=== PATIENT | male | born 1945 | race Caucasian/White ===

== ENCOUNTER 2017-02-20 11:03 | Inpatient (IN) | payer OTHER, BC ==
[2017-02-20 11:22] VITALS: BMI 19.8
[2017-02-20] MEDS ORDERED: DEXTROSE 5%-0.45% SALINE 1,000 ML IV SCH ×2 (11:30→18:29)
[2017-02-20] MEDS ORDERED: LORazepam 1 MG TABLET PO ONE (11:53)
[2017-02-20 11:54] LABS: BASOPHIL 0.5 % (0-2.0); EOSINOPHIL 0.9 % (0-4.5); MCH 28.6 pg (25.7-33.7); MCHC 33.3 g/dl (32.0-35.9); MEAN PLT VOLUME 7.2 fl (7.5-11.1); NEUTROPHILS 79.8 % (42.8-82.8); PLATELET COUNT 393 K/MM3 (134-434); RDW 14.5 % (11.9-15.9); WHITE BLOOD COUNT 8.9 K/mm3 (4.0-10.0)
[2017-02-20] MEDS ORDERED: LORazepam 0.5 MG TABLET ONE (11:57)
[2017-02-20] MEDS ORDERED: CARBIDOPA/LEVODOPA 25/100 TABLET (FP) ONE (11:58)
--- NOTE | 2017-02-20 11:58 | PDOC ---
History of Present Illness - General Chief Complaint: Injury Stated Complaint: FALL Time Seen by Provider: 02/20/17 11:18 History Source: Patient Exam Limitations: No Limitations - History of Present Illness Initial Comments: 02/20/17 11:46 71-year-old male with history of severe Parkinson's, CAD with cardiac stent presents status post mechanical fall. Patient states was walking the kitchen to get something to drink when he lost his balance causing him to fall backwards striking the cabinet and then the ground with his blood tox, back and head. Patient sustained a laceration and when EMS arrived they did do a BGM which was noted to be at 42 so had started D10 in transit. Patient has no complaints of chest pain, visual changes, headache palpitations, difficulty breathing, or nausea. Patient does state decreased appetite and laceration to his back of his head Occurred: reports: just prior to arrival Severity: reports: moderate Pain Location: reports: head Method of Injury: Yes: fall Modifying Factors: improves with: None Loss of Consciousness: no loss of consciousness Associated Symptoms (Fall): denies symptoms Past History - Travel Traveled outside of the country in the last 30 days: No Close contact w/someone who was outside of country & ill: No - Past Medical History Allergies/Adverse Reactions: Allergies Allergy/AdvReac Type Severity Reaction Status Date / Time No Known Allergies Allergy Verified 02/20/17 11:19 Home Medications: Ambulatory Orders Rasagiline Mesylate [Azilect] 1 mg PO DAILY 05/20/12 Amitriptyline HCl [Elavil -] 25 mg PO HS #0 tablet 05/26/12 Aspirin [ASA -] 325 mg PO DAILY #0 tablet 05/26/12 Atorvastatin Calcium [Lipitor] 10 mg PO DAILY #0 tablet 05/26/12 Carbidopa/Levodopa [Carbidopa-Levo 25-100 Tab] 2 each PO 5XD #0 tablet 05/26/12 Clonazepam 0.5 mg PO BID #0 tab.rapdis 05/26/12 Clopidogrel Bisulfate [Plavix -] 75 mg PO DAILY #0 tablet 05/26/12 Tamsulosin HCl 0.4 mg PO DAILY #0 cap.er.24h 05/26/12 Cardiac Disorders: Yes Other medical history: parkinson - Surgical History Abdominal Surgery: Yes (Inguinal hernia repair) Cardiac Surgery: Yes (bypass with 2 stents) - Immunization History Immunization Up to Date: Yes - Psycho/Social/Smoking Cessation Hx Suicidal Ideation: No Smoking Status: No Smoking History: Never smoked Have you smoked in the past 12 months: No Number of Cigarettes Smoked Daily: 0 Information on smoking cessation initiated: No Hx Alcohol Use: No Drug/Substance Use Hx: No Substance Use Type: Alcohol Hx Substance Use Treatment: No Patient Lives Alone: Yes Lives with/in: lives alone Review of Systems - Review of Systems Able to Perform ROS?: Yes Constitutional: No: Symptoms Reported HEENTM: No: Symptoms Reported Respiratory: No: Symptoms reported Cardiac (ROS): No: Symptoms Reported ABD/GI: No: Symptoms Reported : No: Symptoms Reported Musculoskeletal: No: Symptoms Reported Integumentary: No: Symptoms Reported Neurological: No: Numbness, Weakness, Dizziness Endocrine: No: Symptoms Reported Hematologic/Lymphatic: No: Symptoms Reported *Physical Exam - Vital Signs Last Vital Signs Temp Pulse Resp BP Pulse Ox 98.2 F 66 20 125/64 100 02/20/17 11:16 02/20/17 11:16 02/20/17 11:16 02/20/17 11:02/20/17 11:16 - Physical Exam General Appearance: Yes: Nourished, Appropriately Dressed. No: Apparent Distress HEENT: positive: EOMI, MITCHEL, TMs Normal, Pharynx Normal. negative: Pale Conjunctivae Neck: positive: Supple Respiratory/Chest: positive: Lungs Clear, Normal Breath Sounds. negative: Respiratory Distress, Accessory Muscle Use Cardiovascular: positive: Regular Rhythm, Regular Rate. negative: Murmur Gastrointestinal/Abdominal: positive: Soft. negative: Tenderness Musculoskeletal: negative: CVA Tenderness Extremity: positive: Normal Capillary Refill. negative: Pedal Edema Integumentary: positive: Normal Color, Dry, Warm, Other (2 cm vertical linear laceration to occipital region. Surrounding skin intact) Neurologic: positive: Normal Mood/Affect, Motor Strength 5/5 (ambulatory) Deep Tendon Reflexes: Knee (L): 2+, Knee (R): 2+ Procedures - Laceration/Wound Repair Head Wound Length: to 2.5 cm Wound's Depth, Shape: linear Irrigated w/ Saline: Yes Betadine Prep: Yes Wound Repaired With: Harrold (3) Heart Score/ECG Review - History History: Slightly suspicious - Electrocardiogram EKG: Normal - Age Age: >/= 65 - Risk Factors Based on the list above the patient has:: 1-2 risk factors - Troponin Troponin: </= normal limit - Score Heart Score - Total: 3 - ECG Intrepretation Rhythm: Regular Rhythm (normal sinus rhythm rate 70. No ST elevation, depression , or flipped T waves) - ECG Impressions Normal ECG: Yes ED Treatment Course - LABORATORY CBC & Chemistry Diagram: 02/20/17 11:30 02/20/17 11:30 - RADIOLOGY Radiology Studies Ordered: Category Date Time Status CERVICAL SPINE CT W/O CONTR [CT] Stat CT Scan 02/20/17 11:[address] WITHOUT CONTRAST [CT] Stat CT Scan 02/20/17 11:19 Ordered CHEST X-RAY PORTABLE* [RAD] Stat Radiology 02/20/17 11:19 Ordered Medical Decision Making - Medical Decision Making 02/20/17 12:33 Patient status post mechanical fall while in the kitchen , now with laceration to occipital region. Repeat bgm after 100cc of D10 was 76. Pt ordered for d5 1/ 2 ns at 100cc/ hr. Pt also ordered for head ct, cervical ct, Tdap, cardiac w/u and will discuss case with Dr. Boo, pt's PMD. Pt with severe parkinsons despite sinemet. Pt's gait, adls and speech are affected due to parkinsons. 02/20/17 14:06 CT shows no acute intracranial hemorrhage, edema, midline shift, mass effect or skull fracture. Cervical CT shows no gross fracture or subluxation. Chest x-ray negative for acute findings. 02/20/17 14:07 Laboratory Tests 02/20/17 02/20/17 02/20/17 11:30 11:30 11:45 WBC 8.9 Hgb 14.5 Hct 43.6 RDW 14.5 MPV 7.2 L Neutrophils % 79.8 VBG pH 7.40 POC VBG pCO2 54.9 H POC VBG pO2 20.8 L Mixed VBG HCO3 33.1 H Sodium 143 Potassium 4.5 Chloride 104 Carbon Dioxide 32 Anion Gap 7 L BUN 26 H Creatinine 1.2 Random Glucose 80 Calcium 8.8 Magnesium 2.2 Total Bilirubin 0.8 D AST 13 L D ALT 9 L D Alkaline Phosphatase 53 Creatine Kinase 48 Troponin I < 0.[address] Boo patient's PCP. 02/20/17 14:[address] Boo and states admit patient to the hospitalist service. Laceration repair will be done with alberto. 02/20/17 15:[address] Carrion and accepted to telemetry observation status 02/20/17 15:48 Laboratory Tests 02/20/17 02/20/17 02/20/17 11:30 11:30 11:45 WBC 8.9 Hgb 14.5 Hct 43.6 Plt Count 393 MPV 7.2 L Neutrophils % 79.8 Lymphocytes % 13.6 D Monocytes % 5.2 Eosinophils % 0.9 Basophils % 0.5 POC VBG pCO2 54.9 H POC VBG pO2 20.8 L Mixed VBG HCO3 33.1 H Sodium 143 Potassium 4.5 Chloride 104 Carbon Dioxide 32 Creatinine 1.2 Random Glucose 80 Calcium 8.8 Magnesium 2.2 Total Bilirubin 0.8 D AST 13 L D ALT 9 L D Troponin I < 0.02 Urine Ketones Urine Bilirubin Ur Leukocyte Esterase 02/20/17 14:33 WBC Hgb Hct Plt Count MPV Neutrophils % Lymphocytes % Monocytes % Eosinophils % Basophils % POC VBG pCO2 POC VBG pO2 Mixed VBG HCO3 Sodium Potassium Chloride Carbon Dioxide Creatinine Random Glucose Calcium Magnesium Total Bilirubin AST ALT Troponin I Urine Ketones Negative Urine Bilirubin Negative Ur Leukocyte Esterase Negative 02/20/17 16:[address] 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 Patient has been upgraded to inpatient telemetry *DC/Admit/Observation/Transfer Diagnosis at time of Disposition: Weakness, Poor appetite, Hypoglycemia Head injury Qualifiers: Qualified Code(s): S09.90XA - Unspecified injury of head, initial encounter - Discharge Dispostion Admit: Yes - Referrals
[2017-02-20 11:59] LABS: VENOUS BLOOD GAS HCO3 33.1 meq/L (19-25); VENOUS PH 7.4 (7.32-7.42)
[2017-02-20 12:19] LABS: ANION GAP 7 (8-16); BILIRUBIN,TOTAL 0.8 mg/dL (0.2-1.0); CALCIUM 8.8 mg/dL (8.5-10.1); CO2 32 mmol/L (21-32); CREATININE 1.2 mg/dL (0.7-1.3); GLUCOSE,RANDOM 80 mg/dL (74-106); MAGNESIUM 2.2 mg/dL (1.8-2.4); SGOT/AST 13 U/L (15-37); SGPT/ALT 9 U/L (12-78); TOT PROT 6.6 g/dl (6.4-8.2)
[2017-02-20 12:21] LABS: ALK PHOS 53 U/L (45-117); CPK 48 IU/L (39-308); TROPONIN I < 0.02 ng/ml (0.00-0.05)
[2017-02-20 15:07] LABS: PH,URINE 7.5 (5.0-8.0); URINE APPEARANCE CLEAR; URINE BILIRUBIN NEGATIVE (NEGATIVE); URINE BLOOD NEGATIVE (NEGATIVE); URINE COLOR LT. YELLOW; URINE GLUCOSE (UA) NEGATIVE (NEGATIVE); URINE KETONE NEGATIVE (NEGATIVE); URINE LEUK ESTERASE NEGATIVE (NEGATIVE); URINE NITRITE NEGATIVE (NEGATIVE); URINE PROTEIN NEGATIVE (NEGATIVE); URINE UROBILINOGEN 0.2 mg/dL (0.2-1.0)
--- NOTE | 2017-02-20 17:55 | HP ---
Admitting History and Physical - Primary Care Physician PCP: Ricki Medina - Admission Chief Complaint: hypoglycemia, s/p fall, progressive weakness History of Present Illness: HPI This 71 year old male with pmhx of severe Parkinson's, CAD with cardiac stent presented by EMS s/p post mechanical fall. The patient states he was walking to the kitchen to get a glass of water and he lost his balance falling to the floor. He did hit his head and his brother found him. EMS arrived BGM was 42 and he was given D 10. Upon evaluation in the ED the patient denies blurry vision, chest pain, head ache, sob or palpitations. On telemetry he had a burst of SVT to 120's, asymptomatic. Further more, pt is essential with 24 hour care, between 2 aids and his brother. He sometimes uses his cane and will eat or lie about eating. I discussed at length with patient regarding importance of communication and listening to which both brothers agreed, additionally, the pt will need a walker and not use a cane for additional stability. 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 Cardiovascular: Yes: CAD (stents), Hyperlipdemia - Past Surgical History Past Surgical History: Yes: Stent - Advance Directives Advance Directives: Yes: Health Care Proxy (brother- alexander) - Smoking History Smoking history: Never smoked Have you smoked in the past 12 months: No Aproximately how many cigarettes per day: 0 - Alcohol/Substance Use Hx Alcohol Use: No History of Substance Use: reports: None - Social History Usual Living Arrangement: Yes: With Parent, Other (with brother) ADL: Support Services History of Recent Travel: No Home Medications - Allergies Allergies/Adverse Reactions: Allergies Allergy/AdvReac Type Severity Reaction Status Date / Time No Known Allergies Allergy Verified 02/20/17 11:19 - Home Medications Home Medications: Ambulatory Orders Amitriptyline HCl [Elavil -] 25 mg PO HS #0 tablet 05/26/12 Atorvastatin Calcium [Lipitor] 10 mg PO DAILY #0 tablet 05/26/12 Carbidopa/Levodopa [Carbidopa-Levo 25-100 Tab] 2 each PO 5XD #0 tablet 05/26/12 Tamsulosin HCl 0.4 mg PO DAILY #0 cap.er.24h 05/26/12 Amitriptyline HCl [Elavil -] 25 mg PO HS #30 tablet 02/23/17 Aspirin [ASA -] 325 mg PO DAILY #30 tablet 02/23/17 Atorvastatin Ca [Lipitor] 10 mg PO HS #30 tablet 02/23/17 Carbidopa/Levodopa 25/100 [Sinemet 25/100 -] 2 each PO 5XD #300 tablet 02/23/17 Clonazepam 0.5 mg PO BID #60 tab MDD 2 02/23/17 Clopidogrel Bisulfate [Plavix -] 75 mg PO DAILY #30 tab 02/23/17 Rasagiline Mesylate [Azilect] 1 mg PO DAILY #30 tab 02/23/17 Tamsulosin HCl [Flomax -] 0.4 mg PO DAILY@0830 #30 tab 02/23/17 Review of Systems - Review of Systems Constitutional: reports: Weakness Eyes: reports: No Symptoms HENT: reports: No Symptoms Neck: reports: No Symptoms Cardiovascular: reports: No Symptoms Respiratory: reports: No Symptoms Gastrointestinal: reports: No Symptoms Genitourinary: reports: No Symptoms Musculoskeletal: reports: No Symptoms Integumentary: reports: No Symptoms Neurological: reports: Pre-Existing Deficit (parkinsons) Endocrine: reports: No Symptoms Hematology/Lymphatic: reports: No Symptoms Psychiatric: reports: No Symptoms Physical Examination Vital Signs: Vital Signs Temperature 98.2 F 02/20/17 16:09 Pulse Rate 89 02/20/17 16:09 Respiratory Rate 20 02/20/17 16:09 Blood Pressure 142/88 02/20/17 16:09 O2 Sat by Pulse Oximetry (%) 100 02/20/17 16:09 Constitutional: Yes: No Distress Eyes: Yes: Conjunctiva Clear HENT: Yes: Other (posterior head laceration) Neck: Yes: Supple Cardiovascular: Yes: Bradycardia, S1, S2 Respiratory: Yes: Regular, CTA Bilaterally Gastrointestinal: Yes: Normal Bowel Sounds, Soft Renal/: Yes: WNL Musculoskeletal: Yes: Muscle Weakness Edema: No Integumentary: Yes: Laceration Neurological: Yes: Alert, Oriented, Cran Nerves II-XII Intact, Pre-Existing Deficit, Unsteady Gait, Weakness Psychiatric: Yes: Alert, Oriented Imaging - Results Chest X-ray: Report Reviewed, Image Reviewed Cat Scan: Report Reviewed (CT HEAD- no bleeding, shift, hemorrhage CT cervical spine- no fracture, nerve impingment) Problem List - Problems (1) Head injury Code(s): S09.90XA - UNSPECIFIED INJURY OF HEAD, INITIAL ENCOUNTER Qualifiers: Encounter type: initial encounter Qualified Code(s): S09.90XA - Unspecified injury of head, initial encounter (2) Hypoglycemia Code(s): E16.2 - HYPOGLYCEMIA, UNSPECIFIED (3) Weakness Code(s): R53.1 - WEAKNESS (4) Parkinson disease Code(s): G20 - PARKINSON'S DISEASE (5) Paroxysmal SVT (supraventricular tachycardia) Code(s): I47.1 - SUPRAVENTRICULAR TACHYCARDIA Assessment/Plan Assessment: 71 year old male with severe parkinson's and HLD admitted s/p fall Plan: 1. s/p fall - Repeat head CT per AM eval, pt does not take plavix anymore - No signs of AMS nor confusion at this time 2. Burst of SVT - Telemetry monitoring - Assembling Machine Operator Dr. Mckeon to see - Hold ASA for now 3. Parkinson's, severe - Carbidopa/levodopa 2 tabs 5x/day - Elavil 25mg HS 4. Social - I discussed at length with patient regarding importance of communication and listening to which both brothers agreed, additionally, the pt will need a walker and not use a cane for additional stability. - PT eval - Dietary eval 5. Hypoglycemia - Monitor sugars BID AC - Complete 1L d5 1/2 NS tonight 6. BPH - Flomax daily 7. DVT ppx - Hold systemic AC for now - SCDs Visit type - Emergency Visit Emergency Visit: Yes ED Registration Date: 02/20/17 Care time: The patient presented to the Emergency Department on the above date and was hospitalized for further evaluation of their emergent condition. - New Patient This patient is new to me today: Yes Date on this admission: 02/26/17 - Critical Care Critical Care patient: No
--- NOTE | 2017-02-20 18:43 | CONS ---
DATE OF CONSULTATION: 02/20/2017 TIME OF CONSULTATION: 5:05 p.m. REQUESTING PHYSICIAN: Hospitalist . CARDIOLOGY CONSULTATION LOCATION: Emergency room. HISTORY OF PRESENT ILLNESS: The patient is a 71-year-old white gentleman with history of coronary artery disease, status post PCI/stenting, advanced parkinsonism. Patient was brought to the hospital because he lost his balance and fell, causing laceration of the scalp requiring ablerto. There is a question of abnormality on his electrocardiogram and may have had a short burst of arrhythmia, type uncertain. On questioning, he denies having chest pain or discomfort. There is no history of pain involving the jaw or back. There is no history of dyspnea either at rest or with exertion, no paroxysmal nocturnal dyspnea or orthopnea reported. Denies having hypertension, diabetes mellitus. History of hypercholesterolemia. Patient is also known to have BPH. PAST HISTORY: As mentioned in the history of present illness. SURGICAL HISTORY: Status post left herniorrhaphy. SOCIAL HISTORY: Single. Is invalid because of parkinsonism. No history of smoking reported. No history of excessive use of alcohol. FAMILY HISTORY: Father had heart disease and congestive heart failure. Mother is still alive at 104 and cognitive changes. Has a brother and a sister who apparently are health. ALLERGIES: None recorded. MEDICATION: According to his brother, he is on the following medications: 1. Carbidopa/levodopa 25/250 mg t.i.d. 2. Aspirin 81 mg p.o. daily. 3. Patient had been on Plavix and Lipitor, he discontinued against medical advice. REVIEW OF SYSTEMS: Constitutional: No history of having chills, fever, or night sweats reported. History of weight loss according to his brother, probably related. HEENT: No history of headaches, diplopia, blurred vision. History of hoarseness, apparently had surgical procedure for removal of tumor. No history of tinnitus, or deafness. Cardiovascular: See history of present illness. No history of recent chest pain or discomfort. Respiratory: No history of cough, expectoration or hemoptysis. No history of tuberculosis. Gastrointestinal: No history of nausea, vomiting, melena or hematemesis reported. No history of abdominal pain or discomfort. History of intermittent constipation. Central nervous system: See history of present illness. No history of seizures or syncope. Musculoskeletal: No history of any myalgias or arthralgias. Endocrine: No history of polyuria, polydipsia. No history of intolerance to cold or warm weather. Hematological: No history of bleeding, ecchymosis, or anemia. Genitourinary: History of BPH and symptoms of prostatism, significant nocturia. No history of hematuria. PHYSICAL EXAMINATION: General: A 71-year-old gentleman who has significant physical disability, there is no pallor, cyanosis, clubbing, or jaundice. Vital signs: Blood pressure February 20, 2017, 1609 hours, 142/88 mmHg. Pulse 89 beats per minute and regular. Respirations 20 per minute. Temperature 98.2 degrees Fahrenheit. Neck: Slightly restricted motion, no jugulovenous distention, hepatojugular reflex was negative, carotids were 1 to 2+, no bruits heard, and no thyromegaly was present. Heart: No heaves or thrills. S1 and S2 were normal. No murmur or gallops were heard. Lungs: Clear on auscultation. Abdomen: Soft, nontender. No hepatosplenomegaly or palpable masses were felt. No bruits were heard, and bowel sounds were present. Extremities: No calf tenderness or dependent edema. Pulses were equal, dorsalis pedis and posterior tibial pulses only. LABORATORY DATA: CBC: WBC count was 8900, hemoglobin was 14.5 g, hematocrit was 43.6%, platelet count was 393,000. Normal differential. Chemistry: sodium 143, potassium 4.5, chloride 104, CO2 of 32 mmol/L, BUN 26, creatinine 1.2 mg/dL. Glucose was 80 mg/dL. Magnesium was 2.2 mg/dL. Liver function tests were normal. Troponins were less than 0.02. X-ray chest, impression: No evidence of active pulmonary disease. ECG, poor quality due to tremors. Rhythm appears to be sinus, low voltage in limb leads, slow R wave progression V1 to V3, nonspecific ST changes. IMPRESSION: 1. History of fall causing scalp laceration. 2. Advanced parkinsonism. 3. Coronary artery disease, status post percutaneous coronary intervention/stenting, stable angina pectoris. 4. History of hypercholesterolemia. RECOMMENDATION: 1. Follow up ECG and enzymes. 2. Lipid profile and consider the institution of atorvastatin. 3. Increased ambulation. 4. Physical therapy. 5. Echocardiogram. Thank you for your referral. Yolanda [id number]
[2017-02-20] MEDS: AMITRIPTYLINE HCL 25 MG TABLET (FP) PO SCH (22:27)
[2017-02-20] MEDS: ATORVASTATIN CA 10 MG TABLET (FP) PO SCH (22:27)
[2017-02-20] MEDS: CARBIDOPA/LEVODOPA 25/100 TABLET (FP) PO SCH (22:27)
[2017-02-21] MEDS ORDERED: ACETAMINOPHEN 325 MG TABLET (FP) PO ONE (03:53)
[2017-02-21] MEDS: CARBIDOPA/LEVODOPA 25/100 TABLET (FP) PO SCH ×5 (05:55→21:05)
[2017-02-21 07:47] LABS: BASOPHIL 0.5 % (0-2.0); EOSINOPHIL 2.4 % (0-4.5); MCH 28.2 pg (25.7-33.7); MEAN CELL VOLUME 85.4 fl (80-96); MEAN PLT VOLUME 7.6 fl (7.5-11.1); NEUTROPHILS 72.9 % (42.8-82.8); PLATELET COUNT 385 K/MM3 (134-434); RDW 14.4 % (11.9-15.9); WHITE BLOOD COUNT 7.2 K/mm3 (4.0-10.0)
[2017-02-21 08:12] LABS: ALBUMIN 3.7 g/dl (3.4-5.0); ANION GAP 8 (8-16); CALCIUM 8.8 mg/dL (8.5-10.1); CO2 28 mmol/L (21-32); GLUCOSE,RANDOM 80 mg/dL (74-106); MAGNESIUM 2.3 mg/dL (1.8-2.4); PHOSPHOROUS 2.9 mg/dL (2.5-4.9); SGOT/AST 15 U/L (15-37); SGPT/ALT 8 U/L (12-78); TOT PROT 6.3 g/dl (6.4-8.2)
[2017-02-21 08:15] LABS: ALK PHOS 53 U/L (45-117); CPK 91 IU/L (39-308); TROPONIN I < 0.02 ng/ml (0.00-0.05)
[2017-02-21] MEDS: TAMSULOSIN HCL 0.4 MG CAP.ER.24H (FP) PO SCH (11:07)
--- NOTE | 2017-02-21 12:08 | EKG ---
Test Reason : Blood Pressure : / mmHG Vent. Rate : 059 BPM Atrial Rate : 059 BPM P-R Int : 184 ms QRS Dur : 096 ms QT Int : 408 ms P-R-T Axes : 044 051 070 degrees QTc Int : 403 ms SINUS BRADYCARDIA BASELINE ARTIFACTS. OTHERWISE NORMAL ECG WHEN COMPARED WITH ECG OF 20-FEB-2017 12:01, SLOW R WAVE PROGRESSION IN V1-V3 IS AGAIN NOTED Confirmed by SUNDEEP LOPEZ MD ([id number]) on 02/21/2017 12:08:45 PM Referred By: Ashish KUO Confirmed By:SUNDEEP LOPEZ MD
--- NOTE | 2017-02-21 13:29 | EKG ---
Test Reason : Blood Pressure : / mmHG Vent. Rate : 070 BPM Atrial Rate : 070 BPM P-R Int : 150 ms QRS Dur : 092 ms QT Int : 384 ms P-R-T Axes : 000 047 069 degrees QTc Int : 414 ms POOR DATA QUALITY, INTERPRETATION MAY BE ADVERSELY AFFECTED RHYTHM IS UNCERTAIN DUE TO BASELINE ARTIFACTS CANNOT RULE OUT ANTERIOR INFARCT (CITED ON OR BEFORE 20-FEB-2017) ABNORMAL ECG WHEN COMPARED WITH ECG OF 20-FEB-2017 11:22, PREVIOUS EKG MOST LIKELY HAS LEAD MISPLACEMENT. CONSIDER FOLLOW TRACING AND CLINICAL CORRELATION Confirmed by USNDEEP LOPEZ MD ([id number]) on 02/21/2017 1:29:13 PM Referred By: Confirmed By:SUNDEEP LOPEZ MD
--- NOTE | 2017-02-21 13:37 | EKG ---
Test Reason : Blood Pressure : / mmHG Vent. Rate : 060 BPM Atrial Rate : 060 BPM P-R Int : 136 ms QRS Dur : 082 ms QT Int : 392 ms P-R-T Axes : 000 035 188 degrees QTc Int : 392 ms .BASELINE ARTIFACTS NORMAL SINUS RHYTHM ANTEROSEPTAL INFARCT , AGE UNDETERMINED ABNORMAL ECG WHEN COMPARED WITH ECG OF 16-AUG-2015 08:35, T WAVE INVERSION NOW EVIDENT IN ANTEROLATERAL LEADS FOLLOW UP TRACING IS RECOMMENDED Confirmed by SUNDEEP LOPEZ MD ([id number]) on 02/21/2017 1:36:32 PM Referred By: Confirmed By:SUNDEEP LOPEZ MD
--- NOTE | 2017-02-21 16:21 | DS ---
Physical Exam: SUBJECTIVE: Patient seen and examined OBJECTIVE: Vital Signs Period Temp Pulse Resp BP Sys/Ordoñez Pulse Ox Last 24 Hr 97.2 F-98.6 F 49-82 16-20 129-147/63-89 99-100 PHYSICAL EXAM GENERAL: The patient is awake, alert, and fully oriented, in no acute distress. HEAD: Normal with no signs of trauma. EYES: PERRL, extraocular movements intact, sclera anicteric, conjunctiva clear. ENT: Ears normal, nares patent, oropharynx clear without exudates, moist mucous membranes. NECK: Trachea midline, full range of motion, supple. LUNGS: Breath sounds equal, clear to auscultation bilaterally, no wheezes, no crackles, no accessory muscle use. HEART: Regular rate and rhythm, S1, S2 without murmur, rub or gallop. ABDOMEN: Soft, nontender, nondistended, normoactive bowel sounds, no guarding, no rebound, no hepatosplenomegaly, no masses. EXTREMITIES: 2+ pulses, warm, well-perfused, no edema. NEUROLOGICAL: Cranial nerves II through XII grossly intact. Normal speech, gait not observed. PSYCH: Normal mood, normal affect. SKIN: Warm, dry, normal turgor, no rashes or lesions noted. LABS Laboratory Results - last 24 hr 02/20/17 02/20/17 02/21/17 20:02 22:35 06:00 WBC 7.2 RBC 5.27 Hgb 14.8 Hct 45.0 MCV 85.4 MCH 28.2 MCHC 33.0 RDW 14.4 Plt Count 385 MPV 7.6 Neutrophils % 72.9 Lymphocytes % 16.3 Monocytes % 7.9 Eosinophils % 2.4 D Basophils % 0.5 Sodium Potassium Chloride Carbon Dioxide Anion Gap BUN Creatinine Creat Clearance w eGFR POC Glucometer [id number] 92 Random Glucose Calcium Phosphorus Magnesium Total Bilirubin AST ALT Alkaline Phosphatase Creatine Kinase Troponin I Total Protein Albumin 02/21/17 06:00 WBC RBC Hgb Hct MCV MCH MCHC RDW Plt Count MPV Neutrophils % Lymphocytes % Monocytes % Eosinophils % Basophils % Sodium 142 Potassium 4.3 Chloride 106 Carbon Dioxide 28 Anion Gap 8 BUN 20 H D Creatinine 1.0 Creat Clearance w eGFR > 60 POC Glucometer Random Glucose 80 Calcium 8.8 Phosphorus 2.9 Magnesium 2.3 Total Bilirubin 1.0 D AST 15 ALT 8 L Alkaline Phosphatase 53 Creatine Kinase 91 Troponin I < 0.02 Total Protein 6.3 L Albumin 3.7 HOSPITAL COURSE: Date of Admission:02/20/17 Date of Discharge: 02/21/17 One month scripts for all home meds sent Discharge Summary Reason For Visit: INJURY OF HEAD Current Active Problems Head injury (Acute) Hypoglycemia (Acute) Parkinson disease (Acute) Paroxysmal SVT (supraventricular tachycardia) (Acute) Poor appetite (Acute) Weakness (Acute) Condition: Improved - Instructions Diet, Activity, Other Instructions: Please be sure to followup with your mine motor operator, Dr. Mckeon, within 1-2 weeks of your discharge for further cardiac evaluation. Return to the emergency department for any new or worsening symptoms. Referrals: Ricki Medina MD [Staff Physician] - Gus Mckeon MD [Staff Physician] - 1 Week Disposition: HOME - Home Medications Comprehensive Discharge Medication List: Ambulatory Orders Rasagiline Mesylate [Azilect] 1 mg PO DAILY 05/20/12 Amitriptyline HCl [Elavil -] 25 mg PO HS #0 tablet 05/26/12 Aspirin [ASA -] 325 mg PO DAILY #0 tablet 05/26/12 Atorvastatin Calcium [Lipitor] 10 mg PO DAILY #0 tablet 05/26/12 Carbidopa/Levodopa [Carbidopa-Levo 25-100 Tab] 2 each PO 5XD #0 tablet 05/26/12 Clonazepam 0.5 mg PO BID #0 tab.rapdis 05/26/12 Clopidogrel Bisulfate [Plavix -] 75 mg PO DAILY #0 tablet 05/26/12 Tamsulosin HCl 0.4 mg PO DAILY #0 cap.er.24h 05/26/12
--- NOTE | 2017-02-21 16:27 | PN ---
Progress Note (short form) - Note Progress Note: 71 year old male with h/o CAD,s/p PCI/stenting,hypercholesterolemia, parkisonism.Admitted with h/o a fall causing a scalp laceration and was stapled. No h/o chest pain or discomfort,no SOB,PND or orthopnea.Tolerating his medications. Active Medications Amitriptyline HCl (Elavil -) 25 mg PO HS [facility] Last Admin: 02/20/17 22:27 Dose: 25 mg Atorvastatin Calcium (Lipitor -) 10 mg PO HS [facility] Last Admin: 02/20/17 22:27 Dose: 10 mg Carbidopa/Levodopa (Sinemet 25/100 -) 2 each PO 5XD [facility] Last Admin: 02/21/17 13:58 Dose: 2 each Tamsulosin HCl (Flomax -) 0.4 mg PO DAILY@0830 [facility] Last Admin: 02/21/17 11:07 Dose: 0.4 mg 71 year old male in no distress except for generalised stiffness.No pallor, cyanosis,clubbing or jaundice. Vital Signs - 8 hr 02/21/17 08:05 Temperature 97.8 F Pulse Rate 56 L Respiratory 20 Rate Blood Pressure 131/64 O2 Sat by Pulse 100 Oximetry (%) NECK:Resticted motion,noJVD,carotids 2+, nobruits. HEART:PMI in the 5th ICS,no heaves or thrills.S1 and S2 are normal,no murmur or gallops heard. LUNGS:Clear on auscultation, EXTREMITIES:No calf tenderness,no dependent edema. CBC, BMP 02/21/17 06:00 02/21/17 06:00 A: 1.CAD,s/p PCI/stenting,stable angina pectoris. 2.parkinson's disease. 3.Hypercholesterolemia. 4.Recent fall witout loss of consciousness. 5.Scalp laceration Recommendations: 1.continue therapy. 2.PT. 3.Out patient office f/u.
[2017-02-21] MEDS: AMITRIPTYLINE HCL 25 MG TABLET (FP) PO SCH (21:05)
[2017-02-21] MEDS: ATORVASTATIN CA 10 MG TABLET (FP) PO SCH (21:05)
[2017-02-22 05:17] VITALS: TEMP 98.1
[2017-02-22] MEDS: CARBIDOPA/LEVODOPA 25/100 TABLET (FP) PO SCH ×2 (05:17→09:00)
[2017-02-22 08:12] VITALS: BP 116/69; PULSE 85
[2017-02-22] MEDS: TAMSULOSIN HCL 0.4 MG CAP.ER.24H (FP) PO SCH (08:58)
== END 2017-02-22 10:36 | disposition home or self-care (01) | DRG 914 ==
LOC: JER 11:03 → JERBED 15:47 → OBSVTOIN 16:40 → J4W 21:20
PROVIDERS: ADMIT Internal Medicine; ATTEND Nurse Practitioner Acute Care
PROC: 0HQ0XZZ Repair Scalp Skin, External Approach (ICD-10-PCS; principal; 2017-02-20)
DX: S09.8XXA Other specified injuries of head, initial encounter (principal); I47.1 Supraventricular tachycardia; Z68.1 Body mass index [BMI] 19.9 or less, adult; S01.01XA Laceration without foreign body of scalp, initial encounter; S01.119A Laceration without foreign body of unspecified eyelid and periocular area, initial encounter; I25.10 Atherosclerotic heart disease of native coronary artery without angina pectoris; G20 Parkinson's disease; E78.5 Hyperlipidemia, unspecified; R53.1 Weakness; N40.0 Benign prostatic hyperplasia without lower urinary tract symptoms; F50.89 Other specified eating disorder; E16.1 Other hypoglycemia; W18.09XA Striking against other object with subsequent fall, initial encounter; Y92.098 Other place in other non-institutional residence as the place of occurrence of the external cause; Z95.5 Presence of coronary angioplasty implant and graft
CPT/HCPCS: 36415; 70450-TC; 71010-TC; 72125-TC; 80053; 81003; 82803; 83735; 84100; 84484; 85025; 87086; 93005; 93010; 99283-25; G0378

== ENCOUNTER 2017-03-04 11:29 | Inpatient (IN) | payer OTHER, BC ==
[2017-03-04 11:59] VITALS: BMI 18.2
[2017-03-04 12:59] LABS: BASOPHIL 0.5 % (0-2.0); EOSINOPHIL 0.9 % (0-4.5); MCH 28.4 pg (25.7-33.7); MCHC 33.1 g/dl (32.0-35.9); MEAN CELL VOLUME 85.8 fl (80-96); MEAN PLT VOLUME 6.9 fl (7.5-11.1); NEUTROPHILS 77.7 % (42.8-82.8); PLATELET COUNT 461 K/MM3 (134-434); RDW 14.2 % (11.9-15.9); WHITE BLOOD COUNT 8.7 K/mm3 (4.0-10.0)
[2017-03-04 13:23] LABS: ALBUMIN 3.5 g/dl (3.4-5.0); ALK PHOS 72 U/L (45-117); ANION GAP 5 (8-16); BILIRUBIN,TOTAL 0.5 mg/dL (0.2-1.0); CALCIUM 8.9 mg/dL (8.5-10.1); CO2 31 mmol/L (21-32); CREATININE 1.1 mg/dL (0.7-1.3); GLUCOSE,RANDOM 89 mg/dL (74-106); SGOT/AST 14 U/L (15-37); SGPT/ALT 8 U/L (12-78); TOT PROT 6.5 g/dl (6.4-8.2)
[2017-03-04 13:25] LABS: CPK 60 IU/L (39-308); TROPONIN I < 0.02 ng/ml (0.00-0.05)
[2017-03-04 13:32] LABS: INR 1.11 (0.82-1.09); PROTHROMBIN TIME (PATIENT) 12.2 SEC (9.98-11.88)
[2017-03-04 13:35] LABS: ACTIVATED PTT 32.4 SECONDS (26.9-34.4)
--- NOTE | 2017-03-04 14:23 | PDOC ---
History of Present Illness <Aurora Lal - Last Filed: 03/04/17 14:36> - History of Present Illness Initial Comments: 03/04/17 14:15 "The patient is a 71 year old male, with a significant past medical history of Parkinson's disease, CAD w 2 stents (~11 yrs ago), who was BIBA to the emergency department complaining of chest tightness. Patients brother states that patient experienced chest tightness around 10:30 this morning. The patient is not currently experiencing any chest pain. Patients brother noted that patient has right lower extremity swelling. Patients brother states patient was in the ER 2 weeks ago for a fall and had to receive alberto in his head. He denies any recent fevers, chills, headache or dizziness. He denies any recent nausea, vomit, diarrhea or constipation. He denies any recent shortness of breath. He denies any recent dysuria, frequency, urgency or hematuria. Allergies: NKA Past surgical history: None reported. Primary Care Physician: Ricki Medina" <Donte Coon - Last Filed: 03/04/17 15:10> - General Chief Complaint: Chest Pain Stated Complaint: CHEST PAIN Time Seen by Provider: 03/04/17 12:00 Past History <Aurora Lal - Last Filed: 03/04/17 14:36> - Past Medical History Cardiac Disorders: Yes - Surgical History Abdominal Surgery: Yes (Inguinal hernia repair) Cardiac Surgery: Yes (bypass with 2 stents) - Immunization History Immunization Up to Date: Yes - Psycho/Social/Smoking Cessation Hx Anxiety: No Suicidal Ideation: No Smoking Status: No Smoking History: Never smoked Have you smoked in the past 12 months: No Number of Cigarettes Smoked Daily: 0 Information on smoking cessation initiated: No Hx Alcohol Use: No Drug/Substance Use Hx: No Substance Use Type: None Hx Substance Use Treatment: No <Donte Coon - Last Filed: 03/04/17 15:10> - Past Medical History Allergies/Adverse Reactions: Allergies Allergy/AdvReac Type Severity Reaction Status Date / Time No Known Allergies Allergy Verified 02/20/17 11:19 Home Medications: Ambulatory Orders Aspirin [ASA -] 325 mg PO DAILY #30 tablet 02/23/17 Atorvastatin Ca [Lipitor] 10 mg PO HS #30 tablet 02/23/17 Carbidopa/Levodopa 25/100 [Sinemet 25/100 -] 2 each PO 5XD #300 tablet 02/23/17 Clonazepam 0.5 mg PO BID #60 tab MDD 2 02/23/17 Clopidogrel Bisulfate [Plavix -] 75 mg PO DAILY #30 tab 02/23/17 Rasagiline Mesylate [Azilect] 1 mg PO DAILY #30 tab 02/23/17 Tamsulosin HCl [Flomax -] 0.4 mg PO DAILY@0830 #30 tab 02/23/17 Review of Systems - Review of Systems Comments:: 03/04/17 14:23 "GENERAL/CONSTITUTIONAL: No fever or chills. No weakness. HEAD, EYES, EARS, NOSE AND THROAT: No change in vision. No ear pain or discharge. No sore throat. CARDIOVASCULAR: +chest pain. No shortness of breath. RESPIRATORY: No cough, wheezing, or hemoptysis. GASTROINTESTINAL: No nausea, vomiting, diarrhea or constipation. GENITOURINARY: No dysuria, frequency, or change in urination MUSCULOSKELETAL: + right lower extremity edema. No joint or muscle swelling or pain. No neck or back pain. SKIN: No rash NEUROLOGIC: No headache, vertigo, loss of consciousness, or change in strength/ sensation. ENDOCRINE: No increased thirst. No abnormal weight change. HEMATOLOGIC/LYMPHATIC: No anemia, easy bleeding, or history of blood clots. ALLERGIC/IMMUNOLOGIC: No hives or skin allergy." <Donte Coon - Last Filed: 03/04/17 15:10> *Physical Exam - Vital Signs Last Vital Signs Temp Pulse Resp BP Pulse Ox 98.2 F 66 16 112/64 100 03/04/17 11:48 03/04/17 11:48 03/04/17 11:48 03/04/17 11:48 03/04/17 11:48 <Aurora Lal - Last Filed: 03/04/17 14:36> - Vital Signs Last Vital Signs Temp Pulse Resp BP Pulse Ox 98.2 F 66 16 112/64 100 03/04/17 11:48 03/04/17 11:48 03/04/17 11:48 03/04/17 11:48 03/04/17 11:48 - Physical Exam Comments: 03/04/17 14:24 "GENERAL: Awake, alert, and fully oriented, in no acute distress HEAD: No signs of trauma EYES: PERRLA, EOMI, sclera anicteric, conjunctiva clear ENT: Auricles normal inspection, hearing grossly normal, nares patent, oropharynx clear without exudates. Moist mucosa NECK: Normal ROM, supple, no lymphadenopathy, JVD, or masses LUNGS: Breath sounds equal, clear to auscultation bilaterally. No wheezes, and no crackles HEART: Regular rate and rhythm, normal S1 and S2, no murmurs, rubs or gallops ABDOMEN: Soft, nontender, normoactive bowel sounds. No guarding, no rebound. No masses EXTREMITIES: Normal range of motion, no edema. No clubbing or cyanosis. No cords, erythema, or tenderness NEUROLOGICAL: Cranial nerves II through XII grossly intact. Normal speech, normal gait SKIN: Warm, Dry, normal turgor, no rashes or lesions noted. " <ShaggyDonte - Last Filed: 03/04/17 15:10> Heart Score/ECG Review - ECG Impressions Comment:: 03/04/17 14:35 NORMAL SINUS RHYTHM NORMAL ECG WHEN COMPARED WITH ECG OF 21-FEB-2017 10:22, NO SIGNIFICANT CHANGE WAS FOUND <Aurora Lal - Last Filed: 03/04/17 14:36> - History History: Moderately suspicious - Electrocardiogram EKG: Normal - Age Age: >/= 65 - Risk Factors Risk Factors Heart Score: Yes Hx Hypercholesterolemia, Yes Hx Hypertension, Yes Positive family hx of cardiac disease Based on the list above the patient has:: >/=3 risk factors or Hx atherosclerotic disease - Troponin Troponin: </= normal limit - Score Heart Score - Total: 5 - ECG Impressions Comment:: 03/04/17 14:59 NSr, no ALINA/STDs, no TWIs, intervals wnl, axis wnl <Corry Coonan - Last Filed: 03/04/17 15:10> ED Treatment Course - LABORATORY CBC & Chemistry Diagram: 03/04/17 12:45 03/04/17 12:45 - ADDITIONAL ORDERS Additional order review: Laboratory Results 03/04/17 03/04/17 03/04/17 12:45 12:45 12:45 INR 1.11 PTT (Actin FS) 32.4 D-Dimer Sodium 140 Potassium 5.0 Chloride 104 Carbon Dioxide 31 Anion Gap 5 L BUN 24 H Creatinine 1.1 Creat Clearance w eGFR > 60 Random Glucose 89 Calcium 8.9 Total Bilirubin 0.5 D AST 14 L ALT 8 L Alkaline Phosphatase 72 D Creatine Kinase Troponin I B-Natriuretic Peptide Total Protein 6.5 Albumin 3.5 Blood Type A POSITIVE Antibody Screen Negative 03/04/17 03/04/17 12:45 12:45 INR PTT (Actin FS) D-Dimer 202 Sodium Potassium Chloride Carbon Dioxide Anion Gap BUN Creatinine Creat Clearance w eGFR Random Glucose Calcium Total Bilirubin AST ALT Alkaline Phosphatase Creatine Kinase 60 Troponin I < 0.02 B-Natriuretic Peptide 100.38 Total Protein Albumin Blood Type Antibody Screen 03/04/17 12:45 RBC 4.86 MCV 85.8 MCHC 33.1 RDW 14.2 MPV 6.9 L Neutrophils % 77.7 Lymphocytes % 12.8 D Monocytes % 8.1 Eosinophils % 0.9 Basophils % 0.5 - RADIOLOGY Radiograph Interpretation: 03/04/17 14:33 Chest X-Ray Impression: No acute pathology or significant change since 02/20/2017 Reported by Ashish Melgoza MD <Aurora Lal - Last Filed: 03/04/17 14:36> - LABORATORY CBC & Chemistry Diagram: 03/04/17 12:45 03/04/17 12:45 - ADDITIONAL ORDERS Additional order review: Laboratory Results 03/04/17 03/04/17 03/04/17 12:45 12:45 12:45 INR 1.11 PTT (Actin FS) 32.4 D-Dimer Sodium 140 Potassium 5.0 Chloride 104 Carbon Dioxide 31 Anion Gap 5 L BUN 24 H Creatinine 1.1 Creat Clearance w eGFR > 60 Random Glucose 89 Calcium 8.9 Total Bilirubin 0.5 D AST 14 L ALT 8 L Alkaline Phosphatase 72 D Creatine Kinase Troponin I B-Natriuretic Peptide Total Protein 6.5 Albumin 3.5 Blood Type A POSITIVE Antibody Screen Negative 03/04/17 03/04/17 12:45 12:45 INR PTT (Actin FS) D-Dimer 202 Sodium Potassium Chloride Carbon Dioxide Anion Gap BUN Creatinine Creat Clearance w eGFR Random Glucose Calcium Total Bilirubin AST ALT Alkaline Phosphatase Creatine Kinase 60 Troponin I < 0.02 B-Natriuretic Peptide 100.38 Total Protein Albumin Blood Type Antibody Screen 03/04/17 12:45 RBC 4.86 MCV 85.8 MCHC 33.1 RDW 14.2 MPV 6.9 L Neutrophils % 77.7 Lymphocytes % 12.8 D Monocytes % 8.1 Eosinophils % 0.9 Basophils % 0.5 - RADIOLOGY Radiology Studies Ordered: Category Date Time Status CHEST X-RAY PORTABLE* [RAD] Stat Radiology 03/04/17 12:39 Completed DUPLEX VASCUL US-2LEGS [US] Stat Ultrasound 03/04/17 13:46 Ordered <Donte Coon - Last Filed: 03/04/17 15:10> Medical Decision Making - Medical Decision Making 03/04/17 14:59 71 M with CAD/stents, parkinsons, presenting with transient midsternal chest pressure. Concerning for ACS given h/o stents. EKG nonischemic. Also consider PE given RLE swelling. - Labs, trop, ddimer - LE dopplers - Consider CTPE if indicated - Admit tele 03/04/17 15:09 Dimer negative, will defer CTPE for now. Trop negative. Admit to tele for ACS rule out. <Donte Coon - Last Filed: 03/04/17 15:10> *DC/Admit/Observation/Transfer - Attestations Scribe Attestion: 03/04/17 14:36 Documentation prepared by Aurora Lal, acting as medical office receptionist for Donte Coon MD. <Aurora Lal - Last Filed: 03/04/17 14:36> - Discharge Dispostion Admit: Yes - Attestations Physician Attestion: 03/04/17 15:10 I, Dr. Donte Coon MD, attest that this document has been prepared under my direction and personally reviewed by me in its entirety. I further attest, that it accurately reflects all work, treatment, procedures and medical decision -making performed by me. <Donte Coon - Last Filed: 03/04/17 15:10> Diagnosis at time of Disposition: Chest pain - Referrals Referrals: Ricki Medina MD [Primary Care Provider] -
--- NOTE | 2017-03-04 16:34 | CON.PULM ---
Consult Consult Specialty:: PULMONARY Referred by:: TIFFANIE Reason for Consultation:: SOB - History of Present Illness Chief Complaint: FALL WITH RIGHT KNEE PAIN/CHEST PAIN/SOB History of Present Illness: " The patient is a 71 year old male, with a significant past medical history of progressive Parkinson's disease, CAD w 2 stents (~11 yrs ago), who was BIBA to the emergency department complaining of chest tightness. Patients brother states that patient experienced chest tightness around 10:30 this morning. The patient is not currently experiencing any chest pain. Patients brother noted that patient has right lower extremity swelling and right knee trauma from a fall. Patients brother states patient was in the ER 2 weeks ago for a fall and had to receive alberto in his head. He denies any recent fevers, chills, headache or dizziness. He denies any recent nausea, vomit, diarrhea or constipation. He denies any recent shortness of breath. He denies any recent dysuria, frequency, urgency or hematuria. 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 No: Alzheimer's, CVA, Dementia, Migraine Cardio/Vascular: Yes: CAD (stents), Hyperlipdemia. No: AFIB Pulmonary: No: Cancer, COPD Gastrointestinal: No: Ascites Hepatobiliary: No: Cirrhosis Renal/: No: Renal Failure Heme/Onc: No: Anemia Infectious Disease: No: AIDS Psych: No: Addictions Musculoskeletal: No: Bursitis Rheumatology: No: Fibromyalgia ENT: No: Allergic Rhinitis Endocrine: No: Diabetes Mellitus - Past Surgical History Past Surgical History: Yes: Stent - Alcohol/Substance Use Hx Alcohol Use: No History of Substance Use: reports: None - Smoking History Smoking history: Never smoked Have you smoked in the past 12 months: No Aproximately how many cigarettes per day: 0 - Social History ADL: Support Services History of Recent Travel: No Home Medications - Allergies Allergies/Adverse Reactions: Allergies Allergy/AdvReac Type Severity Reaction Status Date / Time No Known Allergies Allergy Verified 02/20/17 11:19 - Home Medications Home Medications: Ambulatory Orders Aspirin [ASA -] 325 mg PO DAILY #30 tablet 02/23/17 Atorvastatin Ca [Lipitor] 10 mg PO HS #30 tablet 02/23/17 Carbidopa/Levodopa 25/100 [Sinemet 25/100 -] 2 each PO 5XD #300 tablet 02/23/17 Clonazepam 0.5 mg PO BID #60 tab MDD 2 02/23/17 Clopidogrel Bisulfate [Plavix -] 75 mg PO DAILY #30 tab 02/23/17 Rasagiline Mesylate [Azilect] 1 mg PO DAILY #30 tab 02/23/17 Tamsulosin HCl [Flomax -] 0.4 mg PO DAILY@0830 #30 tab 02/23/17 Family Disease History - Family Disease History Family History: Unremarkable Review of Systems - Review of Systems Constitutional: reports: Lethargy, Loss of Appetite, Weakness. denies: Diaphoresis, Fever Eyes: denies: Double Vision HENT: denies: Difficult Swallowing, Ear Discharge Neck: reports: Decreased ROM Cardiovascular: reports: Chest Pain Respiratory: denies: Cough, SOB, SOB on Exertion Gastrointestinal: denies: Abdominal Pain Genitourinary: denies: Burning Breasts: reports: No Symptoms Reported Musculoskeletal: reports: No Symptoms Physical Exam Vital Sings: Vital Signs Temperature 98.2 F 03/04/17 11:48 Pulse Rate 66 03/04/17 11:48 Respiratory Rate 16 03/04/17 11:48 Blood Pressure 112/64 03/04/17 11:48 O2 Sat by Pulse Oximetry (%) 100 03/04/17 11:48 Constitutional: Yes: Mild Distress, Thin Eyes: Yes: Conjunctiva Clear HENT: Yes: Normocephalic Neck: Yes: Trachea Midline Cardiovascular: Yes: Regular Rate and Rhythm Respiratory: Yes: CTA Bilaterally Gastrointestinal: Yes: Soft Extremities: Yes: Erythema, Other (edema right knee) Integumentary: Yes: WNL Neurological: Yes: Pre-Existing Deficit (progressive parkinsons disease) Psychiatric: Yes: Alert Labs: reviewed Imaging - Results Chest X-ray: Report Reviewed, Image Reviewed EKG: Report Reviewed, Image Reviewed Problem List - Problems (1) Chest pain Code(s): R07.9 - CHEST PAIN, UNSPECIFIED (2) Parkinson disease Code(s): G20 - PARKINSON'S DISEASE (3) Poor appetite Code(s): R63.0 - ANOREXIA (4) Weakness Code(s): R53.1 - WEAKNESS (5) Accidental fall Code(s): W19.XXXA - UNSPECIFIED FALL, INITIAL ENCOUNTER Assessment/Plan neuro eval/aspiration precautions ortho eval for possible right knee hemarthrosis/check xray serial ekg/cycle trops cardiac eval may need snf rehab upon discharge Dora HERNANDEZ MD
--- NOTE | 2017-03-04 16:42 | HP ---
Admitting History and Physical - Primary Care Physician PCP: Ricki Medina - Admission Chief Complaint: chest pain, lower leg tightness, fall History of Present Illness: This 71 year old male with pmhx of severe Parkinson's, CAD with cardiac stent presented with chest pain, lower extremity tightness and fall. Per patient brother pt had completed breakfast when he started yelling. When arrived to pt room he complained of chest pain and abdominal pain. Per patient he does not recall chest pain but lower extremity tightness and wanted to get out of bed. Chest pain is now resolved. Pt brother does endorse pt has good ambulating day and others when he is weak and falls even thought instructed to sit. He has R knee swelling. 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 Cardiovascular: Yes: CAD (stents), Hyperlipdemia Pulmonary: Yes: COPD Hepatobiliary: Yes: Cirrhosis Endocrine: No: Diabetes Mellitus - Past Surgical History Past Surgical History: Yes: Stent - Smoking History Smoking history: Never smoked Have you smoked in the past 12 months: No Aproximately how many cigarettes per day: 0 - Alcohol/Substance Use Hx Alcohol Use: No History of Substance Use: reports: None - Social History Usual Living Arrangement: Yes: With Parent (and brother) ADL: Support Services History of Recent Travel: No Home Medications - Allergies Allergies/Adverse Reactions: Allergies Allergy/AdvReac Type Severity Reaction Status Date / Time No Known Allergies Allergy Verified 02/20/17 11:19 - Home Medications Home Medications: Ambulatory Orders Aspirin [ASA -] 325 mg PO DAILY #30 tablet 02/23/17 Atorvastatin Ca [Lipitor] 10 mg PO HS #30 tablet 02/23/17 Carbidopa/Levodopa 25/100 [Sinemet 25/100 -] 2 each PO 5XD #300 tablet 02/23/17 Clonazepam 0.5 mg PO BID #60 tab MDD 2 02/23/17 Clopidogrel Bisulfate [Plavix -] 75 mg PO DAILY #30 tab 02/23/17 Rasagiline Mesylate [Azilect] 1 mg PO DAILY #30 tab 02/23/17 Tamsulosin HCl [Flomax -] 0.4 mg PO DAILY@0830 #30 tab 02/23/17 Review of Systems - Review of Systems Constitutional: reports: No Symptoms Eyes: reports: No Symptoms HENT: reports: No Symptoms Neck: reports: No Symptoms Cardiovascular: reports: Chest Pain Respiratory: reports: No Symptoms Gastrointestinal: reports: Abdominal Pain Genitourinary: reports: No Symptoms Musculoskeletal: reports: Muscle Weakness (le muscle tightness) Integumentary: reports: Other (posterior head wound - scabbed over) Neurological: reports: Pre-Existing Deficit (severe parkinsons) Endocrine: reports: No Symptoms Hematology/Lymphatic: reports: No Symptoms Psychiatric: reports: No Symptoms Physical Examination Vital Signs: Vital Signs Temperature 98.2 F 03/04/17 11:48 Pulse Rate 66 03/04/17 11:48 Respiratory Rate 16 03/04/17 11:48 Blood Pressure 112/64 03/04/17 11:48 O2 Sat by Pulse Oximetry (%) 100 03/04/17 11:48 Constitutional: Yes: Calm Eyes: Yes: WNL HENT: Yes: WNL Neck: Yes: Supple Cardiovascular: Yes: Regular Rate and Rhythm, S1, S2 Respiratory: Yes: Regular, CTA Bilaterally Gastrointestinal: Yes: Normal Bowel Sounds, Soft Renal/: Yes: WNL Musculoskeletal: Yes: Muscle Weakness Extremities: Yes: Other (R knee swelling) Edema: No Peripheral Pulses WNL: Yes Integumentary: Yes: Laceration (posterior skull tear scabbed) Wound/Incision: Yes: Open to air (posterior) Neurological: Yes: Alert, Oriented, Pre-Existing Deficit, Tremors, Unsteady Gait , Weakness Imaging - Results Chest X-ray: Report Reviewed (no acute pathology), Image Reviewed Ultrasound: Report Reviewed (no evidence of DVT) Assessment/Plan Assessment: 71 year old male with severe Parkinson's and HLD admitted with chest pain and lower leg tightness Plan: 1. 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 Parkinson's, severe - Increased falls - Carbidopa/levodopa 2 tabs 5x/day - Neuro consult 3. R knee swelling - R knee xray - Ortho consult 4. Social - PT would like short term rehab, will discuss with social work 5. BPH - Flomax daily 6. DVT ppx - Heparin BID Visit type - Emergency Visit Emergency Visit: Yes ED Registration Date: 03/05/17 Care time: The patient presented to the Emergency Department on the above date and was hospitalized for further evaluation of their emergent condition. - New Patient This patient is new to me today: No - Critical Care Critical Care patient: No
[2017-03-04] MEDS: CARBIDOPA/LEVODOPA 25/100 TABLET (FP) PO SCH ×3 (16:49→21:36)
--- NOTE | 2017-03-04 18:02 | CON.NEURO ---
Consult - History of Present Illness History of Present Illness: 71 year old male with pmhx of severe Parkinson's, CAD with cardiac stent presented with chest pain, lower extremity tightness and fall. When arrived to pt room he complained of chest pain and abdominal pain. Per patient he does not recall chest pain but lower extremity tightness and wanted to get out of bed. Chest pain is now resolved. lives with mother and grandmother; more immobile , ? over time frame, parkinsons tremor worse LE >UE; has seen Dr Vargas as well as another neuro in [facility] (> one yr --he is not sure); on sinemet 25/100(2) 5x/day --unclear when last adjusted. he admits more difficult to ambulate and speak bc of parkinsons. 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 Cardio/Vascular: Yes: CAD (stents), Hyperlipdemia Pulmonary: Yes: COPD Gastrointestinal: No: Ascites Hepatobiliary: Yes: Cirrhosis Renal/: No: Renal Failure Infectious Disease: No: AIDS Psych: No: Addictions Musculoskeletal: No: Bursitis Rheumatology: No: Fibromyalgia ENT: No: Allergic Rhinitis Endocrine: No: Diabetes Mellitus - Past Surgical History Past Surgical History: Yes: Stent - Alcohol/Substance Use Hx Alcohol Use: No History of Substance Use: reports: None - Smoking History Smoking history: Never smoked Have you smoked in the past 12 months: No Aproximately how many cigarettes per day: 0 - Social History ADL: Support Services History of Recent Travel: No Home Medications - Allergies Allergies/Adverse Reactions: Allergies Allergy/AdvReac Type Severity Reaction Status Date / Time No Known Allergies Allergy Verified 02/20/17 11:19 - Home Medications Home Medications: Ambulatory Orders Aspirin [ASA -] 325 mg PO DAILY #30 tablet 02/23/17 Atorvastatin Ca [Lipitor] 10 mg PO HS #30 tablet 02/23/17 Carbidopa/Levodopa 25/100 [Sinemet 25/100 -] 2 each PO 5XD #300 tablet 02/23/17 Clonazepam 0.5 mg PO BID #60 tab MDD 2 02/23/17 Clopidogrel Bisulfate [Plavix -] 75 mg PO DAILY #30 tab 02/23/17 Rasagiline Mesylate [Azilect] 1 mg PO DAILY #30 tab 02/23/17 Tamsulosin HCl [Flomax -] 0.4 mg PO DAILY@0830 #30 tab 02/23/17 Physical Exam-Neuro Vital Signs: Vital Signs Temperature 98.2 F 03/04/17 11:48 Pulse Rate 66 03/04/17 11:48 Respiratory Rate 16 03/04/17 11:48 Blood Pressure 112/64 03/04/17 11:48 O2 Sat by Pulse Oximetry (%) 100 03/04/17 11:48 Constitutional: Yes: Anxious, Mild Distress Neck: Yes: WNL Labs: INR, PTT INR 1.11 (0.82-1.09) 03/04/17 12:45 CBCD WBC 8.7 K/mm3 (4.0-10.0) 03/04/17 12:45 RBC 4.86 M/mm3 (4.00-5.60) 03/04/17 12:45 Hgb 13.8 GM/dL (11.7-16.9) 03/04/17 12:45 Hct 41.7 % (35.4-49) 03/04/17 12:45 MCV 85.8 fl (80-96) 03/04/17 12:45 MCHC 33.1 g/dl (32.0-35.9) 03/04/17 12:45 RDW 14.2 % (11.9-15.9) 03/04/17 12:45 Plt Count 461 K/MM3 (134-434) H 03/04/17 12:45 MPV 6.9 fl (7.5-11.1) L 03/04/17 12:45 CMP Sodium 140 mmol/L (136-145) 03/04/17 12:45 Potassium 5.0 mmol/L (3.5-5.1) 03/04/17 12:45 Chloride 104 mmol/L (98-107) 03/04/17 12:45 Carbon Dioxide 31 mmol/L (21-32) 03/04/17 12:45 Anion Gap 5 (8-16) L 03/04/17 12:45 BUN 24 mg/dL (7-18) H 03/04/17 12:45 Creatinine 1.1 mg/dL (0.7-1.3) 03/04/17 12:45 Creat Clearance w eGFR > 60 (>60) 03/04/17 12:45 Calcium 8.9 mg/dL (8.5-10.1) 03/04/17 12:45 Total Bilirubin 0.5 mg/dL (0.2-1.0) D 03/04/17 12:45 AST 14 U/L (15-37) L 03/04/17 12:45 ALT 8 U/L (12-78) L 03/04/17 12:45 Alkaline Phosphatase 72 U/L (45-117) D 03/04/17 12:45 Total Protein 6.5 g/dl (6.4-8.2) 03/04/17 12:45 Albumin 3.5 g/dl (3.4-5.0) 03/04/17 12:45 - Neuro Exam Level Of Consciousness: Yes: Alert (awake and alert, stuttering speech ( parkinson), hypomimic, tremor and cogwheeling, LE >>UE, with sig LE dyskinesia, inc tone in LE, slight dystonic posture RUE, reflexes symmetric , gait-unable to ambulate ) Problem List - Problems (1) Parkinson disease Code(s): G20 - PARKINSON'S DISEASE (2) Weakness Code(s): R53.1 - WEAKNESS (3) Accidental fall Code(s): W19.XXXA - UNSPECIFIED FALL, INITIAL ENCOUNTER (4) Gait abnormality Code(s): R26.9 - UNSPECIFIED ABNORMALITIES OF GAIT AND MOBILITY Assessment/Plan 71 year old male with pmhx of severe Parkinson's, CAD with cardiac stent presented with chest pain, lower extremity tightness and fall. progressive dsykinesias and lower body parkinsonism, likely combined sinemet senior care EPS use and primary parkinsonism. on sinemet 25/100(2) 5x/day--unclear when last adjusted. maintain SINEMET 25/100(2) QID add benztropine 1mg TID will consider add on dopaminergic ie requip briefly discussed possibility of DBS though not an acute intervention will likely need rehab placement given level of disability will discuss with primary neuro in AM thanks Dr Gomez
[2017-03-04] MEDS: ATORVASTATIN CA 10 MG TABLET (FP) PO SCH (21:36)
[2017-03-04] MEDS: HEPARIN NA (PORCINE) 5,000 UNITS/ML 1ML VIAL SQ SCH (21:36)
[2017-03-04] MEDS: BENZTROPINE MESYLATE 1 MG TABLET (FP) PO SCH (23:00)
[2017-03-05] MEDS: BENZTROPINE MESYLATE 1 MG TABLET (FP) PO SCH ×3 (06:29→21:47)
[2017-03-05] MEDS: CARBIDOPA/LEVODOPA 25/100 TABLET (FP) PO SCH ×5 (06:29→21:48)
[2017-03-05 07:39] LABS: BASOPHIL 0.5 % (0-2.0); EOSINOPHIL 1.3 % (0-4.5); MCH 28.3 pg (25.7-33.7); MCHC 33.4 g/dl (32.0-35.9); MEAN CELL VOLUME 84.9 fl (80-96); MEAN PLT VOLUME 7.2 fl (7.5-11.1); NEUTROPHILS 74.8 % (42.8-82.8); PLATELET COUNT 455 K/MM3 (134-434); RDW 14.5 % (11.9-15.9); WHITE BLOOD COUNT 8.4 K/mm3 (4.0-10.0)
[2017-03-05 07:58] LABS: ALBUMIN 3.5 g/dl (3.4-5.0); GLUCOSE,RANDOM 79 mg/dL (74-106); SGOT/AST 14 U/L (15-37); SGPT/ALT 8 U/L (12-78)
[2017-03-05 08:01] LABS: ALK PHOS 69 U/L (45-117); ANION GAP 5 (8-16); BILIRUBIN,TOTAL 0.9 mg/dL (0.2-1.0); CALCIUM 8.9 mg/dL (8.5-10.1); CO2 31 mmol/L (21-32); TOT PROT 6.1 g/dl (6.4-8.2)
[2017-03-05] MEDS: TAMSULOSIN HCL 0.4 MG CAP.ER.24H (FP) PO SCH (08:47)
--- NOTE | 2017-03-05 09:02 | CON.ORTH ---
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 Cardio/Vascular: Yes: CAD (stents), Hyperlipdemia Pulmonary: Yes: COPD Gastrointestinal: No: Ascites Hepatobiliary: Yes: Cirrhosis Renal/: No: Renal Failure Infectious Disease: No: AIDS Psych: No: Addictions Musculoskeletal: No: Bursitis Rheumatology: No: Fibromyalgia ENT: No: Allergic Rhinitis Endocrine: No: Diabetes Mellitus - Past Surgical History Past Surgical History: Yes: Stent - Alcohol/Substance Use Hx Alcohol Use: No History of Substance Use: reports: None - Smoking History Smoking history: Never smoked Have you smoked in the past 12 months: No Aproximately how many cigarettes per day: 0 - Social History ADL: Support Services History of Recent Travel: No Home Medications - Allergies Allergies/Adverse Reactions: Allergies Allergy/AdvReac Type Severity Reaction Status Date / Time No Known Allergies Allergy Verified 02/20/17 11:19 - Home Medications Home Medications: Ambulatory Orders Aspirin [ASA -] 325 mg PO DAILY #30 tablet 02/23/17 Atorvastatin Ca [Lipitor] 10 mg PO HS #30 tablet 02/23/17 Carbidopa/Levodopa 25/100 [Sinemet 25/100 -] 2 each PO 5XD #300 tablet 02/23/17 Clonazepam 0.5 mg PO BID #60 tab MDD 2 02/23/17 Clopidogrel Bisulfate [Plavix -] 75 mg PO DAILY #30 tab 02/23/17 Rasagiline Mesylate [Azilect] 1 mg PO DAILY #30 tab 02/23/17 Tamsulosin HCl [Flomax -] 0.4 mg PO DAILY@0830 #30 tab 02/23/17 Physical Exam for Ortho Vital Signs: Vital Signs Temperature 97 F L 03/05/17 06:00 Pulse Rate 77 03/05/17 06:00 Respiratory Rate 20 03/05/17 06:00 Blood Pressure 144/76 03/05/17 06:00 O2 Sat by Pulse Oximetry (%) 98 03/04/17 22:00 Labs: CBC, BMP 03/05/17 05:35 03/05/17 05:35 INR, PTT INR 1.11 (0.82-1.09) 03/04/17 12:45 - Lower Extremity Knee: Yes: Right, Ecchymosis, Hematoma, Swelling, Tenderness, Other (no effusion , + swelling over proximal lateral tibia, ROM 0-110, calf sof, nt, nvi) Imaging - Results X-ray: Report Reviewed, Image Reviewed Assessment/Plan 71 year old male with pmhx of severe Parkinson's, CAD with cardiac stent admitted with chest pain. Had a fall 2 weeks ago in which he injured his right knee. c/o pain however he notes that it has improved since the fall. He is able to ambulate with minimal pain as per patient. Pt also on Plavix. a/p- Right knee contusion PT eval wbat rom exercises will follow d/w Dr. Marte
[2017-03-05] MEDS: ASPIRIN 325 MG TABLET PO SCH (09:14)
[2017-03-05] MEDS: CLOPIDOGREL BISULFATE 75 MG TABLET (FP) PO SCH (09:15)
[2017-03-05] MEDS: HEPARIN NA (PORCINE) 5,000 UNITS/ML 1ML VIAL SQ SCH ×2 (09:15→21:47)
--- NOTE | 2017-03-05 12:16 | PN ---
Progress Note (short form) - Note Progress Note: Resting in NAD on RA. No acute events overnight. No SOB. Intake & Output 03/02/17 03/03/17 03/04/17 03/05/17 23:59 23:59 23:59 23:59 Weight 120 lb Last Vital Signs Temp Pulse Resp BP Pulse Ox 98 F 64 18 110/62 98 03/05/17 10:00 03/05/17 10:00 03/05/17 10:00 03/05/17 10:00 03/05/17 10:00 Active Medications Aspirin (Asa -) 325 mg PO DAILY [facility] Last Admin: 03/05/17 09:14 Dose: 325 mg Atorvastatin Calcium (Lipitor -) 10 mg PO HS [facility] Last Admin: 03/04/17 21:36 Dose: 10 mg Benztropine Mesylate (Cogentin -) 1 mg PO TID [facility] Last Admin: 03/05/17 06:29 Dose: 1 mg Carbidopa/Levodopa (Sinemet 25/100 -) 2 each PO 5XD [facility] Last Admin: 03/05/17 09:15 Dose: 2 each Clopidogrel Bisulfate (Plavix -) 75 mg PO DAILY [facility] Last Admin: 03/05/17 09:15 Dose: 75 mg Heparin Sodium (Porcine) (Heparin -) 5,000 unit SQ BID [facility] Last Admin: 03/05/17 09:15 Dose: 5,000 unit Tamsulosin HCl (Flomax -) 0.4 mg PO DAILY@0830 [facility] Last Admin: 03/05/17 08:47 Dose: 0.4 mg Constitutional: Yes: NAD Eyes: Yes: Conjunctiva Clear HENT: Yes: Normocephalic Neck: Yes: Trachea Midline Cardiovascular: Yes: Regular Rate and Rhythm Respiratory: Yes: Clear Gastrointestinal: Yes: Soft Extremities: Yes: Erythema, Other (edema right knee) Integumentary: Yes: WNL Neurological: Yes: Pre-Existing Deficit (progressive parkinsons disease) Psychiatric: Yes: Alert Labs: Laboratory Results - last 24 hr 03/04/17 03/04/17 03/04/17 12:45 12:45 12:45 WBC 8.7 RBC 4.86 Hgb 13.8 Hct 41.7 MCV 85.8 MCH 28.4 MCHC 33.1 RDW 14.2 Plt Count 461 H MPV 6.9 L Neutrophils % 77.7 Lymphocytes % 12.8 D Monocytes % 8.1 Eosinophils % 0.9 Basophils % 0.5 INR PTT (Actin FS) D-Dimer 202 Sodium Potassium Chloride Carbon Dioxide Anion Gap BUN Creatinine Creat Clearance w eGFR Random Glucose Calcium Magnesium Total Bilirubin AST ALT Alkaline Phosphatase Creatine Kinase 60 Troponin I < 0.02 B-Natriuretic Peptide 100.38 Total Protein Albumin Blood Type Antibody Screen 03/04/17 03/04/17 03/04/17 12:45 12:45 12:45 WBC RBC Hgb Hct MCV MCH MCHC RDW Plt Count MPV Neutrophils % Lymphocytes % Monocytes % Eosinophils % Basophils % INR 1.11 PTT (Actin FS) 32.4 D-Dimer Sodium 140 Potassium 5.0 Chloride 104 Carbon Dioxide 31 Anion Gap 5 L BUN 24 H Creatinine 1.1 Creat Clearance w eGFR > 60 Random Glucose 89 Calcium 8.9 Magnesium Total Bilirubin 0.5 D AST 14 L ALT 8 L Alkaline Phosphatase 72 D Creatine Kinase Troponin I B-Natriuretic Peptide Total Protein 6.5 Albumin 3.5 Blood Type A POSITIVE Antibody Screen Negative 03/05/17 03/05/17 05:35 05:35 WBC 8.4 RBC 4.90 Hgb 13.9 Hct 41.6 MCV 84.9 MCH 28.3 MCHC 33.4 RDW 14.5 Plt Count 455 H MPV 7.2 L Neutrophils % 74.8 Lymphocytes % 14.8 Monocytes % 8.6 Eosinophils % 1.3 Basophils % 0.5 INR PTT (Actin FS) D-Dimer Sodium 142 Potassium 4.3 Chloride 106 Carbon Dioxide 31 Anion Gap 5 L BUN 22 H Creatinine 1.0 Creat Clearance w eGFR > 60 Random Glucose 79 Calcium 8.9 Magnesium 2.0 Total Bilirubin 0.9 D AST 14 L ALT 8 L Alkaline Phosphatase 69 Creatine Kinase Troponin I B-Natriuretic Peptide Total Protein 6.1 L Albumin 3.5 Blood Type Antibody Screen Problem List - Problems (1) Chest pain Code(s): R07.9 - CHEST PAIN, UNSPECIFIED (2) Parkinson disease Code(s): G20 - PARKINSON'S DISEASE (3) Poor appetite Code(s): R63.0 - ANOREXIA (4) Weakness Code(s): R53.1 - WEAKNESS (5) Accidental fall Code(s): W19.XXXA - UNSPECIFIED FALL, INITIAL ENCOUNTER Assessment/Plan Aspiration precautions Ortho evaluation noted O2 only as needed Cardiac workup as ordered VTE prophylaxis Dr Mcpherson
--- NOTE | 2017-03-05 13:12 | EKG ---
Test Reason : Blood Pressure : / mmHG Vent. Rate : 068 BPM Atrial Rate : 068 BPM P-R Int : 170 ms QRS Dur : 096 ms QT Int : 390 ms P-R-T Axes : 070 047 066 degrees QTc Int : 414 ms NORMAL SINUS RHYTHM NORMAL ECG WHEN COMPARED WITH ECG OF 04-MAR-2017 11:37, NO SIGNIFICANT CHANGE WAS FOUND Confirmed by HAILEY WILD MD ([id number]) on 03/05/2017 1:12:17 PM Referred By: WHITNEY GENAO Confirmed By:HAILEY WILD MD
--- NOTE | 2017-03-05 13:19 | EKG ---
Test Reason : Blood Pressure : / mmHG Vent. Rate : 065 BPM Atrial Rate : 065 BPM P-R Int : 158 ms QRS Dur : 094 ms QT Int : 382 ms P-R-T Axes : 072 032 054 degrees QTc Int : 397 ms NORMAL SINUS RHYTHM NORMAL ECG WHEN COMPARED WITH ECG OF 21-FEB-2017 10:22, NO SIGNIFICANT CHANGE WAS FOUND Confirmed by HAILEY WILD MD ([id number]) on 03/05/2017 1:18:22 PM Referred By: Confirmed By:HAILEY WILD MD
--- NOTE | 2017-03-05 14:55 | PN ---
Progress Note (short form) - Note Progress Note: 71 year old male with pmhx of severe Parkinson's, CAD with cardiac stent presented with chest pain, lower extremity tightness and fall. When arrived to pt room he complained of chest pain and abdominal pain. Per patient he does not recall chest pain but lower extremity tightness and wanted to get out of bed. Chest pain is now resolved. lives with mother and grandmother; more immobile , ? over time frame, parkinsons tremor worse LE >UE; has seen Dr Vargas as well as another neuro in [facility] (> one yr --he is not sure); on sinemet 25/100(2) 5x/day --unclear when last adjusted. he admits more difficult to ambulate and speak bc of parkinsons. 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 Cardio/Vascular: Yes: CAD (stents), Hyperlipdemia Pulmonary: Yes: COPD Gastrointestinal: No: Ascites Hepatobiliary: Yes: Cirrhosis Renal/: No: Renal Failure Infectious Disease: No: AIDS Psych: No: Addictions Musculoskeletal: No: Bursitis Rheumatology: No: Fibromyalgia ENT: No: Allergic Rhinitis Endocrine: No: Diabetes Mellitus - Past Surgical History Past Surgical History: Yes: Stent - Alcohol/Substance Use Hx Alcohol Use: No History of Substance Use: reports: None - Smoking History Smoking history: Never smoked Have you smoked in the past 12 months: No Aproximately how many cigarettes per day: 0 - Social History ADL: Support Services History of Recent Travel: No Home Medications - Allergies Allergies/Adverse Reactions: Allergies Allergy/AdvReac Type Severity Reaction Status Date / Time No Known Allergies Allergy Verified 02/20/17 11:19 - Home Medications Home Medications: Ambulatory Orders Aspirin [ASA -] 325 mg PO DAILY #30 tablet 02/23/17 Atorvastatin Ca [Lipitor] 10 mg PO HS #30 tablet 02/23/17 Carbidopa/Levodopa 25/100 [Sinemet 25/100 -] 2 each PO 5XD #300 tablet 02/23/17 Clonazepam 0.5 mg PO BID #60 tab MDD 2 02/23/17 Clopidogrel Bisulfate [Plavix -] 75 mg PO DAILY #30 tab 02/23/17 Rasagiline Mesylate [Azilect] 1 mg PO DAILY #30 tab 02/23/17 Tamsulosin HCl [Flomax -] 0.4 mg PO DAILY@0830 #30 tab 02/23/17 Physical Exam-Neuro Vital Signs: Vital Signs Temperature 98.8 F 03/05/17 14:00 Pulse Rate 72 03/05/17 14:00 Respiratory Rate 20 03/05/17 14:00 Blood Pressure 133/66 03/05/17 14:00 O2 Sat by Pulse Oximetry (%) 98 03/05/17 10:00 Constitutional: Yes: Anxious, Mild Distress Neck: Yes: WNL Labs: CBCD WBC 8.4 K/mm3 (4.0-10.0) 03/05/17 05:35 RBC 4.90 M/mm3 (4.00-5.60) 03/05/17 05:35 Hgb 13.9 GM/dL (11.7-16.9) 03/05/17 05:35 Hct 41.6 % (35.4-49) 03/05/17 05:35 MCV 84.9 fl (80-96) 03/05/17 05:35 MCHC 33.4 g/dl (32.0-35.9) 03/05/17 05:35 RDW 14.5 % (11.9-15.9) 03/05/17 05:35 Plt Count 455 K/MM3 (134-434) H 03/05/17 05:35 MPV 7.2 fl (7.5-11.1) L 03/05/17 05:35 CMP Sodium 142 mmol/L (136-145) 03/05/17 05:35 Potassium 4.3 mmol/L (3.5-5.1) 03/05/17 05:35 Chloride 106 mmol/L (98-107) 03/05/17 05:35 Carbon Dioxide 31 mmol/L (21-32) 03/05/17 05:35 Anion Gap 5 (8-16) L 03/05/17 05:35 BUN 22 mg/dL (7-18) H 03/05/17 05:35 Creatinine 1.0 mg/dL (0.7-1.3) 03/05/17 05:35 Creat Clearance w eGFR > 60 (>60) 03/05/17 05:35 Random Glucose 79 mg/dL (74-106) 03/05/17 05:35 Calcium 8.9 mg/dL (8.5-10.1) 03/05/17 05:35 Total Bilirubin 0.9 mg/dL (0.2-1.0) D 03/05/17 05:35 AST 14 U/L (15-37) L 03/05/17 05:35 ALT 8 U/L (12-78) L 03/05/17 05:35 Alkaline Phosphatase 69 U/L (45-117) 03/05/17 05:35 Total Protein 6.1 g/dl (6.4-8.2) L 03/05/17 05:35 Albumin 3.5 g/dl (3.4-5.0) 03/05/17 05:35 CARDIAC ENZYMES Creatine Kinase 60 IU/L (39-308) 03/04/17 12:45 Troponin I < 0.02 ng/ml (0.00-0.05) 03/04/17 12:45 - Neuro Exam Level Of Consciousness: Yes: Alert (awake and alert, stuttering speech ( parkinson), hypomimic, severe cervical anteroflexion (dystonia) tremor and cogwheeling, LE >>UE, with sig LE dyskinesia, inc tone in LE, slight dystonic posture RUE, reflexes symmetric , gait-unable to ambulate ) Problem List - Problems (1) Parkinson disease Code(s): G20 - PARKINSON'S DISEASE (2) Weakness Code(s): R53.1 - WEAKNESS (3) Accidental fall Code(s): W19.XXXA - UNSPECIFIED FALL, INITIAL ENCOUNTER (4) Gait abnormality Code(s): R26.9 - UNSPECIFIED ABNORMALITIES OF GAIT AND MOBILITY Assessment/Plan 71 year old male with pmhx of severe Parkinson's, CAD with cardiac stent presented with chest pain, lower extremity tightness and fall. progressive dsykinesias and lower body parkinsonism, likely combined sinemet senior living EPS use and primary parkinsonism. on sinemet 25/100(2) 5x/day--unclear when last adjusted. maintain SINEMET 25/100(2) QID continue benztropine 1mg TID briefly discussed possibility of DBS though not an acute intervention will likely need rehab placement given level of disability-PT consulted today thanks Dr Gomez Problem List - Problems (1) Parkinson disease Code(s): G20 - PARKINSON'S DISEASE (2) Weakness Code(s): R53.1 - WEAKNESS (3) Accidental fall Code(s): W19.XXXA - UNSPECIFIED FALL, INITIAL ENCOUNTER (4) Gait abnormality Code(s): R26.9 - UNSPECIFIED ABNORMALITIES OF GAIT AND MOBILITY
--- NOTE | 2017-03-05 16:32 | PN ---
Physical Exam: SUBJECTIVE: Patient seen and examined. No acute distress, he wants to go to rehab. Ambulated with PT OBJECTIVE: Vital Signs Period Temp Pulse Resp BP Sys/Ordoñez Pulse Ox Last 24 Hr 97 F-98.8 F 64-81 16-20 110-144/58-78 98-98 PE Neuro: alert, awake, cn 2-12intact Pulm: CTAB CV: s1 s2 rrr no mrg Abd: s nt nd + bs ext: r knee swelling Laboratory Results - last 24 hr 03/05/17 03/05/17 05:35 05:35 WBC 8.4 RBC 4.90 Hgb 13.9 Hct 41.6 MCV 84.9 MCH 28.3 MCHC 33.4 RDW 14.5 Plt Count 455 H MPV 7.2 L Neutrophils % 74.8 Lymphocytes % 14.8 Monocytes % 8.6 Eosinophils % 1.3 Basophils % 0.5 Sodium 142 Potassium 4.3 Chloride 106 Carbon Dioxide 31 Anion Gap 5 L BUN 22 H Creatinine 1.0 Creat Clearance w eGFR > 60 Random Glucose 79 Calcium 8.9 Magnesium 2.0 Total Bilirubin 0.9 D AST 14 L ALT 8 L Alkaline Phosphatase 69 Total Protein 6.1 L Albumin 3.5 Active Medications Generic Name Dose Route Start Last Admin Trade Name Freq PRN Reason Stop Dose Admin Aspirin 325 mg 03/05/17 10:00 03/05/17 09:14 Asa - PO 325 mg DAILY [facility] Administration Atorvastatin Calcium 10 mg 03/04/17 22:00 03/04/17 21:36 Lipitor - PO 10 mg HS [facility] Administration Benztropine Mesylate 1 mg 03/04/17 22:30 03/05/17 13:04 Cogentin - PO 1 mg TID [facility] Administration Carbidopa/Levodopa 2 each 03/04/17 16:39 03/05/17 13:04 Sinemet 25/100 - PO 2 each 5XD [facility] Administration Clopidogrel Bisulfate 75 mg 03/05/17 10:00 03/05/17 09:15 Plavix - PO 75 mg DAILY [facility] Administration Heparin Sodium (Porcine) 5,000 unit 03/04/17 22:00 03/05/17 09:15 Heparin - SQ 5,000 unit BID [facility] Administration Tamsulosin HCl 0.4 mg 03/05/17 08:30 03/05/17 08:47 Flomax - PO 0.4 mg DAILY@0830 [facility] Administration Assessment: 71 year old male with severe parkinson's and HLD admitted with chest pain and lower leg tightness Plan: 1. Atypical chest pain - Resolved, less likely ACS 2. Parkinson's, severe - Increased falls, consider rehab - Carbidopa/levodopa 2 tabs 5x/day - Started benztropine 1mg TID - Consider requip per neuro 3. R knee swelling - Xray no joint effusion - WBAT per ortho, no acute intervention 4. Social - Eval for SNF 5. BPH - Flomax daily 6. DVT ppx - Heparin BID Visit type - Emergency Visit Emergency Visit: Yes ED Registration Date: 03/04/17 Care time: The patient presented to the Emergency Department on the above date and was hospitalized for further evaluation of their emergent condition. - New Patient This patient is new to me today: No - Critical Care Critical Care patient: No
[2017-03-05] MEDS: ATORVASTATIN CA 10 MG TABLET (FP) PO SCH (21:48)
[2017-03-06] MEDS: CARBIDOPA/LEVODOPA 25/100 TABLET (FP) PO SCH ×5 (05:55→22:59)
[2017-03-06] MEDS: BENZTROPINE MESYLATE 1 MG TABLET (FP) PO SCH ×3 (05:55→23:43)
--- NOTE | 2017-03-06 07:35 | CONS ---
DATE OF CONSULTATION: 03/05/2017 REQUESTING PHYSICIAN: Consultation requested by hospitalist medicine. CHIEF COMPLAINT: Chest pains. HISTORY OF PRESENT ILLNESS: This is a 71-year-old gentleman with longstanding history of coronary artery disease, status post PCI/stenting, Parkinsonism, who was brought to the emergency room by his brother because patient was complaining of chest discomfort. Since admission, he has had no further chest pain or discomfort. No history of dyspnea, PND, or orthopnea. No history of palpitations, lightheadedness, dizziness, or syncope reported. Patient was scheduled for dipyridamole Myoview stress test and refused the study. He has history of hypercholesterolemia, and there is no history of hypertension, diabetes mellitus. PAST HISTORY: As mentioned in the history of present illness. BPH. SURGICAL HISTORY: Status post left herniorrhaphy. SOCIAL HISTORY: Patient is single, is extremely restricted due to Parkinsonism. No history of smoking or alcohol use. FAMILY HISTORY: Father had coronary artery disease and congestive heart failure and in his 90s. Mother is still alive at 104 and has cognitive disorder. The brother and the sister are apparently healthy. ALLERGIES: None reported. CURRENT MEDICATIONS: 1. Atorvastatin 10 mg p.o. daily. 2. Aspirin 325 mg p.o. daily. 3. Plavix 75 mg p.o. daily. 4. Carbidopa/levodopa 25/100 mg 2 tablets p.o. 5 times a day. 5. Heparin 5000 subcutaneously b.i.d. 6. Cogentin 1 mg p.o. t.i.d. 7. Flomax 0.4 mg p.o. daily. REVIEW OF SYSTEMS: Constitutional: No history of chills, fever, or night sweats reported. Patient was unable to give a history whether he has had weight loss. HEENT: No history of headaches, diplopia, blurred vision reported. No history of epistaxis, hoarseness, or tinnitus reported. Cardiovascular system: See history of present illness. Respiratory system: See history of cough, expectoration, or hemoptysis. Gastrointestinal system: Denies nausea, vomiting, melena, or hematemesis. No history of abdominal pain or discomfort. Neurological system: See history of present illness. Endocrine: No history of polyuria or polydipsia. No history of intolerance to cold or warm weather. PHYSICAL EXAMINATION: General: This 71-year-old gentleman with coarse tremors involving the right lower extremity and right hand. No pallor, cyanosis, clubbing, or jaundice. Vital signs: Blood pressure 132/62 mmHg. Pulse 62 beats per minute and regular. Temperature 99 degrees Fahrenheit. Respirations 20 per minute. Neck: Supple, no jugular venous distention. Carotids were equal, and upstrokes were normal. No bruits were heard, and no thyromegaly was present. Heart: No heaves or thrills, S1 and S2 were normal. Grade 1/6 ejection systolic murmur was heard at the 2nd right intercostal space. No diastolic murmur or gallops were appreciated. Lungs: Clear on auscultation. Abdomen: Soft, nontender. No hepatosplenomegaly or palpable masses were felt. Bowel sounds were decreased. No bruits were heard. Extremities: No calf tenderness or dependent edema. Pulses were equal, dorsalis pedis and posterior tibial pulses were weak. LABORATORY DATA: March 05, 2017, CBC: WBC count 8400, platelet count 455,000, hemoglobin 13.9 g/dL. Sodium 142, potassium 4.3, chloride 106, CO2 at 31, BUN 22, creatinine 1.0. CK 60. Troponin less than 0.02. BNP 100.38. ECG dated March 04, 2017 was reported as normal sinus rhythm, normal ECG when compared to ECG of February 21, 2017 10:22, no significant changes were found. In vascular study of the bilateral lower extremities, no evidence of deep vein thrombosis in the right or left lower extremities. X-ray chest impression no acute pathology or significant changes since February 20, 2017. IMPRESSION: 1. Coronary artery disease, status post percutaneous coronary intervention/stenting, chest pain, syndrome, recurrence of angina pectoris needs exclusion. 2. Hypercholesterolemia. 3. Advanced Parkinsonism. RECOMMENDATIONS: 1. Consider adding low-dose beta-blockers or [id number]. 2. Dose of aspirin should be decreased to 81 mg p.o. daily. 3. Follow up ECG and enzymes. 4. If patient is agreeable, would suggest dipyridamole Myoview stress test. Thank you for your referral. Yours sincerely, Yolanda [id number]
--- NOTE | 2017-03-06 07:39 | CONS ---
DATE OF CONSULTATION: 03/05/2017 TiME OF CONSULTATION: 7:34 p.m. ADDENDUM IMPRESSION: 4. If patient is agreeable, consider dipyridamole Myoview stress test. 5. Kindly check lipid profile and patient should be on long-term lipids. 6. Check blood pressure supine and standing. PROGNOSIS: Guarded. Thank you for your referral. Yours sincerely, SUNDEEP LOPEZ M.D. [id number]
[2017-03-06 08:47] LABS: CPK 45 IU/L (39-308); TROPONIN I < 0.02 ng/ml (0.00-0.05)
[2017-03-06] MEDS: CLOPIDOGREL BISULFATE 75 MG TABLET (FP) PO SCH (09:12)
[2017-03-06] MEDS: ASPIRIN 325 MG TABLET PO SCH (09:12)
[2017-03-06] MEDS: HEPARIN NA (PORCINE) 5,000 UNITS/ML 1ML VIAL SQ SCH ×2 (09:12→23:00)
[2017-03-06] MEDS: TAMSULOSIN HCL 0.4 MG CAP.ER.24H (FP) PO SCH (09:12)
--- NOTE | 2017-03-06 09:18 | PN ---
Progress Note (short form) - Note Progress Note: Ortho Pt seen and examined- feeling much better decr swelling and ecchymosis, dec pain, incr rom nvi a/p Orthopedically stable PT may d/c from ortho pov d/w Dr. Marte
[2017-03-06] MEDS ORDERED: WATER IVPB ONE (10:00)
[2017-03-06] MEDS ORDERED: DEXTROSE 5% IVPB ONE (10:00)
[2017-03-06] MEDS ORDERED: DIPYRIDAMOLE STRESS TEST IVPB ONE (10:00)
--- NOTE | 2017-03-06 11:40 | PN ---
Progress Note (short form) - Note Progress Note: S: 71 year old male Active Medications Generic Name Dose Route Start Last Admin Trade Name Artisq PRN Reason Stop Dose Admin Aspirin 325 mg 03/05/17 10:00 03/06/17 09:12 Asa - PO 325 mg DAILY [facility] Administration Atorvastatin Calcium 10 mg 03/04/17 22:00 03/05/17 21:48 Lipitor - PO 10 mg HS [facility] Administration Benztropine Mesylate 1 mg 03/04/17 22:30 03/06/17 05:55 Cogentin - PO 1 mg TID [facility] Administration Carbidopa/Levodopa 2 each 03/04/17 16:39 03/06/17 09:14 Sinemet 25/100 - PO 2 each 5XD [facility] Administration Clopidogrel Bisulfate 75 mg 03/05/17 10:00 03/06/17 09:12 Plavix - PO 75 mg DAILY [facility] Administration Heparin Sodium (Porcine) 5,000 unit 03/04/17 22:00 03/06/17 09:12 Heparin - SQ 5,000 unit BID [facility] Administration Tamsulosin HCl 0.4 mg 03/05/17 08:30 03/06/17 09:12 Flomax - PO 0.4 mg DAILY@0830 [facility] Administration O: 71 year old male was in no acute distress, no pallor, cyanosis, clubbing, or jaundice.
--- NOTE | 2017-03-06 13:43 | PN ---
Progress Note (short form) - Note Progress Note: 71 year old male,known caseof CAD,s/p PCI,Parkinsonism was admitted with chest pain. No further chest pain or discomfort,no SOB,PND or orthpenia.Underwent a persantine stress test,results are pending. Active Medications Aspirin (Asa -) 325 mg PO DAILY [facility] Last Admin: 03/06/17 09:12 Dose: 325 mg Atorvastatin Calcium (Lipitor -) 10 mg PO HS [facility] Last Admin: 03/05/17 21:48 Dose: 10 mg Benztropine Mesylate (Cogentin -) 1 mg PO TID [facility] Last Admin: 03/06/17 12:59 Dose: 1 mg Carbidopa/Levodopa (Sinemet 25/100 -) 2 each PO 5XD [facility] Last Admin: 03/06/17 12:59 Dose: 2 each Clopidogrel Bisulfate (Plavix -) 75 mg PO DAILY [facility] Last Admin: 03/06/17 09:12 Dose: 75 mg Heparin Sodium (Porcine) (Heparin -) 5,000 unit SQ BID [facility] Last Admin: 03/06/17 09:12 Dose: 5,000 unit Tamsulosin HCl (Flomax -) 0.4 mg PO DAILY@0830 [facility] Last Admin: 03/06/17 09:12 Dose: 0.4 mg patient is in no distress, no pallor,cyanosin,clubbing or jaundice. Vital Signs - 8 hr 03/06/17 03/06/17 03/06/17 06:00 09:00 09:08 Temperature 98.5 F 98.2 F Pulse Rate 68 64 Respiratory 18 14 14 Rate Blood Pressure 155/69 140/56 O2 Sat by Pulse 96 Oximetry (%) NECK:Supple,no JVD,carotids are equal,no bruits HEART;PMI in the 5th ICS,no murmur or gallops heard. LUNGS:Clear. ABDOMEM:Soft,nontender,no organomegaly or palpable masses EXT:No calf tenderness or dependent edema. CBC, BMP 03/05/17 05:35 03/05/17 05:35 A: 1.CAD S/P PCI/Stenting,recurrence of Angina pectoris. 2.Parkinsonism. RECOMMENDATION: 1.Awaiting stress test results. 2.PT at a SNF. 3.Further suggestion as necessary.
--- NOTE | 2017-03-06 14:01 | PN ---
Physical Exam: SUBJECTIVE: Patient seen and examined. No acute issues at this time. He is antsy to leave, feeling lousy. OBJECTIVE: Vital Signs Period Temp Pulse Resp BP Sys/Ordoñez Pulse Ox Last 24 Hr 98.0 F-98.5 F 64-80 14-20 126-156/56-78 96-96 PE Neuro: alert, awake, cn 2-12intact Pulm: CTAB CV: s1 s2 rrr no mrg Abd: s nt nd + bs ext: r knee swelling- improved Laboratory Results - last 24 hr 03/06/17 06:00 Creatine Kinase 45 Troponin I < 0.02 Active Medications Generic Name Dose Route Start Last Admin Trade Name Freq PRN Reason Stop Dose Admin Aspirin 325 mg 03/05/17 10:00 03/06/17 09:12 Asa - PO 325 mg DAILY [facility] Administration Atorvastatin Calcium 10 mg 03/04/17 22:00 03/05/17 21:48 Lipitor - PO 10 mg HS [facility] Administration Benztropine Mesylate 1 mg 03/04/17 22:30 03/06/17 12:59 Cogentin - PO 1 mg TID [facility] Administration Carbidopa/Levodopa 2 each 03/04/17 16:39 03/06/17 12:59 Sinemet 25/100 - PO 2 each 5XD [facility] Administration Clopidogrel Bisulfate 75 mg 03/05/17 10:00 03/06/17 09:12 Plavix - PO 75 mg DAILY [facility] Administration Heparin Sodium (Porcine) 5,000 unit 03/04/17 22:00 03/06/17 09:12 Heparin - SQ 5,000 unit BID [facility] Administration Tamsulosin HCl 0.4 mg 03/05/17 08:30 03/06/17 09:12 Flomax - PO 0.4 mg DAILY@0830 [facility] Administration Assessment: 71 year old male with severe parkinson's and HLD admitted with chest pain and lower leg tightness Plan: 1. Atypical chest pain/CAD s/p stent ~ 10 years ago - Resolved, less likely ACS - Pending stress test results 2. Parkinson's, severe - Increased falls, for SNF - Carbidopa/levodopa 2 tabs 5x/day - Benztropine 1mg TID - Consider requip per neuro 3. R knee swelling - Xray no joint effusion - WBAT per ortho, no acute intervention 4. BPH - Flomax daily 5. DVT ppx - Heparin BID Dispo: - SNF on thursday Visit type - Emergency Visit Emergency Visit: Yes ED Registration Date: 03/05/17 Care time: The patient presented to the Emergency Department on the above date and was hospitalized for further evaluation of their emergent condition. - New Patient This patient is new to me today: No - Critical Care Critical Care patient: No
[2017-03-06] MEDS ORDERED: PT OWN MED DRAWER 7, Y5N ONE (22:51)
[2017-03-06] MEDS: ATORVASTATIN CA 10 MG TABLET (FP) PO SCH (23:00)
[2017-03-07] MEDS ORDERED: PT OWN MED DRAWER 7, Y5N ONE (06:11)
[2017-03-07] MEDS: CARBIDOPA/LEVODOPA 25/100 TABLET (FP) PO SCH ×5 (07:00→21:37)
--- NOTE | 2017-03-07 09:38 | PN ---
Physical Exam: SUBJECTIVE: Patient seen and examined. He tolerated his breakfast today, he is calmer per nursing aid. He is conversational with me, denies any active issues OBJECTIVE: Vital Signs Period Temp Pulse Resp BP Sys/Ordoñez Pulse Ox Last 24 Hr 97.9 F-98.9 F 76-112 16-20 130-158/53-94 100 PE Neuro: alert, awake, cn 2-12intact Pulm: CTAB CV: s1 s2 rrr no mrg Abd: s nt nd + bs Ext: r knee swelling- improving, yellow staining to RLE ?betadine Active Medications Generic Name Dose Route Start Last Admin Trade Name Freq PRN Reason Stop Dose Admin Aspirin 325 mg 03/05/17 10:00 03/06/17 09:12 Asa - PO 325 mg DAILY [facility] Administration Atorvastatin Calcium 10 mg 03/04/17 22:00 03/06/17 23:00 Lipitor - PO 10 mg HS [facility] Administration Benztropine Mesylate 1 mg 03/04/17 22:30 03/06/17 23:43 Cogentin - PO 1 mg TID [facility] Administration Carbidopa/Levodopa 2 each 03/04/17 16:39 03/07/17 07:00 Sinemet 25/100 - PO 2 each 5XD [facility] Administration Clopidogrel Bisulfate 75 mg 03/05/17 10:00 03/06/17 09:12 Plavix - PO 75 mg DAILY [facility] Administration Heparin Sodium (Porcine) 5,000 unit 03/04/17 22:00 03/06/17 23:00 Heparin - SQ 5,000 unit BID [facility] Administration Tamsulosin HCl 0.4 mg 03/05/17 08:30 03/06/17 09:12 Flomax - PO 0.4 mg DAILY@0830 [facility] Administration Assessment: 71 year old male with severe parkinson's and HLD admitted with chest pain and lower leg tightness Plan: 1. Atypical chest pain/CAD s/p stent ~ 10 years ago - Resolved, less likely ACS - Stress test shows no ischemic disease, no anterior wall ischemia, EF 69%, nml wall motion, inferior wall uninterpretable d/t artifact - Decrease ASA 81mg daily - Consider stopping Plavix 2. Parkinson's, severe - Increased falls, for SNF Thursday - Carbidopa/levodopa 2 tabs 5x/day - Benztropine 1mg TID - Consider requip per neuro 3. R knee swelling - Xray no joint effusion - WBAT per ortho, no acute intervention 4. BPH - Flomax daily 5. DVT ppx - Heparin BID Dispo: - SNF on thursday Visit type - Emergency Visit Emergency Visit: Yes ED Registration Date: 03/05/17 Care time: The patient presented to the Emergency Department on the above date and was hospitalized for further evaluation of their emergent condition. - New Patient This patient is new to me today: No - Critical Care Critical Care patient: No
[2017-03-07] MEDS: CLOPIDOGREL BISULFATE 75 MG TABLET (FP) PO SCH (09:41)
[2017-03-07] MEDS: ASPIRIN 325 MG TABLET PO SCH (09:41)
[2017-03-07] MEDS: TAMSULOSIN HCL 0.4 MG CAP.ER.24H (FP) PO SCH (09:41)
[2017-03-07] MEDS: HEPARIN NA (PORCINE) 5,000 UNITS/ML 1ML VIAL SQ SCH ×2 (09:41→21:38)
[2017-03-07] MEDS: BENZTROPINE MESYLATE 1 MG TABLET (FP) PO SCH ×3 (09:42→21:38)
--- NOTE | 2017-03-07 13:08 | PN ---
Progress Note (short form) - Note Progress Note: Resting in NAD on RA. No acute events overnight. No SOB. Intake & Output 03/04/17 03/05/17 03/06/17 03/07/17 23:59 23:59 23:59 23:59 Intake Total 500 970 Output Total 275 Balance 500 695 Weight 120 lb Last Vital Signs Temp Pulse Resp BP Pulse Ox 98 F 84 20 130/68 97 03/07/17 09:33 03/07/17 09:33 03/07/17 09:33 03/07/17 09:33 03/07/17 09:00 Active Medications Aspirin (Asa -) 81 mg PO DAILY [facility] Atorvastatin Calcium (Lipitor -) 10 mg PO HS [facility] Last Admin: 03/06/17 23:00 Dose: 10 mg Benztropine Mesylate (Cogentin -) 1 mg PO TID [facility] Last Admin: 03/07/17 09:42 Dose: 1 mg Carbidopa/Levodopa (Sinemet 25/100 -) 2 each PO 5XD [facility] Last Admin: 03/07/17 07:00 Dose: 2 each Clopidogrel Bisulfate (Plavix -) 75 mg PO DAILY [facility] Last Admin: 03/07/17 09:41 Dose: 75 mg Heparin Sodium (Porcine) (Heparin -) 5,000 unit SQ BID [facility] Last Admin: 03/07/17 09:41 Dose: 5,000 unit Tamsulosin HCl (Flomax -) 0.4 mg PO DAILY@0830 [facility] Last Admin: 03/07/17 09:41 Dose: 0.4 mg Constitutional: Yes: NAD Eyes: Yes: Conjunctiva Clear HENT: Yes: Normocephalic Neck: Yes: Trachea Midline Cardiovascular: Yes: Regular Rate and Rhythm Respiratory: Yes: Clear Gastrointestinal: Yes: Soft Extremities: Yes: Erythema, Other (edema right knee) Integumentary: Yes: WNL Neurological: Yes: Pre-Existing Deficit (progressive parkinsons disease) Psychiatric: Yes: Alert Labs: Problem List - Problems (1) Chest pain Code(s): R07.9 - CHEST PAIN, UNSPECIFIED (2) Parkinson disease Code(s): G20 - PARKINSON'S DISEASE (3) Poor appetite Code(s): R63.0 - ANOREXIA (4) Weakness Code(s): R53.1 - WEAKNESS (5) Accidental fall Code(s): W19.XXXA - UNSPECIFIED FALL, INITIAL ENCOUNTER Assessment/Plan Aspiration precautions O2 only as needed VTE prophylaxis D/C planning to SNF Dr Mcpherson
[2017-03-07] MEDS: ASPIRIN 81 MG CHEWABLE TABLETS PO SCH (15:18)
[2017-03-07] MEDS ORDERED: ACETAMINOPHEN 325 MG TABLET (FP) PO PRN (16:51)
[2017-03-07] MEDS: ATORVASTATIN CA 10 MG TABLET (FP) PO SCH (21:37)
[2017-03-08] MEDS: CARBIDOPA/LEVODOPA 25/100 TABLET (FP) PO SCH ×2 (05:35→10:00)
[2017-03-08] MEDS: BENZTROPINE MESYLATE 1 MG TABLET (FP) PO SCH (05:35)
[2017-03-08] MEDS: CLOPIDOGREL BISULFATE 75 MG TABLET (FP) PO SCH (09:57)
[2017-03-08] MEDS: TAMSULOSIN HCL 0.4 MG CAP.ER.24H (FP) PO SCH (09:57)
[2017-03-08] MEDS: HEPARIN NA (PORCINE) 5,000 UNITS/ML 1ML VIAL SQ SCH (09:57)
[2017-03-08] MEDS: ASPIRIN 81 MG CHEWABLE TABLETS PO SCH (09:57)
[2017-03-08] MEDS ORDERED: PT OWN MED DRAWER 7, Y5N ONE (09:59)
--- NOTE | 2017-03-08 11:18 | DS ---
Physical Exam: SUBJECTIVE: Patient seen and examined. He is ready to go to rehab. No acute issues . OBJECTIVE: Vital Signs Period Temp Pulse Resp BP Sys/Ordoñez Pulse Ox Last 24 Hr 97.9 F-98.9 F 66-91 20-20 119-148/42-69 96 PE Neuro: alert, awake, cn 2-12intact Pulm: CTAB CV: s1 s2 rrr no mrg Abd: s nt nd + bs Ext: r knee swelling- improving, yellow staining to RLE HOSPITAL COURSE: Date of Admission:03/05/17 Date of Discharge: 03/08/17 Minutes to complete discharge: 38 Discharge Summary Reason For Visit: CHEST PAIN Current Active Problems Chest pain (Acute) Gait abnormality (Acute) Head injury (Acute) Hypoglycemia (Acute) Parkinson disease (Acute) Paroxysmal SVT (supraventricular tachycardia) (Acute) Poor appetite (Acute) Weakness (Acute) Hospital Course: Initial Hospital Course: Briefly, this 71 year old male with pmhx of severe Parkinson's, CAD with cardiac stents x2 (~11 years ago) presented to the ED with chest pain, lower extremity tightness and s/p fall 2 weeks ago. Per patient brother pt had completed breakfast when he started yelling. When he arrived his brother complained of chest pain and abdominal pain. Per patient he does not recall chest pain but lower extremity tightness and wanted to get out of bed. Chest pain is now resolved. Pt brother does endorse pt has good ambulating day and others when he is weak and falls even thought instructed to sit. Subsequent Hospital Course/Progress Note/Discharge Summary by a/p: Assessment: 71 year old male with severe parkinson's and HLD admitted with chest pain and lower leg tightness Plan: 1. Atypical chest pain/CAD s/p x 2stent ~ 11 years ago - Resolved, less likely ACS - Stress test shows no ischemic disease, no anterior wall ischemia, EF 69%, nml wall motion, inferior wall uninterpretable d/t artifact - Decrease ASA 81mg daily - Stop Plavix, increased falls and remote stents 2. Parkinson's, severe - Carbidopa/levodopa 2 tabs 5x/day - Started Benztropine 1mg TID; continue - Resume home med Azilect 1mg daily- family supplied - Consider requip per neuro - Neuro outpt f/u 3. R knee swelling - Xray no joint effusion - WBAT per ortho, no acute intervention Dispo: - SNF for rehab with above meds - Plan as above Condition: Stable - Instructions Diet, Activity, Other Instructions: Please return to the ED for any new, persistent, or worsening symptoms. Follow up with your PCP after discharge from rehab Continue medication as list on discharge medication list Follow up with neurology when completed rehab Referrals: Ricki Medina MD [Primary Care Provider] - Gus Mckeon MD [Staff Physician] - Juice Gomez DO [Staff Physician] - Disposition: RESIDENTIAL FACILITY - Home Medications Comprehensive Discharge Medication List: Ambulatory Orders Atorvastatin Ca [Lipitor] 10 mg PO HS #30 tablet 02/23/17 Carbidopa/Levodopa 25/100 [Sinemet 25/100 -] 2 each PO 5XD #300 tablet 02/23/17 Tamsulosin HCl [Flomax -] 0.4 mg PO DAILY@0830 #30 tab 02/23/17 Aspirin [ASA -] 81 mg PO DAILY #30 tab.chew 03/08/17 Benztropine Mesylate [Cogentin -] 1 mg PO TID #90 tablet 03/08/17 This patient is new to me today: No Emergency Visit: Yes ED Registration Date: 03/05/17 Care time: The patient presented to the Emergency Department on the above date and was hospitalized for further evaluation of their emergent condition. Critical Care patient: No - Discharge Referral Referred to [facility] Med P.C.: No
[2017-03-08 11:31] VITALS: BP 111/60; PULSE 64; TEMP 98.6
--- NOTE | 2017-03-08 13:25 | PN ---
Progress Note (short form) - Note Progress Note: Resting in NAD on RA. No acute events overnight. No SOB. Intake & Output 03/05/17 03/06/17 03/07/17 03/08/17 23:59 23:59 23:59 23:59 Intake Total 500 970 400 100 Output Total 275 Balance 500 695 400 100 Last Vital Signs Temp Pulse Resp BP Pulse Ox 98.6 F 64 22 111/60 95 03/08/17 09:00 03/08/17 09:00 03/08/17 09:00 03/08/17 09:00 03/08/17 09:00 Active Medications Acetaminophen (Tylenol -) 650 mg PO Q4H PRN PRN Reason: FEVER OR PAIN Last Admin: 03/07/17 17:28 Dose: 650 mg Aspirin (Asa -) 81 mg PO DAILY [facility] Last Admin: 03/08/17 09:57 Dose: 81 mg Atorvastatin Calcium (Lipitor -) 10 mg PO HS [facility] Last Admin: 03/07/17 21:37 Dose: 10 mg Benztropine Mesylate (Cogentin -) 1 mg PO TID [facility] Last Admin: 03/08/17 05:35 Dose: 1 mg Carbidopa/Levodopa (Sinemet 25/100 -) 2 each PO 5XD [facility] Last Admin: 03/08/17 10:00 Dose: 2 each Heparin Sodium (Porcine) (Heparin -) 5,000 unit SQ BID [facility] Last Admin: 03/08/17 09:57 Dose: 5,000 unit Tamsulosin HCl (Flomax -) 0.4 mg PO DAILY@0830 [facility] Last Admin: 03/08/17 09:57 Dose: 0.4 mg Constitutional: Yes: NAD Eyes: Yes: Conjunctiva Clear HENT: Yes: Normocephalic Neck: Yes: Trachea Midline Cardiovascular: Yes: Regular Rate and Rhythm Respiratory: Yes: Clear Gastrointestinal: Yes: Soft Extremities: Yes: Erythema, Other (edema right knee) Integumentary: Yes: WNL Neurological: Yes: Pre-Existing Deficit (progressive parkinsons disease) Psychiatric: Yes: Alert Labs: Problem List - Problems (1) Chest pain Code(s): R07.9 - CHEST PAIN, UNSPECIFIED (2) Parkinson disease Code(s): G20 - PARKINSON'S DISEASE (3) Poor appetite Code(s): R63.0 - ANOREXIA (4) Weakness Code(s): R53.1 - WEAKNESS (5) Accidental fall Code(s): W19.XXXA - UNSPECIFIED FALL, INITIAL ENCOUNTER Assessment/Plan Aspiration precautions O2 only as needed VTE prophylaxis D/C planning to SNF Dr Mcpherson
== END 2017-03-08 14:20 | DRG 302 ==
LOC: JER 11:29 → JERBED 15:10 → J4W 19:00 → OBSVTOIN 03-05 18:51
PROVIDERS: ADMIT Internal Medicine; ATTEND Nurse Practitioner Acute Care
DX: I25.10 Atherosclerotic heart disease of native coronary artery without angina pectoris (principal); E43 Unspecified severe protein-calorie malnutrition; Z68.1 Body mass index [BMI] 19.9 or less, adult; G20 Parkinson's disease; E78.5 Hyperlipidemia, unspecified; R63.0 Anorexia; R07.89 Other chest pain; R53.1 Weakness; J44.9 Chronic obstructive pulmonary disease, unspecified; K74.69 Other cirrhosis of liver; M25.461 Effusion, right knee; N40.0 Benign prostatic hyperplasia without lower urinary tract symptoms; R26.9 Unspecified abnormalities of gait and mobility; S80.01XA Contusion of right knee, initial encounter; W18.39XA Other fall on same level, initial encounter; Y93.89 Activity, other specified; Y92.89 Other specified places as the place of occurrence of the external cause; Z86.73 Personal history of transient ischemic attack (TIA), and cerebral infarction without residual deficits; Z95.5 Presence of coronary angioplasty implant and graft; Z95.1 Presence of aortocoronary bypass graft
CPT/HCPCS: 36415; 71010-TC; 73560-TC-RT; 78452-TC; 80053; 83735; 83880; 84484; 85025; 85379; 85610; 85730; 86850; 86900; 86901; 93005; 93010; 93017; 93970-TC; 97116-GP; 97162-GP; 99283-25; A9502; C1887; G0378; J1644

== ENCOUNTER 2018-09-16 09:22 | Emergency (ER) | payer OTHER, BC ==
[2018-09-16 09:55] VITALS: BMI 21.2
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
[2018-09-16 12:02] VITALS: BP 142/65; PULSE 66; TEMP 97.8
--- NOTE | 2018-09-17 10:37 | EKG ---
Test Reason : Blood Pressure : / mmHG Vent. Rate : 062 BPM Atrial Rate : 062 BPM P-R Int : 000 ms QRS Dur : 084 ms QT Int : 406 ms P-R-T Axes : 000 025 038 degrees QTc Int : 412 ms POOR DATA QUALITY, INTERPRETATION MAY BE ADVERSELY AFFECTED JUNCTIONAL RHYTHM ABNORMAL ECG WHEN COMPARED WITH ECG OF 05-MAR-2017 09:07, JUNCTIONAL RHYTHM HAS REPLACED SINUS RHYTHM Confirmed by TOO ALGUNAS, RAMONA ([id number] on 09/17/2018 10:37:18 AM Referred By: Confirmed By:RAMONA GAGE MD
== END 2018-09-16 12:31 | disposition home or self-care (01) ==
LOC: JER 09:22
DX: M54.2 Cervicalgia (principal); W06.XXXA Fall from bed, initial encounter; Y93.89 Activity, other specified; Y92.013 Bedroom of single-family (private) house as the place of occurrence of the external cause; Y99.8 Other external cause status; Y04.0XXA Assault by unarmed brawl or fight, initial encounter; Y07.410 Brother, perpetrator of maltreatment and neglect; G20 Parkinson's disease; I10 Essential (primary) hypertension; I25.10 Atherosclerotic heart disease of native coronary artery without angina pectoris; Z95.1 Presence of aortocoronary bypass graft; Z95.5 Presence of coronary angioplasty implant and graft; E78.5 Hyperlipidemia, unspecified
CPT/HCPCS: 70450-TC; 72125-TC; 93005; 93010; 99282-25

== ENCOUNTER 2018-11-29 10:49 | Emergency (ER) | payer OTHER, BC ==
[2018-11-29 10:59] VITALS: TEMP 98; BMI 26.5
--- NOTE | 2018-11-29 12:53 | PDOC ---
History of Present Illness - General Chief Complaint: Injury Stated Complaint: SLIP AND FALL Time Seen by Provider: 11/29/18 11:48 History Source: Patient Exam Limitations: No Limitations Past History - Travel Traveled outside of the country in the last 30 days: No Close contact w/someone who was outside of country & ill: No - Past Medical History Allergies/Adverse Reactions: Allergies Allergy/AdvReac Type Severity Reaction Status Date / Time No Known Allergies Allergy Verified 11/29/18 10:59 Home Medications: Ambulatory Orders Atorvastatin Ca [Lipitor] 10 mg PO HS #30 tablet 02/23/17 Carbidopa/Levodopa 25/100 [Sinemet 25/100 -] 2 each PO 5XD #300 tablet 02/23/17 Tamsulosin HCl [Flomax -] 0.4 mg PO DAILY@0830 #30 tab 02/23/17 Aspirin [ASA -] 81 mg PO DAILY #30 tab.chew 03/08/17 Rasagiline Mesylate [Azilect -] 1 mg PO DAILY #30 tablet 03/08/17 Amantadine HCl [Gocovri] 68.5 mg PO HS 09/16/18 Cholecalciferol (Vitamin D3) [Vitamin D3] 1,000 unit PO DAILY 09/16/18 Pimavanserin Tartrate [Nuplazid] 34 mg PO DAILY 09/16/18 Cardiac Disorders: Yes COPD: No HTN: Yes Hypercholesterolemia: Yes - Surgical History Abdominal Surgery: Yes (Inguinal hernia repair) Cardiac Surgery: Yes (bypass with 2 stents) - Immunization History Immunization Up to Date: Yes - Suicide/Smoking/Psychosocial Hx Smoking Status: No Smoking History: Never smoked Have you smoked in the past 12 months: No Number of Cigarettes Smoked Daily: 0 Information on smoking cessation initiated: No Hx Alcohol Use: No Drug/Substance Use Hx: No Substance Use Type: None Hx Substance Use Treatment: No Trauma Specific PMHX - Complaint Specific PMHX Arthritis: No Back Injury: No Neck Injury: No Hx Sacro Iliac Joint Dysfunction: No Review of Systems - Review of Systems Able to Perform ROS?: Yes Is the patient limited Liberian proficient: No Constitutional: Yes: Weight Stable. No: Chills, Diaphoresis, Fever, Loss of Appetite, Malaise, Weakness HEENTM: Yes: See HPI (dyskinesia). No: Blurred Vision, Recent change in vision , Nose Congestion, Throat Pain, Throat Swelling, Difficulty Swallowing Respiratory: No: Cough, Orthopnea, Shortness of Breath Cardiac (ROS): No: Chest Pain, Edema, Irregular Heart Rate, Lightheadedness, Palpitations, Syncope, Chest Tightness ABD/GI: Yes: Constipated (chronic 2/2 medications). No: Diarrhea, Nausea, Poor Appetite, Poor Fluid Intake, Rectal Bleeding, Vomiting, Abdominal cramping : Yes: Frequency (2/2 BPH, chronic). No: Burning, Dysuria, Flank Pain, Hematuria, Pain, Urgency Musculoskeletal: No: Back Pain, Joint Pain, Muscle Pain, Muscle Weakness, Neck Pain Integumentary: No: Rash Neurological: Yes: See HPI, Pre-Existing Deficit, Tremors (resting ), Unsteady Gait (Parkinson's, shuffling gait, chronic). No: Headache, Numbness, Paresthesia, Weakness, Ataxia, Dizziness Psychiatric: No: Sleep Pattern Change, Change in Appetite Endocrine: No: Increased Urine, Change in Weight Hematologic/Lymphatic: No: Anemia, Blood Clots, Easy Bleeding, Easy Bruising All Other Systems: Reviewed and Negative *Physical Exam - Vital Signs Last Vital Signs Temp Pulse Resp BP Pulse Ox 98 F 81 17 127/54 L 97 11/29/18 10:56 11/29/18 10:56 11/29/18 10:56 11/29/18 10:56 11/29/18 10:56 - Physical Exam Comments: Vitals stable, pt afebrile. Pt in NAD, normal body habitus. Pt alert and oriented x3. event representative generally intact, muscular strength and sensation intact. No midline spinal tenderness, step-offs, or crepitus. Head normocephalic, atraumatic. Eyes PERRLA, EOMI. Oropharynx without erythema or exudates, no LAD b/l. No nasal congestion, hearing intact. Clear heart sounds, S1/S2, no JVD, b/l pedal edema, or heart murmur. Clear lung sounds, no respiratory distress, wheezes, crackles, or accessory muscle use. No abdominal or CVA tenderness to palpation, no rebound, no guarding. Abdomen soft, non-distended, and with normoactive bowel sounds. Skin without jaundice or rash. 11/29/18 13:40 Medical Decision Making - Medical Decision Making Pt was seen at bedside, also will be seen by attending Dr. Srivastava. Pt presenting after a fall, with laceration to his R hand. Pt states he has dyskinesia 2/2 to Parkinson's Ds, and has frequent falls when he "is not moving as quickly as he thinks he is". Pt fell while turning around in his bedroom, and hit his R hand and elbow on the safety bed rail. Pt had no LOC, no nausea/ vomiting, and remembers the incident. Story consistent with mechanical fall, pt denies any precipitating symptoms. Will eval for any acute intracranial/cervical fractures or bleeding, and eval for fracture of the hand, as laceration is at base of 5th digit (prone to non- union). Ordered work-up including non-contrast CT head and C-spine, and x-ray of R hand. Provided tetanus booster and 650 mg PO tylenol for pain. Will continue to reassess pt and monitor for symptomatic improvement. 11/29/18 13:[address] with no acute findings. 11/29/18 15:06 C-spine with no acute findings. R hand with no acute fracture. R 5th finger laceration closed using sterile technique with 9 sutures (see procedure note). Laceration instructions provided to pt and family. Pt can be discharged to home with follow-up. Pt advised to follow-up with PCP in 1-2 days and has been referred to Hand (Dr. Albright). Strict return precautions provided with pt understanding. 11/29/18 16:40 *DC/Admit/Observation/Transfer Diagnosis at time of Disposition: Parkinson disease Fall Qualifiers: Encounter type: initial encounter Qualified Code(s): W19.XXXA - Unspecified fall, initial encounter Laceration of right hand Qualifiers: Encounter type: initial encounter Foreign body presence: without foreign body Qualified Code(s): S61.411A - Laceration without foreign body of right hand, initial encounter - Discharge Dispostion Disposition: HOME Condition at time of disposition: Improved Decision to Admit order: No - Referrals Referrals: Ricki Medina MD [Primary Care Provider] - Colby Albright MD [Staff Physician] - - Patient Instructions Printed Discharge Instructions: DI for Laceration Repair -- Finger Additional Instructions: You were seen in the ER today after a fall. The results of your imaging today showed no fracture or bleeding. Please follow-up with your primary care doctor within 1-2 days to discuss your visit and make sure your symptoms have improved. I have also provided a referral to a hand specialist if any complications from the hand injury arise. Please return to the ER if you have any worsening pain, development of fevers or chills, loss of consciousness, inability to tolerate food or fluids, or any other concerns. Please return in 7 days for removal of your sutures. Please wait 24 hours before removal of the bandages. You can clean the site with warm water and soap. - Post Discharge Activity
[2018-11-29] MEDS ORDERED: ACETAMINOPHEN 325 MG TABLET (FP) PO ONE (13:30)
[2018-11-29] MEDS ORDERED: ACETAMINOPHEN 325 MG TABLET (FP) ONE (13:41)
[2018-11-29] MEDS ORDERED: DIPHTH,PERTUSS(ACELL),TET 0.5 ML DISP.SYRIN IM ONE ×2 (13:53→17:02)
--- NOTE | 2018-11-29 13:58 | PDOC ---
Documentation entered by Ger Shukla SCRIBE, acting as scribe for Marium Srivastava MD. Marium Srivastava MD: This documentation has been prepared by the Gayla benson Nirvannie, SCRIBE, under my direction and personally reviewed by me in its entirety. I confirm that the documentation accurately reflects all work, treatment, procedures, and medical decision making performed by me. Attending Attestation - Resident Resident Name: MarcellCitlaly - ED Attending Attestation I have performed the following: I have examined & evaluated the patient, The case was reviewed & discussed with the resident, I agree w/resident's findings & plan, Exceptions are as noted - HPI HPI: 11/29/18 14:30 The patient is a 73 year old male, with a significant past medical history of Parkinson's disease, HTN, CAD (s/p cardiac stenting x2 ~11 yrs ago), who presents to the emergency department s/p mechanical fall. As per patient, he suffers from dyskinesia causing him to fall. He notes that todays fall was similar to the past falls. Patient endorses a laceration to the right 5th digit at the base. He denies LOC. He denies any recent chest pain or shortness of breath. Allergies: NKDA Primary Care Physician: Dr. Medina - Physicial Exam PE: 11/29/18 13:33 GENERAL: Awake, alert, and fully oriented, in no acute distress HEAD: No signs of trauma EYES: PERRLA, EOMI, sclera anicteric, conjunctiva clear ENT: Auricles normal inspection, hearing grossly normal, nares patent, oropharynx clear without exudates. Moist mucosa NECK: Normal ROM, supple, no lymphadenopathy, JVD, or masses LUNGS: Breath sounds equal, clear to auscultation bilaterally. No wheezes, and no crackles HEART: Regular rate and rhythm, normal S1 and S2, no murmurs, rubs or gallops ABDOMEN: Soft, nontender, normoactive bowel sounds. No guarding, no rebound. No masses EXTREMITIES: Normal range of motion, no edema. No clubbing or cyanosis. No cords, erythema, or tenderness NEUROLOGICAL: Cranial nerves II through XII grossly intact. Quiet speech. Motor and sensation intact. +Cog-wheel rigidity SKIN: Warm, Dry, normal turgor. +Small abrasion to the R proximal forearm, just distal to the elbow joint. +Flap-shaped laceration to the R hand at the base of the 5th finger, into subcutaneous tissue. Tendon function intact. No active bleeding. - Medical Decision Making Pt is s/p fall, history of Parkinson's. Xeroform and gauze applied to R forearm abrasion. Will repair hand lac after obtaining XR.
[2018-11-29 17:36] VITALS: BP 139/73; PULSE 88
== END 2018-11-29 17:55 | disposition home or self-care (01) ==
LOC: JERFT 10:49 → JER 10:49
PROC: 3E0234Z Introduction of Serum, Toxoid and Vaccine into Muscle, Percutaneous Approach (ICD-10-PCS; principal; 2018-11-29)
PROC: 0HQFXZZ Repair Right Hand Skin, External Approach (ICD-10-PCS; 2018-11-29)
DX: S61.411A Laceration without foreign body of right hand, initial encounter (principal); W01.198A Fall on same level from slipping, tripping and stumbling with subsequent striking against other object, initial encounter; Y93.89 Activity, other specified; Y92.013 Bedroom of single-family (private) house as the place of occurrence of the external cause; Y99.8 Other external cause status; G24.9 Dystonia, unspecified; G20 Parkinson's disease; I25.10 Atherosclerotic heart disease of native coronary artery without angina pectoris; I10 Essential (primary) hypertension; Z95.1 Presence of aortocoronary bypass graft; Z95.5 Presence of coronary angioplasty implant and graft; E78.00 Pure hypercholesterolemia, unspecified
CPT/HCPCS: 12001-25; 70450-TC; 72125-TC; 73130-TC-RT-FY; 90471; 90715; 99281-25

== ENCOUNTER 2018-12-06 13:01 | Emergency (ER) | payer OTHER, BC | END 2018-12-06 14:25 | disposition home or self-care (01) | LOC: JERFT 13:01 ==

== ENCOUNTER 2018-12-08 09:27 | Inpatient (IN) | payer OTHER, BC | END 2018-12-15 11:34 | LOC: J5S 12-12 17:10 → JER 09:27 → JERBED 09:57 → J4S 17:45 ==

== ENCOUNTER 2018-12-19 09:39 | Emergency (ER) | payer OTHER, BC ==
--- NOTE | 2018-12-19 09:52 | PDOC ---
History of Present Illness - General Stated Complaint: FALL Time Seen by Provider: 12/19/18 09:51 History Source: Patient - History of Present Illness Initial Comments: 12/19/18 10:05 HPI obtained from patient, [facility] paperwork, and [facility] staff The patient is a 73 year old male with a PMH of Parkinson's Disease, BPH, COPD ( not on home O2) CAD (s/p stent x2) and HTN who was BIBA from [facility] following a fall. As per Caty (RN @ [facility]) patient's bed alarm went off this morning and patient was found kneeling by his bed. Initially patient stated he did not his head, but then later stated he did hit his head. H/o recent falls from bed. Patient @ baseline mental status. Has no active medical complaints. NKDA PMD: Dr. Elio Lundberg M.D. Caty (RN, [facility]): [phone] (ext [phone]) Past History - Past Medical History Allergies/Adverse Reactions: Allergies Allergy/AdvReac Type Severity Reaction Status Date / Time No Known Allergies Allergy Verified 12/08/18 10:55 Home Medications: Ambulatory Orders Atorvastatin Ca [Lipitor] 10 mg PO HS #30 tablet 02/23/17 Carbidopa/Levodopa 25/100 [Sinemet 25/100 -] 2 each PO 5XD #300 tablet 02/23/17 Tamsulosin HCl [Flomax -] 0.4 mg PO DAILY@0830 #30 tab 02/23/17 Aspirin [ASA -] 81 mg PO DAILY #30 tab.chew 03/08/17 Rasagiline Mesylate [Azilect -] 1 mg PO DAILY #30 tablet 03/08/17 Amantadine HCl [Gocovri] 68.5 mg PO HS 09/16/18 Cholecalciferol (Vitamin D3) [Vitamin D3] 1,000 unit PO DAILY 09/16/18 Pimavanserin Tartrate [Nuplazid] 34 mg PO DAILY 09/16/18 clonazePAM [Klonopin -] 0.5 mg PO HS PRN 12/08/18 Cardiac Disorders: Yes COPD: Yes HTN: Yes Hypercholesterolemia: Yes - Surgical History Abdominal Surgery: Yes (Inguinal hernia repair) Cardiac Surgery: Yes (bypass with 2 stents) - Immunization History Immunization Up to Date: Yes - Suicide/Smoking/Psychosocial Hx Smoking Status: No Smoking History: Never smoked Have you smoked in the past 12 months: No Number of Cigarettes Smoked Daily: 0 Hx Alcohol Use: No Drug/Substance Use Hx: No Substance Use Type: None Hx Substance Use Treatment: No Review of Systems - Review of Systems Constitutional: No: Chills, Fever HEENTM: No: Recent change in vision Respiratory: No: Cough, Shortness of Breath Cardiac (ROS): No: Chest Pain, Lightheadedness, Palpitations, Syncope ABD/GI: No: Constipated, Diarrhea, Nausea, Vomiting *Physical Exam - Physical Exam Comments: 12/19/18 10:13 Awake, moves all 4 extremities, B/L LE tremor (likely 2/2 to Parkison's Disease) CV: S1, S2, RRR Respiratory: CLTA B/L, no wheeze/crackle Abdomen: soft, non-tender, (+) bowel sounds HEENT: Neck supple, no mastoid ecchymosis, no periorbital ecchymosis MSK: pelvis stable, no C-spine, L/T/S midline spinal TTP, moves all 4 extremities Medical Decision Making - Medical Decision Making 12/19/18 10:15 73 year old male s/p fall. Initially hypoxic (SpO2 92%) at triage, repeat SpO2 99% on RA Trauma PE negative including no C-spine or L/T/S midline spinal TTP, no visible head trauma, no focal neurologic deficit on PE 12/19/18 11:[address]/C-spine negative Patient tolerating PO intake Will discharge to [facility] with return precautions. 12/19/18 12:17 Patient c/o constipation; nursing staff reports patient required minor disimpaction. Will give enema for symptomatic care. I discussed the physical exam findings, ancillary test results and final diagnoses with the patient. I answered all of the patient's questions. The patient was satisfied with the care received and felt comfortable with the discharge plan and treatment plan. The patient will return to the Emergency Department with any new, persistent or worsening symptoms. *DC/Admit/Observation/Transfer Diagnosis at time of Disposition: Fall - Discharge Dispostion Disposition: HOME Condition at time of disposition: Good Decision to Admit order: No - Referrals - Patient Instructions Printed Discharge Instructions: How to Prevent Falls Additional Instructions: Return to the Emergency Department for any new/worsening/concerning symptoms. - Post Discharge Activity
[2018-12-19 10:12] VITALS: BMI 17.7
--- NOTE | 2018-12-19 10:50 | PDOC ---
Attending Attestation - Resident Resident Name: Sultana Akers - ED Attending Attestation I have performed the following: I have examined & evaluated the patient, The case was reviewed & discussed with the resident, I agree w/resident's findings & plan, Exceptions are as noted - HPI HPI: 12/19/18 10:16 73yo male s/p fall this am. Pt with hx of parkinsons. Per the [facility] nurse, bed corley went off and when they went in the room the pt was kneeling on the floor next to the bed. Pt states he fell. States he falls often. Pt states he walked at [facility] after the fall. Unsure if he hit his head. Unsure if LOC. Denies cp/ sob. No cough. No f/c. No neck or back pain, no stepoffs or deformities. Pt moving all extremities. Pt with sensation intact, able to sit up. No external signs of trauma. No focal findings on exam. - Physicial Exam PE: 12/19/18 10:50 Gen: aaox2-person, place, nad heent: PERRl, EOMI, MMM neck: kyphotic, no midline ttp, no stepoffs or deformities heart: +s1s2 reg lungs: cta b/l, no chest wall ttp abd: soft, nt/nd +bs back: no midline ttp, no step offs ext: moving all extremities, 4/5 weakness in all extremities, sensation intact, stiff with movement neuro: no focal findings, hx of parkinsons, awake, alert to person and place - Medical Decision Making 12/19/18 10:15 a/p: 73yo male from [facility] with freq falls -bed alarm went off, nurse found him kneeling on the floor -unsure if he hit his head -denies neck or back pain -no paresthesias, no weakness -states he falls all the time -no external signs of trauma -no cp/sob -no anticoags, baby asa only -will send for head and c spine ct -pt ambulated per the [facility] nurse after the fall, pt with muscle strength intact UE and LE -if ct neg will be stable for dc back to [facility] 12/19/18 11:[address], c spine ct negative pt tolerated po will repeat vitals pt stable for dc to home 12/19/18 12:09 HR 87 Pulse ox 100%ra bp 157/78
[2018-12-19] MEDS ORDERED: MINERAL OIL ENEMA 133 ML ENEMA PR ONE (12:15)
[2018-12-19 14:36] VITALS: BP 145/90; PULSE 78; TEMP 98.2
== END 2018-12-19 16:30 ==
LOC: JER 09:39
DX: Z04.3 Encounter for examination and observation following other accident (principal); G20 Parkinson's disease; N40.0 Benign prostatic hyperplasia without lower urinary tract symptoms; J44.9 Chronic obstructive pulmonary disease, unspecified; I25.10 Atherosclerotic heart disease of native coronary artery without angina pectoris; Z95.5 Presence of coronary angioplasty implant and graft; I10 Essential (primary) hypertension; W18.39XA Other fall on same level, initial encounter; Y93.89 Activity, other specified; Y92.129 Unspecified place in nursing home as the place of occurrence of the external cause
CPT/HCPCS: 70450-TC; 72125-TC; 99282-25

== ENCOUNTER 2019-03-16 15:11 | Inpatient (IN) | payer OTHER, BC ==
[2019-03-16] MEDS ORDERED: SODIUM CHLORIDE 1,429 ML IV ONE (16:00)
[2019-03-16] MEDS ORDERED: ACETAMINOPHEN INJECTION 100 ML IVPB ONE (16:02)
[2019-03-16] MEDS ORDERED: ACETAMINOPHEN 1000 MG/100 ML VIAL (NON FORMULARY) IVPB ONE (16:23)
[2019-03-16 16:35] LABS: BASO % 0.4 % (0-2.0); EOS % 0.1 % (0-4.5); HEMATOCRIT 46.3 % (35.4-49); HEMOGLOBIN 15.1 GM/dL (11.7-16.9); LYMPH % 6.1 % (8-40); MCH 28.4 pg (25.7-33.7); MCHC 32.7 g/dl (32.0-35.9); MEAN CELL VOLUME 86.7 fl (80-96); MEAN PLT VOLUME 7.2 fl (7.5-11.1); MONO % 0.8 % (3.8-10.2); NEUT % 92.6 % (42.8-82.8); PLATELET COUNT 411 K/MM3 (134-434); RBC 5.34 M/mm3 (4.00-5.60); RDW 14.4 % (11.9-15.9); WHITE BLOOD COUNT 2.4 K/mm3 (4.0-10.0)
[2019-03-16 16:39] LABS: VENOUS PC02 44.8 mmHg (38-52); VENOUS PH 7.42 (7.31-7.41)
[2019-03-16 16:47] LABS: INR 1.28 (0.83-1.09); PROTHROMBIN TIME (PATIENT) 15.1 SEC (9.7-13.0)
[2019-03-16 16:50] LABS: ACTIVATED PTT 27.8 SECONDS (25.2-36.5)
[2019-03-16] MEDS ORDERED: CEFTRIAXONE 1,000 MG in DEXTROSE 5%-WATER - 50 ML IVPB ONE (16:52)
--- NOTE | 2019-03-16 17:04 | PDOC ---
History of Present Illness - General Chief Complaint: SIRS, Suspected/Possible Stated Complaint: FEVER Time Seen by Provider: 03/16/19 15:54 History Source: Care Provider Exam Limitations: Clinical Condition - History of Present Illness Initial Comments: 03/16/19 17:00 74 yo M PMH HTN, Parkinson's, presenting from home with AMS. All history per home nurse. States that the patient has been having hematuria for the past several weeks and ultimately so his freight checker Dr. Roth yesterday. At that time, a UC and UC were drawn, however, antibiotics were not started with the intent being to wait till the culture specified the organism. However, last night patient began to grow progressively altered, and this morning, was found to have a temperature of 102, prompting his ED visit. Patient unable to report a ROS. Patient tachycardic, with rectal temperature of 102.9F in the ED. Past History - Past Medical History Allergies/Adverse Reactions: Allergies Allergy/AdvReac Type Severity Reaction Status Date / Time No Known Allergies Allergy Verified 03/16/19 15:31 Home Medications: Ambulatory Orders Atorvastatin Ca [Lipitor] 10 mg PO HS #30 tablet 02/23/17 Carbidopa/Levodopa 25/100 [Sinemet 25/100 -] 2 each PO 5XD #300 tablet 02/23/17 Tamsulosin HCl [Flomax -] 0.4 mg PO DAILY@0830 #30 tab 02/23/17 Aspirin [ASA -] 81 mg PO DAILY #30 tab.chew 03/08/17 Rasagiline Mesylate [Azilect -] 1 mg PO DAILY #30 tablet 03/08/17 Amantadine HCl [Gocovri] 68.5 mg PO HS 09/16/18 Cholecalciferol (Vitamin D3) [Vitamin D3] 1,000 unit PO DAILY 09/16/18 Pimavanserin Tartrate [Nuplazid] 34 mg PO DAILY 09/16/18 Acetaminophen [Tylenol] 650 mg PO PRN 03/17/19 Memantine HCl [Namenda -] 5 mg PO BID 03/17/19 Cardiac Disorders: Yes COPD: Yes HTN: Yes Hypercholesterolemia: Yes - Surgical History Abdominal Surgery: Yes (Inguinal hernia repair) Cardiac Surgery: Yes (bypass with 2 stents) - Immunization History Immunization Up to Date: Yes - Psycho Social/Smoking Cessation Hx Smoking Status: No Smoking History: Never smoked Have you smoked in the past 12 months: No Number of Cigarettes Smoked Daily: 0 Hx Alcohol Use: No Drug/Substance Use Hx: No Substance Use Type: None Hx Substance Use Treatment: No Review of Systems - Review of Systems Able to Perform ROS?: No (patient with AMS) *Physical Exam - Vital Signs Last Vital Signs Temp Pulse Resp BP Pulse Ox 102.9 F H 122 H 20 104/71 96 03/16/19 15:31 03/16/19 15:45 03/16/19 15:45 03/16/19 15:45 03/16/19 15:45 - Physical Exam Comments: 03/16/19 17:06 Gen: patient appears altered, slumped over in bed HEENT: atraumatic, normocephalic Neck: supple, trachea midline CV: tachycardic, regular rhythm Pulm: CTA b/l, no wheezing Abd: soft, ttp to suprapubic region Neuro: AAOX0, moving all extremities spontaneously MSK: normal musculature, no apparent deformities Extr: no edema, 2+ pulses Skin: warm, dry ED Treatment Course - LABORATORY CBC & Chemistry Diagram: 03/19/19 05:40 03/19/19 05:40 - ADDITIONAL ORDERS Additional order review: Laboratory Results 03/16/19 03/16/19 16:10 16:10 PT with INR 15.10 H INR 1.28 H PTT (Actin FS) 27.8 VBG pH 7.42 H POC VBG pCO2 44.8 POC VBG pO2 No Result Required. VBG HCO3 28.3 VBG O2 Sat (Cristina) 45.1 L VBG Base Excess 3.7 H 03/16/19 16:10 RBC 5.34 MCV 86.7 MCHC 32.7 RDW 14.4 MPV 7.2 L Neutrophils % 92.6 H D Lymphocytes % 6.1 L D Monocytes % 0.8 L D Eosinophils % 0.1 D Basophils % 0.4 - RADIOLOGY Radiology Studies Ordered: Category Date Time Status CHEST X-RAY PORTABLE* [RAD] Stat Radiology 03/16/19 16:00 Ordered - Medications Given in the ED: ED Medications Discontinued Medications Generic Name Dose Route Start Last Admin Trade Name Freq PRN Reason Stop Dose Admin Acetaminophen 1,000 mg 03/16/19 16:23 03/16/19 16:29 Ofirmev Injection - IVPB 03/16/19 16:24 1,000 mg ONCE ONE Administration Medical Decision Making - Medical Decision Making 03/16/19 17:14 Significant concern for active sepsis, likely 2/2 to UTI. - 30 ml/kg NS - two peripheral 18s in place - mittens on for restraint to prevent pulling out of IVs - UA/UC - ceftriaxone 1000mg - CBC, CMP, coags, T+S - CXR port - EKG, trop - ctm 03/16/19 17:26 Sugar 62, pushing D50. 03/16/19 17:51 Lactate noted to be 4.8. Also significant elevation of Cr to 1.8, Na 147, WBC 2.7. 03/16/19 18:30 Considering blood in UA, want to rule out obstructive cause such as kidney stone. Spiral CT ordered. 03/16/19 19:35 Spoke with [facility] hospitalist, will admit to Dr. Fernandez on Med/Surg. 03/16/19 19:37 POC glucose 60, will give 2 amps of D50, check another POC glucose in 30 minutes. 03/16/19 21:21 Repeat lactate 5.4 from 4.8, will give another bolus of LR. Discharge - Discharge Information Problems reviewed: Yes Clinical Impression/Diagnosis: Sepsis Condition: Guarded - Admission Yes - Follow up/Referral - Patient Discharge Instructions - Post Discharge Activity
[2019-03-16 17:08] LABS: PLATELET ESTIMATE ADEQUATE
[2019-03-16 17:11] LABS: ALBUMIN 3.6 g/dl (3.4-5.0); BILIRUBIN,TOTAL 1.6 mg/dL (0.2-1); BLOOD UREA NITROGEN 35.6 mg/dL (7-18); CREATININE 1.8 mg/dL (0.55-1.3); POTASSIUM 4.1 mmol/L (3.5-5.1); TOT PROT 7.2 g/dl (6.4-8.2)
[2019-03-16] MEDS ORDERED: CEFTRIAXONE 1 GM/50 ML BAG ONE (17:11)
[2019-03-16] MEDS ORDERED: DEXTROSE 50%-WATER - 25 GM/50 ML VIAL IVPUSH ONE ×2 (17:25→19:37)
[2019-03-16] MEDS ORDERED: DEXTROSE 50%-WATER 25 GM/50 ML DISP.SYRIN ONE ×2 (17:37→19:37)
[2019-03-16 17:38] LABS: EPI CELLS 6.7 /HPF (0-5/HPF); HYALINE CASTS 6 /lpf (0-8); PH,URINE 6.5 (5.0-8.0); URINE APPEARANCE CLOUDY; URINE BACTERIA 562.6 /hpf (NEGATIVE); URINE BILIRUBIN NEGATIVE (NEGATIVE); URINE COLOR YELLOW; URINE GLUCOSE (UA) NEGATIVE (NEGATIVE); URINE KETONE NEGATIVE (NEGATIVE); URINE LEUK ESTERASE TRACE (NEGATIVE); URINE NITRITE NEGATIVE (NEGATIVE); URINE PROTEIN 1+ (NEGATIVE); URINE RBC 17 /hpf (0-4); URINE UROBILINOGEN 0.2 mg/dL (0.2-1.0); URINE WBC 7 /hpf (0-5)
--- NOTE | 2019-03-16 18:50 | PDOC ---
Attending Attestation - Resident Resident Name: Darlene Jackson - ED Attending Attestation I have performed the following: I have examined & evaluated the patient, The case was reviewed & discussed with the resident, I agree w/resident's findings & plan, Exceptions are as noted - HPI HPI: 03/16/19 18:46 74 yo M ho parkinsons, here with c/o hemturia for weeks, and now having fevers. pt has been followed by dr macias for hematuria. developed fever 102 today. no n/v no cough. no other complaints. is ambulatory at baseline with cane. no other complaints. pt is sleeping, history is provided by his aid at bedside. - Physicial Exam PE: 03/16/19 18:47 sleeping comfortablly. lungs clear bilat heart rrr no mrg abd soft nt nd ext wwp. no edema. no calf tenderness. - Medical Decision Making 03/16/19 18:47 74 yo male with h/o parkinsons here with fever and hematuria. praveen uti ct a/p r/o stone or obstructive uti. will treat with abx. paged dr amanda. will admit. Heart Score/ECG Review #1 ECG reviewed & interpreted by me at: 18:49 General ECG Interpretation: Sinus Rhythm, Normal Intervals, No acute ischemic changes Compared to previous ECG there are: Other (sinus tachycardia. no st elevation or depression. normal axis.)
[2019-03-16] MEDS ORDERED: DEXTROSE 5%-0.45% SALINE 1,000 ML IV SCH (19:45)
--- NOTE | 2019-03-16 20:53 | HP ---
Admitting History and Physical - Primary Care Physician PCP: Dr. Fernandez - Admission Chief Complaint: Fever, blood in urine History of Present Illness: 74 yo M PMH HTN, HLD, Parkinson's, CAD (s/p cardiac stenting x 2), COPD and frequent falls, arrived from home via 911 with AMS. History provided by home nurse at bedside. Patient noted with hematuria for the past several weeks, went to can vacuum tester Dr. Roth yesterday. At the office urine was collected, however no antibiotics were stated awaiting UCx. Last night patient became progressively altered, and this morning noted with temperature of 102 F. Unable to conduct ROS. Patient in ED noted tachycardia, with rectal temperature of 102.9F in the ED, rocephine x1 given, also hypoglycemia (FBS: 60) D50 given. 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, Parkinson's Cardiovascular: Yes: CAD (stents), HTN, Hyperlipdemia Pulmonary: Yes: COPD Hepatobiliary: Yes: Cirrhosis - Past Surgical History Past Surgical History: Yes: Hernia Repair (Inguinal hernia repair), Stent - Smoking History Smoking history: Never smoked Have you smoked in the past 12 months: No Aproximately how many cigarettes per day: 0 - Alcohol/Substance Use Hx Alcohol Use: No History of Substance Use: reports: None - Social History ADL: Support Services History of Recent Travel: No Home Medications - Allergies Allergies/Adverse Reactions: Allergies Allergy/AdvReac Type Severity Reaction Status Date / Time No Known Allergies Allergy Verified 03/16/19 15:31 - Home Medications Home Medications: Ambulatory Orders Atorvastatin Ca [Lipitor] 10 mg PO HS #30 tablet 02/23/17 Carbidopa/Levodopa 25/100 [Sinemet 25/100 -] 2 each PO 5XD #300 tablet 02/23/17 Tamsulosin HCl [Flomax -] 0.4 mg PO DAILY@0830 #30 tab 02/23/17 Aspirin [ASA -] 81 mg PO DAILY #30 tab.chew 03/08/17 Rasagiline Mesylate [Azilect -] 1 mg PO DAILY #30 tablet 03/08/17 Amantadine HCl [Gocovri] 68.5 mg PO HS 09/16/18 Cholecalciferol (Vitamin D3) [Vitamin D3] 1,000 unit PO DAILY 09/16/18 Pimavanserin Tartrate [Nuplazid] 34 mg PO DAILY 09/16/18 clonazePAM [Klonopin -] 0.5 mg PO HS PRN 12/08/18 Family Medical History Family History: Unable to Obtain Review of Systems Unable to obtain ROS, reason: AMS Physical Examination Vital Signs: Vital Signs Temperature 99.2 F 03/16/19 20:17 Pulse Rate 105 H 03/16/19 18:15 Respiratory Rate 24 H 03/16/19 18:15 Blood Pressure 108/57 L 03/16/19 18:15 O2 Sat by Pulse Oximetry (%) 97 03/16/19 19:39 Constitutional: Yes: Anxious, Mild Distress Eyes: Yes: Conjunctiva Clear, EOM Intact HENT: Yes: Atraumatic, Normocephalic Neck: Yes: Supple, Trachea Midline Cardiovascular: Yes: Regular Rate and Rhythm, Tachycardia Respiratory: Yes: Regular, CTA Bilaterally Gastrointestinal: Yes: Normal Bowel Sounds, Soft, Tenderness (supre-pubic tenderness) Renal/: Yes: Incontinence Extremities: Yes: WNL Edema: No Neurological: Yes: Other (AMS, AOx0) Labs: CBC, BMP 03/16/19 16:10 03/16/19 16:10 Imaging - Results Chest X-ray: Report Reviewed (no acute disease) Cat Scan: Report Reviewed (Pending offical report CT abd/pelvis) MRI: Report Reviewed EKG: Report Reviewed (Sinus tachy, no s/t changes, trops negative) Other: Report Reviewed (Wbc: 2.4, lactic acid: 4.8 bun/cr: 35.6, 1.8 UA: 3+ blood,+[address]) Problem List - Problems (1) Sepsis Code(s): A41.9 - SEPSIS, UNSPECIFIED ORGANISM (2) MAGY (acute kidney injury) Code(s): N17.9 - ACUTE KIDNEY FAILURE, UNSPECIFIED (3) HTN (hypertension) Code(s): I10 - ESSENTIAL (PRIMARY) HYPERTENSION (4) CAD (coronary artery disease) Code(s): I25.10 - ATHSCL HEART DISEASE OF [place] CORONARY ARTERY W/O ANG PCTRS (5) Hypoglycemia Code(s): E16.2 - HYPOGLYCEMIA, UNSPECIFIED (6) Parkinson disease Code(s): G20 - PARKINSON'S DISEASE (7) HLD (hyperlipidemia) Code(s): E78.5 - HYPERLIPIDEMIA, UNSPECIFIED Assessment/Plan 74 yo M PMH HTN, HLD, Parkinson's, CAD (s/p cardiac stenting x 2), COPD and frequent falls, arrived from home via 911 with AMS. Patient in ED noted tachycardia, with rectal temperature of 102.9F in the ED, rocephine x1 given for sepsis 2/2 UTI, also noted with hypoglycemia (FBS: 60) D50 given. #AMS #Sepsis 2/2 UTI # rule out renal obstruction # ? BPH - Lactate 4.8 WBC 2.7, repeat second lactic level --> 4.8, second bolus given in ED - blood +3 in urine ? obstruction - ceftriaxone 1000mg given x1 - will continue with Rocephin 1g daily - pending UCX and adjust based on sensitivity - follow up blood cx - follow up ID and urology - continue with tylenol - patient on Tamsulosin HCl 0.4 mg PO DAILY as home med #MAGY bun/cr: 35/1.8 elevation of Cr to 1.8 from baseline - pending official read CT abd/ pelvis - trend renal function #Hypoglycemia intially glucose level 62 --> pushing D50. rechecked POC glucose 60---> 2 amps of D50 - started on D5 1/2 NS, will adjust based on POC readings - monitor FSBS closely #HTN/HLD - Atorvastatin Ca 10 mg PO HS # Parkinson's disease - Sinemet 25/100 1 tab PO Q HS - Rasagiline Mesylate 1 mg PO DAILY - Amantadine HCl 68.5 mg PO HS - Pimavanserin Tartrate 34 mg PO DAILY - will hold clonazePAM 0.5 mg PO HS PRN due to AMS - monitor for safety/fall precaution Visit type - Emergency Visit Emergency Visit: Yes ED Registration Date: 03/16/19 Care time: The patient presented to the Emergency Department on the above date and was hospitalized for further evaluation of their emergent condition. - New Patient This patient is new to me today: Yes Date on this admission: 03/17/19 - Critical Care Critical Care patient: No
[2019-03-16] MEDS ORDERED: ACETAMINOPHEN 325 MG TABLET (FP) PO PRN (21:18)
[2019-03-16] MEDS ORDERED: LACTATED RINGERS SOLUTION 1,000 ML/1,000 ML INFUS.BAG IV STA (21:19)
[2019-03-16] MEDS: HEPARIN NA (PORCINE) 5,000 UNITS/ML 1ML VIAL SQ SCH (23:50)
[2019-03-17] MEDS: ATORVASTATIN CA 10 MG TABLET (FP) PO SCH ×2 (00:13→21:32)
[2019-03-17] MEDS ORDERED: DEXTROSE 5%-0.45% SALINE 1,000 ML IV SCH ×3 (04:33→12:00)
[2019-03-17] MEDS ORDERED: DEXTROSE 50%-WATER - 25 GM/50 ML VIAL ONE ×2 (06:09→21:55)
[2019-03-17] MEDS ORDERED: GlUCAGON HUMAN RECOMBINANT 1 MG/VIAL IVPUSH ONE (06:12)
[2019-03-17] MEDS ORDERED: HYDROCORTISONE SOD SUCCINATE 100 MG/2 ML VIAL IVPB ONE (06:19)
[2019-03-17] MEDS ORDERED: GlUCAGON HUMAN RECOMBINANT 1 MG/VIAL ONE (06:34)
[2019-03-17] MEDS ORDERED: HYDROCORTISONE SOD SUCCINATE 2 ML ONE ×2 (06:44→06:45)
[2019-03-17 06:57] LABS: HEMATOCRIT 33.8 % (35.4-49); MCH 28.2 pg (25.7-33.7); MCHC 32.7 g/dl (32.0-35.9); MEAN CELL VOLUME 86.2 fl (80-96); MEAN PLT VOLUME 7.4 fl (7.5-11.1); PLATELET COUNT 274 K/MM3 (134-434); RBC 3.92 M/mm3 (4.00-5.60); RDW 14.2 % (11.9-15.9); WHITE BLOOD COUNT 23.4 K/mm3 (4.0-10.0)
[2019-03-17 07:26] LABS: ALBUMIN 2.2 g/dl (3.4-5.0); BILIRUBIN,TOTAL 0.8 mg/dL (0.2-1); BLOOD UREA NITROGEN 31.1 mg/dL (7-18); CALCIUM 7.2 mg/dL (8.5-10.1); CREATININE 1.7 mg/dL (0.55-1.3); POTASSIUM 3.8 mmol/L (3.5-5.1); TOT PROT 4.5 g/dl (6.4-8.2)
[2019-03-17] MEDS ORDERED: DEXTROSE 50%-WATER 25 GM/50 ML DISP.SYRIN ONE ×5 (08:45→16:38)
[2019-03-17] MEDS: TAMSULOSIN HCL 0.4 MG CAP PO SCH (08:47)
[2019-03-17] MEDS ORDERED: CARBIDOPA/LEVODOPA 25/100 TABLET (FP) PO SCH (10:00)
[2019-03-17] MEDS ORDERED: CEFTRIAXONE 1 GM in DEXTROSE 5%-WATER - 50 ML IVPB SCH (10:00)
[2019-03-17] MEDS ORDERED: CEFTRIAXONE 1 GM/50 ML BAG ONE (10:13)
[2019-03-17] MEDS ORDERED: HEPARIN NA (PORCINE) 5,000 UNITS/ML 1ML VIAL ONE (10:14)
[2019-03-17] MEDS: HEPARIN NA (PORCINE) 5,000 UNITS/ML 1ML VIAL SQ SCH ×2 (10:43→21:32)
--- NOTE | 2019-03-17 10:59 | CONSULT ---
Consultation: REQUESTING PROVIDER: CONSULT REQUEST: We have been asked to medically evaluate this patient for ( sever sepsis ). HISTORY OF PRESENT ILLNESS: history is taking from medical record and health aid as pt is not able to provide history 74 yo M PMH HTN, HLD, Parkinson's, CAD (s/p cardiac stenting x 2), COPD and frequent falls, arrived from home via 911 with AMS. History provided by home nurse at bedside. Patient noted with hematuria for the past several weeks, went to urologist Dr. Roth yesterday. At the office urine was collected, however no antibiotics were stated awaiting UCx. Last night patient became progressively altered, and this morning noted with temperature of 102 F. Unable to conduct ROS. Patient in ED noted tachycardia, with rectal temperature of 102.9F in the ED, rocephine x1 given, also hypoglycemia (FBS: 60) D50 given. PMhx: HTN, HLD, Parkinson, multiple falls , CAD S.P stent x2 PSHx: cardiac stent , prostate surgery Allergies: NKDA Fhx: father with heart disease CHF Mother 106 years old with no medical issues , sister with parkinson Shx: denies smoking alcohol or drugs use REVIEW OF SYSTEMS: unable to obtain brother reports hematuria on and off for last 2 weeks , fever and lethargic PHYSICAL EXAMINATION Vital Signs - 24 hr 03/16/19 03/16/19 03/16/19 15:31 15:45 16:40 Temperature 102.9 F H Pulse Rate 124 H Pulse Rate [ 122 H 121 H Apical] Respiratory 20 20 24 H Rate Blood Pressure 114/90 Blood Pressure 104/71 125/63 [Left Arm] O2 Sat by Pulse 96 96 98 Oximetry (%) 03/16/19 03/16/19 03/16/19 17:15 17:30 17:45 Temperature 99.5 F Pulse Rate Pulse Rate [ 116 H 114 H 108 H Apical] Respiratory 26 H 28 H 24 H Rate Blood Pressure Blood Pressure 107/54 L 105/54 L 107/53 L [Left Arm] O2 Sat by Pulse 98 97 96 Oximetry (%) 03/16/19 03/16/19 03/16/19 18:00 18:15 18:45 Temperature Pulse Rate Pulse Rate [ 109 H 105 H 104 H Apical] Respiratory 22 H 24 H 22 H Rate Blood Pressure Blood Pressure 92/68 108/57 L 116/60 [Left Arm] O2 Sat by Pulse 97 96 97 Oximetry (%) 03/16/19 03/16/19 03/16/19 19:39 19:45 20:17 Temperature 99.2 F Pulse Rate Pulse Rate [ 98 H Apical] Respiratory 20 Rate Blood Pressure Blood Pressure 96/50 L [Left Arm] O2 Sat by Pulse 97 98 Oximetry (%) 03/16/19 03/17/19 03/17/19 20:30 02:11 07:00 Temperature 98.9 F Pulse Rate Pulse Rate [ 100 H 87 Apical] Respiratory 20 21 H Rate Blood Pressure Blood Pressure 104/60 98/68 [Left Arm] O2 Sat by Pulse 98 97 95 Oximetry (%) 03/17/19 03/17/19 03/17/19 07:05 08:47 09:36 Temperature 98.4 F Pulse Rate Pulse Rate [ 75 80 80 Apical] Respiratory 18 18 18 Rate Blood Pressure Blood Pressure 120/62 80/64 L 102/66 [Left Arm] O2 Sat by Pulse 95 96 95 Oximetry (%) GENERAL: Awake, alert, confused but follow simple commands , falt facial expression HEAD: Normal with no signs of trauma. EYES: Pupils equal, round and reactive to light, extraocular movements intact, sclera anicteric, NECK: supple LUNGS: decrease breath sound s at the bases HEART: Regular rate and rhythm, normal S1 and S2 without murmur, rub or gallop. ABDOMEN: Soft, nontender, not distended, normoactive bowel sounds, LOWER EXTREMITIES: 2+ pulses, warm, well-perfused. No calf tenderness. No peripheral edema. NEUROLOGICAL: falt affect , follow simple commands PSYCHIATRIC: Cooperative. Laboratory Results - last 24 hr 03/16/19 03/16/19 03/16/19 16:10 16:10 16:10 WBC 2.4 L RBC 5.34 Hgb 15.1 Hct 46.3 MCV 86.7 MCH 28.4 MCHC 32.7 RDW 14.4 Plt Count 411 MPV 7.2 L Absolute Neuts (auto) 2.2 Neutrophils % 92.6 H D Neutrophils % (Manual) 88.0 H Band Neutrophils % 6.0 Lymphocytes % 6.1 L D Lymphocytes % (Manual) 4.0 L Monocytes % 0.8 L D Monocytes % (Manual) 2 L Eosinophils % 0.1 D Basophils % 0.4 Nucleated RBC % 0 Platelet Estimate Adequate PT with INR 15.10 H INR 1.28 H PTT (Actin FS) 27.8 VBG pH POC VBG pCO2 POC VBG pO2 VBG HCO3 VBG O2 Sat (Cristina) VBG Base Excess Sodium Potassium Chloride Carbon Dioxide Anion Gap BUN Creatinine Est GFR (CKD-EPI)AfAm Est GFR (CKD-EPI)NonAf Plasma Glucose POC Glucometer Random Glucose Lactic Acid Calcium Total Bilirubin AST ALT Alkaline Phosphatase Troponin I < 0.02 Total Protein Albumin Urine Color Urine Appearance Urine pH Ur Specific [place] Urine Protein Urine Glucose (UA) Urine Ketones Urine Blood Urine Nitrite Urine Bilirubin Urine Urobilinogen Ur Leukocyte Esterase Urine WBC (Auto) Urine RBC (Auto) Urine Casts (Auto) U Epithel Cells (Auto) Urine Bacteria (Auto) Blood Type Antibody Screen 03/16/19 03/16/19 03/16/19 16:10 16:10 16:10 WBC RBC Hgb Hct MCV MCH MCHC RDW Plt Count MPV Absolute Neuts (auto) Neutrophils % Neutrophils % (Manual) Band Neutrophils % Lymphocytes % Lymphocytes % (Manual) Monocytes % Monocytes % (Manual) Eosinophils % Basophils % Nucleated RBC % Platelet Estimate PT with INR INR PTT (Actin FS) VBG pH POC VBG pCO2 POC VBG pO2 VBG HCO3 VBG O2 Sat (Cristina) VBG Base Excess Sodium 147 H Potassium 4.1 Chloride 106 Carbon Dioxide 29 Anion Gap 11 BUN 35.6 H Creatinine 1.8 H Est GFR (CKD-EPI)AfAm 41.45 Est GFR (CKD-EPI)NonAf 35.76 Plasma Glucose POC Glucometer Random Glucose 62 L Lactic Acid 4.8 H* Calcium 9.0 Total Bilirubin 1.6 H AST 48 H ALT 14 Alkaline Phosphatase 134 H Troponin I Total Protein 7.2 Albumin 3.6 Urine Color Urine Appearance Urine pH Ur Specific [place] Urine Protein Urine Glucose (UA) Urine Ketones Urine Blood Urine Nitrite Urine Bilirubin Urine Urobilinogen Ur Leukocyte Esterase Urine WBC (Auto) Urine RBC (Auto) Urine Casts (Auto) U Epithel Cells (Auto) Urine Bacteria (Auto) Blood Type A POSITIVE Antibody Screen Negative 03/16/19 03/16/19 03/16/19 16:10 17:20 19:35 WBC RBC Hgb Hct MCV MCH MCHC RDW Plt Count MPV Absolute Neuts (auto) Neutrophils % Neutrophils % (Manual) Band Neutrophils % Lymphocytes % Lymphocytes % (Manual) Monocytes % Monocytes % (Manual) Eosinophils % Basophils % Nucleated RBC % Platelet Estimate PT with INR INR PTT (Actin FS) VBG pH 7.42 H POC VBG pCO2 44.8 POC VBG pO2 No Result Required. VBG HCO3 28.3 VBG O2 Sat (Cristina) 45.1 L VBG Base Excess 3.7 H Sodium Potassium Chloride Carbon Dioxide Anion Gap BUN Creatinine Est GFR (CKD-EPI)AfAm Est GFR (CKD-EPI)NonAf Plasma Glucose POC Glucometer 60 Random Glucose Lactic Acid Calcium Total Bilirubin AST ALT Alkaline Phosphatase Troponin I Total Protein Albumin Urine Color Yellow Urine Appearance Cloudy Urine pH 6.5 Ur Specific [place] 1.014 Urine Protein 1+ H Urine Glucose (UA) Negative Urine Ketones Negative Urine Blood 3+ H Urine Nitrite Negative Urine Bilirubin Negative Urine Urobilinogen 0.2 Ur Leukocyte Esterase Trace Urine WBC (Auto) 7 Urine RBC (Auto) 17 Urine Casts (Auto) 6 U Epithel Cells (Auto) 6.7 Urine Bacteria (Auto) 562.6 Blood Type Antibody Screen 03/16/19 03/17/19 03/17/19 20:08 00:35 02:46 WBC RBC Hgb Hct MCV MCH MCHC RDW Plt Count MPV Absolute Neuts (auto) Neutrophils % Neutrophils % (Manual) Band Neutrophils % Lymphocytes % Lymphocytes % (Manual) Monocytes % Monocytes % (Manual) Eosinophils % Basophils % Nucleated RBC % Platelet Estimate PT with INR INR PTT (Actin FS) VBG pH POC VBG pCO2 POC VBG pO2 VBG HCO3 VBG O2 Sat (Cristina) VBG Base Excess Sodium Potassium Chloride Carbon Dioxide Anion Gap BUN Creatinine Est GFR (CKD-EPI)AfAm Est GFR (CKD-EPI)NonAf Plasma Glucose POC Glucometer 32 Random Glucose Lactic Acid 5.4 H* 4.3 H* Calcium Total Bilirubin AST ALT Alkaline Phosphatase Troponin I Total Protein Albumin Urine Color Urine Appearance Urine pH Ur Specific [place] Urine Protein Urine Glucose (UA) Urine Ketones Urine Blood Urine Nitrite Urine Bilirubin Urine Urobilinogen Ur Leukocyte Esterase Urine WBC (Auto) Urine RBC (Auto) Urine Casts (Auto) U Epithel Cells (Auto) Urine Bacteria (Auto) Blood Type Antibody Screen 03/17/19 03/17/19 03/17/19 03:04 03:51 04:21 WBC RBC Hgb Hct MCV MCH MCHC RDW Plt Count MPV Absolute Neuts (auto) Neutrophils % Neutrophils % (Manual) Band Neutrophils % Lymphocytes % Lymphocytes % (Manual) Monocytes % Monocytes % (Manual) Eosinophils % Basophils % Nucleated RBC % Platelet Estimate PT with INR INR PTT (Actin FS) VBG pH POC VBG pCO2 POC VBG pO2 VBG HCO3 VBG O2 Sat (Cristina) VBG Base Excess Sodium Potassium Chloride Carbon Dioxide Anion Gap BUN Creatinine Est GFR (CKD-EPI)AfAm Est GFR (CKD-EPI)NonAf Plasma Glucose POC Glucometer 142 90 84 Random Glucose Lactic Acid Calcium Total Bilirubin AST ALT Alkaline Phosphatase Troponin I Total Protein Albumin Urine Color Urine Appearance Urine pH Ur Specific [place] Urine Protein Urine Glucose (UA) Urine Ketones Urine Blood Urine Nitrite Urine Bilirubin Urine Urobilinogen Ur Leukocyte Esterase Urine WBC (Auto) Urine RBC (Auto) Urine Casts (Auto) U Epithel Cells (Auto) Urine Bacteria (Auto) Blood Type Antibody Screen 03/17/19 03/17/19 03/17/19 04:56 05:54 05:57 WBC RBC Hgb Hct MCV MCH MCHC RDW Plt Count MPV Absolute Neuts (auto) Neutrophils % Neutrophils % (Manual) Band Neutrophils % Lymphocytes % Lymphocytes % (Manual) Monocytes % Monocytes % (Manual) Eosinophils % Basophils % Nucleated RBC % Platelet Estimate PT with INR INR PTT (Actin FS) VBG pH POC VBG pCO2 POC VBG pO2 VBG HCO3 VBG O2 Sat (Cristina) VBG Base Excess Sodium Potassium Chloride Carbon Dioxide Anion Gap BUN Creatinine Est GFR (CKD-EPI)AfAm Est GFR (CKD-EPI)NonAf Plasma Glucose POC Glucometer 77 58 36 Random Glucose Lactic Acid Calcium Total Bilirubin AST ALT Alkaline Phosphatase Troponin I Total Protein Albumin Urine Color Urine Appearance Urine pH Ur Specific [place] Urine Protein Urine Glucose (UA) Urine Ketones Urine Blood Urine Nitrite Urine Bilirubin Urine Urobilinogen Ur Leukocyte Esterase Urine WBC (Auto) Urine RBC (Auto) Urine Casts (Auto) U Epithel Cells (Auto) Urine Bacteria (Auto) Blood Type Antibody Screen 03/17/19 03/17/19 03/17/19 06:03 06:30 06:30 WBC 23.4 H RBC 3.92 L Hgb 11.0 L Hct 33.8 L D MCV 86.2 MCH 28.2 MCHC 32.7 RDW 14.2 Plt Count 274 D MPV 7.4 L Absolute Neuts (auto) Neutrophils % Neutrophils % (Manual) Band Neutrophils % Lymphocytes % Lymphocytes % (Manual) Monocytes % Monocytes % (Manual) Eosinophils % Basophils % Nucleated RBC % Platelet Estimate PT with INR INR PTT (Actin FS) VBG pH POC VBG pCO2 POC VBG pO2 VBG HCO3 VBG O2 Sat (Cristina) VBG Base Excess Sodium 143 Potassium 3.8 Chloride 109 H Carbon Dioxide 24 Anion Gap 10 BUN 31.1 H Creatinine 1.7 H Est GFR (CKD-EPI)AfAm 44.41 Est GFR (CKD-EPI)NonAf 38.32 Plasma Glucose POC Glucometer 28 Random Glucose 186 H Lactic Acid Calcium 7.2 L Total Bilirubin 0.8 AST 221 H ALT 159 H Alkaline Phosphatase 135 H Troponin I Total Protein 4.5 L Albumin 2.2 L Urine Color Urine Appearance Urine pH Ur Specific [place] Urine Protein Urine Glucose (UA) Urine Ketones Urine Blood Urine Nitrite Urine Bilirubin Urine Urobilinogen Ur Leukocyte Esterase Urine WBC (Auto) Urine RBC (Auto) Urine Casts (Auto) U Epithel Cells (Auto) Urine Bacteria (Auto) Blood Type Antibody Screen 03/17/19 03/17/19 03/17/19 07:39 08:28 09:22 WBC RBC Hgb Hct MCV MCH MCHC RDW Plt Count MPV Absolute Neuts (auto) Neutrophils % Neutrophils % (Manual) Band Neutrophils % Lymphocytes % Lymphocytes % (Manual) Monocytes % Monocytes % (Manual) Eosinophils % Basophils % Nucleated RBC % Platelet Estimate PT with INR INR PTT (Actin FS) VBG pH POC VBG pCO2 POC VBG pO2 VBG HCO3 VBG O2 Sat (Cristina) VBG Base Excess Sodium Potassium Chloride Carbon Dioxide Anion Gap BUN Creatinine Est GFR (CKD-EPI)AfAm Est GFR (CKD-EPI)NonAf Plasma Glucose 150 H POC Glucometer 99 51 Random Glucose Lactic Acid Calcium Total Bilirubin AST ALT Alkaline Phosphatase Troponin I Total Protein Albumin Urine Color Urine Appearance Urine pH Ur Specific [place] Urine Protein Urine Glucose (UA) Urine Ketones Urine Blood Urine Nitrite Urine Bilirubin Urine Urobilinogen Ur Leukocyte Esterase Urine WBC (Auto) Urine RBC (Auto) Urine Casts (Auto) U Epithel Cells (Auto) Urine Bacteria (Auto) Blood Type Antibody Screen 03/17/19 03/17/19 09:55 10:54 WBC RBC Hgb Hct MCV MCH MCHC RDW Plt Count MPV Absolute Neuts (auto) Neutrophils % Neutrophils % (Manual) Band Neutrophils % Lymphocytes % Lymphocytes % (Manual) Monocytes % Monocytes % (Manual) Eosinophils % Basophils % Nucleated RBC % Platelet Estimate PT with INR INR PTT (Actin FS) VBG pH POC VBG pCO2 POC VBG pO2 VBG HCO3 VBG O2 Sat (Cristina) VBG Base Excess Sodium Potassium Chloride Carbon Dioxide Anion Gap BUN Creatinine Est GFR (CKD-EPI)AfAm Est GFR (CKD-EPI)NonAf Plasma Glucose POC Glucometer 84 44 Random Glucose Lactic Acid Calcium Total Bilirubin AST ALT Alkaline Phosphatase Troponin I Total Protein Albumin Urine Color Urine Appearance Urine pH Ur Specific [place] Urine Protein Urine Glucose (UA) Urine Ketones Urine Blood Urine Nitrite Urine Bilirubin Urine Urobilinogen Ur Leukocyte Esterase Urine WBC (Auto) Urine RBC (Auto) Urine Casts (Auto) U Epithel Cells (Auto) Urine Bacteria (Auto) Blood Type Antibody Screen Active Medications Generic Name Dose Route Start Last Admin Trade Name Freq PRN Reason Stop Dose Admin Acetaminophen 650 mg 03/16/19 21:18 Tylenol - PO Q4H PRN PAIN LEVEL 1-5 Atorvastatin Calcium 10 mg 03/16/19 22:00 03/17/19 00:13 Lipitor - PO Not Given HS [facility] Carbidopa/Levodopa 1 each 03/17/19 10:00 Sinemet 25/100 - PO DAILY [facility] Cholecalciferol 1,000 unit 03/17/19 10:00 Vitamin D3 - PO DAILY [facility] Heparin Sodium (Porcine) 5,000 unit 03/16/19 22:00 03/17/19 10:43 Heparin - SQ 5,000 unit BID [facility]ANT[facility]MA Administration Dextrose/Sodium Chloride 1,000 mls @ 100 mls/hr 03/17/19 06:13 03/17/19 06:41 D5-1/2ns - IV 100 mls/hr ASDIR [facility] Administration Ceftriaxone Sodium 1 gm/ 50 mls @ 100 mls/hr 03/17/19 10:00 03/17/19 10:43 Dextrose IVPB 03/23/19 23:59 100 mls/hr DAILY [facility] Administration Non-Formulary Medication 68.5 mg 03/16/19 22:00 Amantadine Hcl [Gocovri] PO HS [facility] Non-Formulary Medication 34 mg 03/17/19 10:00 Pimavanserin Tartrate [Nuplazid] PO DAILY [facility] Non-Formulary Medication 1 mg 03/17/19 10:00 Rasagiline Mesylate PO DAILY [facility] Tamsulosin HCl 0.4 mg 03/17/19 08:30 03/17/19 08:47 Flomax - PO Not Given DAILY@0830 [facility] CBC, BMP 03/17/19 06:30 03/17/19 06:30 CT scan Abdomen , pelvic Mild bibasal atelectatic changes, left more the right cannot rule out infiltrates. Over distended urinary bladder with multiple peripheral intraluminal tiny air pockets that may be iatrogenic. Wall emphysema/ emphysematous cystitis is less likely since there is no gross wall thickening. Correlate clinically. Moderate amount of fecal residue in the colon suggestive of constipation. There is no evidence of small bowel obstruction. Mild bilateral renal hydronephrosis likely due to over distended urinary bladder without gross evidence of an obstructing renal or ureteral stone, bilaterally. ASSESSMENT/PLAN: 74 yo M PMH HTN, HLD, Parkinson's, CAD (s/p cardiac stenting x 2), COPD and frequent falls, arrived from home via 911 with AMS.found to have gram negative bacteriamia # Svere sepsis 2/2 UTI vs PNA # Acute metabolic encephalopathy 2/2 sepsis * presented with fever 102.9 , wbc 23.4 , BP 99/70 , lactic acid 4 trend * locke cx follow official result , Blood cx positive for gram negative Bacilli cont zosyn * CXR mild bibasilar atelectatic changes r.o PNA * EKG * started on ceftriaxone in Ed , will cont with zosyn 3.375 Q 6hr * consult ID Dr linton * IV fluids D5 1/2 NS @ 83CC/hr , add one liter bolus , monitor for fluids over loaded signs and symptoms * Maintain MAP> 65 * BP monitor , Pulse oxy , telemetry monitor * aspiration precautions * # hypoglycemia likely due to gram negative bacteremia , monitor BGM Q 1 hr , D50 as needed , cont D5 1/2 NS @ 83 cc/hr , BMP Q 4hr # transaminitis likely due to sever sepsis will trend # Anemia Hgb drop from 15 to 11 could be delutional but can not r.o bleeding in term of hematuria # HTN hold Bp meds for now as pt is sever sepsis # HLD cont statin # parkinson D cnt home meds , aid will bring the meds # H.O CAD S/P stent x 2 # multiple falls fall precautions , # MAGY likley pre renal due to hydration and sever sepsis will repeat lab after hydration , avoid nephrotoxic agenets , renal US to r.o obstruction # H.O BPH follow with Dr Lau # constipation Miralax TID , colace TID , Senna 2 tab HS Dispo: We will continue to follow the patient. Thank you for this consultative opportunity. Visit type - Emergency Visit Emergency Visit: Yes ED Registration Date: 03/16/19 Care time: The patient presented to the Emergency Department on the above date and was hospitalized for further evaluation of their emergent condition. - New Patient This patient is new to me today: Yes Date on this admission: 03/16/19 - Critical Care Critical Care patient: Yes Total Critical Care Time (in minutes): 50 Critical Care Statement: The care of this patient involved high complexity decision making to prevent further life threatening deterioration of the patient 's condition and/or to evaluate & treat vital organ system(s) failure or risk of failure. ATTENDING PHYSICIAN STATEMENT I saw and evaluated the patient. I reviewed the resident's note and discussed the case with the resident. I agree with the resident's findings and plan as documented. SUBJECTIVE: OBJECTIVE: ASSESSMENT AND PLAN:
[2019-03-17] MEDS: CHOLECALCIFEROL (VIT D3) 1,000 UNIT (25 MCG) TABLET PO SCH (11:00)
[2019-03-17] MEDS ORDERED: DEXTROSE 50%-WATER - 25 GM/50 ML VIAL IVPUSH PRN (11:19)
[2019-03-17] MEDS ORDERED: DEXTROSE 50%-WATER - 25 GM/50 ML VIAL IVPUSH ONE ×6 (11:19→21:51)
--- NOTE | 2019-03-17 11:49 | PN ---
Progress Note (short form) - Note Progress Note: ID CONSULT DICTATED RECURRENT URINARY RETENTION NEUROGENIC BLADDER/ HX SPT BACTERURIA NO EVIDENCE OF SYSTEMIC INFECTION OBSERVE OFF ANTIBIOTICS UNLESS PROCEDURE PLANNED
[2019-03-17] MEDS ORDERED: PIPERACILLIN/TAZOB 4.5 GM 4.5 GM in DEXTROSE 5%-WATER 100 ML IVPB SCH (12:00)
--- NOTE | 2019-03-17 12:57 | PN ---
Teaching Attending Note Name of Resident: Alfredo Caban ATTENDING PHYSICIAN STATEMENT I saw and evaluated the patient. I reviewed the resident's note and discussed the case with the resident. I agree with the resident's findings and plan as documented. SUBJECTIVE: Patient seen and examined in the ICU. In brief, 74 M, HTN, HLD, Parkinson's, CAD (s/p cardiac stenting x 2), COPD, and frequent falls. Admitted via the ER due to AMS. Patient is not able to provide a history. He apparently was in the process opf being worked up for hematuria for the past several weeks. Over the past day has apparently become progressively altered. Temperature noted at 102 F. In the ER was noted to be hypoglycemic(50) and was D50. Marginal hemodynamics improved with volume resuscitation. Intake & Output 03/14/19 03/15/19 03/16/19 03/17/19 23:59 23:59 23:59 23:59 Weight 105 lb Last Vital Signs Temp Pulse Resp BP Pulse Ox 97.7 F 67 18 101/59 L 96 03/17/19 12:07 03/17/19 12:07 03/17/19 12:07 03/17/19 12:07 03/17/19 11:30 Active Medications Acetaminophen (Tylenol -) 650 mg PO Q4H PRN PRN Reason: PAIN LEVEL 1-5 Atorvastatin Calcium (Lipitor -) 10 mg PO HS [facility] Last Admin: 03/17/19 00:13 Dose: Not Given Carbidopa/Levodopa (Sinemet 25/100 -) 1 each PO DAILY [facility] Cholecalciferol (Vitamin D3 -) 1,000 unit PO DAILY [facility] Last Admin: 03/17/19 11:00 Dose: Not Given Docusate Sodium (Colace -) 100 mg PO TID [facility] Heparin Sodium (Porcine) (Heparin -) 5,000 unit SQ BID [facility] Last Admin: 03/17/19 10:43 Dose: 5,000 unit Dextrose/Sodium Chloride (D5-1/2ns -) 1,000 mls @ 83 mls/hr IV ASDIR [facility] Last Admin: 03/17/19 12:13 Dose: 83 mls/hr Non-Formulary Medication (Amantadine Hcl [Gocovri]) 68.5 mg PO HS [facility] Non-Formulary Medication (Pimavanserin Tartrate [Nuplazid]) 34 mg PO DAILY [facility] Non-Formulary Medication (Rasagiline Mesylate) 1 mg PO DAILY [facility] Polyethylene Glycol (Miralax (For Daily Use) -) 17 gm PO BID [facility] Tamsulosin HCl (Flomax -) 0.4 mg PO DAILY@0830 [facility] Last Admin: 03/17/19 08:47 Dose: Not Given GENERAL: Drowsy but arousbale, confused but able to follow some simple commands HEAD: Normal with no signs of trauma. EYES: Pupils equal, reactive, sclera anicteric, NECK: supple LUNGS: decrease breath sound s at the bases HEART: Regular rate and rhythm, normal S1 and S2 without murmur, rub or gallop. ABDOMEN: Soft, nontender, not distended, normoactive bowel sounds, LOWER EXTREMITIES: 2+ pulses, warm, well-perfused. No calf tenderness. No peripheral edema. NEUROLOGICAL: no-focal, follows simple commands Laboratory Results - last 24 hr 03/16/19 03/16/19 03/16/19 16:10 16:10 16:10 WBC 2.4 L RBC 5.34 Hgb 15.1 Hct 46.3 MCV 86.7 MCH 28.4 MCHC 32.7 RDW 14.4 Plt Count 411 MPV 7.2 L Absolute Neuts (auto) 2.2 Neutrophils % 92.6 H D Neutrophils % (Manual) 88.0 H Band Neutrophils % 6.0 Lymphocytes % 6.1 L D Lymphocytes % (Manual) 4.0 L Monocytes % 0.8 L D Monocytes % (Manual) 2 L Eosinophils % 0.1 D Basophils % 0.4 Nucleated RBC % 0 Platelet Estimate Adequate PT with INR 15.10 H INR 1.28 H PTT (Actin FS) 27.8 VBG pH POC VBG pCO2 POC VBG pO2 VBG HCO3 VBG O2 Sat (Cristina) VBG Base Excess Sodium Potassium Chloride Carbon Dioxide Anion Gap BUN Creatinine Est GFR (CKD-EPI)AfAm Est GFR (CKD-EPI)NonAf Plasma Glucose POC Glucometer Random Glucose Lactic Acid Calcium Total Bilirubin AST ALT Alkaline Phosphatase Troponin I < 0.02 Total Protein Albumin Urine Color Urine Appearance Urine pH Ur Specific [place] Urine Protein Urine Glucose (UA) Urine Ketones Urine Blood Urine Nitrite Urine Bilirubin Urine Urobilinogen Ur Leukocyte Esterase Urine WBC (Auto) Urine RBC (Auto) Urine Casts (Auto) U Epithel Cells (Auto) Urine Bacteria (Auto) Blood Type Antibody Screen 03/16/19 03/16/19 03/16/19 16:10 16:10 16:10 WBC RBC Hgb Hct MCV MCH MCHC RDW Plt Count MPV Absolute Neuts (auto) Neutrophils % Neutrophils % (Manual) Band Neutrophils % Lymphocytes % Lymphocytes % (Manual) Monocytes % Monocytes % (Manual) Eosinophils % Basophils % Nucleated RBC % Platelet Estimate PT with INR INR PTT (Actin FS) VBG pH POC VBG pCO2 POC VBG pO2 VBG HCO3 VBG O2 Sat (Cristina) VBG Base Excess Sodium 147 H Potassium 4.1 Chloride 106 Carbon Dioxide 29 Anion Gap 11 BUN 35.6 H Creatinine 1.8 H Est GFR (CKD-EPI)AfAm 41.45 Est GFR (CKD-EPI)NonAf 35.76 Plasma Glucose POC Glucometer Random Glucose 62 L Lactic Acid 4.8 H* Calcium 9.0 Total Bilirubin 1.6 H AST 48 H ALT 14 Alkaline Phosphatase 134 H Troponin I Total Protein 7.2 Albumin 3.6 Urine Color Urine Appearance Urine pH Ur Specific [place] Urine Protein Urine Glucose (UA) Urine Ketones Urine Blood Urine Nitrite Urine Bilirubin Urine Urobilinogen Ur Leukocyte Esterase Urine WBC (Auto) Urine RBC (Auto) Urine Casts (Auto) U Epithel Cells (Auto) Urine Bacteria (Auto) Blood Type A POSITIVE Antibody Screen Negative 03/16/19 03/16/19 03/16/19 16:10 17:20 19:35 WBC RBC Hgb Hct MCV MCH MCHC RDW Plt Count MPV Absolute Neuts (auto) Neutrophils % Neutrophils % (Manual) Band Neutrophils % Lymphocytes % Lymphocytes % (Manual) Monocytes % Monocytes % (Manual) Eosinophils % Basophils % Nucleated RBC % Platelet Estimate PT with INR INR PTT (Actin FS) VBG pH 7.42 H POC VBG pCO2 44.8 POC VBG pO2 No Result Required. VBG HCO3 28.3 VBG O2 Sat (Cristina) 45.1 L VBG Base Excess 3.7 H Sodium Potassium Chloride Carbon Dioxide Anion Gap BUN Creatinine Est GFR (CKD-EPI)AfAm Est GFR (CKD-EPI)NonAf Plasma Glucose POC Glucometer 60 Random Glucose Lactic Acid Calcium Total Bilirubin AST ALT Alkaline Phosphatase Troponin I Total Protein Albumin Urine Color Yellow Urine Appearance Cloudy Urine pH 6.5 Ur Specific [place] 1.014 Urine Protein 1+ H Urine Glucose (UA) Negative Urine Ketones Negative Urine Blood 3+ H Urine Nitrite Negative Urine Bilirubin Negative Urine Urobilinogen 0.2 Ur Leukocyte Esterase Trace Urine WBC (Auto) 7 Urine RBC (Auto) 17 Urine Casts (Auto) 6 U Epithel Cells (Auto) 6.7 Urine Bacteria (Auto) 562.6 Blood Type Antibody Screen 03/16/19 03/17/19 03/17/19 20:08 00:35 02:46 WBC RBC Hgb Hct MCV MCH MCHC RDW Plt Count MPV Absolute Neuts (auto) Neutrophils % Neutrophils % (Manual) Band Neutrophils % Lymphocytes % Lymphocytes % (Manual) Monocytes % Monocytes % (Manual) Eosinophils % Basophils % Nucleated RBC % Platelet Estimate PT with INR INR PTT (Actin FS) VBG pH POC VBG pCO2 POC VBG pO2 VBG HCO3 VBG O2 Sat (Cristina) VBG Base Excess Sodium Potassium Chloride Carbon Dioxide Anion Gap BUN Creatinine Est GFR (CKD-EPI)AfAm Est GFR (CKD-EPI)NonAf Plasma Glucose POC Glucometer 32 Random Glucose Lactic Acid 5.4 H* 4.3 H* Calcium Total Bilirubin AST ALT Alkaline Phosphatase Troponin I Total Protein Albumin Urine Color Urine Appearance Urine pH Ur Specific [place] Urine Protein Urine Glucose (UA) Urine Ketones Urine Blood Urine Nitrite Urine Bilirubin Urine Urobilinogen Ur Leukocyte Esterase Urine WBC (Auto) Urine RBC (Auto) Urine Casts (Auto) U Epithel Cells (Auto) Urine Bacteria (Auto) Blood Type Antibody Screen 03/17/19 03/17/19 03/17/19 03:04 03:51 04:21 WBC RBC Hgb Hct MCV MCH MCHC RDW Plt Count MPV Absolute Neuts (auto) Neutrophils % Neutrophils % (Manual) Band Neutrophils % Lymphocytes % Lymphocytes % (Manual) Monocytes % Monocytes % (Manual) Eosinophils % Basophils % Nucleated RBC % Platelet Estimate PT with INR INR PTT (Actin FS) VBG pH POC VBG pCO2 POC VBG pO2 VBG HCO3 VBG O2 Sat (Cristina) VBG Base Excess Sodium Potassium Chloride Carbon Dioxide Anion Gap BUN Creatinine Est GFR (CKD-EPI)AfAm Est GFR (CKD-EPI)NonAf Plasma Glucose POC Glucometer 142 90 84 Random Glucose Lactic Acid Calcium Total Bilirubin AST ALT Alkaline Phosphatase Troponin I Total Protein Albumin Urine Color Urine Appearance Urine pH Ur Specific [place] Urine Protein Urine Glucose (UA) Urine Ketones Urine Blood Urine Nitrite Urine Bilirubin Urine Urobilinogen Ur Leukocyte Esterase Urine WBC (Auto) Urine RBC (Auto) Urine Casts (Auto) U Epithel Cells (Auto) Urine Bacteria (Auto) Blood Type Antibody Screen 03/17/19 03/17/19 03/17/19 04:56 05:54 05:57 WBC RBC Hgb Hct MCV MCH MCHC RDW Plt Count MPV Absolute Neuts (auto) Neutrophils % Neutrophils % (Manual) Band Neutrophils % Lymphocytes % Lymphocytes % (Manual) Monocytes % Monocytes % (Manual) Eosinophils % Basophils % Nucleated RBC % Platelet Estimate PT with INR INR PTT (Actin FS) VBG pH POC VBG pCO2 POC VBG pO2 VBG HCO3 VBG O2 Sat (Cristina) VBG Base Excess Sodium Potassium Chloride Carbon Dioxide Anion Gap BUN Creatinine Est GFR (CKD-EPI)AfAm Est GFR (CKD-EPI)NonAf Plasma Glucose POC Glucometer 77 58 36 Random Glucose Lactic Acid Calcium Total Bilirubin AST ALT Alkaline Phosphatase Troponin I Total Protein Albumin Urine Color Urine Appearance Urine pH Ur Specific [place] Urine Protein Urine Glucose (UA) Urine Ketones Urine Blood Urine Nitrite Urine Bilirubin Urine Urobilinogen Ur Leukocyte Esterase Urine WBC (Auto) Urine RBC (Auto) Urine Casts (Auto) U Epithel Cells (Auto) Urine Bacteria (Auto) Blood Type Antibody Screen 03/17/19 03/17/19 03/17/19 06:03 06:30 06:30 WBC 23.4 H RBC 3.92 L Hgb 11.0 L Hct 33.8 L D MCV 86.2 MCH 28.2 MCHC 32.7 RDW 14.2 Plt Count 274 D MPV 7.4 L Absolute Neuts (auto) Neutrophils % Neutrophils % (Manual) Band Neutrophils % Lymphocytes % Lymphocytes % (Manual) Monocytes % Monocytes % (Manual) Eosinophils % Basophils % Nucleated RBC % Platelet Estimate PT with INR INR PTT (Actin FS) VBG pH POC VBG pCO2 POC VBG pO2 VBG HCO3 VBG O2 Sat (Cristina) VBG Base Excess Sodium 143 Potassium 3.8 Chloride 109 H Carbon Dioxide 24 Anion Gap 10 BUN 31.1 H Creatinine 1.7 H Est GFR (CKD-EPI)AfAm 44.41 Est GFR (CKD-EPI)NonAf 38.32 Plasma Glucose POC Glucometer 28 Random Glucose 186 H Lactic Acid Calcium 7.2 L Total Bilirubin 0.8 AST 221 H ALT 159 H Alkaline Phosphatase 135 H Troponin I Total Protein 4.5 L Albumin 2.2 L Urine Color Urine Appearance Urine pH Ur Specific [place] Urine Protein Urine Glucose (UA) Urine Ketones Urine Blood Urine Nitrite Urine Bilirubin Urine Urobilinogen Ur Leukocyte Esterase Urine WBC (Auto) Urine RBC (Auto) Urine Casts (Auto) U Epithel Cells (Auto) Urine Bacteria (Auto) Blood Type Antibody Screen 03/17/19 03/17/19 03/17/19 07:39 08:28 09:22 WBC RBC Hgb Hct MCV MCH MCHC RDW Plt Count MPV Absolute Neuts (auto) Neutrophils % Neutrophils % (Manual) Band Neutrophils % Lymphocytes % Lymphocytes % (Manual) Monocytes % Monocytes % (Manual) Eosinophils % Basophils % Nucleated RBC % Platelet Estimate PT with INR INR PTT (Actin FS) VBG pH POC VBG pCO2 POC VBG pO2 VBG HCO3 VBG O2 Sat (Cristina) VBG Base Excess Sodium Potassium Chloride Carbon Dioxide Anion Gap BUN Creatinine Est GFR (CKD-EPI)AfAm Est GFR (CKD-EPI)NonAf Plasma Glucose 150 H POC Glucometer 99 51 Random Glucose Lactic Acid Calcium Total Bilirubin AST ALT Alkaline Phosphatase Troponin I Total Protein Albumin Urine Color Urine Appearance Urine pH Ur Specific [place] Urine Protein Urine Glucose (UA) Urine Ketones Urine Blood Urine Nitrite Urine Bilirubin Urine Urobilinogen Ur Leukocyte Esterase Urine WBC (Auto) Urine RBC (Auto) Urine Casts (Auto) U Epithel Cells (Auto) Urine Bacteria (Auto) Blood Type Antibody Screen 03/17/19 03/17/19 09:55 10:54 WBC RBC Hgb Hct MCV MCH MCHC RDW Plt Count MPV Absolute Neuts (auto) Neutrophils % Neutrophils % (Manual) Band Neutrophils % Lymphocytes % Lymphocytes % (Manual) Monocytes % Monocytes % (Manual) Eosinophils % Basophils % Nucleated RBC % Platelet Estimate PT with INR INR PTT (Actin FS) VBG pH POC VBG pCO2 POC VBG pO2 VBG HCO3 VBG O2 Sat (Cristina) VBG Base Excess Sodium Potassium Chloride Carbon Dioxide Anion Gap BUN Creatinine Est GFR (CKD-EPI)AfAm Est GFR (CKD-EPI)NonAf Plasma Glucose POC Glucometer 84 44 Random Glucose Lactic Acid Calcium Total Bilirubin AST ALT Alkaline Phosphatase Troponin I Total Protein Albumin Urine Color Urine Appearance Urine pH Ur Specific [place] Urine Protein Urine Glucose (UA) Urine Ketones Urine Blood Urine Nitrite Urine Bilirubin Urine Urobilinogen Ur Leukocyte Esterase Urine WBC (Auto) Urine RBC (Auto) Urine Casts (Auto) U Epithel Cells (Auto) Urine Bacteria (Auto) Blood Type Antibody Screen IMP: Sepsis most likely due to source Gram Negative Bacteremia R/O PNA Atelectasis Hypoglycemia likely in the setting of Sepsis MAGY Transaminitis HTN HPL Anemia IVF resuscitation: Maintain MAP > 65 [place]-culture ABX per ID O2 as needed Strict I & O VTE prophylaxis BD TX PRN Monitor off systemic steroids Follow BGM: can add dextrose to IVF Requires ICU monitoring for hemodynamic instability due to Sepsis Dr Mcpherson Critical care time spent in reviewing chart, evaluating patient and formulating plan - 36 minutes.
--- NOTE | 2019-03-17 13:28 | PN ---
Progress Note (short form) - Note Progress Note: ID CONSULT DICTATED GRAM NEGATIVE BACTEREMIA/ SEPSIS ? SOURCE HX HEMATURIA LACTIC ACIDOSIS HYPOGLYCEMIA SECONDARY TO SEPSIS LEUKOPEMIA/ LEUKOCYTOSIS SECONDARY TO SEPSIS TOXIC METABOLIC ENCEPHALOPATHY/ EXACERBATION PARKINSONISM AZOTEMIA ELEVATED LFTS, LIKELY SECONDARY TO SEPSIS AWAIT C/S EMPIRIC ZOSYN HEMODYNAMIC SUPPORT CRITICAL CARE TIME 40MIN
[2019-03-17 14:05] VITALS: BMI 22.3
--- NOTE | 2019-03-17 14:08 | EKG ---
Test Reason : Blood Pressure : / mmHG Vent. Rate : 103 BPM Atrial Rate : 103 BPM P-R Int : 140 ms QRS Dur : 096 ms QT Int : 358 ms P-R-T Axes : 077 036 076 degrees QTc Int : 468 ms SINUS TACHYCARDIA OTHERWISE NORMAL ECG WHEN COMPARED WITH ECG OF 08-DEC-2018 09:36, VENT. RATE HAS INCREASED BY 45 BPM NONSPECIFIC T WAVE ABNORMALITY NOW EVIDENT IN LATERAL LEADS QT HAS LENGTHENED Confirmed by JUNITO LAGUNAS, HAILEY ([id number]) on 03/17/2019 2:08:07 PM Referred By: Confirmed By:HAILEY WILD MD
--- NOTE | 2019-03-17 14:23 | CONS ---
INFECTIOUS DISEASE CONSULTATION DATE OF CONSULTATION: DATE OF DICTATION: 03/17/2019 The patient is a 74-year-old male with a history of parkinsonism, admitted from home with sepsis. History was obtained from the chart as well as a family friend who was present at the time of the examination. The patient lives at home and is cared for by home health aides. According to the notes, he had developed gross hematuria over the past several weeks. He was taken to his urologist, where cultures were obtained. However, he was not started on antibiotics. On the day of admission, he developed fever to 102 as well as altered mental status. He was brought to the emergency room where he was noted to have a fever of 102.9 and tachycardia. He was empirically treated with ceftriaxone. His course was complicated by hypotension, high-grade fever, lactic acidosis, hypoglycemia, and leukopenia. At the present time, the patient is admitted to the intensive care unit. He is awake and responsive. He is weak appearing. He complains of generalized weakness and has difficulty conversing. He denies any dysuria. A Delaney catheter has not been placed. On review of his medical records, there are no documented [id number] organisms. His last hospitalization was in November 2018 for a fall. PAST MEDICAL HISTORY: Positive for parkinsonism, hypertension, hyperlipidemia, coronary artery disease, COPD. PAST SURGICAL HISTORY: Status post coronary artery stent, inguinal hernia repair. ALLERGIES: No known allergies. MEDICATIONS: At home include Lipitor, Sinemet, Flomax, aspirin, amantadine, Klonopin. SOCIAL HISTORY: He lives at home. He has home health aides. He is a nonsmoker, nondrinker. The patient ambulates with assistance. He is not bedbound. SYSTEMS REVIEW: Neurologic: Positive for parkinsonism. Cardiac: Negative chest pain or palpitations. Respiratory: Positive cough. No sputum production. Gastrointestinal: Negative vomiting or diarrhea. Genitourinary: As per HPI. LABORATORY DATA: White count on admission was 2.4 with left shift; presently, it is 23.4. Hematocrit 33.8, platelets 274. BUN 31, creatinine 1.7. Lactic acid 4.3. Liver enzymes: Total bilirubin 0.8, alkaline phosphatase 135, AST 221, ALT 159. Urinalysis: White cells 7. CAT scan of the abdomen shows some basilar atelectasis with pleural effusions, distended urinary bladder with air. Cultures are pending. PHYSICAL EXAMINATION: General: The patient is awake and responsive, however lethargic. Vital Signs: Temperature 97.7, T-max 102.9; blood pressure 101/59; pulse 67; respirations 18 per minute. HEENT: Sclerae are anicteric. Heart: Sounds S1, S2. Lungs: Grossly clear. Poor inspiratory effort. Abdomen: Soft. No tenderness elicited. No mass, rebound, or rigidity. Extremities: Negative for edema. Negative Homans sign. IMPRESSION: 1. Gram-negative bacteremia/sepsis, possible genitourinary source. 2. History of hematuria, probable cystitis. 3. Lactic acidosis. 4. Hypoglycemia secondary to sepsis. 5. Leukopenia/leukocytosis secondary to sepsis. 6. Toxic metabolic encephalopathy superimposed on parkinsonism. 7. Azotemia. 8. Elevated liver enzymes, likely secondary to sepsis. Await culture results. Empiric antibiotic coverage for gram-negative sepsis with Zosyn. Hemodynamic support. Prognosis is guarded. Case discussed with family friend present at the time of the examination. Will follow. Thank you for the kind referral. CRITICAL CARE TIME SPENT: Forty minutes. RAMONA RASCON M.D. [id number]
[2019-03-17] MEDS ORDERED: DEXTROSE 5%-WATER - 100 ML IVPB ONE (14:36)
[2019-03-17] MEDS ORDERED: PIPERACILLIN/TAZOBACTAM 3.375 GM VIAL IVPB ONE (14:36)
[2019-03-17] MEDS: PIPERACILLIN/TAZOB 3.375 GM 3.375 GM in DEXTROSE 5%-WATER - 50 ML IVPB SCH ×2 (15:24→18:00)
[2019-03-17] MEDS: DOCUSATE SODIUM 100 MG CAPSULE (FP) PO SCH ×2 (15:26→21:32)
[2019-03-17] MEDS ORDERED: SODIUM CHLORIDE 0.9% 500 ML INFUS.BAG IV ONE ×3 (16:10→22:39)
[2019-03-17] MEDS: POLYETHYLENE GLYCOL 3350 119 GM BTL PO SCH ×2 (17:16→21:32)
[2019-03-17] MEDS: DEXTROSE 10%-WATER - 1,000 ML IV SCH (17:53)
[2019-03-17 20:00] LABS: CALCIUM 7.1 mg/dL (8.5-10.1); CREATININE 1.3 mg/dL (0.55-1.3); POTASSIUM 3.4 mmol/L (3.5-5.1)
[2019-03-17] MEDS: AMANTADINE PO SCH ×2 (21:00→21:32)
[2019-03-17] MEDS: RASAGILINE MESYLATE 1 MG TABLET PO SCH (21:01)
[2019-03-17] MEDS: PATIENT'S OWN MEDICATION (NON-FORMULARY) (Pimavanserin Tartrate [Nuplazid] 34 MG) PO SCH (21:02)
[2019-03-17] MEDS ORDERED: SODIUM CHLORIDE 500 ML IV ONE (22:45)
[2019-03-18 00:02] LABS: BLOOD UREA NITROGEN 24.9 mg/dL (7-18); CALCIUM 7.2 mg/dL (8.5-10.1); CREATININE 1.4 mg/dL (0.55-1.3); POTASSIUM 4.3 mmol/L (3.5-5.1)
[2019-03-18] MEDS ORDERED: DEXTROSE 5%-WATER - 50 ML IVPB ONE ×3 (00:14→17:14)
[2019-03-18] MEDS ORDERED: PIPERACILLIN/TAZOBACTAM 3.375 GM VIAL IVPB ONE ×3 (00:14→17:14)
[2019-03-18] MEDS ORDERED: DEXTROSE 50%-WATER - 25 GM/50 ML VIAL ONE ×4 (01:10→09:50)
[2019-03-18] MEDS: DEXTROSE 50%-WATER - 25 GM/50 ML VIAL IVPUSH PRN ×3 (01:27→07:30)
[2019-03-18] MEDS ORDERED: HYDROCORTISONE SOD SUCCINATE 100 MG/2 ML VIAL IVPUSH ONE (01:28)
[2019-03-18] MEDS: PIPERACILLIN/TAZOB 3.375 GM 3.375 GM in DEXTROSE 5%-WATER - 50 ML IVPB SCH ×3 (01:31→17:22)
[2019-03-18] MEDS: DOCUSATE SODIUM 100 MG CAPSULE (FP) PO SCH ×4 (06:23→22:15)
[2019-03-18 07:36] LABS: BASO % 0.1 % (0-2.0); BILIRUBIN,TOTAL 0.6 mg/dL (0.2-1); BLOOD UREA NITROGEN 23.4 mg/dL (7-18); CALCIUM 7.3 mg/dL (8.5-10.1); CREATININE 1.3 mg/dL (0.55-1.3); HEMATOCRIT 34.8 % (35.4-49); HEMOGLOBIN 11.5 GM/dL (11.7-16.9); LYMPH % 3.2 % (8-40); MAGNESIUM 1.8 mg/dL (1.8-2.4); MCH 28.4 pg (25.7-33.7); MCHC 33.2 g/dl (32.0-35.9); MEAN CELL VOLUME 85.5 fl (80-96); MEAN PLT VOLUME 8.4 fl (7.5-11.1); MONO % 2.1 % (3.8-10.2); NEUT % 94.6 % (42.8-82.8); PLATELET COUNT 259 K/MM3 (134-434); POTASSIUM 4.6 mmol/L (3.5-5.1); RBC 4.07 M/mm3 (4.00-5.60); RDW 14.6 % (11.9-15.9); TOT PROT 4.4 g/dl (6.4-8.2)
[2019-03-18] MEDS ORDERED: METHADONE HCL 10 MG TABLET (FOR DETOX USE ONLY) PO ONE (07:38)
[2019-03-18 08:12] LABS: WHITE BLOOD COUNT 31.1 K/mm3 (4.0-10.0)
[2019-03-18] MEDS: HEPARIN NA (PORCINE) 5,000 UNITS/ML 1ML VIAL SQ SCH ×3 (09:19→22:15)
[2019-03-18] MEDS: CHOLECALCIFEROL (VIT D3) 1,000 UNIT (25 MCG) TABLET PO SCH (09:35)
[2019-03-18] MEDS: PATIENT'S OWN MEDICATION (NON-FORMULARY) (Pimavanserin Tartrate [Nuplazid] 34 MG) PO SCH (09:42)
[2019-03-18] MEDS: TAMSULOSIN HCL 0.4 MG CAP PO SCH (09:45)
[2019-03-18] MEDS: POLYETHYLENE GLYCOL 3350 119 GM BTL PO SCH ×4 (10:00→22:15)
--- NOTE | 2019-03-18 10:45 | PN ---
Teaching Attending Note Name of Resident: Lalo Welsh ATTENDING PHYSICIAN STATEMENT I saw and evaluated the patient. I reviewed the resident's note and discussed the case with the resident. I agree with the resident's findings and plan as documented. SUBJECTIVE: Patient seen and examined in the ICU. Sleepy but easily arousable, confused. Denies CP or SOB. No pressors. Intermittent Hypoglycemia on D10 drip. Intake & Output 03/15/19 03/16/19 03/17/19 03/18/19 23:59 23:59 23:59 23:59 Intake Total 1813 490 Balance 1813 490 Weight 130 lb Last Vital Signs Temp Pulse Resp BP Pulse Ox 97.6 F 73 16 119/85 98 03/18/19 06:00 03/18/19 07:00 03/18/19 07:00 03/18/19 07:00 03/17/19 21:00 Active Medications Acetaminophen (Tylenol -) 650 mg PO Q4H PRN PRN Reason: PAIN LEVEL 1-5 Atorvastatin Calcium (Lipitor -) 10 mg PO HS [facility] Last Admin: 03/17/19 21:32 Dose: Not Given Carbidopa/Levodopa (Sinemet 25/100 -) 1 each PO DAILY [facility] Cholecalciferol (Vitamin D3 -) 1,000 unit PO DAILY [facility] Last Admin: 03/18/19 09:35 Dose: 1,000 unit Dextrose (D50w (Vial) -) 25 gm IVPUSH Q2H PRN PRN Reason: HYPOGLYCEMIA Last Admin: 03/18/19 07:30 Dose: 25 gm Docusate Sodium (Colace -) 100 mg PO TID [facility] Last Admin: 03/18/19 06:23 Dose: Not Given Heparin Sodium (Porcine) (Heparin -) 5,000 unit SQ BID [facility] Last Admin: 03/18/19 09:19 Dose: 5,000 unit Piperacillin Sod/Tazobactam (Sod 3.375 gm/ Dextrose) 50 mls @ 100 mls/hr IVPB Q8H-IV [facility]; Protocol Last Admin: 03/18/19 09:25 Dose: 100 mls/hr Dextrose (D10w -) 1,000 mls @ 25 mls/hr IV ASDIR [facility] Last Admin: 03/17/19 17:53 Dose: Not Given Dextrose/Lactated Ringer's (D5-Lr -) 1,000 mls @ 100 mls/hr IV ASDIR [facility] Non-Formulary Medication (Amantadine Hcl [Gocovri]) 68.5 mg PO HS [facility] Last Admin: 03/17/19 21:32 Dose: Not Given Non-Formulary Medication (Pimavanserin Tartrate [Nuplazid]) 34 mg PO DAILY [facility] Last Admin: 03/18/19 09:42 Dose: 34 mg Polyethylene Glycol (Miralax (For Daily Use) -) 17 gm PO BID [facility] Last Admin: 03/17/19 21:32 Dose: Not Given Rasagiline (Azilect -) 1 mg PO DAILY [facility] Last Admin: 03/17/19 21:01 Dose: Not Given Tamsulosin HCl (Flomax -) 0.4 mg PO DAILY@0830 [facility] Last Admin: 03/18/19 09:45 Dose: 0.4 mg GENERAL: Sleepy but arousbale, confused but able to follow some simple commands HEAD: Normal with no signs of trauma. EYES: Pupils equal, reactive, sclera anicteric, NECK: supple LUNGS: decrease breath sound s at the bases HEART: Regular rate and rhythm, normal S1 and S2 without murmur, rub or gallop. ABDOMEN: Soft, nontender, not distended, normoactive bowel sounds, LOWER EXTREMITIES: 2+ pulses, warm, well-perfused. No calf tenderness. No peripheral edema. NEUROLOGICAL: no-focal, follows simple commands Laboratory Results - last 24 hr 03/17/19 03/17/19 03/17/19 10:54 11:33 11:58 WBC RBC Hgb Hct MCV MCH MCHC RDW Plt Count MPV Absolute Neuts (auto) Neutrophils % Lymphocytes % Monocytes % Eosinophils % Basophils % Nucleated RBC % Sodium Potassium Chloride Carbon Dioxide Anion Gap BUN Creatinine Est GFR (CKD-EPI)AfAm Est GFR (CKD-EPI)NonAf POC Glucometer 44 12 45 Random Glucose Lactic Acid Calcium Phosphorus Magnesium Total Bilirubin AST ALT Alkaline Phosphatase Total Protein Albumin 03/17/19 03/17/19 03/17/19 12:02 12:56 16:36 WBC RBC Hgb Hct MCV MCH MCHC RDW Plt Count MPV Absolute Neuts (auto) Neutrophils % Lymphocytes % Monocytes % Eosinophils % Basophils % Nucleated RBC % Sodium Potassium Chloride Carbon Dioxide Anion Gap BUN Creatinine Est GFR (CKD-EPI)AfAm Est GFR (CKD-EPI)NonAf POC Glucometer 86 13 Random Glucose Lactic Acid 4.0 H* Calcium Phosphorus Magnesium Total Bilirubin AST ALT Alkaline Phosphatase Total Protein Albumin 03/17/19 03/17/19 03/17/19 17:00 17:47 18:30 WBC RBC Hgb Hct MCV MCH MCHC RDW Plt Count MPV Absolute Neuts (auto) Neutrophils % Lymphocytes % Monocytes % Eosinophils % Basophils % Nucleated RBC % Sodium Potassium Chloride Carbon Dioxide Anion Gap BUN Creatinine Est GFR (CKD-EPI)AfAm Est GFR (CKD-EPI)NonAf POC Glucometer 14 219 Random Glucose Lactic Acid 3.4 H* Calcium Phosphorus Magnesium Total Bilirubin AST ALT Alkaline Phosphatase Total Protein Albumin 03/17/19 03/17/19 03/17/19 18:30 18:48 20:50 WBC RBC Hgb Hct MCV MCH MCHC RDW Plt Count MPV Absolute Neuts (auto) Neutrophils % Lymphocytes % Monocytes % Eosinophils % Basophils % Nucleated RBC % Sodium 144 Potassium 3.4 L Chloride 112 H Carbon Dioxide 23 Anion Gap 9 BUN 26.0 H Creatinine 1.3 Est GFR (CKD-EPI)AfAm 61.43 Est GFR (CKD-EPI)NonAf 53.00 POC Glucometer 208 91 Random Glucose 203 H Lactic Acid Calcium 7.1 L Phosphorus Magnesium Total Bilirubin AST ALT Alkaline Phosphatase Total Protein Albumin 03/17/19 03/17/19 03/17/19 21:49 23:26 23:30 WBC RBC Hgb Hct MCV MCH MCHC RDW Plt Count MPV Absolute Neuts (auto) Neutrophils % Lymphocytes % Monocytes % Eosinophils % Basophils % Nucleated RBC % Sodium 148 H Potassium 4.3 Chloride 114 H Carbon Dioxide 28 Anion Gap 6 L BUN 24.9 H Creatinine 1.4 H Est GFR (CKD-EPI)AfAm 56.16 Est GFR (CKD-EPI)NonAf 48.46 POC Glucometer 53 105 Random Glucose 106 Lactic Acid Calcium 7.2 L Phosphorus Magnesium Total Bilirubin AST ALT Alkaline Phosphatase Total Protein Albumin 03/18/19 03/18/19 03/18/19 01:07 03:48 05:18 WBC RBC Hgb Hct MCV MCH MCHC RDW Plt Count MPV Absolute Neuts (auto) Neutrophils % Lymphocytes % Monocytes % Eosinophils % Basophils % Nucleated RBC % Sodium Potassium Chloride Carbon Dioxide Anion Gap BUN Creatinine Est GFR (CKD-EPI)AfAm Est GFR (CKD-EPI)NonAf POC Glucometer 43 92 56 Random Glucose Lactic Acid Calcium Phosphorus Magnesium Total Bilirubin AST ALT Alkaline Phosphatase Total Protein Albumin 03/18/19 03/18/19 03/18/19 05:50 05:50 05:50 WBC 31.1 H* RBC 4.07 Hgb 11.5 L Hct 34.8 L MCV 85.5 MCH 28.4 MCHC 33.2 RDW 14.6 Plt Count 259 MPV 8.4 D Absolute Neuts (auto) 29.4 H Neutrophils % 94.6 H Lymphocytes % 3.2 L D Monocytes % 2.1 L D Eosinophils % 0.0 D Basophils % 0.1 Nucleated RBC % 0 Sodium 147 H Potassium 4.6 Chloride 113 H Carbon Dioxide 28 Anion Gap 6 L BUN 23.4 H Creatinine 1.3 Est GFR (CKD-EPI)AfAm 61.43 Est GFR (CKD-EPI)NonAf 53.00 POC Glucometer Random Glucose 185 H Lactic Acid 3.9 H* Calcium 7.3 L Phosphorus 2.0 L Magnesium 1.8 Total Bilirubin 0.6 AST 98 H ALT 120 H Alkaline Phosphatase 119 H Total Protein 4.4 L Albumin 2.0 L 03/18/19 03/18/19 07:05 09:47 WBC RBC Hgb Hct MCV MCH MCHC RDW Plt Count MPV Absolute Neuts (auto) Neutrophils % Lymphocytes % Monocytes % Eosinophils % Basophils % Nucleated RBC % Sodium Potassium Chloride Carbon Dioxide Anion Gap BUN Creatinine Est GFR (CKD-EPI)AfAm Est GFR (CKD-EPI)NonAf POC Glucometer 71 55 Random Glucose Lactic Acid Calcium Phosphorus Magnesium Total Bilirubin AST ALT Alkaline Phosphatase Total Protein Albumin IMP: Sepsis most likely due to source Gram Negative Bacteremia R/O PNA Atelectasis Hypoglycemia likely in the setting of Sepsis MAGY Transaminitis HTN HPL Anemia IVF resuscitation: Maintain MAP > 65 Follow cultures ABX per ID O2 as needed Strict I & O VTE prophylaxis BD TX PRN Monitor off systemic steroids Follow BGM: Increase IVF infusion Requires ICU monitoring for hemodynamic instability due to Sepsis Dr Mcpherson Critical care time spent in reviewing chart, evaluating patient and formulating plan - 36 minutes.
[2019-03-18 10:57] LABS: ANISOCYTOSIS 2+; MACROCYTOSIS 0; OVALOCYTE 1+; PLATELET ESTIMATE NORMAL; TEAR DROP CELLS 1+
--- NOTE | 2019-03-18 11:13 | PN ---
Progress Note, Physician Chief Complaint: patient seen and examined he is sleepy but arousable not on pressors wbc elevated today most lilkely secondary to steroids admitted for sepsis posible source /bacteremia - Current Medication List Current Medications: Active Medications Acetaminophen (Tylenol -) 650 mg PO Q4H PRN PRN Reason: PAIN LEVEL 1-5 Atorvastatin Calcium (Lipitor -) 10 mg PO HS [facility] Last Admin: 03/17/19 21:32 Dose: Not Given Carbidopa/Levodopa (Sinemet 25/100 -) 1 each PO DAILY [facility] Cholecalciferol (Vitamin D3 -) 1,000 unit PO DAILY [facility] Last Admin: 03/18/19 09:35 Dose: 1,000 unit Dextrose (D50w (Vial) -) 25 gm IVPUSH Q2H PRN PRN Reason: HYPOGLYCEMIA Last Admin: 03/18/19 07:30 Dose: 25 gm Docusate Sodium (Colace -) 100 mg PO TID [facility] Last Admin: 03/18/19 06:23 Dose: Not Given Heparin Sodium (Porcine) (Heparin -) 5,000 unit SQ BID [facility] Last Admin: 03/18/19 09:19 Dose: 5,000 unit Piperacillin Sod/Tazobactam (Sod 3.375 gm/ Dextrose) 50 mls @ 100 mls/hr IVPB Q8H-IV [facility]; Protocol Last Admin: 03/18/19 09:25 Dose: 100 mls/hr Dextrose (D10w -) 1,000 mls @ 25 mls/hr IV ASDIR [facility] Last Admin: 03/17/19 17:53 Dose: Not Given Dextrose/Lactated Ringer's (D5-Lr -) 1,000 mls @ 100 mls/hr IV [facility] Non-Formulary Medication (Amantadine Hcl [Gocovri]) 68.5 mg PO HS [facility] Last Admin: 03/17/19 21:32 Dose: Not Given Non-Formulary Medication (Pimavanserin Tartrate [Nuplazid]) 34 mg PO DAILY [facility] Last Admin: 03/18/19 09:42 Dose: 34 mg Polyethylene Glycol (Miralax (For Daily Use) -) 17 gm PO BID [facility] Last Admin: 03/17/19 21:32 Dose: Not Given Rasagiline (Azilect -) 1 mg PO DAILY [facility] Last Admin: 03/17/19 21:01 Dose: Not Given Tamsulosin HCl (Flomax -) 0.4 mg PO DAILY@0830 [facility] Last Admin: 03/18/19 09:45 Dose: 0.4 mg - Objective Vital Signs: Vital Signs Temperature 97.5 F L 03/18/19 11:02 Pulse Rate 61 03/18/19 11:02 Respiratory Rate 16 03/18/19 11:02 Blood Pressure 75/59 L 03/18/19 11:02 O2 Sat by Pulse Oximetry (%) 98 03/17/19 21:00 Constitutional: Yes: Calm, Thin Cardiovascular: Yes: Regular Rate and Rhythm, S1, S2 Respiratory: Yes: CTA Bilaterally Gastrointestinal: Yes: Normal Bowel Sounds, Soft Edema: No Labs: CBC, BMP 03/18/19 05:50 03/18/19 05:50 INR, PTT INR 1.28 (0.83-1.09) H 03/16/19 16:10 Problem List - Problems (1) Sepsis Assessment/Plan: iv abx zosyn - possilbe srouce Microbiology 03/16/19 17:20 Urine - Urine - Catheterized Urine Culture - Preliminary Lactose Fermenting Neg Bacilli 03/16/19 16:17 Blood - Peripheral Venous Blood Culture - Preliminary Lactose Fermenting Neg Bacilli 03/16/19 16:00 Blood - Peripheral Venous Blood Culture - Preliminary Lactose Fermenting Neg Bacilli lactic acidosis trend the lactic acid no pressors maintiang his BP trend the WBC as well Code(s): A41.9 - SEPSIS, UNSPECIFIED ORGANISM (2) HLD (hyperlipidemia) Assessment/Plan: statin Code(s): E78.5 - HYPERLIPIDEMIA, UNSPECIFIED (3) Hypoglycemia Assessment/Plan: hypoglycemia on D10 drip proinsulin pending endocrine eval Code(s): E16.2 - HYPOGLYCEMIA, UNSPECIFIED
[2019-03-18] MEDS: DEXTROSE 5%-LACTATED RINGERS 1,000 ML IV SCH (12:00)
[2019-03-18] MEDS: RASAGILINE MESYLATE 1 MG TABLET PO SCH (12:30)
[2019-03-18] MEDS ORDERED: GLUCAGON 1 MG KIT IM PRN (13:09)
--- NOTE | 2019-03-18 13:16 | CONSULT ---
Consult Consult Specialty:: ENDOCRINE Referred by:: DR.SABA VENCES Reason for Consultation:: HYPOGLYCEMIA - History of Present Illness Chief Complaint: LETHARGIC AND WEAK History of Present Illness: 74 yo M PMH HTN, HLD, Parkinson's, CAD (s/p cardiac stenting x 2), COPD and frequent falls, arrived from home for fever and change in mental stare,found to have bs 60mg/dl fs,by ems given d50 iv without improvement. no history of dm.. History provided by home nurse at bedside;has required iv dextrose and bgm have fluctuated with episodes bs below 50mg/dl.he appears alert yet weak, feeling hungry and accepting po. - Past Medical History [employer]: Yes: CVA, Parkinson's Cardio/Vascular: Yes: CAD (stents), HTN, Hyperlipdemia Pulmonary: Yes: COPD Hepatobiliary: Yes: Cirrhosis - Past Surgical History Past Surgical History: Yes: Hernia Repair (Inguinal hernia repair), Stent - Alcohol/Substance Use Hx Alcohol Use: No History of Substance Use: reports: None - Smoking History Smoking history: Never smoked Have you smoked in the past 12 months: No Aproximately how many cigarettes per day: 0 - Social History ADL: Support Services History of Recent Travel: No Home Medications - Allergies Allergies/Adverse Reactions: Allergies Allergy/AdvReac Type Severity Reaction Status Date / Time No Known Allergies Allergy Verified 03/16/19 15:31 - Home Medications Home Medications: Ambulatory Orders Atorvastatin Ca [Lipitor] 10 mg PO HS #30 tablet 02/23/17 Carbidopa/Levodopa 25/100 [Sinemet 25/100 -] 2 each PO 5XD #300 tablet 02/23/17 Tamsulosin HCl [Flomax -] 0.4 mg PO DAILY@0830 #30 tab 02/23/17 Aspirin [ASA -] 81 mg PO DAILY #30 tab.chew 03/08/17 Rasagiline Mesylate [Azilect -] 1 mg PO DAILY #30 tablet 03/08/17 Amantadine HCl [Gocovri] 68.5 mg PO HS 09/16/18 Cholecalciferol (Vitamin D3) [Vitamin D3] 1,000 unit PO DAILY 09/16/18 Pimavanserin Tartrate [Nuplazid] 34 mg PO DAILY 09/16/18 Acetaminophen [Tylenol] 650 mg PO PRN 03/17/19 Memantine HCl [Namenda -] 5 mg PO BID 03/17/19 Review of Systems - Review of Systems Constitutional: reports: Lethargy, Weakness Eyes: reports: No Symptoms HENT: reports: No Symptoms Neck: reports: Stiffness Cardiovascular: reports: Shortness of Breath Respiratory: reports: SOB on Exertion Gastrointestinal: reports: Constipation Genitourinary: reports: No Symptoms Musculoskeletal: reports: Extremity Pain, Muscle Cramps, Muscle Weakness Endocrine: reports: Unexplained Weight Loss Physical Exam Vital Signs: Vital Signs Temperature 97.5 F L 03/18/19 11:02 Pulse Rate 64 03/18/19 11:16 Respiratory Rate 18 03/18/19 11:16 Blood Pressure 84/71 L 03/18/19 11:16 O2 Sat by Pulse Oximetry (%) 98 03/18/19 09:00 Constitutional: Yes: Calm Eyes: Yes: EOM Intact HENT: Yes: Normocephalic Neck: Yes: Trachea Midline Cardiovascular: Yes: Regular Rate and Rhythm Respiratory: Yes: CTA Bilaterally Gastrointestinal: Yes: Normal Bowel Sounds ...Rectal Exam: Yes: Deferred Renal/: Yes: WNL Breast(s): Yes: WNL Musculoskeletal: Yes: Muscle Weakness Extremities: Yes: Delayed Capillary Refill Edema: No Neurological: Yes: Alert, Weakness Labs: CBC, BMP 03/18/19 05:50 03/18/19 05:50 Problem List - Problems (1) MAGY (acute kidney injury) Code(s): N17.9 - ACUTE KIDNEY FAILURE, UNSPECIFIED (2) Hypoglycemia (3) CAD (coronary artery disease) Code(s): I25.10 - ATHSCL HEART DISEASE OF [place] CORONARY ARTERY W/O ANG PCTRS Assessment/Plan Current Active Problems MAGY (acute kidney injury) (Acute) HLD (hyperlipidemia) (Acute) HTN (hypertension) (Acute) Hypoglycemia (Acute) Sepsis (Acute) Abnormal Lab Results 03/17/19 03/17/19 03/17/19 09:22 12:02 18:30 WBC Hgb Hct Absolute Neuts (auto) Neutrophils % Lymphocytes % Lymphocytes % (Manual) Monocytes % Metamyelocytes Sodium Potassium Chloride Anion Gap BUN Creatinine Random Glucose Insulin Level 116.9 H Lactic Acid 4.0 H* 3.4 H* Calcium Phosphorus AST ALT Alkaline Phosphatase Total Protein Albumin 09/03/17/19 03/18/19 18:30 23:30 05:50 WBC Hgb Hct Absolute Neuts (auto) Neutrophils % Lymphocytes % Lymphocytes % (Manual) Monocytes % Metamyelocytes Sodium 148 H 147 H Potassium 3.4 L Chloride 112 H 114 H 113 H Anion Gap 6 L 6 L BUN 26.0 H 24.9 H 23.4 H Creatinine 1.4 H Random Glucose 203 H 185 H Insulin Level Lactic Acid Calcium 7.1 L 7.2 L 7.3 L Phosphorus 2.0 L AST 98 H ALT 120 H Alkaline Phosphatase 119 H Total Protein 4.4 L Albumin 2.0 L 03/18/19 03/18/19 05:50 05:50 WBC 31.1 H* Hgb 11.5 L Hct 34.8 L Absolute Neuts (auto) 29.4 H Neutrophils % 94.6 H Lymphocytes % 3.2 L D Lymphocytes % (Manual) 3.0 L D Monocytes % 2.1 L D Metamyelocytes 8 H Sodium Potassium Chloride Anion Gap BUN Creatinine Random Glucose Insulin Level Lactic Acid 3.9 H* Calcium Phosphorus AST ALT Alkaline Phosphatase Total Protein Albumin plan: Laboratory Tests 03/17/19 03/17/19 03/17/19 08:28 09:55 10:54 POC Glucometer 51 84 44 03/17/19 03/17/19 03/17/19 11:33 11:58 12:56 POC Glucometer 12 45 86 03/17/19 03/17/19 03/17/19 16:36 17:00 17:47 POC Glucometer 13 14 219 03/17/19 03/17/19 03/17/19 18:48 20:50 21:49 POC Glucometer 208 91 53 plan: ck cosyntropin stim shayna likely improved bs sepsis related continue iv dextrose glucagon prn low bs ck sulfa drug screen
[2019-03-18] MEDS ORDERED: COSYNTROPIN 0.25 MG VIAL IVPUSH ONE (13:30)
--- NOTE | 2019-03-18 14:22 | PN ---
Progress Note, Physician History of Present Illness: LETHARGIC SUPINE IN BED OFFERS NO COMPLAINTS NO ACUTE DISTRESS AFEBRILE WBC MARKEDLY ELEVATED BC, URINE C/S LF - Current Medication List Current Medications: Active Medications Acetaminophen (Tylenol -) 650 mg PO Q4H PRN PRN Reason: PAIN LEVEL 1-5 Atorvastatin Calcium (Lipitor -) 10 mg PO HS [facility] Last Admin: 03/17/19 21:32 Dose: Not Given Carbidopa/Levodopa (Sinemet 25/100 -) 2 each PO 5XD [facility] Cholecalciferol (Vitamin D3 -) 1,000 unit PO DAILY [facility] Last Admin: 03/18/19 09:35 Dose: 1,000 unit Dextrose (D50w (Vial) -) 25 gm IVPUSH Q2H PRN PRN Reason: HYPOGLYCEMIA Last Admin: 03/18/19 07:30 Dose: 25 gm Docusate Sodium (Colace -) 100 mg PO TID [facility] Last Admin: 03/18/19 06:23 Dose: Not Given Glucagon (Glucagon -) 1 mg IM ONCE PRN PRN Reason: HYPOGLYCEMIA Stop: 03/20/19 23:59 Heparin Sodium (Porcine) (Heparin -) 5,000 unit SQ BID [facility] Last Admin: 03/18/19 09:19 Dose: 5,000 unit Piperacillin Sod/Tazobactam (Sod 3.375 gm/ Dextrose) 50 mls @ 100 mls/hr IVPB Q8H-IV [facility]; Protocol Last Admin: 03/18/19 09:25 Dose: 100 mls/hr Dextrose (D10w -) 1,000 mls @ 25 mls/hr IV ASDIR [facility] Last Admin: 03/17/19 17:53 Dose: Not Given Dextrose/Lactated Ringer's (D5-Lr -) 1,000 mls @ 100 mls/hr IV ASDIR [facility] Non-Formulary Medication (Amantadine Hcl [Gocovri]) 68.5 mg PO HS [facility] Last Admin: 03/17/19 21:32 Dose: Not Given Non-Formulary Medication (Pimavanserin Tartrate [Nuplazid]) 34 mg PO DAILY [facility] Last Admin: 03/18/19 09:42 Dose: 34 mg Polyethylene Glycol (Miralax (For Daily Use) -) 17 gm PO BID [facility] Last Admin: 03/17/19 21:32 Dose: Not Given Rasagiline (Azilect -) 1 mg PO DAILY [facility] Last Admin: 03/17/19 21:01 Dose: Not Given Tamsulosin HCl (Flomax -) 0.4 mg PO DAILY@0830 [facility] Last Admin: 03/18/19 09:45 Dose: 0.4 mg - Objective Vital Signs: Vital Signs Temperature 97.5 F L 03/18/19 11:02 Pulse Rate 64 03/18/19 11:16 Respiratory Rate 18 03/18/19 11:16 Blood Pressure 84/71 L 03/18/19 11:16 O2 Sat by Pulse Oximetry (%) 98 03/18/19 09:00 Constitutional: Yes: No Distress Eyes: Yes: Conjunctiva Clear Cardiovascular: Yes: Regular Rate and Rhythm, S1, S2 Respiratory: Yes: Diminished Gastrointestinal: Yes: Normal Bowel Sounds, Soft. No: Tenderness Edema: No Labs: CBC, BMP 03/18/19 05:50 03/18/19 05:50 INR, PTT INR 1.28 (0.83-1.09) H 03/16/19 16:10 Assessment/Plan GRAM NEGATIVE SEPSIS, LIKELY SOURCE LACTIC ACIDOSIS MARKED LEUKOCYTOSIS MULTIFACTORIAL S/P HEMATURIA TOXIC METABOLIC ENCEPHALOPATHY/ PARKINSONISM AZOTEMIA IMPROVED ELEVATED LFTS IMPROVED CONTINUE EMPIRIC ZOSYN AWAIT IDENTIFICATION OF GNR CRITICAL CARE TIME 35MIN
[2019-03-18] MEDS: CARBIDOPA/LEVODOPA 25/100 TABLET (FP) PO SCH ×4 (14:47→22:16)
--- NOTE | 2019-03-18 15:22 | PN ---
Physical Exam: SUBJECTIVE: Patient seen and examined at bedside this AM. Hypoglycemic persistently overnight non responsive to D10 pushes. Started D10LR before rounds. Sleepy but easily arousable, confused. Denies CP or SOB. OBJECTIVE: Vital Signs Period Temp Pulse Resp BP Sys/Ordoñez Pulse Ox Last 24 Hr 97.0 F-98.3 F 59-80 13-20 75-120/38-89 98-98 GENERAL: The patient is awake, not alert. NECK: supple. LUNGS: Breath sounds equal, clear to auscultation bilaterally, no wheezes, no crackles, no accessory muscle use. HEART: Regular rate and rhythm, S1, S2 without murmur, rub or gallop. ABDOMEN: Soft, nontender, nondistended, no guarding, no rebound. EXTREMITIES: 2+ pulses, warm, well-perfused, no edema. PSYCH: confused, somnolent Laboratory Results - last 24 hr 03/17/19 03/17/19 03/17/19 09:22 16:36 17:00 WBC RBC Hgb Hct MCV MCH MCHC RDW Plt Count MPV Absolute Neuts (auto) Neutrophils % Neutrophils % (Manual) Band Neutrophils % Lymphocytes % Lymphocytes % (Manual) Monocytes % Monocytes % (Manual) Eosinophils % Eosinophils % (Manual) Basophils % Basophils % (Manual) Myelocytes % (Man) Promyelocytes % (Man) Blast Cells % (Manual) Nucleated RBC % Metamyelocytes Hypochromia Platelet Estimate Polychromasia Poikilocytosis Anisocytosis Microcytosis Macrocytosis Spherocytes Tear Drop Cells Ovalocytes Dyan Cells Sodium Potassium Chloride Carbon Dioxide Anion Gap BUN Creatinine Est GFR (CKD-EPI)AfAm Est GFR (CKD-EPI)NonAf POC Glucometer 13 14 Random Glucose Insulin Level 116.9 H Lactic Acid Calcium Phosphorus Magnesium Total Bilirubin AST ALT Alkaline Phosphatase Total Protein Albumin 03/17/19 03/17/19 03/17/19 17:47 18:30 18:30 WBC RBC Hgb Hct MCV MCH MCHC RDW Plt Count MPV Absolute Neuts (auto) Neutrophils % Neutrophils % (Manual) Band Neutrophils % Lymphocytes % Lymphocytes % (Manual) Monocytes % Monocytes % (Manual) Eosinophils % Eosinophils % (Manual) Basophils % Basophils % (Manual) Myelocytes % (Man) Promyelocytes % (Man) Blast Cells % (Manual) Nucleated RBC % Metamyelocytes Hypochromia Platelet Estimate Polychromasia Poikilocytosis Anisocytosis Microcytosis Macrocytosis Spherocytes Tear Drop Cells Ovalocytes [place] Cells Sodium 144 Potassium 3.4 L Chloride 112 H Carbon Dioxide 23 Anion Gap 9 BUN 26.0 H Creatinine 1.3 Est GFR (CKD-EPI)AfAm 61.43 Est GFR (CKD-EPI)NonAf 53.00 POC Glucometer 219 Random Glucose 203 H Insulin Level Lactic Acid 3.4 H* Calcium 7.1 L Phosphorus Magnesium Total Bilirubin AST ALT Alkaline Phosphatase Total Protein Albumin 03/17/19 03/17/19 03/17/19 18:48 20:50 21:49 WBC RBC Hgb Hct MCV MCH MCHC RDW Plt Count MPV Absolute Neuts (auto) Neutrophils % Neutrophils % (Manual) Band Neutrophils % Lymphocytes % Lymphocytes % (Manual) Monocytes % Monocytes % (Manual) Eosinophils % Eosinophils % (Manual) Basophils % Basophils % (Manual) Myelocytes % (Man) Promyelocytes % (Man) Blast Cells % (Manual) Nucleated RBC % Metamyelocytes Hypochromia Platelet Estimate Polychromasia Poikilocytosis Anisocytosis Microcytosis Macrocytosis Spherocytes Tear Drop Cells Ovalocytes [place] Cells Sodium Potassium Chloride Carbon Dioxide Anion Gap BUN Creatinine Est GFR (CKD-EPI)AfAm Est GFR (CKD-EPI)NonAf POC Glucometer 208 91 53 Random Glucose Insulin Level Lactic Acid Calcium Phosphorus Magnesium Total Bilirubin AST ALT Alkaline Phosphatase Total Protein Albumin 03/17/19 03/17/19 03/18/19 23:26 23:30 01:07 WBC RBC Hgb Hct MCV MCH MCHC RDW Plt Count MPV Absolute Neuts (auto) Neutrophils % Neutrophils % (Manual) Band Neutrophils % Lymphocytes % Lymphocytes % (Manual) Monocytes % Monocytes % (Manual) Eosinophils % Eosinophils % (Manual) Basophils % Basophils % (Manual) Myelocytes % (Man) Promyelocytes % (Man) Blast Cells % (Manual) Nucleated RBC % Metamyelocytes Hypochromia Platelet Estimate Polychromasia Poikilocytosis Anisocytosis Microcytosis Macrocytosis Spherocytes Tear Drop Cells Ovalocytes [place] Cells Sodium 148 H Potassium 4.3 Chloride 114 H Carbon Dioxide 28 Anion Gap 6 L BUN 24.9 H Creatinine 1.4 H Est GFR (CKD-EPI)AfAm 56.16 Est GFR (CKD-EPI)NonAf 48.46 POC Glucometer 105 43 Random Glucose 106 Insulin Level Lactic Acid Calcium 7.2 L Phosphorus Magnesium Total Bilirubin AST ALT Alkaline Phosphatase Total Protein Albumin 03/18/19 03/18/19 03/18/19 03:48 05:18 05:50 WBC RBC Hgb Hct MCV MCH MCHC RDW Plt Count MPV Absolute Neuts (auto) Neutrophils % Neutrophils % (Manual) Band Neutrophils % Lymphocytes % Lymphocytes % (Manual) Monocytes % Monocytes % (Manual) Eosinophils % Eosinophils % (Manual) Basophils % Basophils % (Manual) Myelocytes % (Man) Promyelocytes % (Man) Blast Cells % (Manual) Nucleated RBC % Metamyelocytes Hypochromia Platelet Estimate Polychromasia Poikilocytosis Anisocytosis Microcytosis Macrocytosis Spherocytes Tear Drop Cells Ovalocytes [place] Cells Sodium 147 H Potassium 4.6 Chloride 113 H Carbon Dioxide 28 Anion Gap 6 L BUN 23.4 H Creatinine 1.3 Est GFR (CKD-EPI)AfAm 61.43 Est GFR (CKD-EPI)NonAf 53.00 POC Glucometer 92 56 Random Glucose 185 H Insulin Level Lactic Acid Calcium 7.3 L Phosphorus 2.0 L Magnesium 1.8 Total Bilirubin 0.6 AST 98 H ALT 120 H Alkaline Phosphatase 119 H Total Protein 4.4 L Albumin 2.0 L 03/18/19 03/18/19 03/18/19 05:50 05:50 07:05 WBC 31.1 H* RBC 4.07 Hgb 11.5 L Hct 34.8 L MCV 85.5 MCH 28.4 MCHC 33.2 RDW 14.6 Plt Count 259 MPV 8.4 D Absolute Neuts (auto) 29.4 H Neutrophils % 94.6 H Neutrophils % (Manual) 63.0 D Band Neutrophils % 22.0 Lymphocytes % 3.2 L D Lymphocytes % (Manual) 3.0 L D Monocytes % 2.1 L D Monocytes % (Manual) 4 D Eosinophils % 0.0 D Eosinophils % (Manual) 0.0 Basophils % 0.1 Basophils % (Manual) 0.0 Myelocytes % (Man) 0 Promyelocytes % (Man) 0 Blast Cells % (Manual) 0 Nucleated RBC % 0 Metamyelocytes 8 H Hypochromia 0 Platelet Estimate Normal Polychromasia 0 Poikilocytosis 2+ Anisocytosis 2+ Microcytosis 2+ Macrocytosis 0 Spherocytes 1+ Tear Drop Cells 1+ Ovalocytes 1+ [place] Cells 2+ Sodium Potassium Chloride Carbon Dioxide Anion Gap BUN Creatinine Est GFR (CKD-EPI)AfAm Est GFR (CKD-EPI)NonAf POC Glucometer 71 Random Glucose Insulin Level Lactic Acid 3.9 H* Calcium Phosphorus Magnesium Total Bilirubin AST ALT Alkaline Phosphatase Total Protein Albumin 03/18/19 03/18/19 03/18/19 09:47 11:11 13:21 WBC RBC Hgb Hct MCV MCH MCHC RDW Plt Count MPV Absolute Neuts (auto) Neutrophils % Neutrophils % (Manual) Band Neutrophils % Lymphocytes % Lymphocytes % (Manual) Monocytes % Monocytes % (Manual) Eosinophils % Eosinophils % (Manual) Basophils % Basophils % (Manual) Myelocytes % (Man) Promyelocytes % (Man) Blast Cells % (Manual) Nucleated RBC % Metamyelocytes Hypochromia Platelet Estimate Polychromasia Poikilocytosis Anisocytosis Microcytosis Macrocytosis Spherocytes Tear Drop Cells Ovalocytes [place] Cells Sodium Potassium Chloride Carbon Dioxide Anion Gap BUN Creatinine Est GFR (CKD-EPI)AfAm Est GFR (CKD-EPI)NonAf POC Glucometer 55 133 82 Random Glucose Insulin Level Lactic Acid Calcium Phosphorus Magnesium Total Bilirubin AST ALT Alkaline Phosphatase Total Protein Albumin 03/18/19 15:08 WBC RBC Hgb Hct MCV MCH MCHC RDW Plt Count MPV Absolute Neuts (auto) Neutrophils % Neutrophils % (Manual) Band Neutrophils % Lymphocytes % Lymphocytes % (Manual) Monocytes % Monocytes % (Manual) Eosinophils % Eosinophils % (Manual) Basophils % Basophils % (Manual) Myelocytes % (Man) Promyelocytes % (Man) Blast Cells % (Manual) Nucleated RBC % Metamyelocytes Hypochromia Platelet Estimate Polychromasia Poikilocytosis Anisocytosis Microcytosis Macrocytosis Spherocytes Tear Drop Cells Ovalocytes Dyan Cells Sodium Potassium Chloride Carbon Dioxide Anion Gap BUN Creatinine Est GFR (CKD-EPI)AfAm Est GFR (CKD-EPI)NonAf POC Glucometer 100 Random Glucose Insulin Level Lactic Acid Calcium Phosphorus Magnesium Total Bilirubin AST ALT Alkaline Phosphatase Total Protein Albumin Active Medications Generic Name Dose Route Start Last Admin Trade Name Freq PRN Reason Stop Dose Admin Acetaminophen 650 mg 03/16/19 21:18 Tylenol - PO Q4H PRN PAIN LEVEL 1-5 Atorvastatin Calcium 10 mg 03/16/19 22:00 03/17/19 21:32 Lipitor - PO Not Given HS [facility] Carbidopa/Levodopa 2 each 03/18/19 14:00 03/18/19 14:47 Sinemet 25/100 - PO 2 each 5XD [facility] Administration Cholecalciferol 1,000 unit 03/17/19 10:00 03/18/19 09:35 Vitamin D3 - PO 1,000 unit DAILY [facility] Administration Dextrose 25 gm 03/18/19 01:23 03/18/19 07:30 D50w (Vial) - IVPUSH 25 gm Q2H PRN Administration HYPOGLYCEMIA Docusate Sodium 100 mg 03/17/19 14:00 03/18/19 14:45 Colace - PO 100 mg TID [facility] Administration Glucagon 1 mg 03/18/19 13:09 Glucagon - IM 03/20/19 23:59 ONCE PRN HYPOGLYCEMIA Heparin Sodium (Porcine) 5,000 unit 03/16/19 22:00 03/18/19 09:19 Heparin - SQ 5,000 unit BID [facility] Administration Piperacillin Sod/Tazobactam 50 mls @ 100 mls/hr 03/17/19 13:15 03/18/19 09:25 Sod 3.375 gm/ Dextrose IVPB 100 mls/hr Q8H-IV [facility] Administration Protocol Dextrose 1,000 mls @ 25 mls/hr 03/17/19 17:00 03/17/19 17:53 D10w - IV Not Given ASDIR [facility] Dextrose/Lactated Ringer's 1,000 mls @ 100 mls/hr 03/18/19 08:30 03/18/19 12: 00 D5-Lr - IV 100 mls/hr ASDIR [facility] Administration Non-Formulary Medication 68.5 mg 03/16/19 22:00 03/17/19 21:32 Amantadine Hcl [Gocovri] PO Not Given HS [facility] Non-Formulary Medication 34 mg 03/17/19 10:00 03/18/19 09:42 Pimavanserin Tartrate [Nuplazid] PO 34 mg DAILY [facility] Administration Polyethylene Glycol 17 gm 03/17/19 12:45 03/18/19 10:00 Miralax (For Daily Use) - PO Not Given BID [facility] Rasagiline 1 mg 03/17/19 10:00 03/18/19 12:30 Azilect - PO 1 mg DAILY [facility] Administration Tamsulosin HCl 0.4 mg 03/17/19 08:30 03/18/19 09:45 Flomax - PO 0.4 mg DAILY@0830 [facility] Administration ASSESSMENT/PLAN: 74 yo M PMH HTN, HLD, Parkinson's, CAD (s/p cardiac stenting x 2), COPD and frequent falls, arrived from home via 911 with AMS.found to have gram negative bacteremia Neuro-> parkinsons - confused - somnolent - parkinson cnt home med sinimet 25/100 five times a day 2 tabs. - multiple falls fall precautions ID -> Sepsis 2/2 UTI vs PNA/Acute metabolic encephalopathy 2/2 sepsis * presented with fever 102.9 , wbc 23.4 , BP 99/70 , lactic acid 4 trend * Blood cx positive for gram negative Bacilli will cont zosyn per ID recs. * IV fluids D5 1/2 NS @ 83CC/hr , add one liter bolus , monitor for fluids over loaded signs and symptoms * Maintain MAP> 65 * BP monitor , Pulse oxy , site monitor * aspiration precautions Endocrine-> hypoglycemia likely 2/2 gram negative bacteremia sepsis vs karo waterhouse like picture - monitor BGM Q 1 hr , D50 as needed , cont D5 LR - BMP Q 4hr - ck, cosyntropin stim test with cortisol draws 30min and 60 min after. - glucagon prn low bs - sulfa drug screen GI-> transaminitis likely 2/2 to sever sepsis - will trend - Anemia Hgb drop from 15 to 11 could be dilutional - constipation Miralax TID , colace TID , Senna 2 tab HS Cardio-> HTN/HLD/h/o CAD S/P stent x 2 - hold Bp meds for now as pt is severe sepsis - cont statin Renal->MAGY likley pre renal due to hydration and severe sepsis - avoid nephrotoxic agents - renal US to r.o obstruction - H/o BPH follow with Dr Lau Dispo: We will continue to follow the patient. Thank you for this consultative opportunity. N Visit type - Emergency Visit Emergency Visit: Yes ED Registration Date: 03/16/19 Care time: The patient presented to the Emergency Department on the above date and was hospitalized for further evaluation of their emergent condition. - New Patient This patient is new to me today: Yes Date on this admission: 03/18/19 - Critical Care Critical Care patient: Yes Total Critical Care Time (in minutes): 35 Critical Care Statement: The care of this patient involved high complexity decision making to prevent further life threatening deterioration of the patient 's condition and/or to evaluate & treat vital organ system(s) failure or risk of failure. - Discharge Referral Referred to [facility] Med P.C.: No ATTENDING PHYSICIAN STATEMENT I saw and evaluated the patient. I reviewed the resident's note and discussed the case with the resident. I agree with the resident's findings and plan as documented. SUBJECTIVE: OBJECTIVE: ASSESSMENT AND PLAN:
[2019-03-18] MEDS: DEXTROSE 10%-WATER - 1,000 ML IV SCH (17:00)
[2019-03-18] MEDS: ATORVASTATIN CA 10 MG TABLET (FP) PO SCH ×2 (21:28→22:15)
[2019-03-18] MEDS: AMANTADINE PO SCH ×2 (21:30→22:15)
[2019-03-19] MEDS ORDERED: DEXTROSE 5%-WATER - 50 ML IVPB ONE ×2 (01:26→08:33)
[2019-03-19] MEDS ORDERED: PIPERACILLIN/TAZOBACTAM 3.375 GM VIAL IVPB ONE ×2 (01:26→08:33)
[2019-03-19] MEDS: PIPERACILLIN/TAZOB 3.375 GM 3.375 GM in DEXTROSE 5%-WATER - 50 ML IVPB SCH ×2 (01:35→10:35)
[2019-03-19] MEDS: CARBIDOPA/LEVODOPA 25/100 TABLET (FP) PO SCH ×5 (06:20→21:32)
[2019-03-19] MEDS: DOCUSATE SODIUM 100 MG CAPSULE (FP) PO SCH ×3 (06:20→21:27)
[2019-03-19 07:05] LABS: BASO % 0.2 % (0-2.0); HEMATOCRIT 38.9 % (35.4-49); LYMPH % 2.9 % (8-40); MCH 28.1 pg (25.7-33.7); MCHC 33.5 g/dl (32.0-35.9); MEAN CELL VOLUME 84.1 fl (80-96); MONO % 1.9 % (3.8-10.2); PLATELET COUNT 199 K/MM3 (134-434); RBC 4.62 M/mm3 (4.00-5.60); RDW 14.3 % (11.9-15.9)
[2019-03-19 07:26] LABS: ALBUMIN 2.1 g/dl (3.4-5.0); BILIRUBIN,TOTAL 0.4 mg/dL (0.2-1); BLOOD UREA NITROGEN 22.4 mg/dL (7-18); CALCIUM 7.4 mg/dL (8.5-10.1); CREATININE 1.1 mg/dL (0.55-1.3); MAGNESIUM 1.8 mg/dL (1.8-2.4); TOT PROT 4.8 g/dl (6.4-8.2)
[2019-03-19] MEDS: DEXTROSE 5%-LACTATED RINGERS 1,000 ML IV SCH (08:39)
[2019-03-19] MEDS: TAMSULOSIN HCL 0.4 MG CAP PO SCH (08:39)
--- NOTE | 2019-03-19 08:49 | PN ---
Progress Note, Physician Chief Complaint: Sepsis Hypoglycemia History of Present Illness: Previous notes and events reviewed awake and alert NAD complain of lower back pain leukocytosis~WBC 36.0 afebrile BC and UC prelim positive - Current Medication List Current Medications: Active Medications Acetaminophen (Tylenol -) 650 mg PO Q4H PRN PRN Reason: PAIN LEVEL 1-5 Atorvastatin Calcium (Lipitor -) 10 mg PO HS [facility] Last Admin: 03/18/19 22:15 Dose: Not Given Carbidopa/Levodopa (Sinemet 25/100 -) 2 each PO 5XD [facility] Last Admin: 03/19/19 06:20 Dose: 2 each Cholecalciferol (Vitamin D3 -) 1,000 unit PO DAILY [facility] Last Admin: 03/18/19 09:35 Dose: 1,000 unit Dextrose (D50w (Vial) -) 25 gm IVPUSH Q2H PRN PRN Reason: HYPOGLYCEMIA Last Admin: 03/18/19 07:30 Dose: 25 gm Docusate Sodium (Colace -) 100 mg PO TID [facility] Last Admin: 03/19/19 06:20 Dose: Not Given Glucagon (Glucagon -) 1 mg IM ONCE PRN PRN Reason: HYPOGLYCEMIA Stop: 03/20/19 23:59 Heparin Sodium (Porcine) (Heparin -) 5,000 unit SQ BID [facility] Last Admin: 03/18/19 22:15 Dose: Not Given Piperacillin Sod/Tazobactam (Sod 3.375 gm/ Dextrose) 50 mls @ 100 mls/hr IVPB Q8H-IV [facility]; Protocol Last Admin: 03/19/19 01:35 Dose: 100 mls/hr Dextrose/Lactated Ringer's (D5-Lr -) 1,000 mls @ 100 mls/hr IV ASDIR [facility] Last Admin: 03/19/19 08:39 Dose: 100 mls/hr Non-Formulary Medication (Amantadine Hcl [Gocovri]) 68.5 mg PO HS [facility] Last Admin: 03/18/19 22:15 Dose: Not Given Non-Formulary Medication (Pimavanserin Tartrate [Nuplazid]) 34 mg PO DAILY [facility] Last Admin: 03/18/19 09:42 Dose: 34 mg Polyethylene Glycol (Miralax (For Daily Use) -) 17 gm PO BID [facility] Last Admin: 03/18/19 22:15 Dose: Not Given Rasagiline (Azilect -) 1 mg PO DAILY [facility] Last Admin: 03/18/19 12:30 Dose: 1 mg Tamsulosin HCl (Flomax -) 0.4 mg PO DAILY@0830 [facility] Last Admin: 03/19/19 08:39 Dose: 0.4 mg - Objective Vital Signs: Vital Signs Temperature 97.6 F 03/19/19 06:00 Pulse Rate 54 L 03/19/19 08:39 Respiratory Rate 13 03/19/19 08:39 Blood Pressure 132/75 03/19/19 08:39 O2 Sat by Pulse Oximetry (%) 99 03/18/19 21:00 Constitutional: Yes: No Distress, Calm Eyes: Yes: Conjunctiva Clear HENT: Yes: Atraumatic Cardiovascular: Yes: Regular Rate and Rhythm Respiratory: Yes: Regular, Cough, Diminished Gastrointestinal: Yes: Normal Bowel Sounds, Soft Genitourinary: Yes: Delaney Present Musculoskeletal: Yes: Muscle Weakness Extremities: Yes: WNL Edema: No Neurological: Yes: Alert, Pre-Existing Deficit Psychiatric: Yes: Alert, Oriented (to person only) Labs: CBC, BMP 03/19/19 05:40 03/19/19 05:40 INR, PTT INR 1.28 (0.83-1.09) H 03/16/19 16:10 Microbiology 03/16/19 17:20 Urine - Urine - Catheterized Urine Culture - Preliminary Lactose Fermenting Neg Bacilli 03/16/19 16:00 Blood - Peripheral Venous Blood Culture - Preliminary Lactose Fermenting Neg Bacilli 03/16/19 16:17 Blood - Peripheral Venous Blood Culture - Preliminary Lactose Fermenting Neg Bacilli Problem List - Problems (1) MAGY (acute kidney injury) Assessment/Plan: -BUN/Cr 22.4/1.1 -improving -monitor renal function Code(s): N17.9 - ACUTE KIDNEY FAILURE, UNSPECIFIED (2) HLD (hyperlipidemia) Assessment/Plan: -Atorvastatin Code(s): E78.5 - HYPERLIPIDEMIA, UNSPECIFIED (3) Sepsis Assessment/Plan: -ID on board -Leukocytosis~WBC 36.0 -afebrile -BC and UC prelim positive -CT shows mild bibasal atelectatic changes, left more than right, cannot rule out infiltrates - inf vs Bacteremia -Zosyn -LA 3.9 Code(s): A41.9 - SEPSIS, UNSPECIFIED ORGANISM (4) Parkinson disease Assessment/Plan: -Carbidopa/Levodopa -fall precaution Code(s): G20 - PARKINSON'S DISEASE (5) Hypoglycemia Assessment/Plan: -D5/LR at 100cc/hr -Endocrinology consult -BGM q2h -Glucagon and Dextrose amp PRN Code(s): E16.2 - HYPOGLYCEMIA, UNSPECIFIED Assessment/Plan see problem list dvt ppx
[2019-03-19] MEDS: PATIENT'S OWN MEDICATION (NON-FORMULARY) (Pimavanserin Tartrate [Nuplazid] 34 MG) PO SCH (09:31)
[2019-03-19] MEDS: RASAGILINE MESYLATE 1 MG TABLET PO SCH (09:31)
[2019-03-19] MEDS: HEPARIN NA (PORCINE) 5,000 UNITS/ML 1ML VIAL SQ SCH (09:32)
[2019-03-19] MEDS ORDERED: morphine SULFATE 4 MG/ML VIAL IVPUSH ONE (09:40)
[2019-03-19] MEDS ORDERED: MORPHINE SULFATE 2 MG/ML VIAL IVPUSH PRN (09:40)
--- NOTE | 2019-03-19 10:25 | PN ---
Progress Note, Physician History of Present Illness: LETHARGIC SUPINE IN BED OFFERS NO COMPLAINTS NO ACUTE DISTRESS AFEBRILE WBC REMAINS MARKEDLY ELEVATED BC, URINE C/S E COLI - Current Medication List Current Medications: Active Medications Acetaminophen (Tylenol -) 650 mg PO Q4H PRN PRN Reason: PAIN LEVEL 1-5 Atorvastatin Calcium (Lipitor -) 10 mg PO HS [facility] Last Admin: 03/18/19 22:15 Dose: Not Given Carbidopa/Levodopa (Sinemet 25/100 -) 2 each PO 5XD [facility] Last Admin: 03/19/19 06:20 Dose: 2 each Cholecalciferol (Vitamin D3 -) 1,000 unit PO DAILY [facility] Last Admin: 03/18/19 09:35 Dose: 1,000 unit Dextrose (D50w (Vial) -) 25 gm IVPUSH Q2H PRN PRN Reason: HYPOGLYCEMIA Last Admin: 03/18/19 07:30 Dose: 25 gm Docusate Sodium (Colace -) 100 mg PO TID [facility] Last Admin: 03/19/19 06:20 Dose: Not Given Glucagon (Glucagon -) 1 mg IM ONCE PRN PRN Reason: HYPOGLYCEMIA Stop: 03/20/19 23:59 Heparin Sodium (Porcine) (Heparin -) 5,000 unit SQ BID [facility] Last Admin: 03/18/19 22:15 Dose: Not Given Piperacillin Sod/Tazobactam (Sod 3.375 gm/ Dextrose) 50 mls @ 100 mls/hr IVPB Q8H-IV [facility]; Protocol Last Admin: 03/19/19 01:35 Dose: 100 mls/hr Dextrose/Lactated Ringer's (D5-Lr -) 1,000 mls @ 100 mls/hr IV ASDIR [facility] Last Admin: 03/19/19 08:39 Dose: 100 mls/hr Lidocaine (Lidoderm Patch -) 1 patch TP DAILY [facility] Miscellaneous (Lidoderm Patch Removal) 1 each MC DAILY@2200 [facility] Morphine Sulfate (Morphine Sulfate) 2 mg IVPUSH Q3H PRN PRN Reason: PAIN LEVEL 6-10 Non-Formulary Medication (Amantadine Hcl [Gocovri]) 68.5 mg PO HS [facility] Last Admin: 03/18/19 22:15 Dose: Not Given Non-Formulary Medication (Pimavanserin Tartrate [Nuplazid]) 34 mg PO DAILY [facility] Last Admin: 03/18/19 09:42 Dose: 34 mg Polyethylene Glycol (Miralax (For Daily Use) -) 17 gm PO BID [facility] Last Admin: 03/18/19 22:15 Dose: Not Given Rasagiline (Azilect -) 1 mg PO DAILY [facility] Last Admin: 03/18/19 12:30 Dose: 1 mg Tamsulosin HCl (Flomax -) 0.4 mg PO DAILY@0830 [facility] Last Admin: 03/19/19 08:39 Dose: 0.4 mg - Objective Vital Signs: Vital Signs Temperature 97.6 F 03/19/19 06:00 Pulse Rate 54 L 03/19/19 08:39 Respiratory Rate 13 03/19/19 08:39 Blood Pressure 132/75 03/19/19 08:39 O2 Sat by Pulse Oximetry (%) 99 03/19/19 08:00 Constitutional: Yes: No Distress Eyes: Yes: Conjunctiva Clear Cardiovascular: Yes: Regular Rate and Rhythm, S1, S2 Respiratory: Yes: CTA Bilaterally Gastrointestinal: Yes: Normal Bowel Sounds, Soft. No: Tenderness Edema: No Labs: CBC, BMP 03/19/19 05:40 03/19/19 05:40 INR, PTT INR 1.28 (0.83-1.09) H 03/16/19 16:10 Assessment/Plan GRAM NEGATIVE SEPSIS LACTIC ACIDOSIS MARKED LEUKOCYTOSIS MULTIFACTORIAL S/P HEMATURIA TOXIC METABOLIC ENCEPHALOPATHY/ PARKINSONISM AZOTEMIA IMPROVED ELEVATED LFTS IMPROVED SUBSTITUTE CEFTRIAXONE 2GM Q24H
[2019-03-19] MEDS: CHOLECALCIFEROL (VIT D3) 1,000 UNIT (25 MCG) TABLET PO SCH (10:30)
[2019-03-19] MEDS: LIDOCAINE 5% TOPICAL PATCH TP SCH (10:32)
[2019-03-19] MEDS: POLYETHYLENE GLYCOL 3350 119 GM BTL PO SCH ×2 (10:37→21:28)
--- NOTE | 2019-03-19 10:47 | PN ---
Teaching Attending Note Name of Resident: Lalo Welsh ATTENDING PHYSICIAN STATEMENT I saw and evaluated the patient. I reviewed the resident's note and discussed the case with the resident. I agree with the resident's findings and plan as documented. SUBJECTIVE: Pt seen and examined in the ICU. Somnolent but arousable. Not on pressors. Urine , blood cultures growing gram negative bacilli. OBJECTIVE: Vital Signs Period Temp Pulse Resp BP Sys/Ordoñez Pulse Ox Last 24 Hr 97.5 F-98.0 F 54-79 12-23 75-164/50-99 99-99 Intake & Output 03/16/19 03/17/19 03/18/19 03/19/19 23:59 23:59 23:59 23:59 Intake Total 1813 2200 700 Output Total 100 Balance 1813 2100 700 Weight 58.967 kg 58.967 kg Gen: somnolent but arousable Heart: RRR Lung: decreased breath sounds at the bases Abd: soft, nontender Ext: no edema CBC, BMP 03/19/19 05:40 03/19/19 05:40 Hepatic Panel Total Bilirubin 0.4 mg/dL (0.2-1) 03/19/19 05:40 AST 49 U/L (15-37) H 03/19/19 05:40 ALT 64 U/L (13-61) H 03/19/19 05:40 Alkaline Phosphatase 137 U/L (45-117) H 03/19/19 05:40 Albumin 2.1 g/dl (3.4-5.0) L 03/19/19 05:40 Active Medications Acetaminophen (Tylenol -) 650 mg PO Q4H PRN PRN Reason: PAIN LEVEL 1-5 Atorvastatin Calcium (Lipitor -) 10 mg PO HS [facility] Last Admin: 03/18/19 22:15 Dose: Not Given Carbidopa/Levodopa (Sinemet 25/100 -) 2 each PO 5XD [facility] Last Admin: 03/19/19 10:34 Dose: 2 each Cholecalciferol (Vitamin D3 -) 1,000 unit PO DAILY [facility] Last Admin: 03/19/19 10:30 Dose: 1,000 unit Dextrose (D50w (Vial) -) 25 gm IVPUSH Q2H PRN PRN Reason: HYPOGLYCEMIA Last Admin: 03/18/19 07:30 Dose: 25 gm Docusate Sodium (Colace -) 100 mg PO TID [facility] Last Admin: 03/19/19 06:20 Dose: Not Given Glucagon (Glucagon -) 1 mg IM ONCE PRN PRN Reason: HYPOGLYCEMIA Stop: 03/20/19 23:59 Heparin Sodium (Porcine) (Heparin -) 5,000 unit SQ BID [facility] Last Admin: 03/19/19 09:32 Dose: 5,000 unit Dextrose/Lactated Ringer's (D5-Lr -) 1,000 mls @ 100 mls/hr IV ASDIR [facility] Last Admin: 03/19/19 08:39 Dose: 100 mls/hr Ceftriaxone Sodium (Ceftriaxone 2 Gm-D5w Bag) 2 gm in 50 mls @ 100 mls/hr IVPB DAILY [facility]; Protocol Lidocaine (Lidoderm Patch -) 1 patch TP DAILY [facility] Last Admin: 03/19/19 10:32 Dose: 1 patch Miscellaneous (Lidoderm Patch Removal) 1 each MC DAILY@2200 [facility] Morphine Sulfate (Morphine Sulfate) 2 mg IVPUSH Q3H PRN PRN Reason: PAIN LEVEL 6-10 Non-Formulary Medication (Amantadine Hcl [Gocovri]) 68.5 mg PO HS [facility] Last Admin: 03/18/19 22:15 Dose: Not Given Non-Formulary Medication (Pimavanserin Tartrate [Nuplazid]) 34 mg PO DAILY [facility] Last Admin: 03/19/19 09:31 Dose: 34 mg Polyethylene Glycol (Miralax (For Daily Use) -) 17 gm PO BID [facility] Last Admin: 03/19/19 10:37 Dose: 17 grams Rasagiline (Azilect -) 1 mg PO DAILY [facility] Last Admin: 03/19/19 09:31 Dose: 1 mg Tamsulosin HCl (Flomax -) 0.4 mg PO DAILY@0830 [facility] Last Admin: 03/19/19 08:39 Dose: 0.4 mg ASSESSMENT AND PLAN: UTI Gram Negative Bacteremia Severe Sepsis Hypoglycemia Atelectasis Acute Kidney Injury Elevated LFTs likely Ischemic Injury HTN Hyperlipidemia Parkinsons BPH - continue antibiotics - f/u cultures - repeat cultures with next blood draw - insert carballo - IVF - monitor urine output, creatinine - trend WBC - monitor glucose - DVT prophylaxis - continue ICU monitoring critical care time spent in reviewing chart, evaluating patient and formulating plan 35 min
[2019-03-19] MEDS: CEFTRIAXONE 2 GM in DEXTROSE 5%-WATER 100 ML IVPB SCH (11:30)
[2019-03-19] MEDS ORDERED: DEXTROSE 5%-WATER 100 ML IVPB ONE (12:06)
[2019-03-19] MEDS ORDERED: PT OWN MED DRAWER 7, Y5N ONE (17:03)
[2019-03-19] MEDS ORDERED: LIDOCAINE PATCH REMOVAL MC SCH (22:00)
[2019-03-20] MEDS: DOCUSATE SODIUM 100 MG CAPSULE (FP) PO SCH ×3 (05:41→21:30)
[2019-03-20] MEDS: HEPARIN NA (PORCINE) 5,000 UNITS/ML 1ML VIAL SQ SCH ×3 (05:41→21:31)
[2019-03-20] MEDS: CARBIDOPA/LEVODOPA 25/100 TABLET (FP) PO SCH ×5 (05:42→21:32)
[2019-03-20 07:28] LABS: HEMATOCRIT 40.7 % (35.4-49); HEMOGLOBIN 13.4 GM/dL (11.7-16.9); MCHC 32.9 g/dl (32.0-35.9); MEAN CELL VOLUME 85.1 fl (80-96); MEAN PLT VOLUME 9.3 fl (7.5-11.1); PLATELET COUNT 230 K/MM3 (134-434); RBC 4.78 M/mm3 (4.00-5.60); RDW 14.5 % (11.9-15.9)
[2019-03-20 07:47] LABS: ALBUMIN 2.1 g/dl (3.4-5.0); BILIRUBIN,TOTAL 0.4 mg/dL (0.2-1); BLOOD UREA NITROGEN 20.4 mg/dL (7-18); CALCIUM 7.6 mg/dL (8.5-10.1); CREATININE 1.2 mg/dL (0.55-1.3); MAGNESIUM 1.9 mg/dL (1.8-2.4); PHOSPHOROUS 2.3 mg/dL (2.5-4.9); TOT PROT 4.5 g/dl (6.4-8.2)
[2019-03-20 07:50] LABS: WHITE BLOOD COUNT 26.3 K/mm3 (4.0-10.0)
--- NOTE | 2019-03-20 09:03 | PN ---
Progress Note, Physician Chief Complaint: Sepsis Hypoglycemia History of Present Illness: Previous notes and events reviewed awake and alert NAD leukocytosis~WBC 26.3, showing downtrend afebrile BC and UC positive E.coli~repeat BC pending - Current Medication List Current Medications: Active Medications Carbidopa/Levodopa (Sinemet 25/100 -) 2 each PO 5XD [facility] Last Admin: 03/20/19 05:42 Dose: 2 each Dextrose (D50w (Vial) -) 25 gm IVPUSH Q2H PRN PRN Reason: HYPOGLYCEMIA Last Admin: 03/18/19 07:30 Dose: 25 gm Docusate Sodium (Colace -) 100 mg PO TID [facility] Last Admin: 03/20/19 05:41 Dose: 100 mg Glucagon (Glucagon -) 1 mg IM ONCE PRN PRN Reason: HYPOGLYCEMIA Stop: 03/20/19 23:59 Heparin Sodium (Porcine) (Heparin -) 5,000 unit SQ TID [facility] Last Admin: 03/20/19 05:41 Dose: 5,000 unit Dextrose/Lactated Ringer's (D5-Lr -) 1,000 mls @ 100 mls/hr IV ASDIR [facility] Last Admin: 03/19/19 08:39 Dose: 100 mls/hr Ceftriaxone Sodium 2 gm/ (Dextrose) 100 mls @ 100 mls/hr IVPB DAILY [facility]; Protocol Last Admin: 03/19/19 11:30 Dose: 100 mls/hr Lidocaine (Lidoderm Patch -) 1 patch TP DAILY [facility] Last Admin: 03/19/19 10:32 Dose: 1 patch Miscellaneous (Lidoderm Patch Removal) 1 each MC DAILY@2200 [facility] Last Admin: 03/19/19 21:27 Dose: 1 each Morphine Sulfate (Morphine Sulfate) 2 mg IVPUSH Q3H PRN PRN Reason: PAIN LEVEL 6-10 Polyethylene Glycol (Miralax (For Daily Use) -) 17 gm PO BID [facility] Last Admin: 03/19/19 21:28 Dose: Not Given - Objective Vital Signs: Vital Signs Temperature 99.2 F 03/20/19 06:00 Pulse Rate 64 03/20/19 08:00 Respiratory Rate 18 03/20/19 08:00 Blood Pressure 152/79 03/20/19 08:00 O2 Sat by Pulse Oximetry (%) 99 03/19/19 20:49 Constitutional: Yes: No Distress, Calm Eyes: Yes: Conjunctiva Clear HENT: Yes: Atraumatic Cardiovascular: Yes: Regular Rate and Rhythm Respiratory: Yes: Regular, On Nasal O2, Rhonchi Gastrointestinal: Yes: Normal Bowel Sounds, Soft Genitourinary: Yes: Delaney Present Musculoskeletal: Yes: Muscle Weakness Extremities: Yes: WNL Edema: No Neurological: Yes: Alert, Confusion, Pre-Existing Deficit Psychiatric: Yes: Alert Labs: CBC, BMP 03/20/19 05:35 03/20/19 05:35 INR, PTT INR 1.28 (0.83-1.09) H 03/16/19 16:10 Microbiology 03/16/19 17:20 Urine - Urine - Catheterized Urine Culture - Final Escherichia Coli 03/16/19 16:00 Blood - Peripheral Venous Blood Culture - Final Escherichia Coli 03/16/19 16:17 Blood - Peripheral Venous Blood Culture - Final Escherichia Coli Problem List - Problems (1) MAGY (acute kidney injury) Assessment/Plan: -BUN/Cr 20.4/1.2 -improving -monitor renal function Code(s): N17.9 - ACUTE KIDNEY FAILURE, UNSPECIFIED (2) HLD (hyperlipidemia) Assessment/Plan: -Atorvastatin Code(s): E78.5 - HYPERLIPIDEMIA, UNSPECIFIED (3) Sepsis Assessment/Plan: -ID on board -Leukocytosis~WBC 26.3 -low grade fever this AM -BC and UC positive E.coli -CT shows mild bibasal atelectatic changes, left more than right, cannot rule out infiltrates -Ceftriaxone -LA 3.9~monitor LA for downtrend Code(s): A41.9 - SEPSIS, UNSPECIFIED ORGANISM (4) Parkinson disease Assessment/Plan: -Carbidopa/Levodopa -fall precaution Code(s): G20 - PARKINSON'S DISEASE (5) Hypoglycemia Assessment/Plan: -D5/LR at 100cc/hr -Endocrinology consult -BGM q2h -Glucagon and Dextrose amp PRN Code(s): E16.2 - HYPOGLYCEMIA, UNSPECIFIED Assessment/Plan see problem list dvt ppx
[2019-03-20] MEDS: CEFTRIAXONE 2 GM in DEXTROSE 5%-WATER 100 ML IVPB SCH (09:48)
[2019-03-20] MEDS: LIDOCAINE 5% TOPICAL PATCH TP SCH (09:48)
[2019-03-20] MEDS: DEXTROSE 5%-LACTATED RINGERS 1,000 ML IV SCH ×2 (10:07→15:47)
--- NOTE | 2019-03-20 10:18 | PN ---
Progress Note, Physician History of Present Illness: LETHARGIC SUPINE IN BED OFFERS NO COMPLAINTS NO ACUTE DISTRESS AFEBRILE WBC SL IMPROVED BC, URINE C/S E COLI - Current Medication List Current Medications: Active Medications Carbidopa/Levodopa (Sinemet 25/100 -) 2 each PO 5XD [facility] Last Admin: 03/20/19 09:56 Dose: 2 each Dextrose (D50w (Vial) -) 25 gm IVPUSH Q2H PRN PRN Reason: HYPOGLYCEMIA Last Admin: 03/18/19 07:30 Dose: 25 gm Docusate Sodium (Colace -) 100 mg PO TID [facility] Last Admin: 03/20/19 05:41 Dose: 100 mg Glucagon (Glucagon -) 1 mg IM ONCE PRN PRN Reason: HYPOGLYCEMIA Stop: 03/20/19 23:59 Heparin Sodium (Porcine) (Heparin -) 5,000 unit SQ TID [facility] Last Admin: 03/20/19 05:41 Dose: 5,000 unit Dextrose/Lactated Ringer's (D5-Lr -) 1,000 mls @ 100 mls/hr IV ASDIR [facility] Last Admin: 03/20/19 10:07 Dose: Not Given Ceftriaxone Sodium 2 gm/ (Dextrose) 100 mls @ 100 mls/hr IVPB DAILY [facility]; Protocol Last Admin: 03/20/19 09:48 Dose: 100 mls/hr Lidocaine (Lidoderm Patch -) 1 patch TP DAILY [facility] Last Admin: 03/20/19 09:48 Dose: 1 patch Miscellaneous (Lidoderm Patch Removal) 1 each MC DAILY@2200 [facility] Last Admin: 03/19/19 21:27 Dose: 1 each Morphine Sulfate (Morphine Sulfate) 2 mg IVPUSH Q3H PRN PRN Reason: PAIN LEVEL 6-10 Polyethylene Glycol (Miralax (For Daily Use) -) 17 gm PO BID [facility] Last Admin: 03/19/19 21:28 Dose: Not Given - Objective Vital Signs: Vital Signs Temperature 99.2 F 03/20/19 06:00 Pulse Rate 78 03/20/19 10:00 Respiratory Rate 24 H 03/20/19 10:00 Blood Pressure 140/93 03/20/19 10:00 O2 Sat by Pulse Oximetry (%) 99 03/19/19 20:49 Constitutional: Yes: No Distress Cardiovascular: Yes: Regular Rate and Rhythm, S1, S2 Respiratory: Yes: CTA Bilaterally, Diminished Gastrointestinal: Yes: Normal Bowel Sounds, Soft. No: Tenderness Edema: No Labs: CBC, BMP 03/20/19 05:35 03/20/19 05:35 INR, PTT INR 1.28 (0.83-1.09) H 03/16/19 16:10 Assessment/Plan GRAM NEGATIVE BACTEREMIA/ SEPSIS SECONDARY TO SOURCE LACTIC ACIDOSIS MARKED LEUKOCYTOSIS SL IMPROVED S/P HEMATURIA TOXIC METABOLIC ENCEPHALOPATHY/ PARKINSONISM AZOTEMIA IMPROVED ELEVATED LFTS IMPROVED SUBSTITUTE CEFTRIAXONE 2GM Q24H
[2019-03-20] MEDS ORDERED: AMANTADINE HCL 100 MG TABLET PO SCH (10:29)
--- NOTE | 2019-03-20 10:38 | PN ---
Physical Exam: SUBJECTIVE: Patient seen and examined at bedside in the ICU. Improved alertness. Mild confusion. OBJECTIVE: Vital Signs Period Temp Pulse Resp BP Sys/Ordoñez Pulse Ox Last 24 Hr 97.5 F-99.2 F 59-78 14-24 101-156/58-93 99 GENERAL: The patient is awake, alert, in no acute distress. HEAD: Normal with no signs of trauma. EYES: PERRL, extraocular movements intact, sclera anicteric, conjunctiva clear. No ptosis. ENT: Ears normal, nares patent, oropharynx clear without exudates, moist mucous membranes. NECK: Trachea midline, full range of motion, supple. LUNGS: Breath sounds equal, clear to auscultation bilaterally, no wheezes, no crackles, no accessory muscle use. HEART: Regular rate and rhythm, S1, S2 without murmur, rub or gallop. ABDOMEN: Soft, nontender, nondistended, normoactive bowel sounds, no guarding, no rebound, no hepatosplenomegaly, no masses. EXTREMITIES: 2+ pulses, warm, well-perfused, no edema. NEUROLOGICAL: Cranial nerves II through XII grossly intact. PSYCH: Normal mood, normal affect. SKIN: Warm, dry, normal turgor, no rashes or lesions noted Laboratory Results - last 24 hr 03/18/19 03/18/19 03/18/19 05:50 14:30 16:00 WBC RBC Hgb Hct MCV MCH MCHC RDW Plt Count MPV Total Counted Neutrophils % (Manual) Band Neutrophils % Lymphocytes % (Manual) Sodium Potassium Chloride Carbon Dioxide Anion Gap BUN Creatinine Est GFR (CKD-EPI)AfAm Est GFR (CKD-EPI)NonAf POC Glucometer Random Glucose Calcium Phosphorus Magnesium Total Bilirubin AST ALT Alkaline Phosphatase Total Protein Albumin Cortisol 30 Minute 18.70 Cortisol 60 Minute 25.3 Cortisol AM Sample 14.4 03/19/19 03/19/19 03/19/19 05:40 11:02 17:15 WBC RBC Hgb Hct MCV MCH MCHC RDW Plt Count MPV Total Counted 100 Neutrophils % (Manual) 87.0 H D Band Neutrophils % 9.0 Lymphocytes % (Manual) 3.0 L Sodium Potassium Chloride Carbon Dioxide Anion Gap BUN Creatinine Est GFR (CKD-EPI)AfAm Est GFR (CKD-EPI)NonAf POC Glucometer 93 93 Random Glucose Calcium Phosphorus Magnesium Total Bilirubin AST ALT Alkaline Phosphatase Total Protein Albumin Cortisol 30 Minute Cortisol 60 Minute Cortisol AM Sample 03/19/19 03/20/19 03/20/19 21:06 05:35 05:35 WBC 26.3 H RBC 4.78 Hgb 13.4 Hct 40.7 MCV 85.1 MCH 28.0 MCHC 32.9 RDW 14.5 Plt Count 230 MPV 9.3 Total Counted Neutrophils % (Manual) Band Neutrophils % Lymphocytes % (Manual) Sodium 145 Potassium 4.0 Chloride 110 H Carbon Dioxide 28 Anion Gap 7 L BUN 20.4 H Creatinine 1.2 Est GFR (CKD-EPI)AfAm 67.67 Est GFR (CKD-EPI)NonAf 58.39 POC Glucometer 108 Random Glucose 57 L Calcium 7.6 L Phosphorus 2.3 L Magnesium 1.9 Total Bilirubin 0.4 AST 37 ALT 23 Alkaline Phosphatase 152 H Total Protein 4.5 L Albumin 2.1 L Cortisol 30 Minute Cortisol 60 Minute Cortisol AM Sample 03/20/19 03/20/19 06:11 06:32 WBC RBC Hgb Hct MCV MCH MCHC RDW Plt Count MPV Total Counted Neutrophils % (Manual) Band Neutrophils % Lymphocytes % (Manual) Sodium Potassium Chloride Carbon Dioxide Anion Gap BUN Creatinine Est GFR (CKD-EPI)AfAm Est GFR (CKD-EPI)NonAf POC Glucometer 52 128 Random Glucose Calcium Phosphorus Magnesium Total Bilirubin AST ALT Alkaline Phosphatase Total Protein Albumin Cortisol 30 Minute Cortisol 60 Minute Cortisol AM Sample Active Medications Generic Name Dose Route Start Last Admin Trade Name Freq PRN Reason Stop Dose Admin Amantadine HCl 68.5 mg 03/20/19 10:29 Symmetrel - PO BID [facility] Carbidopa/Levodopa 2 each 03/18/19 14:00 03/20/19 09:56 Sinemet 25/100 - PO 2 each 5XD [facility] Administration Dextrose 25 gm 03/18/19 01:23 03/18/19 07:30 D50w (Vial) - IVPUSH 25 gm Q2H PRN Administration HYPOGLYCEMIA Docusate Sodium 100 mg 03/17/19 14:00 03/20/19 05:41 Colace - PO 100 mg TID [facility] Administration Glucagon 1 mg 03/18/19 13:09 Glucagon - IM 03/20/19 23:59 ONCE PRN HYPOGLYCEMIA Heparin Sodium (Porcine) 5,000 unit 03/20/19 06:00 03/20/19 05:41 Heparin - SQ 5,000 unit TID [facility] Administration Dextrose/Lactated Ringer's 1,000 mls @ 100 mls/hr 03/18/19 08:30 03/20/19 10: 07 D5-Lr - IV Not Given ASDIR [facility] Ceftriaxone Sodium 2 gm/ 100 mls @ 100 mls/hr 03/19/19 10:30 03/20/19 09:48 Dextrose IVPB 100 mls/hr DAILY [facility] Administration Protocol Lidocaine 1 patch 03/19/19 10:00 03/20/19 09:48 Lidoderm Patch - TP 1 patch DAILY [facility] Administration Miscellaneous 1 each 03/19/19 22:00 03/19/19 21:27 Lidoderm Patch Removal MC 1 each DAILY@2200 [facility] Administration Morphine Sulfate 2 mg 03/19/19 09:40 Morphine Sulfate IVPUSH Q3H PRN PAIN LEVEL 6-10 Non-Formulary Medication 34 mg 03/20/19 10:45 Pimavanserin Tartrate [Nuplazid] PO DAILY [facility] Non-Formulary Medication 1 mg 03/20/19 10:45 Rasagiline Mesylate PO DAILY [facility] Polyethylene Glycol 17 gm 03/17/19 12:45 03/19/19 21:28 Miralax (For Daily Use) - PO Not Given BID [facility] Tamsulosin HCl 0.4 mg 03/21/19 08:30 Flomax - PO DAILY@0830 [facility] ASSESSMENT/PLAN: 74 yo M PMH HTN, HLD, Parkinson's, CAD (s/p cardiac stenting x 2), COPD and frequent falls, arrived from home via 911 with AMS.found to have gram negative bacteremia Neuro-> parkinsons - confused - parkinson c/w home med sinimet 25/100 five times a day 2 tabs, amantadine, rasagiline, Pimavanserin - multiple falls fall precautions ID -> Sepsis 2/2 UTI vs PNA/Acute metabolic encephalopathy 2/2 sepsis * presented with fever 102.9 , wbc 23.4 , BP 99/70 , lactic acid 4 trend * Blood cx positive for gram negative Bacilli will cont zosyn per ID recs. * IV fluids D5LR, monitor for fluids over loaded signs and symptoms * BP monitor , Pulse oxy , envelope cutter * aspiration precautions * repeat cultures pending * WBC 26.3 Endocrine-> hypoglycemia likely 2/2 gram negative bacteremia sepsis vs [facility] like picture - monitor BGM Q ACHS, D50 as needed , cont D5 LR - ck, cosyntropin stim test with cortisol draws 30min and 60 min after. - glucagon prn low bs - sulfa drug screen GI-> transaminitis likely 2/2 to sever sepsis - will trend - constipation, c/w colace Cardio-> HTN/HLD/h/o CAD S/P stent x 2 - hold Bp meds for now as pt is severe sepsis - cont statin - Maintain MAP> 65 Renal->MAGY likley pre renal due to hydration and severe sepsis - avoid nephrotoxic agents - renal US to r.o obstruction - H/o BPH follow with Dr Lau - Cr 1.2 - c/w home flomax F/E/N -monitor and replace lytes PRN DVT ppx: heparin 5000 units Dispo: transfer to med/surg Visit type - Emergency Visit Emergency Visit: Yes ED Registration Date: 03/16/19 Care time: The patient presented to the Emergency Department on the above date and was hospitalized for further evaluation of their emergent condition. - New Patient This patient is new to me today: No - Critical Care Critical Care patient: Yes Total Critical Care Time (in minutes): 35 Critical Care Statement: The care of this patient involved high complexity decision making to prevent further life threatening deterioration of the patient 's condition and/or to evaluate & treat vital organ system(s) failure or risk of failure. ATTENDING PHYSICIAN STATEMENT I saw and evaluated the patient. I reviewed the resident's note and discussed the case with the resident. I agree with the resident's findings and plan as documented. SUBJECTIVE: OBJECTIVE: ASSESSMENT AND PLAN:
[2019-03-20] MEDS ORDERED: PIMAVANSERIN TARTRATE 34 MG PO SCH (10:45)
[2019-03-20] MEDS: POLYETHYLENE GLYCOL 3350 119 GM BTL PO SCH ×2 (10:59→21:31)
--- NOTE | 2019-03-20 11:00 | PN ---
Teaching Attending Note Name of Resident: Christophe Cruz ATTENDING PHYSICIAN STATEMENT I saw and evaluated the patient. I reviewed the resident's note and discussed the case with the resident. I agree with the resident's findings and plan as documented. SUBJECTIVE: Pt seen and examined in the ICU. More alert, awake but remains confused. Blood pressures improving. Good urine output after carballo placement. OBJECTIVE: Vital Signs Period Temp Pulse Resp BP Sys/Ordoñez Pulse Ox Last 24 Hr 97.5 F-99.2 F 59-78 14-24 101-156/58-93 99-99 Intake & Output 03/17/19 03/18/19 03/19/19 03/20/19 23:59 23:59 23:59 23:59 Intake Total 1813 2200 2500 1250 Output Total 100 2030 1100 Balance 1813 2100 470 150 Weight 58.967 kg Gen: more alert, awake Heart: RRR Lung: decreased breath sounds at the bases Abd: soft, nontender Ext: no edema CBC, BMP 03/20/19 05:35 03/20/19 05:35 Active Medications Carbidopa/Levodopa (Sinemet 25/100 -) 2 each PO 5XD [facility] Last Admin: 03/20/19 09:56 Dose: 2 each Dextrose (D50w (Vial) -) 25 gm IVPUSH Q2H PRN PRN Reason: HYPOGLYCEMIA Last Admin: 03/18/19 07:30 Dose: 25 gm Docusate Sodium (Colace -) 100 mg PO TID [facility] Last Admin: 03/20/19 05:41 Dose: 100 mg Glucagon (Glucagon -) 1 mg IM ONCE PRN PRN Reason: HYPOGLYCEMIA Stop: 03/20/19 23:59 Heparin Sodium (Porcine) (Heparin -) 5,000 unit SQ TID [facility] Last Admin: 03/20/19 05:41 Dose: 5,000 unit Dextrose/Lactated Ringer's (D5-Lr -) 1,000 mls @ 100 mls/hr IV ASDIR [facility] Last Admin: 03/20/19 10:07 Dose: Not Given Ceftriaxone Sodium 2 gm/ (Dextrose) 100 mls @ 100 mls/hr IVPB DAILY [facility]; Protocol Last Admin: 03/20/19 09:48 Dose: 100 mls/hr Lidocaine (Lidoderm Patch -) 1 patch TP DAILY [facility] Last Admin: 09/29/19 09:48 Dose: 1 patch Miscellaneous (Lidoderm Patch Removal) 1 each MC DAILY@2200 [facility] Last Admin: 03/19/19 21:27 Dose: 1 each Morphine Sulfate (Morphine Sulfate) 2 mg IVPUSH Q3H PRN PRN Reason: PAIN LEVEL 6-10 Non-Formulary Medication (Pimavanserin Tartrate [Nuplazid]) 34 mg PO DAILY [facility] Non-Formulary Medication (Rasagiline Mesylate) 1 mg PO DAILY [facility] Gocovri Er 68.5 Mg Capsule - Patient Own Med 68.5 each PO [facility] Polyethylene Glycol (Miralax (For Daily Use) -) 17 gm PO BID [facility] Last Admin: 03/19/19 21:28 Dose: Not Given Tamsulosin HCl (Flomax -) 0.4 mg PO DAILY@0830 [facility] ASSESSMENT AND PLAN: UTI Gram Negative Bacteremia Severe Sepsis Lactic Acidosis Hypoglycemia Atelectasis Acute Kidney Injury Elevated LFTs likely Ischemic Injury HTN Hyperlipidemia Parkinsons BPH - continue antibiotics - f/u cultures - IVF - monitor urine output, creatinine - trend WBC - monitor glucose - DVT prophylaxis - can monitor on floor critical care time spent in reviewing chart, evaluating patient and formulating plan 35 min
[2019-03-20] MEDS ORDERED: RASAGILINE MESYLATE 1 MG TABLET PO SCH (11:15)
[2019-03-20] MEDS ORDERED: PT OWN MED DRAWER 7, Y5N ONE ×2 (11:28→11:48)
[2019-03-20] MEDS ORDERED: MORPHINE SULFATE 2 MG/ML VIAL IVPUSH PRN (14:38)
[2019-03-20] MEDS ORDERED: DEXTROSE 50%-WATER - 25 GM/50 ML VIAL IVPUSH PRN (14:38)
[2019-03-20] MEDS ORDERED: GLUCAGON 1 MG KIT IM PRN (14:38)
[2019-03-20] MEDS: LIDOCAINE PATCH REMOVAL MC SCH ×2 (21:31)
[2019-03-20] MEDS: NON-FORMULARY MED PO SCH (21:33)
[2019-03-20] MEDS ORDERED: AMANTADINE PO SCH (22:00)
[2019-03-21] MEDS ORDERED: DEXTROSE 50%-WATER - 25 GM/50 ML VIAL IVPUSH PRN (06:04)
[2019-03-21] MEDS: DOCUSATE SODIUM 100 MG CAPSULE (FP) PO SCH ×3 (06:05→22:01)
[2019-03-21] MEDS: HEPARIN NA (PORCINE) 5,000 UNITS/ML 1ML VIAL SQ SCH ×3 (06:05→22:01)
[2019-03-21] MEDS: CARBIDOPA/LEVODOPA 25/100 TABLET (FP) PO SCH ×5 (06:06→22:00)
[2019-03-21] MEDS ORDERED: DEXTROSE 50%-WATER - 25 GM/50 ML VIAL ONE (06:14)
[2019-03-21 06:34] LABS: HEMATOCRIT 42.6 % (35.4-49); HEMOGLOBIN 14.2 GM/dL (11.7-16.9); MCH 28.2 pg (25.7-33.7); MCHC 33.2 g/dl (32.0-35.9); MEAN CELL VOLUME 84.9 fl (80-96); MEAN PLT VOLUME 8.7 fl (7.5-11.1); PLATELET COUNT 273 K/MM3 (134-434); RBC 5.02 M/mm3 (4.00-5.60); RDW 14.3 % (11.9-15.9); WHITE BLOOD COUNT 13.5 K/mm3 (4.0-10.0)
[2019-03-21 06:54] LABS: ALBUMIN 2.3 g/dl (3.4-5.0); BILIRUBIN,TOTAL 0.5 mg/dL (0.2-1); CALCIUM 7.9 mg/dL (8.5-10.1); POTASSIUM 4.4 mmol/L (3.5-5.1)
--- NOTE | 2019-03-21 07:31 | PN ---
Progress Note, Physician - Current Medication List Current Medications: Active Medications Carbidopa/Levodopa (Sinemet 25/100 -) 2 each PO 5XD [facility] Last Admin: 03/21/19 06:06 Dose: 2 each Dextrose (D50w (Vial) -) 25 gm IVPUSH Q2H PRN PRN Reason: HYPOGLYCEMIA Last Admin: 03/21/19 06:27 Dose: 25 gm Dextrose (D50w (Vial) -) 25 gm IVPUSH PRN PRN PRN Reason: HYPOGLYCEMIA Stop: 03/22/19 06:03 Docusate Sodium (Colace -) 100 mg PO TID [facility] Last Admin: 03/21/19 06:05 Dose: 100 mg Heparin Sodium (Porcine) (Heparin -) 5,000 unit SQ TID [facility] Last Admin: 03/21/19 06:05 Dose: 5,000 unit Ceftriaxone Sodium 2 gm/ (Dextrose) 100 mls @ 100 mls/hr IVPB DAILY [facility]; Protocol Dextrose/Lactated Ringer's (D5-Lr -) 1,000 mls @ 100 mls/hr IV ASDIR [facility] Last Admin: 03/20/19 15:47 Dose: 100 mls/hr Lidocaine (Lidoderm Patch -) 1 patch TP DAILY [facility] Miscellaneous (Lidoderm Patch Removal) 1 each MC DAILY@2200 [facility] Last Admin: 03/20/19 21:31 Dose: 1 each Miscellaneous (Lidoderm Patch Removal) 1 each MC DAILY@2200 [facility] Last Admin: 03/20/19 21:31 Dose: 1 each Morphine Sulfate (Morphine Sulfate) 2 mg IVPUSH Q3H PRN PRN Reason: PAIN LEVEL 6-10 Non-Formulary Medication (Non-Formulary Med) 0 each PO HS [facility] Last Admin: 03/20/19 21:33 Dose: 1 each Non-Formulary Medication (Pimavanserin Tartrate [Nuplazid]) 0 mg PO DAILY [facility] Polyethylene Glycol (Miralax (For Daily Use) -) 17 gm PO BID [facility] Last Admin: 03/20/19 21:31 Dose: 17 gm Rasagiline (Azilect -) 1 mg PO DAILY [facility] Tamsulosin HCl (Flomax -) 0.4 mg PO DAILY@0830 [facility] - Objective Vital Signs: Vital Signs Temperature 98.4 F 03/21/19 06:00 Pulse Rate 66 03/21/19 06:00 Respiratory Rate 18 03/21/19 06:00 Blood Pressure 133/64 03/21/19 06:00 O2 Sat by Pulse Oximetry (%) 99 03/20/19 20:19 Labs: CBC, BMP 03/21/19 05:30 03/21/19 05:30 INR, PTT INR 1.28 (0.83-1.09) H 03/16/19 16:10 Problem List - Problems (1) MAGY (acute kidney injury) Assessment/Plan: -improving -monitor renal function Code(s): N17.9 - ACUTE KIDNEY FAILURE, UNSPECIFIED (2) Sepsis Assessment/Plan: -ID on board -Leukocytosis~WBC 26.3 -BC and UC positive E.coli -Repeat Neg Microbiology 03/19/19 12:00 Blood - Peripheral Venous Blood Culture - Preliminary NO GROWTH OBTAINED AFTER 24 HOURS, INCUBATION TO CONTINUE FOR 4 DAYS. 03/19/19 11:45 Blood - Peripheral Venous Blood Culture - Preliminary NO GROWTH OBTAINED AFTER 24 HOURS, INCUBATION TO CONTINUE FOR 4 DAYS. 03/16/19 17:20 Urine - Urine - Catheterized Urine Culture - Final Escherichia Coli 03/16/19 16:00 Blood - Peripheral Venous Blood Culture - Final Escherichia Coli 03/16/19 16:17 Blood - Peripheral Venous Blood Culture - Final Escherichia Coli -CT shows mild bibasal atelectatic changes, left more than right, cannot rule out infiltrates -Ceftriaxone Code(s): A41.9 - SEPSIS, UNSPECIFIED ORGANISM (3) Hypoglycemia Assessment/Plan: Laboratory Tests 03/20/19 03/21/19 03/21/19 23:35 05:56 06:28 POC Glucometer 92 66 107 -Endocrinology consult noted -BGM q2h -IVF -Glucagon and Dextrose amp PRN Code(s): E16.2 - HYPOGLYCEMIA, UNSPECIFIED (4) Parkinson disease Assessment/Plan: -Carbidopa/Levodopa -fall precaution Code(s): G20 - PARKINSON'S DISEASE
[2019-03-21] MEDS ORDERED: TAMSULOSIN HCL 0.4 MG CAP PO SCH ×2 (08:30)
[2019-03-21] MEDS: DEXTROSE 5%-LACTATED RINGERS 1,000 ML IV SCH ×3 (08:57→19:58)
[2019-03-21] MEDS ORDERED: PT OWN MED DRAWER 7, Y5N ONE ×3 (09:15→21:06)
[2019-03-21] MEDS ORDERED: DEXTROSE 5%-WATER 100 ML IVPB ONE (09:16)
[2019-03-21] MEDS: POLYETHYLENE GLYCOL 3350 119 GM BTL PO SCH ×2 (09:42→22:00)
[2019-03-21] MEDS ORDERED: RASAGILINE MESYLATE 1 MG TABLET PO SCH (10:00)
[2019-03-21] MEDS ORDERED: LIDOCAINE 5% TOPICAL PATCH TP SCH (10:00)
[2019-03-21] MEDS ORDERED: CEFTRIAXONE 2 GM in DEXTROSE 5%-WATER 100 ML IVPB SCH (10:00)
[2019-03-21] MEDS ORDERED: PIMAVANSERIN TARTRATE PO SCH (10:00)
--- NOTE | 2019-03-21 11:19 | PN ---
Progress Note, Physician History of Present Illness: LETHARGIC SUPINE IN BED OFFERS NO COMPLAINTS NO ACUTE DISTRESS AFEBRILE WBC IMPROVED BC, URINE C/S E COLI - Current Medication List Current Medications: Active Medications Carbidopa/Levodopa (Sinemet 25/100 -) 2 each PO 5XD [facility] Last Admin: 03/21/19 09:43 Dose: 2 each Dextrose (D50w (Vial) -) 25 gm IVPUSH Q2H PRN PRN Reason: HYPOGLYCEMIA Last Admin: 03/21/19 06:27 Dose: 25 gm Dextrose (D50w (Vial) -) 25 gm IVPUSH PRN PRN PRN Reason: HYPOGLYCEMIA Stop: 03/22/19 06:03 Docusate Sodium (Colace -) 100 mg PO TID [facility] Last Admin: 03/21/19 06:05 Dose: 100 mg Heparin Sodium (Porcine) (Heparin -) 5,000 unit SQ TID [facility] Last Admin: 03/21/19 06:05 Dose: 5,000 unit Ceftriaxone Sodium 2 gm/ (Dextrose) 100 mls @ 100 mls/hr IVPB DAILY [facility]; Protocol Last Admin: 03/21/19 09:22 Dose: 100 mls/hr Dextrose/Lactated Ringer's (D5-Lr -) 1,000 mls @ 100 mls/hr IV ASDIR [facility] Last Admin: 03/21/19 08:57 Dose: 100 mls/hr Lidocaine (Lidoderm Patch -) 1 patch TP DAILY [facility] Last Admin: 03/21/19 09:42 Dose: 1 patch Miscellaneous (Lidoderm Patch Removal) 1 each MC DAILY@2200 [facility] Last Admin: 03/20/19 21:31 Dose: 1 each Miscellaneous (Lidoderm Patch Removal) 1 each MC DAILY@2200 [facility] Last Admin: 03/20/19 21:31 Dose: 1 each Morphine Sulfate (Morphine Sulfate) 2 mg IVPUSH Q3H PRN PRN Reason: PAIN LEVEL 6-10 Non-Formulary Medication (Non-Formulary Med) 0 each PO HS [facility] Last Admin: 03/20/19 21:33 Dose: 1 each Non-Formulary Medication (Pimavanserin Tartrate [Nuplazid]) 0 mg PO DAILY [facility] Last Admin: 03/21/19 09:42 Dose: 34 mg Polyethylene Glycol (Miralax (For Daily Use) -) 17 gm PO BID [facility] Last Admin: 03/21/19 09:42 Dose: 17 gm Rasagiline (Azilect -) 1 mg PO DAILY [facility] Last Admin: 03/21/19 09:41 Dose: 1 mg Tamsulosin HCl (Flomax -) 0.4 mg PO DAILY@0830 [facility] Last Admin: 03/21/19 08:55 Dose: 0.4 mg - Objective Vital Signs: Vital Signs Temperature 98.3 F 03/21/19 08:00 Pulse Rate 78 03/21/19 10:00 Respiratory Rate 18 03/21/19 10:00 Blood Pressure 136/51 L 03/21/19 10:00 O2 Sat by Pulse Oximetry (%) 99 03/21/19 08:00 Constitutional: Yes: No Distress Cardiovascular: Yes: Regular Rate and Rhythm, S1, S2 Respiratory: Yes: CTA Bilaterally Gastrointestinal: Yes: Normal Bowel Sounds, Soft. No: Tenderness Edema: No Labs: CBC, BMP 03/21/19 05:30 03/21/19 05:30 INR, PTT INR 1.28 (0.83-1.09) H 03/16/19 16:10 Assessment/Plan GRAM NEGATIVE BACTEREMIA/ SEPSIS SECONDARY TO SOURCE LACTIC ACIDOSIS MARKED LEUKOCYTOSIS IMPROVED S/P HEMATURIA TOXIC METABOLIC ENCEPHALOPATHY/ PARKINSONISM AZOTEMIA IMPROVED ELEVATED LFTS IMPROVED CONTINUE CEFTRIAXONE 2GM Q24H
--- NOTE | 2019-03-21 11:21 | PN ---
Teaching Attending Note Name of Resident: Mona Lundberg ATTENDING PHYSICIAN STATEMENT I saw and evaluated the patient. I reviewed the resident's note and discussed the case with the resident. I agree with the resident's findings and plan as documented. SUBJECTIVE: Pt seen and examined in the ICU. Clinically improving. No fevers. OBJECTIVE: Vital Signs Period Temp Pulse Resp BP Sys/Ordoñez Pulse Ox Last 24 Hr 97.8 F-98.9 F 57-82 17-19 96-156/32-98 99-99 Intake & Output 03/18/19 03/19/19 03/20/19 03/21/19 23:59 23:59 23:59 23:59 Intake Total 2200 2500 2850 1400 Output Total 100 2030 3275 1700 Balance 2100 470 -425 -300 Weight 58.967 kg Gen: NAD at rest Heart: RRR Lung: decreased breath sounds at the bases Abd: soft, nontender Ext: no edema CBC, BMP 03/21/19 05:30 03/21/19 05:30 Active Medications Carbidopa/Levodopa (Sinemet 25/100 -) 2 each PO 5XD [facility] Last Admin: 03/21/19 09:43 Dose: 2 each Dextrose (D50w (Vial) -) 25 gm IVPUSH Q2H PRN PRN Reason: HYPOGLYCEMIA Last Admin: 03/21/19 06:27 Dose: 25 gm Dextrose (D50w (Vial) -) 25 gm IVPUSH PRN PRN PRN Reason: HYPOGLYCEMIA Stop: 03/22/19 06:03 Docusate Sodium (Colace -) 100 mg PO TID [facility] Last Admin: 03/21/19 06:05 Dose: 100 mg Heparin Sodium (Porcine) (Heparin -) 5,000 unit SQ TID [facility] Last Admin: 03/21/19 06:05 Dose: 5,000 unit Ceftriaxone Sodium 2 gm/ (Dextrose) 100 mls @ 100 mls/hr IVPB DAILY [facility]; Protocol Last Admin: 03/21/19 09:22 Dose: 100 mls/hr Dextrose/Lactated Ringer's (D5-Lr -) 1,000 mls @ 100 mls/hr IV ASDIR [facility] Last Admin: 03/21/19 08:57 Dose: 100 mls/hr Lidocaine (Lidoderm Patch -) 1 patch TP DAILY [facility] Last Admin: 03/21/19 09:42 Dose: 1 patch Miscellaneous (Lidoderm Patch Removal) 1 each MC DAILY@2199 [facility] Last Admin: 03/20/19 21:31 Dose: 1 each Miscellaneous (Lidoderm Patch Removal) 1 each MC DAILY@2199 [facility] Last Admin: 03/20/19 21:31 Dose: 1 each Morphine Sulfate (Morphine Sulfate) 2 mg IVPUSH Q3H PRN PRN Reason: PAIN LEVEL 6-10 Non-Formulary Medication (Non-Formulary Med) 0 each PO HS [facility] Last Admin: 03/20/19 21:33 Dose: 1 each Non-Formulary Medication (Pimavanserin Tartrate [Nuplazid]) 0 mg PO DAILY [facility] Last Admin: 03/21/19 09:42 Dose: 34 mg Polyethylene Glycol (Miralax (For Daily Use) -) 17 gm PO BID [facility] Last Admin: 03/21/19 09:42 Dose: 17 gm Rasagiline (Azilect -) 1 mg PO DAILY [facility] Last Admin: 03/21/19 09:41 Dose: 1 mg Tamsulosin HCl (Flomax -) 0.4 mg PO DAILY@0830 [facility] Last Admin: 03/21/19 08:55 Dose: 0.4 mg ASSESSMENT AND PLAN: UTI Gram Negative Bacteremia Severe Sepsis Lactic Acidosis Hypoglycemia Atelectasis Acute Kidney Injury Elevated LFTs likely Ischemic Injury HTN Hyperlipidemia Parkinsons BPH - continue antibiotics - monitor urine output, creatinine - trend WBC - PO as tolerated - monitor glucose - OOB to chair - DVT prophylaxis - can monitor on floor
--- NOTE | 2019-03-21 13:33 | PN ---
Physical Exam: SUBJECTIVE: Patient seen and examined at bedside. pt has no acute complaints. OBJECTIVE: Vital Signs Period Temp Pulse Resp BP Sys/Ordoñez Pulse Ox Last 24 Hr 98 F-98.9 F 58-82 16-19 96-156/32-98 99-99 GENERAL: The patient is awake, alert, oriented x 2 , in no acute distress. LUNGS: Breath sounds equal, clear to auscultation bilaterally, no accessory muscle use. HEART: Regular rate and rhythm, S1, S2 ABDOMEN: Soft, nontender, nondistended, normoactive bowel sounds, no guarding EXTREMITIES: 2+ pulses, warm, well-perfused, no edema. SKIN: Warm, dry, normal turgor, no rashes or lesions noted Laboratory Results - last 24 hr 03/20/19 03/20/19 03/21/19 15:41 23:35 05:30 WBC 13.5 H RBC 5.02 Hgb 14.2 Hct 42.6 MCV 84.9 MCH 28.2 MCHC 33.2 RDW 14.3 Plt Count 273 MPV 8.7 Sodium Potassium Chloride Carbon Dioxide Anion Gap BUN Creatinine Est GFR (CKD-EPI)AfAm Est GFR (CKD-EPI)NonAf POC Glucometer 84 92 Random Glucose Lactic Acid Calcium Total Bilirubin AST ALT Alkaline Phosphatase Total Protein Albumin 03/21/19 03/21/19 03/21/19 05:30 05:30 05:56 WBC RBC Hgb Hct MCV MCH MCHC RDW Plt Count MPV Sodium 145 Potassium 4.4 Chloride 108 H Carbon Dioxide 31 Anion Gap 6 L BUN 19.0 H Creatinine 1.0 Est GFR (CKD-EPI)AfAm 84.36 Est GFR (CKD-EPI)NonAf 72.78 POC Glucometer 66 Random Glucose 73 L Lactic Acid 1.5 Calcium 7.9 L Total Bilirubin 0.5 AST 58 H ALT 48 Alkaline Phosphatase 179 H Total Protein 5.0 L Albumin 2.3 L Current Medications Carbidopa/Levodopa (Sinemet 25/100 -) 2 each PO 5XD [facility] Last Admin: 03/21/19 09:43 Dose: 2 each Dextrose (D50w (Vial) -) 25 gm IVPUSH Q2H PRN PRN Reason: HYPOGLYCEMIA Last Admin: 03/21/19 06:27 Dose: 25 gm Dextrose (D50w (Vial) -) 25 gm IVPUSH PRN PRN PRN Reason: HYPOGLYCEMIA Stop: 03/22/19 06:03 Docusate Sodium (Colace -) 100 mg PO TID [facility] Last Admin: 03/21/19 06:05 Dose: 100 mg Heparin Sodium (Porcine) (Heparin -) 5,000 unit SQ TID [facility] Last Admin: 03/21/19 06:05 Dose: 5,000 unit Ceftriaxone Sodium 2 gm/ (Dextrose) 100 mls @ 100 mls/hr IVPB DAILY [facility]; Protocol Last Admin: 03/21/19 09:22 Dose: 100 mls/hr Dextrose/Lactated Ringer's (D5-Lr -) 1,000 mls @ 100 mls/hr IV ASDIR [facility] Last Admin: 03/21/19 08:57 Dose: 100 mls/hr Lidocaine (Lidoderm Patch -) 1 patch TP DAILY [facility] Last Admin: 03/21/19 09:42 Dose: 1 patch Miscellaneous (Lidoderm Patch Removal) 1 each MC DAILY@0 [facility] Last Admin: 03/20/19 21:31 Dose: 1 each Miscellaneous (Lidoderm Patch Removal) 1 each MC DAILY@2199 [facility] Last Admin: 03/20/19 21:31 Dose: 1 each Morphine Sulfate (Morphine Sulfate) 2 mg IVPUSH Q3H PRN PRN Reason: PAIN LEVEL 6-10 Non-Formulary Medication (Non-Formulary Med) 0 each PO HS [facility] Last Admin: 03/20/19 21:33 Dose: 1 each Non-Formulary Medication (Pimavanserin Tartrate [Nuplazid]) 0 mg PO DAILY [facility] Last Admin: 03/21/19 09:42 Dose: 34 mg Polyethylene Glycol (Miralax (For Daily Use) -) 17 gm PO BID [facility] Last Admin: 03/21/19 09:42 Dose: 17 gm Rasagiline (Azilect -) 1 mg PO DAILY [facility] Last Admin: 03/21/19 09:41 Dose: 1 mg Tamsulosin HCl (Flomax -) 0.4 mg PO DAILY@0830 [facility] Last Admin: 03/21/19 08:55 Dose: 0.4 mg ASSESSMENT/PLAN: 74 yo M PMH HTN, HLD, Parkinson's, CAD (s/p cardiac stenting x 2), COPD and frequent falls, arrived from home via 911 with AMS.found to have gram negative bacteremia Neuro: Parkinson's - confused - c/w sinimet 25/100 , amantadine, rasagiline, Pimavanserin - fall precautions ID : Sepsis 2/2 UTI vs PNA/Acute metabolic encephalopathy 2/2 sepsis -presented with fever 102.9 , wbc 23.4 , BP 99/70 , lactic acid 4 -Blood cx positive for gram negative Bacilli -IV fluids D5LR, monitor for fluids over loaded signs and symptoms -aspiration precautions -leukocytosis improving, afebrile -c/w ceftriaxone day 3 Endocrine-:hypoglycemia likely 2/2 gram negative bacteremia sepsis - monitor BGM Q ACHS, D50 as needed , cont D5 LR - ck, cosyntropin stim test with cortisol draws 30min and 60 min after. - glucagon prn low bs - sulfa drug screen GI: transaminitis likely 2/2 to sever sepsis - will trend - constipation, c/w colace Cardio: HTN/HLD/h/o CAD S/P stent x 2 - hold Bp meds for now as pt is severe sepsis - cont statin - Maintain MAP> 65 Renal:MAGY likley pre renal due to hydration and severe sepsis - avoid nephrotoxic agents - H/o BPH follow with Dr Lau - Cr improving. - c/w home flomax F/E/N -monitor and replace lytes PRN DVT ppx: heparin 5000 units Dispo: transfer to med/surg Visit type - Emergency Visit Emergency Visit: No - New Patient This patient is new to me today: Yes - Critical Care Critical Care patient: Yes Total Critical Care Time (in minutes): 36 Critical Care Statement: The care of this patient involved high complexity decision making to prevent further life threatening deterioration of the patient 's condition and/or to evaluate & treat vital organ system(s) failure or risk of failure. ATTENDING PHYSICIAN STATEMENT I saw and evaluated the patient. I reviewed the resident's note and discussed the case with the resident. I agree with the resident's findings and plan as documented. SUBJECTIVE: OBJECTIVE: ASSESSMENT AND PLAN:
[2019-03-21] MEDS: NON-FORMULARY MED PO SCH (23:01)
[2019-03-21] MEDS: LIDOCAINE PATCH REMOVAL MC SCH ×2 (23:01)
[2019-03-22] MEDS ORDERED: PT OWN MED DRAWER 7, Y5N ONE ×4 (03:47→21:16)
[2019-03-22] MEDS: DEXTROSE 5%-LACTATED RINGERS 1,000 ML IV SCH ×2 (05:13→15:30)
[2019-03-22] MEDS: DOCUSATE SODIUM 100 MG CAPSULE (FP) PO SCH ×3 (05:14→21:57)
[2019-03-22] MEDS: CARBIDOPA/LEVODOPA 25/100 TABLET (FP) PO SCH ×5 (05:14→23:21)
[2019-03-22] MEDS: HEPARIN NA (PORCINE) 5,000 UNITS/ML 1ML VIAL SQ SCH ×3 (05:14→21:57)
[2019-03-22] MEDS ORDERED: MORPHINE SULFATE 2 MG/ML VIAL IVPUSH PRN (08:16)
[2019-03-22] MEDS ORDERED: DEXTROSE 50%-WATER - 25 GM/50 ML VIAL IVPUSH PRN (08:16)
[2019-03-22 08:19] LABS: BASO % 0.8 % (0-2.0); EOS % 5.1 % (0-4.5); HEMATOCRIT 36.2 % (35.4-49); HEMOGLOBIN 12.2 GM/dL (11.7-16.9); LYMPH % 21.5 % (8-40); MCH 28.4 pg (25.7-33.7); MCHC 33.8 g/dl (32.0-35.9); MEAN PLT VOLUME 8.5 fl (7.5-11.1); MONO % 4.8 % (3.8-10.2); NEUT % 67.8 % (42.8-82.8); PLATELET COUNT 355 K/MM3 (134-434); RDW 14.2 % (11.9-15.9); WHITE BLOOD COUNT 7.9 K/mm3 (4.0-10.0)
[2019-03-22 08:45] LABS: BILIRUBIN,TOTAL 0.3 mg/dL (0.2-1); BLOOD UREA NITROGEN 18.8 mg/dL (7-18); CALCIUM 7.7 mg/dL (8.5-10.1); CREATININE 0.9 mg/dL (0.55-1.3); MAGNESIUM 1.7 mg/dL (1.8-2.4); PHOSPHOROUS 2.4 mg/dL (2.5-4.9); POTASSIUM 4.1 mmol/L (3.5-5.1); TOT PROT 4.4 g/dl (6.4-8.2)
--- NOTE | 2019-03-22 09:28 | PN ---
Progress Note (short form) - Note Progress Note: Resting in NAD. Transferred from ICU last night. No acute events overnight. Remains afebrile. OBJECTIVE: Intake & Output 03/19/19 03/20/19 03/21/19 03/22/19 23:59 23:59 23:59 23:59 Intake Total 2500 2850 3410 940 Output Total 2030 3275 2250 1500 Balance 470 -425 1160 -560 Last Vital Signs Temp Pulse Resp BP Pulse Ox 98.0 F 58 L 20 135/66 96 03/22/19 07:30 03/22/19 07:30 03/22/19 07:30 03/22/19 07:30 03/21/19 21:15 Active Medications Carbidopa/Levodopa (Sinemet 25/100 -) 2 each PO 5XD [facility] Dextrose (D50w (Vial) -) 25 gm IVPUSH Q2H PRN PRN Reason: HYPOGLYCEMIA Docusate Sodium (Colace -) 100 mg PO TID [facility] Heparin Sodium (Porcine) (Heparin -) 5,000 unit SQ TID [facility] Ceftriaxone Sodium 2 gm/ (Dextrose) 100 mls @ 100 mls/hr IVPB DAILY [facility]; Protocol Dextrose/Lactated Ringer's (D5-Lr -) 1,000 mls @ 100 mls/hr IV ASDIR [facility] Morphine Sulfate (Morphine Sulfate) 2 mg IVPUSH Q3H PRN PRN Reason: PAIN LEVEL 6-10 Non-Formulary Medication (Non-Formulary Med) 0 each PO HS [facility] Non-Formulary Medication (Pimavanserin Tartrate [Nuplazid]) 0 mg PO DAILY [facility] Pneumococcal 13-Valent Conj Vacc (Prevnar 13 Syringe -) 0.5 ml IM .ONCE ONE Stop: 03/22/19 10:01 Polyethylene Glycol (Miralax (For Daily Use) -) 17 gm PO BID [facility] Rasagiline (Azilect -) 1 mg PO DAILY [facility] Tamsulosin HCl (Flomax -) 0.4 mg PO DAILY@0830 [facility] Gen: NAD at rest Heart: RRR Lung: decreased breath sounds at the bases Abd: soft, nontender Ext: no edema Laboratory Results - last 24 hr 03/18/19 03/18/19 03/21/19 13:45 13:45 10:47 WBC RBC Hgb Hct MCV MCH MCHC RDW Plt Count MPV Absolute Neuts (auto) Neutrophils % Lymphocytes % Monocytes % Eosinophils % Basophils % Nucleated RBC % Sodium Potassium Chloride Carbon Dioxide Anion Gap BUN Creatinine Est GFR (CKD-EPI)AfAm Est GFR (CKD-EPI)NonAf POC Glucometer 117 Random Glucose Calcium Phosphorus Magnesium Total Bilirubin AST ALT Alkaline Phosphatase Total Protein Albumin Cortisol 30 Minute 11.10 Cortisol 60 Minute 11.5 03/21/19 03/21/19 03/22/19 17:13 22:04 05:02 WBC RBC Hgb Hct MCV MCH MCHC RDW Plt Count MPV Absolute Neuts (auto) Neutrophils % Lymphocytes % Monocytes % Eosinophils % Basophils % Nucleated RBC % Sodium Potassium Chloride Carbon Dioxide Anion Gap BUN Creatinine Est GFR (CKD-EPI)AfAm Est GFR (CKD-EPI)NonAf POC Glucometer 118 103 67 Random Glucose Calcium Phosphorus Magnesium Total Bilirubin AST ALT Alkaline Phosphatase Total Protein Albumin Cortisol 30 Minute Cortisol 60 Minute 03/22/19 03/22/19 03/22/19 06:46 07:14 07:14 WBC 7.9 RBC 4.30 Hgb 12.2 Hct 36.2 D MCV 84.0 MCH 28.4 MCHC 33.8 RDW 14.2 Plt Count 355 D MPV 8.5 Absolute Neuts (auto) 5.4 Neutrophils % 67.8 D Lymphocytes % 21.5 D Monocytes % 4.8 D Eosinophils % 5.1 H D Basophils % 0.8 D Nucleated RBC % 0 Sodium 144 Potassium 4.1 Chloride 109 H Carbon Dioxide 29 Anion Gap 6 L BUN 18.8 H Creatinine 0.9 Est GFR (CKD-EPI)AfAm 95.82 Est GFR (CKD-EPI)NonAf 82.67 POC Glucometer 83 Random Glucose 97 Calcium 7.7 L Phosphorus 2.4 L Magnesium 1.7 L Total Bilirubin 0.3 AST 80 H ALT 19 Alkaline Phosphatase 133 H Total Protein 4.4 L Albumin 2.0 L Cortisol 30 Minute Cortisol 60 Minute ASSESSMENT AND PLAN: UTI Gram Negative Bacteremia Severe Sepsis Lactic Acidosis Hypoglycemia Atelectasis Acute Kidney Injury Elevated LFTs likely Ischemic Injury HTN Hyperlipidemia Parkinsons BPH - continue antibiotics - monitor urine output, creatinine - PO as tolerated - monitor glucose - OOB to chair - DVT prophylaxis Dr Mcpherson
[2019-03-22] MEDS ORDERED: DEXTROSE 5%-WATER 100 ML IVPB ONE (09:41)
[2019-03-22] MEDS ORDERED: PNEUMOC 13-VAL CONJ-DIP CRM/PF 0.5 ML DISP.SYRIN IM ONE (10:00)
[2019-03-22] MEDS: PIMAVANSERIN TARTRATE PO SCH (10:10)
[2019-03-22] MEDS: CEFTRIAXONE 2 GM in DEXTROSE 5%-WATER 100 ML IVPB SCH (10:10)
[2019-03-22] MEDS: POLYETHYLENE GLYCOL 3350 119 GM BTL PO SCH ×2 (10:11→21:59)
[2019-03-22 10:36] LABS: ANISOCYTOSIS 1+; MACROCYTOSIS 0; PLATELET ESTIMATE NORMAL
[2019-03-22] MEDS: TAMSULOSIN HCL 0.4 MG CAP PO SCH (11:12)
[2019-03-22] MEDS: RASAGILINE MESYLATE 1 MG TABLET PO SCH (11:12)
--- NOTE | 2019-03-22 14:50 | PN ---
Progress Note, Physician Chief Complaint: Sepsis Hypoglycemia History of Present Illness: Previous notes and events reviewed sleeping, but responsive to tactile and verbal stimuli NAD no leukocytosis afebrile BC and UC positive E.coli~repeat BC neg - Current Medication List Current Medications: Active Medications Carbidopa/Levodopa (Sinemet 25/100 -) 2 each PO 5XD [facility] Last Admin: 03/22/19 14:04 Dose: 2 each Dextrose (D50w (Vial) -) 25 gm IVPUSH Q2H PRN PRN Reason: HYPOGLYCEMIA Docusate Sodium (Colace -) 100 mg PO TID [facility] Last Admin: 03/22/19 14:04 Dose: 100 mg Heparin Sodium (Porcine) (Heparin -) 5,000 unit SQ TID [facility] Last Admin: 03/22/19 14:04 Dose: 5,000 unit Ceftriaxone Sodium 2 gm/ (Dextrose) 100 mls @ 100 mls/hr IVPB DAILY [facility]; Protocol Last Admin: 03/22/19 10:10 Dose: 100 mls/hr Dextrose/Lactated Ringer's (D5-Lr -) 1,000 mls @ 100 mls/hr IV ASDIR [facility] Morphine Sulfate (Morphine Sulfate) 2 mg IVPUSH Q3H PRN PRN Reason: PAIN LEVEL 6-10 Non-Formulary Medication (Non-Formulary Med) 0 each PO HS [facility] Non-Formulary Medication (Pimavanserin Tartrate [Nuplazid]) 0 mg PO DAILY [facility] Last Admin: 03/22/19 10:10 Dose: 34 mg Polyethylene Glycol (Miralax (For Daily Use) -) 17 gm PO BID [facility] Last Admin: 03/22/19 10:11 Dose: 17 grams Rasagiline (Azilect -) 1 mg PO DAILY [facility] Last Admin: 03/22/19 11:12 Dose: 1 mg Tamsulosin HCl (Flomax -) 0.4 mg PO DAILY@0830 [facility] Last Admin: 03/22/19 11:12 Dose: 0.4 mg - Objective Vital Signs: Vital Signs Temperature 98.0 F 03/22/19 07:30 Pulse Rate 58 L 03/22/19 07:30 Respiratory Rate 20 03/22/19 07:30 Blood Pressure 135/66 03/22/19 07:30 O2 Sat by Pulse Oximetry (%) 96 03/21/19 21:15 Constitutional: Yes: No Distress, Calm Eyes: Yes: Conjunctiva Clear HENT: Yes: Atraumatic Cardiovascular: Yes: Regular Rate and Rhythm Respiratory: Yes: Regular, Diminished Gastrointestinal: Yes: Normal Bowel Sounds, Soft Genitourinary: Yes: Incontinence Musculoskeletal: Yes: Muscle Weakness Extremities: Yes: WNL Edema: No Neurological: Yes: Alert, Confusion, Pre-Existing Deficit Psychiatric: Yes: Alert Labs: CBC, BMP 03/22/19 07:14 03/22/19 07:14 INR, PTT INR 1.28 (0.83-1.09) H 03/16/19 16:10 Microbiology 03/19/19 12:00 Blood - Peripheral Venous Blood Culture - Preliminary NO GROWTH OBTAINED AFTER 72 HOURS, INCUBATION TO CONTINUE FOR 2 DAYS. 03/19/19 11:45 Blood - Peripheral Venous Blood Culture - Preliminary NO GROWTH OBTAINED AFTER 72 HOURS, INCUBATION TO CONTINUE FOR 2 DAYS. 03/16/19 17:20 Urine - Urine - Catheterized Urine Culture - Final Escherichia Coli 03/16/19 16:00 Blood - Peripheral Venous Blood Culture - Final Escherichia Coli 03/16/19 16:17 Blood - Peripheral Venous Blood Culture - Final Escherichia Coli Problem List - Problems (1) MAGY (acute kidney injury) Assessment/Plan: -BUN/Cr 18.8/0.9 -monitor renal function Code(s): N17.9 - ACUTE KIDNEY FAILURE, UNSPECIFIED (2) HLD (hyperlipidemia) Assessment/Plan: -Atorvastatin Code(s): E78.5 - HYPERLIPIDEMIA, UNSPECIFIED (3) Sepsis Assessment/Plan: -ID on board -no leukocytosis -afebrile -BC and UC positive E.coli -repeat BC neg -CT shows mild bibasal atelectatic changes, left more than right, cannot rule out infiltrates -Ceftriaxone -LA 3.9~1.5 Code(s): A41.9 - SEPSIS, UNSPECIFIED ORGANISM (4) Parkinson disease Assessment/Plan: -Carbidopa/Levodopa -fall precaution -PT Code(s): G20 - PARKINSON'S DISEASE (5) Hypoglycemia Assessment/Plan: -D5/LR IV hydration -Endocrinology consult -BGM ACHS Code(s): E16.2 - HYPOGLYCEMIA, UNSPECIFIED Assessment/Plan see problem list dvt ppx
--- NOTE | 2019-03-22 20:57 | PN ---
Progress Note, Physician History of Present Illness: TRANSFERRED TO FLOOR MORE AWAKE AND ALERT SUPINE IN BED OFFERS NO COMPLAINTS NO ACUTE DISTRESS AFEBRILE WBC IMPROVED NOW WNL BC, URINE C/S E COLI - Current Medication List Current Medications: Active Medications Carbidopa/Levodopa (Sinemet 25/100 -) 2 each PO 5XD [facility] Last Admin: 03/22/19 17:38 Dose: 2 each Dextrose (D50w (Vial) -) 25 gm IVPUSH Q2H PRN PRN Reason: HYPOGLYCEMIA Docusate Sodium (Colace -) 100 mg PO TID [facility] Last Admin: 03/22/19 14:04 Dose: 100 mg Heparin Sodium (Porcine) (Heparin -) 5,000 unit SQ TID [facility] Last Admin: 03/22/19 14:04 Dose: 5,000 unit Ceftriaxone Sodium 2 gm/ (Dextrose) 100 mls @ 100 mls/hr IVPB DAILY [facility]; Protocol Last Admin: 03/22/19 10:10 Dose: 100 mls/hr Dextrose/Lactated Ringer's (D5-Lr -) 1,000 mls @ 100 mls/hr IV ASDIR [facility] Last Admin: 03/22/19 15:30 Dose: 100 mls/hr Morphine Sulfate (Morphine Sulfate) 2 mg IVPUSH Q3H PRN PRN Reason: PAIN LEVEL 6-10 Non-Formulary Medication (Non-Formulary Med) 0 each PO HS [facility] Non-Formulary Medication (Pimavanserin Tartrate [Nuplazid]) 0 mg PO DAILY [facility] Last Admin: 03/22/19 10:10 Dose: 34 mg Polyethylene Glycol (Miralax (For Daily Use) -) 17 gm PO BID [facility] Last Admin: 03/22/19 10:11 Dose: 17 grams Rasagiline (Azilect -) 1 mg PO DAILY [facility] Last Admin: 03/22/19 11:12 Dose: 1 mg Tamsulosin HCl (Flomax -) 0.4 mg PO DAILY@0830 [facility] Last Admin: 03/22/19 11:12 Dose: 0.4 mg - Objective Vital Signs: Vital Signs Temperature 98.5 F 03/22/19 15:00 Pulse Rate 83 03/22/19 15:00 Respiratory Rate 20 03/22/19 15:00 Blood Pressure 149/79 03/22/19 15:00 O2 Sat by Pulse Oximetry (%) 95 03/22/19 09:00 Constitutional: Yes: No Distress Cardiovascular: Yes: Regular Rate and Rhythm, S1, S2 Respiratory: Yes: Diminished Gastrointestinal: Yes: Normal Bowel Sounds, Soft Edema: No Labs: CBC, BMP 03/22/19 07:14 03/22/19 07:14 INR, PTT INR 1.28 (0.83-1.09) H 03/16/19 16:10 Assessment/Plan GRAM NEGATIVE BACTEREMIA/ SEPSIS SECONDARY TO SOURCE LACTIC ACIDOSIS MARKED LEUKOCYTOSIS RESOLVED S/P HEMATURIA TOXIC METABOLIC ENCEPHALOPATHY/ PARKINSONISM AZOTEMIA IMPROVED ELEVATED LFTS IMPROVED CONTINUE CEFTRIAXONE 2GM Q24H
[2019-03-22] MEDS: NON-FORMULARY MED PO SCH (21:59)
[2019-03-23] MEDS: DEXTROSE 5%-LACTATED RINGERS 1,000 ML IV SCH ×2 (04:23→09:26)
[2019-03-23] MEDS: DOCUSATE SODIUM 100 MG CAPSULE (FP) PO SCH ×3 (05:52→21:36)
[2019-03-23] MEDS: HEPARIN NA (PORCINE) 5,000 UNITS/ML 1ML VIAL SQ SCH ×3 (05:52→21:26)
[2019-03-23] MEDS: CARBIDOPA/LEVODOPA 25/100 TABLET (FP) PO SCH ×5 (05:54→21:36)
[2019-03-23 07:57] LABS: HEMATOCRIT 37.6 % (35.4-49); HEMOGLOBIN 12.4 GM/dL (11.7-16.9); MCH 28.1 pg (25.7-33.7); MEAN CELL VOLUME 85.1 fl (80-96); MEAN PLT VOLUME 8.3 fl (7.5-11.1); PLATELET COUNT 452 K/MM3 (134-434); RBC 4.42 M/mm3 (4.00-5.60); RDW 14.4 % (11.9-15.9); WHITE BLOOD COUNT 9.5 K/mm3 (4.0-10.0)
[2019-03-23 08:17] LABS: ALBUMIN 2.2 g/dl (3.4-5.0); BILIRUBIN,TOTAL 0.4 mg/dL (0.2-1); BLOOD UREA NITROGEN 18.9 mg/dL (7-18); CALCIUM 7.9 mg/dL (8.5-10.1); CREATININE 0.9 mg/dL (0.55-1.3); POTASSIUM 4.5 mmol/L (3.5-5.1); TOT PROT 4.6 g/dl (6.4-8.2)
[2019-03-23] MEDS ORDERED: DEXTROSE 5%-WATER 100 ML IVPB ONE (08:57)
[2019-03-23] MEDS: CEFTRIAXONE 2 GM in DEXTROSE 5%-WATER 100 ML IVPB SCH (09:26)
[2019-03-23] MEDS: POLYETHYLENE GLYCOL 3350 119 GM BTL PO SCH ×2 (09:27→21:36)
[2019-03-23] MEDS: RASAGILINE MESYLATE 1 MG TABLET PO SCH (09:27)
[2019-03-23] MEDS: TAMSULOSIN HCL 0.4 MG CAP PO SCH (09:27)
[2019-03-23] MEDS: PIMAVANSERIN TARTRATE PO SCH (09:28)
--- NOTE | 2019-03-23 10:27 | PN ---
Progress Note, Physician Chief Complaint: Sepsis Hypoglycemia History of Present Illness: Previous notes and events reviewed sleeping, but responsive to tactile and verbal stimuli NAD no leukocytosis afebrile BC and UC positive E.coli~repeat BC neg antibiotics completed - Current Medication List Current Medications: Active Medications Carbidopa/Levodopa (Sinemet 25/100 -) 2 each PO 5XD [facility] Last Admin: 03/23/19 09:26 Dose: 2 each Dextrose (D50w (Vial) -) 25 gm IVPUSH Q2H PRN PRN Reason: HYPOGLYCEMIA Docusate Sodium (Colace -) 100 mg PO TID [facility] Last Admin: 03/23/19 05:52 Dose: 100 mg Heparin Sodium (Porcine) (Heparin -) 5,000 unit SQ TID [facility] Last Admin: 03/23/19 05:52 Dose: 5,000 unit Dextrose/Lactated Ringer's (D5-Lr -) 1,000 mls @ 100 mls/hr IV ASDIR [facility] Last Admin: 03/23/19 09:26 Dose: 100 mls/hr Morphine Sulfate (Morphine Sulfate) 2 mg IVPUSH Q3H PRN PRN Reason: PAIN LEVEL 6-10 Non-Formulary Medication (Non-Formulary Med) 0 each PO HS [facility] Last Admin: 03/22/19 21:59 Dose: Not Given Non-Formulary Medication (Pimavanserin Tartrate [Nuplazid]) 0 mg PO DAILY [facility] Last Admin: 03/23/19 09:28 Dose: 34 mg Polyethylene Glycol (Miralax (For Daily Use) -) 17 gm PO BID [facility] Last Admin: 03/23/19 09:27 Dose: 17 grams Rasagiline (Azilect -) 1 mg PO DAILY [facility] Last Admin: 03/23/19 09:27 Dose: 1 mg Tamsulosin HCl (Flomax -) 0.4 mg PO DAILY@0830 [facility] Last Admin: 03/23/19 09:27 Dose: 0.4 mg - Objective Vital Signs: Vital Signs Temperature 98.3 F 03/23/19 10:00 Pulse Rate 69 03/23/19 10:00 Respiratory Rate 18 03/23/19 10:00 Blood Pressure 137/44 L 03/23/19 10:00 O2 Sat by Pulse Oximetry (%) 98 03/22/19 21:00 Constitutional: Yes: No Distress, Calm Eyes: Yes: Conjunctiva Clear HENT: Yes: Atraumatic Cardiovascular: Yes: Regular Rate and Rhythm Respiratory: Yes: Regular, CTA Bilaterally Gastrointestinal: Yes: Normal Bowel Sounds, Soft Genitourinary: Yes: Incontinence Musculoskeletal: Yes: Muscle Weakness Extremities: Yes: WNL Edema: No Neurological: Yes: Alert, Oriented Psychiatric: Yes: Alert, Oriented Labs: CBC, BMP 03/23/19 07:15 03/23/19 07:15 INR, PTT INR 1.28 (0.83-1.09) H 03/16/19 16:10 Microbiology 03/19/19 12:00 Blood - Peripheral Venous Blood Culture - Preliminary NO GROWTH OBTAINED AFTER 72 HOURS, INCUBATION TO CONTINUE FOR 2 DAYS. 03/19/19 11:45 Blood - Peripheral Venous Blood Culture - Preliminary NO GROWTH OBTAINED AFTER 72 HOURS, INCUBATION TO CONTINUE FOR 2 DAYS. 03/16/19 17:20 Urine - Urine - Catheterized Urine Culture - Final Escherichia Coli 03/16/19 16:00 Blood - Peripheral Venous Blood Culture - Final Escherichia Coli 03/16/19 16:17 Blood - Peripheral Venous Blood Culture - Final Escherichia Coli Problem List - Problems (1) MAGY (acute kidney injury) Assessment/Plan: -BUN/Cr 18.9/0.9 -monitor renal function Code(s): N17.9 - ACUTE KIDNEY FAILURE, UNSPECIFIED (2) HLD (hyperlipidemia) Assessment/Plan: -Atorvastatin Code(s): E78.5 - HYPERLIPIDEMIA, UNSPECIFIED (3) Sepsis Assessment/Plan: -ID on board -no leukocytosis -afebrile -BC and UC positive E.coli -repeat BC neg -CT shows mild bibasal atelectatic changes, left more than right, cannot rule out infiltrates -Ceftriaxone course completed -LA 3.9~1.5 Code(s): A41.9 - SEPSIS, UNSPECIFIED ORGANISM (4) Parkinson disease Assessment/Plan: -Carbidopa/Levodopa -fall precaution -PT Code(s): G20 - PARKINSON'S DISEASE (5) Hypoglycemia Assessment/Plan: -D5/LR IV hydration -Endocrinology consult -BGM ACHS Code(s): E16.2 - HYPOGLYCEMIA, UNSPECIFIED Assessment/Plan see problem list dvt ppx completed antibiotic course, if no acute events overnight begin D/C planning in AM
[2019-03-23] MEDS ORDERED: FLU VACCINE QUAD 60 MCG/0.5 ML (MDV 19-20) IM ONE (12:00)
--- NOTE | 2019-03-23 13:23 | PN ---
Progress Note (short form) - Note Progress Note: PULMONARY Somnolent but arousable. No specific complaints. Vital Signs Period Temp Pulse Resp BP Sys/Ordoñez Pulse Ox Last 24 Hr 98.3 F-98.7 F 63-83 18-21 114-149/44-80 98-98 Gen: NAD at rest Heart: RRR Lung: decreased breath sounds at the bases Abd: soft, nontender Ext: no edema CBC, BMP 03/23/19 07:15 03/23/19 07:15 Active Medications Carbidopa/Levodopa (Sinemet 25/100 -) 2 each PO 5XD [facility] Last Admin: 03/23/19 09:26 Dose: 2 each Dextrose (D50w (Vial) -) 25 gm IVPUSH Q2H PRN PRN Reason: HYPOGLYCEMIA Docusate Sodium (Colace -) 100 mg PO TID [facility] Last Admin: 03/23/19 05:52 Dose: 100 mg Heparin Sodium (Porcine) (Heparin -) 5,000 unit SQ TID [facility] Last Admin: 03/23/19 05:52 Dose: 5,000 unit Dextrose/Lactated Ringer's (D5-Lr -) 1,000 mls @ 100 mls/hr IV ASDIR [facility] Last Admin: 03/23/19 09:26 Dose: 100 mls/hr Non-Formulary Medication (Non-Formulary Med) 0 each PO HS [facility] Last Admin: 03/22/19 21:59 Dose: Not Given Non-Formulary Medication (Pimavanserin Tartrate [Nuplazid]) 0 mg PO DAILY [facility] Last Admin: 03/23/19 09:28 Dose: 34 mg Polyethylene Glycol (Miralax (For Daily Use) -) 17 gm PO BID [facility] Last Admin: 03/23/19 09:27 Dose: 17 grams Rasagiline (Azilect -) 1 mg PO DAILY [facility] Last Admin: 03/23/19 09:27 Dose: 1 mg Tamsulosin HCl (Flomax -) 0.4 mg PO DAILY@0830 [facility] Last Admin: 03/23/19 09:27 Dose: 0.4 mg A/P UTI Gram Negative Bacteremia Severe Sepsis improving Lactic Acidosis resolved Hypoglycemia Atelectasis Acute Kidney Injury improving Elevated LFTs likely Ischemic Injury HTN Hyperlipidemia Parkinsons BPH - continue antibiotics - monitor urine output, creatinine - PO as tolerated - monitor glucose - OOB to chair - DVT prophylaxis
[2019-03-23] MEDS: NON-FORMULARY MED PO SCH (21:37)
--- NOTE | 2019-03-23 22:57 | PN ---
Progress Note, Physician Chief Complaint: arousable yet weak/bs still labile with occ bs 50's - Current Medication List Current Medications: Active Medications Carbidopa/Levodopa (Sinemet 25/100 -) 2 each PO 5XD [facility] Last Admin: 03/23/19 21:36 Dose: 2 each Dextrose (D50w (Vial) -) 25 gm IVPUSH Q2H PRN PRN Reason: HYPOGLYCEMIA Docusate Sodium (Colace -) 100 mg PO TID [facility] Last Admin: 03/23/19 21:36 Dose: 100 mg Heparin Sodium (Porcine) (Heparin -) 5,000 unit SQ TID [facility] Last Admin: 03/23/19 21:26 Dose: 5,000 unit Dextrose/Lactated Ringer's (D5-Lr -) 1,000 mls @ 100 mls/hr IV ASDIR [facility] Last Admin: 03/23/19 09:26 Dose: 100 mls/hr Non-Formulary Medication (Non-Formulary Med) 0 each PO HS [facility] Last Admin: 03/23/19 21:37 Dose: 1 each Non-Formulary Medication (Pimavanserin Tartrate [Nuplazid]) 0 mg PO DAILY [facility] Last Admin: 03/23/19 09:28 Dose: 34 mg Polyethylene Glycol (Miralax (For Daily Use) -) 17 gm PO BID [facility] Last Admin: 03/23/19 21:36 Dose: 17 grams Rasagiline (Azilect -) 1 mg PO DAILY [facility] Last Admin: 03/23/19 09:27 Dose: 1 mg Tamsulosin HCl (Flomax -) 0.4 mg PO DAILY@0830 [facility] Last Admin: 03/23/19 09:27 Dose: 0.4 mg - Objective Vital Signs: Vital Signs Temperature 98.9 F 03/23/19 21:05 Pulse Rate 68 03/23/19 21:05 Respiratory Rate 14 03/23/19 21:05 Blood Pressure 136/67 03/23/19 21:05 O2 Sat by Pulse Oximetry (%) 98 03/23/19 09:00 Constitutional: Yes: Calm Eyes: Yes: EOM Intact HENT: Yes: Normocephalic Neck: Yes: Trachea Midline Cardiovascular: Yes: Regular Rate and Rhythm Respiratory: Yes: CTA Bilaterally Gastrointestinal: Yes: Normal Bowel Sounds ...Rectal Exam: Yes: Deferred Musculoskeletal: Yes: Joint Swelling, Muscle Pain, Muscle Weakness Edema: No Neurological: Yes: Alert, Oriented Labs: CBC, BMP 03/23/19 07:15 03/23/19 07:15 INR, PTT INR 1.28 (0.83-1.09) H 03/16/19 16:10 Problem List - Problems (1) MAGY (acute kidney injury) Code(s): N17.9 - ACUTE KIDNEY FAILURE, UNSPECIFIED (2) Hypoglycemia (3) CAD (coronary artery disease) Code(s): I25.10 - ATHSCL HEART DISEASE OF [place] CORONARY ARTERY W/O ANG PCTRS Assessment/Plan Current Active Problems MAGY (acute kidney injury) (Acute) HLD (hyperlipidemia) (Acute) HTN (hypertension) (Acute) Hypoglycemia (Acute) Sepsis (Acute) Abnormal Lab Results 03/23/19 03/23/19 07:15 07:15 Plt Count 452 H D Anion Gap 5 L BUN 18.9 H Calcium 7.9 L AST 75 H Alkaline Phosphatase 131 H Total Protein 4.6 L Albumin 2.2 L Laboratory Results - last 24 hr 03/23/19 03/23/19 03/23/19 05:58 06:50 07:15 WBC 9.5 RBC 4.42 Hgb 12.4 Hct 37.6 MCV 85.1 MCH 28.1 MCHC 33.0 RDW 14.4 Plt Count 452 H D MPV 8.3 Sodium Potassium Chloride Carbon Dioxide Anion Gap BUN Creatinine Est GFR (CKD-EPI)AfAm Est GFR (CKD-EPI)NonAf POC Glucometer 55 86 Random Glucose Calcium Total Bilirubin AST ALT Alkaline Phosphatase Total Protein Albumin 03/23/19 03/23/19 03/23/19 07:15 11:32 17:34 WBC RBC Hgb Hct MCV MCH MCHC RDW Plt Count MPV Sodium 142 Potassium 4.5 Chloride 107 Carbon Dioxide 30 Anion Gap 5 L BUN 18.9 H Creatinine 0.9 Est GFR (CKD-EPI)AfAm 95.82 Est GFR (CKD-EPI)NonAf 82.67 POC Glucometer 93 109 Random Glucose 84 Calcium 7.9 L Total Bilirubin 0.4 AST 75 H ALT 19 Alkaline Phosphatase 131 H Total Protein 4.6 L Albumin 2.2 L 03/23/19 20:54 WBC RBC Hgb Hct MCV MCH MCHC RDW Plt Count MPV Sodium Potassium Chloride Carbon Dioxide Anion Gap BUN Creatinine Est GFR (CKD-EPI)AfAm Est GFR (CKD-EPI)NonAf POC Glucometer 87 Random Glucose Calcium Total Bilirubin AST ALT Alkaline Phosphatase Total Protein Albumin Laboratory Tests 03/23/19 03/23/19 03/23/19 05:58 06:50 11:32 POC Glucometer 55 86 93 03/23/19 03/23/19 17:34 20:54 POC Glucometer 109 87 Laboratory Tests 03/17/19 03/17/19 03/18/19 09:22 11:33 05:50 POC Glucometer 12 Insulin Level 116.9 H Cortisol 30 Minute Cortisol 60 Minute Cortisol AM Sample 14.4 03/18/19 03/18/19 14:30 16:00 POC Glucometer Insulin Level Cortisol 30 Minute 18.70 Cortisol 60 Minute 25.3 Cortisol AM Sample plan: hypoglycemia? hyperinsulinemia etiology not adrenal given appropriate glucocorticoid response ck ca19-9 gi consult sonogram abdomen liver,pancrease
[2019-03-24] MEDS: DEXTROSE 5%-LACTATED RINGERS 1,000 ML IV SCH ×2 (02:40→09:12)
[2019-03-24] MEDS: CARBIDOPA/LEVODOPA 25/100 TABLET (FP) PO SCH ×5 (06:11→21:55)
[2019-03-24] MEDS: DOCUSATE SODIUM 100 MG CAPSULE (FP) PO SCH ×3 (06:11→21:55)
[2019-03-24] MEDS: HEPARIN NA (PORCINE) 5,000 UNITS/ML 1ML VIAL SQ SCH ×3 (06:11→21:55)
[2019-03-24 08:12] LABS: HEMATOCRIT 36.3 % (35.4-49); HEMOGLOBIN 12.2 GM/dL (11.7-16.9); MCH 28.1 pg (25.7-33.7); MCHC 33.6 g/dl (32.0-35.9); MEAN CELL VOLUME 83.6 fl (80-96); MEAN PLT VOLUME 7.8 fl (7.5-11.1); PLATELET COUNT 491 K/MM3 (134-434); RBC 4.34 M/mm3 (4.00-5.60); RDW 14.4 % (11.9-15.9); WHITE BLOOD COUNT 10.3 K/mm3 (4.0-10.0)
--- NOTE | 2019-03-24 08:23 | CON.GI ---
Consult Consult Specialty:: GI Referred by:: Dr Freddie Roche Reason for Consultation:: Hypoglycemia - History of Present Illness History of Present Illness: Patient is a 74 y/o male with past medical history of HTN, HLD, CAD with stent x 2 , and Parkinson's disease. I was consulted to evaluate patient for Hypoglycemia. Patient was admitted for AMS and was noted to have hypoglycemia with BS being noted as low as <50mg/dL, no past medical history of DM reported. Patient is being followed by Endocrinology while in-patient. Initially hypoglycemia was thought to be sepsis related. After completing antibiotic course patient still noted with low BS early in morning. Patient is poor historian due to Parkinson's disease, information received from medical record. - History Source History Provided By: Medical Record Limitations to Obtaining History: Clinical Condition - Past Medical History [employer]: Yes: CVA, Parkinson's Cardio/Vascular: Yes: CAD (stents), HTN, Hyperlipdemia Pulmonary: Yes: COPD Hepatobiliary: Yes: Cirrhosis - Past Surgical History Past Surgical History: Yes: Hernia Repair (Inguinal hernia repair), Stent - Alcohol/Substance Use Hx Alcohol Use: No History of Substance Use: reports: None - Smoking History Smoking history: Never smoked Have you smoked in the past 12 months: No Aproximately how many cigarettes per day: 0 - Social History ADL: Support Services History of Recent Travel: No Home Medications - Allergies Allergies/Adverse Reactions: Allergies Allergy/AdvReac Type Severity Reaction Status Date / Time No Known Allergies Allergy Verified 03/16/19 15:31 - Home Medications Home Medications: Ambulatory Orders Atorvastatin Ca [Lipitor] 10 mg PO HS #30 tablet 02/23/17 Carbidopa/Levodopa 25/100 [Sinemet 25/100 -] 2 each PO 5XD #300 tablet 02/23/17 Tamsulosin HCl [Flomax -] 0.4 mg PO DAILY@0830 #30 tab 02/23/17 Aspirin [ASA -] 81 mg PO DAILY #30 tab.chew 03/08/17 Amantadine HCl [Gocovri] 68.5 mg PO HS 09/16/18 Cholecalciferol (Vitamin D3) [Vitamin D3] 1,000 unit PO DAILY 09/16/18 Acetaminophen [Tylenol] 650 mg PO PRN 03/17/19 Memantine HCl [Namenda -] 5 mg PO BID 03/17/19 Pimavanserin Tartrate [Nuplazid] 34 mg PO DAILY 03/20/19 Rasagiline Mesylate [Azilect -] 1 mg PO DAILY 03/20/19 Review of Systems Unable to obtain ROS, reason: 2/2 mental status, a&ox1 Physical Exam-GI Vital Signs: Vital Signs Temperature 97.6 F 03/24/19 07:58 Pulse Rate 62 03/24/19 07:58 Respiratory Rate 20 03/24/19 07:58 Blood Pressure 133/70 03/24/19 07:58 O2 Sat by Pulse Oximetry (%) 98 03/23/19 21:00 Constitutional: Yes: No Distress, Calm Eyes: Yes: Conjunctiva Clear HENT: Yes: Atraumatic Cardiovascular: Yes: Regular Rate and Rhythm Respiratory: Yes: Regular, CTA Bilaterally Gastrointestinal Inspection: Yes: WNL. No: Ascites, Distention, Hernia, Scars, Other ...Auscultate: Yes: Normoactive Bowel Sounds. No: Hyperactive Bowel Sounds, Hypoactive Bowel Sounds, No Bowel Sounds, Other ...Palpate: Yes: Soft. No: Firm/Rigid, Guarding, Hepatomegaly, Mass, Pulsatile Mass, Splenomegaly, Tenderness, Tenderness, Epigastium, Tenderness, Rebound, Other ...Percussion: Yes: Tympanitic. No: Dullness, Fluid Wave, Other Neurological: Yes: Alert, Oriented (to person only), Tremors Psychiatric: Yes: Alert Labs: INR, PTT INR 1.28 (0.83-1.09) H 03/16/19 16:10 Imaging - Results Cat Scan: Report Reviewed Problem List - Problems (1) Hypoglycemia Assessment/Plan: >R/O insulinoma >Triphase CT Scan of pancreas >Pro insulin level pending, cortisol level pending, Insulin level 116.9 >Growth Hormone, PTH ,chromogranin A, serotonin >Ca 19-9 >pending Abd US Problems reviewed: Yes Code(s): E16.2 - HYPOGLYCEMIA, UNSPECIFIED
[2019-03-24 08:47] LABS: ALBUMIN 2.1 g/dl (3.4-5.0); BILIRUBIN,TOTAL 0.4 mg/dL (0.2-1); BLOOD UREA NITROGEN 18.2 mg/dL (7-18); CREATININE 0.9 mg/dL (0.55-1.3); POTASSIUM 4.6 mmol/L (3.5-5.1); TOT PROT 4.6 g/dl (6.4-8.2)
--- NOTE | 2019-03-24 09:01 | PN ---
Progress Note (short form) - Note Progress Note: Resting in NAD. Confused. No acute events overnight. Remains afebrile. OBJECTIVE: Intake & Output 03/21/19 03/22/19 03/23/19 03/24/19 23:59 23:59 23:59 23:59 Intake Total 3410 2080 2320 Output Total 2250 2200 3400 1400 Balance 1160 -120 -1080 -1400 Last Vital Signs Temp Pulse Resp BP Pulse Ox 97.6 F 62 20 133/70 98 03/24/19 07:58 03/24/19 07:58 03/24/19 07:58 03/24/19 07:58 03/23/19 21:00 Active Medications Carbidopa/Levodopa (Sinemet 25/100 -) 2 each PO 5XD [facility] Last Admin: 03/24/19 06:11 Dose: 2 each Dextrose (D50w (Vial) -) 25 gm IVPUSH Q2H PRN PRN Reason: HYPOGLYCEMIA Docusate Sodium (Colace -) 100 mg PO TID [facility] Last Admin: 03/24/19 06:11 Dose: 100 mg Heparin Sodium (Porcine) (Heparin -) 5,000 unit SQ TID [facility] Last Admin: 03/24/19 06:11 Dose: 5,000 unit Dextrose/Lactated Ringer's (D5-Lr -) 1,000 mls @ 100 mls/hr IV ASDIR [facility] Last Admin: 03/24/19 02:40 Dose: 100 mls/hr Non-Formulary Medication (Non-Formulary Med) 0 each PO HS [facility] Last Admin: 03/23/19 21:37 Dose: 1 each Non-Formulary Medication (Pimavanserin Tartrate [Nuplazid]) 0 mg PO DAILY [facility] Last Admin: 03/23/19 09:28 Dose: 34 mg Polyethylene Glycol (Miralax (For Daily Use) -) 17 gm PO BID [facility] Last Admin: 03/23/19 21:36 Dose: 17 grams Rasagiline (Azilect -) 1 mg PO DAILY [facility] Last Admin: 03/23/19 09:27 Dose: 1 mg Tamsulosin HCl (Flomax -) 0.4 mg PO DAILY@0830 [facility] Last Admin: 03/23/19 09:27 Dose: 0.4 mg Gen: NAD at rest Heart: RRR Lung: decreased breath sounds at the bases Abd: soft, nontender Ext: no edema Laboratory Results - last 24 hr 03/23/19 03/23/19 03/23/19 11:32 17:34 20:54 WBC RBC Hgb Hct MCV MCH MCHC RDW Plt Count MPV Sodium Potassium Chloride Carbon Dioxide Anion Gap BUN Creatinine Est GFR (CKD-EPI)AfAm Est GFR (CKD-EPI)NonAf POC Glucometer 93 109 87 Random Glucose Calcium Total Bilirubin AST ALT Alkaline Phosphatase Total Protein Albumin 03/24/19 03/24/19 03/24/19 06:09 07:33 07:33 WBC 10.3 H RBC 4.34 Hgb 12.2 Hct 36.3 MCV 83.6 MCH 28.1 MCHC 33.6 RDW 14.4 Plt Count 491 H MPV 7.8 Sodium 142 Potassium 4.6 Chloride 108 H Carbon Dioxide 29 Anion Gap 5 L BUN 18.2 H Creatinine 0.9 Est GFR (CKD-EPI)AfAm 95.82 Est GFR (CKD-EPI)NonAf 82.67 POC Glucometer 67 Random Glucose 86 Calcium 8.0 L Total Bilirubin 0.4 AST 58 H ALT 20 Alkaline Phosphatase 124 H Total Protein 4.6 L Albumin 2.1 L ASSESSMENT AND PLAN: UTI Gram Negative Bacteremia Severe Sepsis Lactic Acidosis Hypoglycemia Atelectasis Acute Kidney Injury Elevated LFTs likely Ischemic Injury HTN Hyperlipidemia Parkinsons BPH - ABX per ID - PO as tolerated - monitor glucose - DVT prophylaxis Dr Mcpherson
[2019-03-24] MEDS: PIMAVANSERIN TARTRATE PO SCH (09:13)
[2019-03-24] MEDS: RASAGILINE MESYLATE 1 MG TABLET PO SCH (09:13)
[2019-03-24] MEDS: TAMSULOSIN HCL 0.4 MG CAP PO SCH (09:14)
--- NOTE | 2019-03-24 11:42 | PN ---
Progress Note, Physician Chief Complaint: Sepsis Hypoglycemia History of Present Illness: Previous notes and events reviewed awake and alert NAD no leukocytosis afebrile BC and UC positive E.coli~repeat BC neg antibiotics completed patient BS noted to be lower in AM - Current Medication List Current Medications: Active Medications Carbidopa/Levodopa (Sinemet 25/100 -) 2 each PO 5XD [facility] Last Admin: 03/24/19 06:11 Dose: 2 each Dextrose (D50w (Vial) -) 25 gm IVPUSH Q2H PRN PRN Reason: HYPOGLYCEMIA Docusate Sodium (Colace -) 100 mg PO TID [facility] Last Admin: 03/24/19 06:11 Dose: 100 mg Heparin Sodium (Porcine) (Heparin -) 5,000 unit SQ TID [facility] Last Admin: 03/24/19 06:11 Dose: 5,000 unit Dextrose/Lactated Ringer's (D5-Lr -) 1,000 mls @ 100 mls/hr IV ASDIR [facility] Last Admin: 03/24/19 09:12 Dose: 100 mls/hr Non-Formulary Medication (Non-Formulary Med) 0 each PO HS [facility] Last Admin: 03/23/19 21:37 Dose: 1 each Non-Formulary Medication (Pimavanserin Tartrate [Nuplazid]) 0 mg PO DAILY [facility] Last Admin: 03/24/19 09:13 Dose: 34 mg Polyethylene Glycol (Miralax (For Daily Use) -) 17 gm PO BID [facility] Last Admin: 03/23/19 21:36 Dose: 17 grams Rasagiline (Azilect -) 1 mg PO DAILY [facility] Last Admin: 03/24/19 09:13 Dose: 1 mg Tamsulosin HCl (Flomax -) 0.4 mg PO DAILY@0830 [facility] Last Admin: 03/24/19 09:14 Dose: 0.4 mg - Objective Vital Signs: Vital Signs Temperature 97.7 F 03/24/19 09:18 Pulse Rate 59 L 03/24/19 10:00 Respiratory Rate 18 03/24/19 09:18 Blood Pressure 125/50 L 03/24/19 09:18 O2 Sat by Pulse Oximetry (%) 97 03/24/19 10:00 Constitutional: Yes: No Distress Eyes: Yes: Conjunctiva Clear HENT: Yes: Atraumatic Cardiovascular: Yes: Regular Rate and Rhythm Respiratory: Yes: Regular, CTA Bilaterally Gastrointestinal: Yes: Normal Bowel Sounds, Soft Genitourinary: Yes: Incontinence Musculoskeletal: Yes: Muscle Weakness Extremities: Yes: WNL Edema: No Neurological: Yes: Alert, Confusion, Pre-Existing Deficit Psychiatric: Yes: Alert Labs: CBC, BMP 03/24/19 07:33 03/24/19 07:33 INR, PTT INR 1.28 (0.83-1.09) H 03/16/19 16:10 Microbiology 03/19/19 12:00 Blood - Peripheral Venous Blood Culture - Preliminary NO GROWTH OBTAINED AFTER 96 HOURS, INCUBATION TO CONTINUE FOR 1 DAYS. 03/19/19 11:45 Blood - Peripheral Venous Blood Culture - Preliminary NO GROWTH OBTAINED AFTER 96 HOURS, INCUBATION TO CONTINUE FOR 1 DAYS. 03/16/19 17:20 Urine - Urine - Catheterized Urine Culture - Final Escherichia Coli 03/16/19 16:00 Blood - Peripheral Venous Blood Culture - Final Escherichia Coli 03/16/19 16:17 Blood - Peripheral Venous Blood Culture - Final Escherichia Coli Problem List - Problems (1) MAGY (acute kidney injury) Assessment/Plan: -BUN/Cr 18.2/0.9 -monitor renal function Code(s): N17.9 - ACUTE KIDNEY FAILURE, UNSPECIFIED (2) HLD (hyperlipidemia) Assessment/Plan: -Atorvastatin Code(s): E78.5 - HYPERLIPIDEMIA, UNSPECIFIED (3) Sepsis Assessment/Plan: -ID on board -no leukocytosis -afebrile -BC and UC positive E.coli -repeat BC neg -CT shows mild bibasal atelectatic changes, left more than right, cannot rule out infiltrates -Ceftriaxone course completed -LA 3.9~1.5 Code(s): A41.9 - SEPSIS, UNSPECIFIED ORGANISM (4) Parkinson disease Assessment/Plan: -Carbidopa/Levodopa -fall precaution -PT Code(s): G20 - PARKINSON'S DISEASE (5) Hypoglycemia Assessment/Plan: -Endocrinology consult -BGM ACHS -GI consult -Insulin level 116.9 -pending pro-insulin level -GTH, Parathyroid, Ca 19-9 pending -cortisol level pending -Abd US done, official results pending -pending Abdomin CT Scan Code(s): E16.2 - HYPOGLYCEMIA, UNSPECIFIED Assessment/Plan see problem list dvt ppx completed antibiotic course, if no acute events overnight begin D/C planning in AM
[2019-03-24] MEDS ORDERED: DEXTROSE 50%-WATER 25 GM/50 ML DISP.SYRIN ONE (11:56)
[2019-03-24] MEDS: POLYETHYLENE GLYCOL 3350 119 GM BTL PO SCH ×2 (12:00→21:55)
--- NOTE | 2019-03-24 16:44 | PN ---
Progress Note, Physician History of Present Illness: AWAKE AND ALERT SUPINE IN BED OFFERS NO COMPLAINTS NO ACUTE DISTRESS AFEBRILE WBC IMPROVED NOW WNL BC, URINE C/S E COLI - Current Medication List Current Medications: Active Medications Carbidopa/Levodopa (Sinemet 25/100 -) 2 each PO 5XD [facility] Last Admin: 03/24/19 14:38 Dose: 2 each Dextrose (D50w (Vial) -) 25 gm IVPUSH Q2H PRN PRN Reason: HYPOGLYCEMIA Last Admin: 03/24/19 11:58 Dose: 25 gm Docusate Sodium (Colace -) 100 mg PO TID [facility] Last Admin: 03/24/19 14:39 Dose: 100 mg Heparin Sodium (Porcine) (Heparin -) 5,000 unit SQ TID [facility] Last Admin: 03/24/19 14:39 Dose: 5,000 unit Dextrose/Lactated Ringer's (D5-Lr -) 1,000 mls @ 100 mls/hr IV ASDIR [facility] Last Admin: 03/24/19 09:12 Dose: 100 mls/hr Non-Formulary Medication (Non-Formulary Med) 0 each PO HS [facility] Last Admin: 03/23/19 21:37 Dose: 1 each Non-Formulary Medication (Pimavanserin Tartrate [Nuplazid]) 0 mg PO DAILY [facility] Last Admin: 03/24/19 09:13 Dose: 34 mg Polyethylene Glycol (Miralax (For Daily Use) -) 17 gm PO BID [facility] Last Admin: 03/24/19 12:00 Dose: 17 grams Rasagiline (Azilect -) 1 mg PO DAILY [facility] Last Admin: 03/24/19 09:13 Dose: 1 mg Tamsulosin HCl (Flomax -) 0.4 mg PO DAILY@0830 [facility] Last Admin: 03/24/19 09:14 Dose: 0.4 mg - Objective Vital Signs: Vital Signs Temperature 97.6 F 03/24/19 14:59 Pulse Rate 80 03/24/19 14:59 Respiratory Rate 20 03/24/19 14:59 Blood Pressure 131/74 03/24/19 14:59 O2 Sat by Pulse Oximetry (%) 97 03/24/19 10:00 Constitutional: Yes: No Distress Cardiovascular: Yes: Regular Rate and Rhythm, S1, S2 Respiratory: Yes: CTA Bilaterally Gastrointestinal: Yes: Normal Bowel Sounds, Soft. No: Tenderness Edema: No Labs: CBC, BMP 03/24/19 07:33 03/24/19 07:33 INR, PTT INR 1.28 (0.83-1.09) H 03/16/19 16:10 Assessment/Plan GRAM NEGATIVE BACTEREMIA/ SEPSIS SECONDARY TO SOURCE LACTIC ACIDOSIS MARKED LEUKOCYTOSIS RESOLVED S/P HEMATURIA TOXIC METABOLIC ENCEPHALOPATHY/ PARKINSONISM AZOTEMIA IMPROVED ELEVATED LFTS IMPROVED substitute ceftin 500mg po bid x 7d
[2019-03-24] MEDS: CEFUROXIME AXETIL 500 MG TABLET PO SCH (21:54)
[2019-03-24] MEDS: NON-FORMULARY MED PO SCH (21:55)
[2019-03-25] MEDS: DOCUSATE SODIUM 100 MG CAPSULE (FP) PO SCH ×3 (06:23→22:05)
[2019-03-25] MEDS: HEPARIN NA (PORCINE) 5,000 UNITS/ML 1ML VIAL SQ SCH ×3 (06:23→22:06)
[2019-03-25] MEDS: CARBIDOPA/LEVODOPA 25/100 TABLET (FP) PO SCH ×5 (06:23→22:06)
--- NOTE | 2019-03-25 07:55 | PN.GI ---
GI Progress Note Subjective: CT Scan and Abdominal US results reviewed. No reports of nausea, vomiting, diarrhea, rectal bleeding, or blood in stool. - Objective Vital Signs: Vital Signs Temperature 98.7 F 03/24/19 21:19 Pulse Rate 80 03/24/19 21:19 Respiratory Rate 20 03/24/19 21:19 Blood Pressure 136/70 03/24/19 21:19 O2 Sat by Pulse Oximetry (%) 97 03/24/19 10:00 Constitutional: No Distress, Calm Eyes: Yes: Conjunctiva Clear HENT: Yes: Atraumatic Cardiovascular: Yes: Regular Rate and Rhythm Respiratory: Yes: Regular, CTA Bilaterally, Cough Gastrointestinal Inspection: Yes: WNL. No: Ascites, Distention, Hernia, Scars, Other ...Auscultate: Yes: Normoactive Bowel Sounds. No: Hyperactive Bowel Sounds, Hypoactive Bowel Sounds, No Bowel Sounds, Other ...Palpate: Yes: Soft. No: Firm/Rigid, Guarding, Hepatomegaly, Mass, Pulsatile Mass, Splenomegaly, Tenderness, Tenderness, Epigastium, Tenderness, Rebound, Other ...Percussion: Yes: Other (high tympany). No: Dullness, Fluid Wave, Tympanitic Neurological: Yes: Alert, Oriented (to self) Psychiatric: Yes: Alert Labs: CBC, BMP 03/24/19 07:33 03/24/19 07:33 INR, PTT INR 1.28 (0.83-1.09) H 03/16/19 16:10 Active Medications Generic Name Dose Route Start Last Admin Trade Name Freq PRN Reason Stop Dose Admin Carbidopa/Levodopa 2 each 03/22/19 10:00 03/25/19 06:23 Sinemet 25/100 - PO 2 each 5XD [facility] Administration Cefuroxime Axetil 500 mg 03/24/19 22:00 03/24/19 21:54 Ceftin - PO 500 mg BID [facility] Administration Dextrose 25 gm 03/22/19 08:16 03/24/19 11:58 D50w (Vial) - IVPUSH 25 gm Q2H PRN Administration HYPOGLYCEMIA Docusate Sodium 100 mg 03/22/19 14:00 03/25/19 06:23 Colace - PO 100 mg TID [facility] Administration Heparin Sodium (Porcine) 5,000 unit 03/22/19 14:00 03/25/19 06:23 Heparin - SQ 5,000 unit TID [facility] Administration Dextrose/Lactated Ringer's 1,000 mls @ 100 mls/hr 03/22/19 08:16 03/24/19 09: 12 D5-Lr - IV 100 mls/hr ASDIR [facility] Administration Non-Formulary Medication 0 each 03/22/19 22:00 03/24/19 21:55 Non-Formulary Med PO 1 each HS [facility] Administration Non-Formulary Medication 0 mg 03/22/19 10:00 03/24/19 09:13 Pimavanserin Tartrate [Nuplazid] PO 34 mg DAILY [facility] Administration Polyethylene Glycol 17 gm 03/22/19 10:00 03/24/19 21:55 Miralax (For Daily Use) - PO 17 grams BID [facility] Administration Rasagiline 1 mg 03/22/19 10:00 03/24/19 09:13 Azilect - PO 1 mg DAILY [facility] Administration Tamsulosin HCl 0.4 mg 03/22/19 08:30 03/24/19 09:14 Flomax - PO 0.4 mg DAILY@0830 [facility] Administration Problem List - Problems (1) Hypoglycemia Assessment/Plan: >R/O insulinoma >Triphase CT Scan of pancreas reviewed >Pro insulin level pending, cortisol level pending, Insulin level 116.9 >Growth Hormone, PTH ,chromogranin A, serotonin >Ca 19-9 >Abd US reviewed Code(s): E16.2 - HYPOGLYCEMIA, UNSPECIFIED
[2019-03-25] MEDS ORDERED: DEXTROSE 5%-LACTATED RINGERS 1,000 ML IV SCH (08:00)
[2019-03-25 08:33] LABS: HEMATOCRIT 34.5 % (35.4-49); HEMOGLOBIN 11.7 GM/dL (11.7-16.9); MCH 28.6 pg (25.7-33.7); PLATELET COUNT 488 K/MM3 (134-434); RBC 4.11 M/mm3 (4.00-5.60); RDW 14.3 % (11.9-15.9); WHITE BLOOD COUNT 11.5 K/mm3 (4.0-10.0)
[2019-03-25 09:08] LABS: ALBUMIN 2.1 g/dl (3.4-5.0); BILIRUBIN,TOTAL 0.3 mg/dL (0.2-1); BLOOD UREA NITROGEN 20.1 mg/dL (7-18); CREATININE 0.9 mg/dL (0.55-1.3); POTASSIUM 4.5 mmol/L (3.5-5.1); TOT PROT 4.6 g/dl (6.4-8.2)
[2019-03-25] MEDS ORDERED: PT OWN MED DRAWER 7, Y5N ONE ×5 (10:00→23:17)
[2019-03-25] MEDS: TAMSULOSIN HCL 0.4 MG CAP PO SCH (10:02)
[2019-03-25] MEDS: CEFUROXIME AXETIL 500 MG TABLET PO SCH ×2 (10:02→22:05)
[2019-03-25] MEDS: RASAGILINE MESYLATE 1 MG TABLET PO SCH (10:03)
[2019-03-25] MEDS: POLYETHYLENE GLYCOL 3350 119 GM BTL PO SCH ×2 (10:04→22:11)
[2019-03-25] MEDS: PIMAVANSERIN TARTRATE PO SCH (10:05)
[2019-03-25] MEDS ORDERED: DEXTROSE 50%-WATER - 25 GM/50 ML VIAL IVPUSH PRN (10:34)
--- NOTE | 2019-03-25 12:56 | PN ---
Progress Note, Physician Chief Complaint: patient seen and examined ate at little food today bgm noted 79-108 today - Current Medication List Current Medications: Active Medications Carbidopa/Levodopa (Sinemet 25/100 -) 2 each PO 5XD [facility] Last Admin: 03/25/19 10:02 Dose: 2 each Cefuroxime Axetil (Ceftin -) 500 mg PO BID [facility] Last Admin: 03/25/19 10:02 Dose: 500 mg Dextrose (D50w (Vial) -) 25 gm IVPUSH Q2H PRN PRN Reason: HYPOGLYCEMIA Last Admin: 03/25/19 11:04 Dose: 25 gm Docusate Sodium (Colace -) 100 mg PO TID [facility] Last Admin: 03/25/19 06:23 Dose: 100 mg Heparin Sodium (Porcine) (Heparin -) 5,000 unit SQ TID [facility] Last Admin: 03/25/19 06:23 Dose: 5,000 unit Dextrose/Lactated Ringer's (D5-Lr -) 1,000 mls @ 42 mls/hr IV ASDIR [facility] Last Admin: 03/25/19 08:00 Dose: 42 mls/hr Non-Formulary Medication (Non-Formulary Med) 0 each PO HS [facility] Last Admin: 03/24/19 21:55 Dose: 1 each Non-Formulary Medication (Pimavanserin Tartrate [Nuplazid]) 0 mg PO DAILY [facility] Last Admin: 03/25/19 10:05 Dose: 34 mg Polyethylene Glycol (Miralax (For Daily Use) -) 17 gm PO BID [facility] Last Admin: 03/25/19 10:04 Dose: 17 grams Rasagiline (Azilect -) 1 mg PO DAILY [facility] Last Admin: 03/25/19 10:03 Dose: 1 mg Tamsulosin HCl (Flomax -) 0.4 mg PO DAILY@0830 [facility] Last Admin: 03/25/19 10:02 Dose: 0.4 mg - Objective Vital Signs: Vital Signs Temperature 98.4 F 03/25/19 08:02 Pulse Rate 91 H 03/25/19 08:02 Respiratory Rate 20 03/25/19 08:02 Blood Pressure 146/80 03/25/19 08:02 O2 Sat by Pulse Oximetry (%) 97 03/25/19 10:00 Constitutional: Yes: Calm, Thin Cardiovascular: Yes: Regular Rate and Rhythm, S1, S2 Respiratory: Yes: CTA Bilaterally Gastrointestinal: Yes: Normal Bowel Sounds, Soft Edema: No Neurological: Yes: Alert Labs: CBC, BMP 03/25/19 07:50 03/25/19 07:50 INR, PTT INR 1.28 (0.83-1.09) H 03/16/19 16:10 Problem List - Problems (1) Hypoglycemia Assessment/Plan: abdominal sono done proinsuln level pending serotnin level and ca19-9 pending bgm in low 80[address] scan - pancreas no pathology noted on d5 iv fluids Code(s): E16.2 - HYPOGLYCEMIA, UNSPECIFIED (2) Sepsis Assessment/Plan: on ceftin for uti and gram negative bacteremia Microbiology 03/16/19 17:20 Urine - Urine - Catheterized Urine Culture - Final Escherichia Coli Microbiology 03/16/19 16:17 Blood - Peripheral Venous Blood Culture - Final Escherichia Coli 03/16/19 16:00 Blood - Peripheral Venous Blood Culture - Final Escherichia Coli Code(s): A41.9 - SEPSIS, UNSPECIFIED ORGANISM (3) HLD (hyperlipidemia) Assessment/Plan: statin Code(s): E78.5 - HYPERLIPIDEMIA, UNSPECIFIED (4) Parkinson disease Assessment/Plan: sinemet nad azilect Code(s): G20 - PARKINSON'S DISEASE
[2019-03-25] MEDS: DEXTROSE 5%-LACTATED RINGERS 1,000 ML IV SCH ×2 (13:00→17:02)
--- NOTE | 2019-03-25 14:01 | PN ---
Progress Note (short form) - Note Progress Note: PULMONARY Resting in NAD Remains afebrile. Gen: NAD at rest Heart: RRR Lung: decreased breath sounds at the bases Abd: soft, nontender Ext: no edema/tremors noted ASSESSMENT AND PLAN:\ UTI Gram Negative Bacteremia Severe Sepsis Lactic Acidosis Hypoglycemia Atelectasis Acute Kidney Injury Elevated LFTs likely Ischemic Injury HTN Hyperlipidemia Parkinsons BPH - ABX per ID - PO as tolerated - monitor glucose - DVT prophylaxis - continue anti parkinson meds Dora HERNANDEZ MD
--- NOTE | 2019-03-25 14:42 | PN ---
Progress Note, Physician History of Present Illness: REPORTED TO HAVE LOW BLOOD SUGARS AWAKE AND ALERT SUPINE IN BED OFFERS NO COMPLAINTS + RESTING TREMOR NO ACUTE DISTRESS AFEBRILE WBC SL ELEVATED BC, URINE C/S E COLI - Current Medication List Current Medications: Active Medications Carbidopa/Levodopa (Sinemet 25/100 -) 2 each PO 5XD [facility] Last Admin: 03/25/19 13:17 Dose: 2 each Cefuroxime Axetil (Ceftin -) 500 mg PO BID [facility] Last Admin: 03/25/19 10:02 Dose: 500 mg Dextrose (D50w (Vial) -) 25 gm IVPUSH Q2H PRN PRN Reason: HYPOGLYCEMIA Last Admin: 03/25/19 11:04 Dose: 25 gm Docusate Sodium (Colace -) 100 mg PO TID [facility] Last Admin: 03/25/19 13:17 Dose: 100 mg Heparin Sodium (Porcine) (Heparin -) 5,000 unit SQ TID [facility] Last Admin: 03/25/19 13:17 Dose: 5,000 unit Dextrose/Lactated Ringer's (D5-Lr -) 1,000 mls @ 50 mls/hr IV ASDIR [facility] Last Admin: 03/25/19 13:00 Dose: 50 mls/hr Non-Formulary Medication (Non-Formulary Med) 0 each PO HS [facility] Last Admin: 03/24/19 21:55 Dose: 1 each Non-Formulary Medication (Pimavanserin Tartrate [Nuplazid]) 0 mg PO DAILY [facility] Last Admin: 03/25/19 10:05 Dose: 34 mg Polyethylene Glycol (Miralax (For Daily Use) -) 17 gm PO BID [facility] Last Admin: 03/25/19 10:04 Dose: 17 grams Rasagiline (Azilect -) 1 mg PO DAILY [facility] Last Admin: 03/25/19 10:03 Dose: 1 mg Tamsulosin HCl (Flomax -) 0.4 mg PO DAILY@0830 [facility] Last Admin: 03/25/19 10:02 Dose: 0.4 mg - Objective Vital Signs: Vital Signs Temperature 98.4 F 03/25/19 08:02 Pulse Rate 91 H 03/25/19 08:02 Respiratory Rate 20 03/25/19 08:02 Blood Pressure 146/80 03/25/19 08:02 O2 Sat by Pulse Oximetry (%) 97 03/25/19 10:00 Constitutional: Yes: No Distress Cardiovascular: Yes: Regular Rate and Rhythm, S1, S2 Respiratory: Yes: CTA Bilaterally Gastrointestinal: Yes: Normal Bowel Sounds, Soft. No: Tenderness Edema: No Labs: CBC, BMP 03/25/19 07:50 03/25/19 07:50 INR, PTT INR 1.28 (0.83-1.09) H 03/16/19 16:10 Assessment/Plan GRAM NEGATIVE BACTEREMIA/ SEPSIS SECONDARY TO SOURCE LACTIC ACIDOSIS LEUKOCYTOSIS S/P HEMATURIA TOXIC METABOLIC ENCEPHALOPATHY/ PARKINSONISM AZOTEMIA IMPROVED ELEVATED LFTS IMPROVED CONTINUE ceftin 500mg po bid x 7d
[2019-03-25] MEDS: NON-FORMULARY MED PO SCH (22:09)
[2019-03-26] MEDS ORDERED: DEXTROSE 50%-WATER - 25 GM/50 ML VIAL ONE (06:12)
[2019-03-26] MEDS: DOCUSATE SODIUM 100 MG CAPSULE (FP) PO SCH ×3 (07:43→21:11)
[2019-03-26] MEDS: CARBIDOPA/LEVODOPA 25/100 TABLET (FP) PO SCH ×5 (07:44→21:11)
[2019-03-26] MEDS: HEPARIN NA (PORCINE) 5,000 UNITS/ML 1ML VIAL SQ SCH ×3 (07:45→21:11)
--- NOTE | 2019-03-26 08:58 | PN ---
Progress Note, Physician Chief Complaint: Hypoglycemia Sepsis History of Present Illness: NAD BGM still fluctuating - Current Medication List Current Medications: Active Medications Carbidopa/Levodopa (Sinemet 25/100 -) 2 each PO 5XD [facility] Last Admin: 03/26/19 07:44 Dose: 2 each Cefuroxime Axetil (Ceftin -) 500 mg PO BID [facility] Last Admin: 03/25/19 22:05 Dose: 500 mg Dextrose (D50w (Vial) -) 25 gm IVPUSH Q2H PRN PRN Reason: HYPOGLYCEMIA Last Admin: 03/25/19 11:04 Dose: 25 gm Docusate Sodium (Colace -) 100 mg PO TID [facility] Last Admin: 03/26/19 07:43 Dose: 100 mg Heparin Sodium (Porcine) (Heparin -) 5,000 unit SQ TID [facility] Last Admin: 03/26/19 07:45 Dose: 5,000 unit Dextrose/Lactated Ringer's (D5-Lr -) 1,000 mls @ 50 mls/hr IV ASDIR [facility] Last Admin: 03/25/19 17:02 Dose: 50 mls/hr Non-Formulary Medication (Non-Formulary Med) 0 each PO HS [facility] Last Admin: 03/25/19 22:09 Dose: 1 each Non-Formulary Medication (Pimavanserin Tartrate [Nuplazid]) 0 mg PO DAILY [facility] Last Admin: 03/25/19 10:05 Dose: 34 mg Polyethylene Glycol (Miralax (For Daily Use) -) 17 gm PO BID [facility] Last Admin: 03/25/19 22:11 Dose: 17 grams Rasagiline (Azilect -) 1 mg PO DAILY [facility] Last Admin: 03/25/19 10:03 Dose: 1 mg Tamsulosin HCl (Flomax -) 0.4 mg PO DAILY@0830 [facility] Last Admin: 03/25/19 10:02 Dose: 0.4 mg - Objective Vital Signs: Vital Signs Temperature 97.9 F 03/26/19 05:00 Pulse Rate 63 03/26/19 05:00 Respiratory Rate 20 03/25/19 23:53 Blood Pressure 132/71 03/26/19 05:00 O2 Sat by Pulse Oximetry (%) 97 03/25/19 10:00 Constitutional: Yes: Well Nourished, No Distress, Calm Cardiovascular: Yes: Regular Rate and Rhythm Respiratory: Yes: Regular Gastrointestinal: Yes: Normal Bowel Sounds, Soft Genitourinary: Yes: WNL Musculoskeletal: Yes: WNL Extremities: Yes: WNL Edema: No Peripheral Pulses WNL: Yes Neurological: Yes: Alert, Oriented Psychiatric: Yes: Alert, Oriented Labs: CBC, BMP 03/25/19 07:50 03/25/19 07:50 INR, PTT INR 1.28 (0.83-1.09) H 03/16/19 16:10 Assessment/Plan (1) Hypoglycemia Assessment/Plan: -CT abd reviewed -Abdominal U/S done -proinsuln level pending serotnin level and ca19-9 pending -bgm still labile -triple phase ct scan - pancreas no pathology noted -on d5 iv fluids -MRI abd/pelvis with contrast unable to do due to patient's tremors 2/2 to parkinson's Code(s): E16.2 - HYPOGLYCEMIA, UNSPECIFIED (2) Sepsis Assessment/Plan: on ceftin for uti and gram negative bacteremia Microbiology 03/16/19 17:20 Urine - Urine - Catheterized Urine Culture - Final Escherichia Coli (3) HLD (hyperlipidemia) Assessment/Plan: -Pt refusing statin Code(s): E78.5 - HYPERLIPIDEMIA, UNSPECIFIED (4) Parkinson disease Assessment/Plan: -sinemet and azilect Code(s): G20 - PARKINSON'S DISEASE
[2019-03-26 09:21] LABS: BASO % 0.5 % (0-2.0); EOS % 2.1 % (0-4.5); HEMATOCRIT 38.8 % (35.4-49); HEMOGLOBIN 12.9 GM/dL (11.7-16.9); LYMPH % 10.7 % (8-40); MCH 28.1 pg (25.7-33.7); MCHC 33.2 g/dl (32.0-35.9); MEAN CELL VOLUME 84.7 fl (80-96); MEAN PLT VOLUME 8.2 fl (7.5-11.1); MONO % 4.1 % (3.8-10.2); NEUT % 82.6 % (42.8-82.8); PLATELET COUNT 542 K/MM3 (134-434); RBC 4.59 M/mm3 (4.00-5.60); RDW 14.4 % (11.9-15.9); WHITE BLOOD COUNT 10.8 K/mm3 (4.0-10.0)
[2019-03-26] MEDS ORDERED: PT OWN MED DRAWER 7, Y5N ONE ×2 (09:44→21:08)
[2019-03-26] MEDS: TAMSULOSIN HCL 0.4 MG CAP PO SCH (09:46)
[2019-03-26] MEDS: CEFUROXIME AXETIL 500 MG TABLET PO SCH ×2 (09:46→21:11)
[2019-03-26] MEDS: POLYETHYLENE GLYCOL 3350 119 GM BTL PO SCH ×2 (09:46→21:11)
[2019-03-26] MEDS: RASAGILINE MESYLATE 1 MG TABLET PO SCH (09:47)
[2019-03-26] MEDS: PIMAVANSERIN TARTRATE PO SCH (09:48)
[2019-03-26 09:55] LABS: ALBUMIN 2.4 g/dl (3.4-5.0); BILIRUBIN,TOTAL 0.5 mg/dL (0.2-1); BLOOD UREA NITROGEN 21.1 mg/dL (7-18); POTASSIUM 4.6 mmol/L (3.5-5.1); TOT PROT 5.3 g/dl (6.4-8.2)
[2019-03-26] MEDS: DEXTROSE 5%-LACTATED RINGERS 1,000 ML IV SCH ×2 (12:20→21:10)
--- NOTE | 2019-03-26 13:28 | PN ---
Progress Note (short form) - Note Progress Note: PULMONARY Resting in NAD Remains afebrile. Gen: NAD at rest Heart: RRR Lung: decreased breath sounds at the bases Abd: soft, nontender Ext: left upper ext previous iv site phlebitic changes noted/tremors continue ASSESSMENT AND PLAN:\ UTI Gram Negative Bacteremia Severe Sepsis Lactic Acidosis Hypoglycemia Atelectasis Acute Kidney Injury Elevated LFTs likely Ischemic Injury HTN Hyperlipidemia Parkinsons BPH - ABX per ID - Warm soaks to left arm IV site - PO as tolerated - monitor glucose - DVT prophylaxis - continue anti parkinson meds Dora HERNANDEZ MD
[2019-03-26] MEDS ORDERED: TAMSULOSIN HCL 0.4 MG CAP PO SCH (14:06)
[2019-03-26] MEDS: NON-FORMULARY MED PO SCH (21:12)
[2019-03-27] MEDS: CARBIDOPA/LEVODOPA 25/100 TABLET (FP) PO SCH ×5 (05:57→22:10)
[2019-03-27] MEDS: HEPARIN NA (PORCINE) 5,000 UNITS/ML 1ML VIAL SQ SCH ×3 (05:57→22:10)
[2019-03-27] MEDS: DOCUSATE SODIUM 100 MG CAPSULE (FP) PO SCH ×3 (05:57→22:10)
[2019-03-27] MEDS ORDERED: PT OWN MED DRAWER 7, Y5N ONE (10:23)
[2019-03-27] MEDS: CEFUROXIME AXETIL 500 MG TABLET PO SCH ×2 (10:32→22:10)
[2019-03-27] MEDS: TAMSULOSIN HCL 0.4 MG CAP PO SCH (10:32)
[2019-03-27] MEDS: RASAGILINE MESYLATE 1 MG TABLET PO SCH (10:33)
[2019-03-27] MEDS: PIMAVANSERIN TARTRATE PO SCH (10:34)
[2019-03-27] MEDS: POLYETHYLENE GLYCOL 3350 119 GM BTL PO SCH ×2 (10:34→22:10)
[2019-03-27] MEDS: DEXTROSE 5%-LACTATED RINGERS 1,000 ML IV SCH (10:35)
--- NOTE | 2019-03-27 11:57 | PN ---
Progress Note, Physician Chief Complaint: Hypoglycemia Sepsis History of Present Illness: NAD BGM still fluctuating - Current Medication List Current Medications: Active Medications Carbidopa/Levodopa (Sinemet 25/100 -) 2 each PO 5XD [facility] Last Admin: 03/27/19 10:39 Dose: 2 each Cefuroxime Axetil (Ceftin -) 500 mg PO BID [facility] Last Admin: 03/27/19 10:32 Dose: 500 mg Dextrose (D50w (Vial) -) 25 gm IVPUSH Q2H PRN PRN Reason: HYPOGLYCEMIA Last Admin: 03/25/19 11:04 Dose: 25 gm Docusate Sodium (Colace -) 100 mg PO TID [facility] Last Admin: 03/27/19 05:57 Dose: 100 mg Heparin Sodium (Porcine) (Heparin -) 5,000 unit SQ TID [facility] Last Admin: 03/27/19 05:57 Dose: 5,000 unit Dextrose/Lactated Ringer's (D5-Lr -) 1,000 mls @ 50 mls/hr IV ASDIR [facility] Last Admin: 03/27/19 10:35 Dose: 50 mls/hr Non-Formulary Medication (Non-Formulary Med) 0 each PO HS [facility] Last Admin: 03/26/19 21:12 Dose: 1 each Non-Formulary Medication (Pimavanserin Tartrate [Nuplazid]) 0 mg PO DAILY [facility] Last Admin: 03/27/19 10:34 Dose: 34 mg Polyethylene Glycol (Miralax (For Daily Use) -) 17 gm PO BID [facility] Last Admin: 03/27/19 10:34 Dose: 17 grams Rasagiline (Azilect -) 1 mg PO DAILY [facility] Last Admin: 03/27/19 10:33 Dose: 1 mg Tamsulosin HCl (Flomax -) 0.4 mg PO DAILY@0830 [facility] Last Admin: 03/27/19 10:32 Dose: 0.4 mg - Objective Vital Signs: Vital Signs Temperature 98 F 03/27/19 10:00 Pulse Rate 60 03/27/19 10:00 Respiratory Rate 20 03/26/19 21:00 Blood Pressure 146/70 03/27/19 10:00 O2 Sat by Pulse Oximetry (%) 96 03/26/19 22:00 Constitutional: Yes: Well Nourished, No Distress, Calm Cardiovascular: Yes: Regular Rate and Rhythm Respiratory: Yes: Regular Gastrointestinal: Yes: WNL Genitourinary: Yes: Delaney Present Musculoskeletal: Yes: Muscle Weakness Extremities: Yes: WNL Edema: No Peripheral Pulses WNL: Yes Neurological: Yes: Alert, Confusion Psychiatric: Yes: Alert Labs: CBC, BMP 03/26/19 07:08 03/26/19 07:08 INR, PTT INR 1.28 (0.83-1.09) H 03/16/19 16:10 Assessment/Plan (1) Hypoglycemia Assessment/Plan: -CT abd reviewed -Abdominal U/S done -proinsuln level pending serotnin level and ca19-9 pending -bgm still labile -triple phase ct scan - pancreas no pathology noted -on d5 iv fluids -MRI abd/pelvis with contrast unable to do due to patient's tremors 2/2 to parkinson's Code(s): E16.2 - HYPOGLYCEMIA, UNSPECIFIED (2) Sepsis Assessment/Plan: on ceftin for uti and gram negative bacteremia Microbiology 03/16/19 17:20 Urine - Urine - Catheterized Urine Culture - Final Escherichia Coli (3) HLD (hyperlipidemia) Assessment/Plan: -Pt refusing statin Code(s): E78.5 - HYPERLIPIDEMIA, UNSPECIFIED (4) Parkinson disease Assessment/Plan: -sinemet and azilect Code(s): G20 - PARKINSON'S DISEASE
--- NOTE | 2019-03-27 13:37 | PN ---
Progress Note (short form) - Note Progress Note: PULMONARY Remains afebrile. Gen: NAD at rest Heart: RRR Lung: decreased breath sounds at the bases Abd: soft, nontender Ext: left upper ext previous iv site phlebitic changes noted/tremors continue ASSESSMENT AND PLAN:\ UTI Gram Negative Bacteremia Severe Sepsis Lactic Acidosis Hypoglycemia Atelectasis Acute Kidney Injury Elevated LFTs likely Ischemic Injury HTN Hyperlipidemia Parkinsons BPH - ABX per ID - Warm soaks to left arm IV site - PO as tolerated - monitor glucose - DVT prophylaxis - continue anti parkinson meds Dora HERNANDEZ MD
--- NOTE | 2019-03-27 16:39 | PN ---
Progress Note, Physician Chief Complaint: drowsy and episode of low sugar persist - Current Medication List Current Medications: Active Medications Carbidopa/Levodopa (Sinemet 25/100 -) 2 each PO 5XD [facility] Last Admin: 03/27/19 14:44 Dose: 2 each Cefuroxime Axetil (Ceftin -) 500 mg PO BID [facility] Last Admin: 03/27/19 10:32 Dose: 500 mg Dextrose (D50w (Vial) -) 25 gm IVPUSH Q2H PRN PRN Reason: HYPOGLYCEMIA Last Admin: 03/25/19 11:04 Dose: 25 gm Docusate Sodium (Colace -) 100 mg PO TID [facility] Last Admin: 03/27/19 14:45 Dose: 100 mg Heparin Sodium (Porcine) (Heparin -) 5,000 unit SQ TID [facility] Last Admin: 03/27/19 14:44 Dose: 5,000 unit Dextrose/Lactated Ringer's (D5-Lr -) 1,000 mls @ 50 mls/hr IV ASDIR [facility] Last Admin: 03/27/19 10:35 Dose: 50 mls/hr Non-Formulary Medication (Non-Formulary Med) 0 each PO HS [facility] Last Admin: 03/26/19 21:12 Dose: 1 each Non-Formulary Medication (Pimavanserin Tartrate [Nuplazid]) 0 mg PO DAILY [facility] Last Admin: 03/27/19 10:34 Dose: 34 mg Polyethylene Glycol (Miralax (For Daily Use) -) 17 gm PO BID [facility] Last Admin: 03/27/19 10:34 Dose: 17 grams Rasagiline (Azilect -) 1 mg PO DAILY [facility] Last Admin: 03/27/19 10:33 Dose: 1 mg Tamsulosin HCl (Flomax -) 0.4 mg PO DAILY@0830 [facility] Last Admin: 03/27/19 10:32 Dose: 0.4 mg - Objective Vital Signs: Vital Signs Temperature 97.8 F 03/27/19 14:00 Pulse Rate 62 03/27/19 14:00 Respiratory Rate 18 03/27/19 14:00 Blood Pressure 108/56 L 03/27/19 14:00 O2 Sat by Pulse Oximetry (%) 100 03/27/19 09:00 Constitutional: Yes: Calm Eyes: Yes: EOM Intact HENT: Yes: Normocephalic Neck: Yes: Trachea Midline Cardiovascular: Yes: Regular Rate and Rhythm Respiratory: Yes: CTA Bilaterally Gastrointestinal: Yes: Normal Bowel Sounds ...Rectal Exam: Yes: Deferred Genitourinary: Yes: WNL Breast(s): Yes: WNL Musculoskeletal: Yes: Joint Stiffness, Muscle Pain, Muscle Weakness Edema: No Peripheral Pulses WNL: Yes Neurological: Yes: Alert, Lethargy, Numbness Labs: CBC, BMP 03/26/19 07:08 03/26/19 07:08 INR, PTT INR 1.28 (0.83-1.09) H 03/16/19 16:10 Problem List - Problems (1) MAGY (acute kidney injury) Code(s): N17.9 - ACUTE KIDNEY FAILURE, UNSPECIFIED (2) Hypoglycemia (3) CAD (coronary artery disease) Code(s): I25.10 - ATHSCL HEART DISEASE OF [place] CORONARY ARTERY W/O ANG PCTRS Assessment/Plan Current Active Problems MAGY (acute kidney injury) (Acute) HLD (hyperlipidemia) (Acute) HTN (hypertension) (Acute) Hypoglycemia (Acute) Sepsis (Acute) Laboratory Results - last 24 hr 03/26/19 03/26/19 03/27/19 18:09 21:13 01:23 POC Glucometer 91 102 105 03/27/19 03/27/19 03/27/19 05:56 10:59 15:39 POC Glucometer 97 112 98 Laboratory Tests 03/18/19 03/26/19 03/26/19 13:45 06:04 07:08 BUN 21.1 H Creatinine 1.0 POC Glucometer 33 Random Glucose 71 L Hemoglobin A1c % Cortisol 30 Minute 11.10 03/26/19 03/26/19 03/26/19 07:08 10:57 14:30 BUN Creatinine POC Glucometer 80 99 Random Glucose Hemoglobin A1c % 4.9 Cortisol 30 Minute 03/26/19 03/26/19 03/27/19 18:09 21:13 01:23 BUN Creatinine POC Glucometer 91 102 105 Random Glucose Hemoglobin A1c % Cortisol 30 Minute 03/27/19 03/27/19 03/27/19 05:56 10:59 15:39 BUN Creatinine POC Glucometer 97 112 98 Random Glucose Hemoglobin A1c % Cortisol 30 Minute plan: add prednisone 7.5.mg daily follow up bgm dc iv dextrose may need pancrease evaluation if proinsulin elevated
[2019-03-27] MEDS: NON-FORMULARY MED PO SCH (22:11)
[2019-03-28] MEDS ORDERED: DEXTROSE 50%-WATER 25 GM/50 ML DISP.SYRIN ONE (05:04)
[2019-03-28] MEDS: DEXTROSE 50%-WATER 25 GM/50 ML DISP.SYRIN IVPUSH PRN (05:05)
[2019-03-28] MEDS: DEXTROSE 5%-LACTATED RINGERS 1,000 ML IV SCH ×3 (05:05→18:43)
[2019-03-28] MEDS: DOCUSATE SODIUM 100 MG CAPSULE (FP) PO SCH ×3 (06:17→21:26)
[2019-03-28] MEDS: CARBIDOPA/LEVODOPA 25/100 TABLET (FP) PO SCH ×5 (06:17→21:26)
[2019-03-28] MEDS: HEPARIN NA (PORCINE) 5,000 UNITS/ML 1ML VIAL SQ SCH ×3 (06:17→21:26)
--- NOTE | 2019-03-28 08:41 | PN.GI ---
GI Progress Note Subjective: Patient denies nausea, vomiting, abdominal pain, diarrhea, constipation. Labs show CA 19-9 within normal range at 10, Serotonin level pending. - Objective Vital Signs: Vital Signs Temperature 97.8 F 03/28/19 05:22 Pulse Rate 58 L 03/28/19 05:22 Respiratory Rate 18 03/28/19 05:22 Blood Pressure 144/64 03/28/19 05:22 O2 Sat by Pulse Oximetry (%) 97 03/27/19 22:00 Constitutional: No Distress, Calm Eyes: Yes: Conjunctiva Clear HENT: Yes: Atraumatic Cardiovascular: Yes: Regular Rate and Rhythm Respiratory: Yes: Regular, CTA Bilaterally Gastrointestinal Inspection: Yes: WNL. No: Ascites, Distention, Hernia, Scars, Other ...Auscultate: Yes: Normoactive Bowel Sounds. No: Hyperactive Bowel Sounds, Hypoactive Bowel Sounds, No Bowel Sounds, Other ...Palpate: Yes: Soft. No: Firm/Rigid, Guarding, Hepatomegaly, Mass, Pulsatile Mass, Splenomegaly, Tenderness, Tenderness, Epigastium, Tenderness, Rebound, Other ...Percussion: Yes: Tympanitic. No: Dullness, Fluid Wave, Other Neurological: Yes: Alert, Confusion Psychiatric: Yes: Alert Labs: CBC, BMP 03/26/19 07:08 03/26/19 07:08 INR, PTT INR 1.28 (0.83-1.09) H 03/16/19 16:10 Active Medications Generic Name Dose Route Start Last Admin Trade Name Freq PRN Reason Stop Dose Admin Carbidopa/Levodopa 2 each 03/22/19 10:00 03/28/19 06:17 Sinemet 25/100 - PO 2 each 5XD [facility] Administration Cefuroxime Axetil 500 mg 03/24/19 22:00 03/27/19 22:10 Ceftin - PO 500 mg BID [facility] Administration Dextrose 25 gm 03/28/19 05:01 03/28/19 05:05 D50w (Syringe) - IVPUSH 25 gm Q2H PRN Administration HYPOGLYCEMIA Docusate Sodium 100 mg 03/22/19 14:00 03/28/19 06:17 Colace - PO 100 mg TID [facility] Administration Heparin Sodium (Porcine) 5,000 unit 03/22/19 14:00 03/28/19 06:17 Heparin - SQ 5,000 unit TID [facility] Administration Dextrose/Lactated Ringer's 1,000 mls @ 50 mls/hr 03/25/19 12:58 03/28/19 05: 05 D5-Lr - IV 50 mls/hr ASDIR [facility] Administration Non-Formulary Medication 0 each 03/22/19 22:00 03/27/19 22:11 Non-Formulary Med PO 1 each HS [facility] Administration Non-Formulary Medication 0 mg 03/22/19 10:00 03/27/19 10:34 Pimavanserin Tartrate [Nuplazid] PO 34 mg DAILY [facility] Administration Polyethylene Glycol 17 gm 03/22/19 10:00 03/27/19 22:10 Miralax (For Daily Use) - PO 17 grams BID [facility] Administration Prednisone 10 mg 03/28/19 10:00 Deltasone - PO DAILY [facility] Rasagiline 1 mg 03/22/19 10:00 03/27/19 10:33 Azilect - PO 1 mg DAILY [facility] Administration Tamsulosin HCl 0.4 mg 03/26/19 14:13 03/27/19 10:32 Flomax - PO 0.4 mg DAILY@0830 [facility] Administration Problem List - Problems (1) Hypoglycemia Assessment/Plan: >R/O insulinoma >Triphase CT Scan of pancreas reviewed >Pro insulin level pending, cortisol level pending, Insulin level 116.9 >Growth Hormone, PTH ,chromogranin A, serotonin level pending >Ca 19-9 10 >Abd US reviewed >will instruct patient family member on discharge need outpatiet follow up for Endoscopic US to R/O Insulinemia Code(s): E16.2 - HYPOGLYCEMIA, UNSPECIFIED
[2019-03-28] MEDS ORDERED: PT OWN MED DRAWER 7, Y5N ONE ×2 (08:55→09:11)
[2019-03-28] MEDS: RASAGILINE MESYLATE 1 MG TABLET PO SCH (09:06)
[2019-03-28] MEDS: CEFUROXIME AXETIL 500 MG TABLET PO SCH ×2 (09:06→21:26)
[2019-03-28] MEDS: TAMSULOSIN HCL 0.4 MG CAP PO SCH (09:06)
[2019-03-28] MEDS: PIMAVANSERIN TARTRATE PO SCH (09:07)
[2019-03-28] MEDS: POLYETHYLENE GLYCOL 3350 119 GM BTL PO SCH ×2 (09:13→21:26)
[2019-03-28] MEDS ORDERED: predniSONE 5 MG TABLET (UD) PO SCH (10:00)
--- NOTE | 2019-03-28 12:40 | PN ---
Progress Note, Physician Chief Complaint: Sepsis Hypoglycemia History of Present Illness: Previous notes and events reviewed awake and alert NAD no leukocytosis afebrile continue with fluctuating BS - Current Medication List Current Medications: Active Medications Carbidopa/Levodopa (Sinemet 25/100 -) 2 each PO 5XD [facility] Last Admin: 03/28/19 09:11 Dose: 2 each Cefuroxime Axetil (Ceftin -) 500 mg PO BID [facility] Last Admin: 03/28/19 09:06 Dose: 500 mg Dextrose (D50w (Syringe) -) 25 gm IVPUSH Q2H PRN PRN Reason: HYPOGLYCEMIA Last Admin: 03/28/19 05:05 Dose: 25 gm Docusate Sodium (Colace -) 100 mg PO TID [facility] Last Admin: 03/28/19 06:17 Dose: 100 mg Heparin Sodium (Porcine) (Heparin -) 5,000 unit SQ TID [facility] Last Admin: 03/28/19 06:17 Dose: 5,000 unit Dextrose/Lactated Ringer's (D5-Lr -) 1,000 mls @ 50 mls/hr IV ASDIR [facility] Last Admin: 03/28/19 05:05 Dose: 50 mls/hr Non-Formulary Medication (Non-Formulary Med) 0 each PO HS [facility] Last Admin: 03/27/19 22:11 Dose: 1 each Non-Formulary Medication (Pimavanserin Tartrate [Nuplazid]) 0 mg PO DAILY [facility] Last Admin: 03/28/19 09:07 Dose: 1 mg Polyethylene Glycol (Miralax (For Daily Use) -) 17 gm PO BID [facility] Last Admin: 03/28/19 09:13 Dose: 17 grams Prednisone (Deltasone -) 10 mg PO DAILY [facility] Last Admin: 03/28/19 09:06 Dose: 10 mg Rasagiline (Azilect -) 1 mg PO DAILY [facility] Last Admin: 03/28/19 09:06 Dose: 1 mg Tamsulosin HCl (Flomax -) 0.4 mg PO DAILY@0830 [facility] Last Admin: 03/28/19 09:06 Dose: 0.4 mg - Objective Vital Signs: Vital Signs Temperature 97.8 F 03/28/19 09:00 Pulse Rate 62 03/28/19 09:00 Respiratory Rate 18 03/28/19 09:00 Blood Pressure 108/48 L 03/28/19 09:00 O2 Sat by Pulse Oximetry (%) 99 03/28/19 10:00 Constitutional: Yes: No Distress, Calm Eyes: Yes: Conjunctiva Clear HENT: Yes: Atraumatic Cardiovascular: Yes: Regular Rate and Rhythm Respiratory: Yes: Regular, CTA Bilaterally Gastrointestinal: Yes: Normal Bowel Sounds, Soft Genitourinary: Yes: Delaney Present Musculoskeletal: Yes: Muscle Weakness Extremities: Yes: WNL Edema: No Neurological: Yes: Alert, Confusion, Pre-Existing Deficit Psychiatric: Yes: Alert Labs: CBC, BMP 03/26/19 07:08 03/26/19 07:08 INR, PTT INR 1.28 (0.83-1.09) H 03/16/19 16:10 Microbiology 03/19/19 12:00 Blood - Peripheral Venous Blood Culture - Final NO GROWTH AFTER 5 DAYS INCUBATION 03/19/19 11:45 Blood - Peripheral Venous Blood Culture - Final NO GROWTH AFTER 5 DAYS INCUBATION 03/16/19 17:20 Urine - Urine - Catheterized Urine Culture - Final Escherichia Coli 03/16/19 16:00 Blood - Peripheral Venous Blood Culture - Final Escherichia Coli 03/16/19 16:17 Blood - Peripheral Venous Blood Culture - Final Escherichia Coli Problem List - Problems (1) MAGY (acute kidney injury) Assessment/Plan: -BUN/Cr 21.1/1.0 -monitor renal function Code(s): N17.9 - ACUTE KIDNEY FAILURE, UNSPECIFIED (2) HLD (hyperlipidemia) Assessment/Plan: -Atorvastatin Code(s): E78.5 - HYPERLIPIDEMIA, UNSPECIFIED (3) Sepsis Assessment/Plan: -ID on board -no leukocytosis -afebrile -BC and UC positive E.coli -repeat BC neg -CT shows mild bibasal atelectatic changes, left more than right, cannot rule out infiltrates -Ceftin -LA 3.9~1.5 Code(s): A41.9 - SEPSIS, UNSPECIFIED ORGANISM (4) Parkinson disease Assessment/Plan: -Carbidopa/Levodopa -fall precaution -PT -Neuro consult Code(s): G20 - PARKINSON'S DISEASE (5) Hypoglycemia Assessment/Plan: -Endocrinology consult -BGM ACHS -GI consult -D5/LR -D50 IVP prn for hypoglycemia BS <60mg/dL -Insulin level 116.9 -pending pro-insulin level -GTH, Parathyroid -Ca 19-9 10 -cortisol level -Abd US done and reviewed -Abdomin CT Scan shows pancreas is unremarkeable -Prednisone -Neuro consult Code(s): E16.2 - HYPOGLYCEMIA, UNSPECIFIED Assessment/Plan see problem list dvt ppx completed antibiotic course, if no acute events overnight begin D/C planning in AM
--- NOTE | 2019-03-28 13:05 | PN ---
Progress Note (short form) - Note Progress Note: PULMONARY Somnolent but arousable. No specific complaints. Vital Signs Period Temp Pulse Resp BP Sys/Ordoñez Pulse Ox Last 24 Hr 97.7 F-97.8 F 58-68 18-18 100-144/45-64 97-99 Gen: NAD at rest Heart: RRR Lung: decreased breath sounds at the bases Abd: soft, nontender Ext: no edema CBC, BMP 03/26/19 07:08 03/26/19 07:08 Active Medications Carbidopa/Levodopa (Sinemet 25/100 -) 2 each PO 5XD [facility] Last Admin: 03/28/19 09:11 Dose: 2 each Cefuroxime Axetil (Ceftin -) 500 mg PO BID [facility] Last Admin: 03/28/19 09:06 Dose: 500 mg Dextrose (D50w (Syringe) -) 25 gm IVPUSH Q2H PRN PRN Reason: HYPOGLYCEMIA Last Admin: 03/28/19 05:05 Dose: 25 gm Docusate Sodium (Colace -) 100 mg PO TID [facility] Last Admin: 03/28/19 06:17 Dose: 100 mg Heparin Sodium (Porcine) (Heparin -) 5,000 unit SQ TID [facility] Last Admin: 03/28/19 06:17 Dose: 5,000 unit Dextrose/Lactated Ringer's (D5-Lr -) 1,000 mls @ 50 mls/hr IV ASDIR [facility] Last Admin: 03/28/19 05:05 Dose: 50 mls/hr Non-Formulary Medication (Non-Formulary Med) 0 each PO HS [facility] Last Admin: 03/27/19 22:11 Dose: 1 each Non-Formulary Medication (Pimavanserin Tartrate [Nuplazid]) 0 mg PO DAILY [facility] Last Admin: 03/28/19 09:07 Dose: 1 mg Polyethylene Glycol (Miralax (For Daily Use) -) 17 gm PO BID [facility] Last Admin: 03/28/19 09:13 Dose: 17 grams Prednisone (Deltasone -) 10 mg PO DAILY [facility] Last Admin: 03/28/19 09:06 Dose: 10 mg Rasagiline (Azilect -) 1 mg PO DAILY [facility] Last Admin: 03/28/19 09:06 Dose: 1 mg Tamsulosin HCl (Flomax -) 0.4 mg PO DAILY@0830 [facility] Last Admin: 03/28/19 09:06 Dose: 0.4 mg A/P UTI Gram Negative Bacteremia Severe Sepsis improving Lactic Acidosis resolved Hypoglycemia Atelectasis Acute Kidney Injury improving Elevated LFTs likely Ischemic Injury HTN Hyperlipidemia Parkinsons BPH - continue antibiotics - monitor urine output, creatinine - PO as tolerated - monitor glucose - OOB to chair - DVT prophylaxis
[2019-03-28] MEDS: NON-FORMULARY MED PO SCH (21:26)
--- NOTE | 2019-03-28 22:12 | PN ---
Progress Note, Physician Chief Complaint: still with episodes of hypoglycemia despite increased diet - Current Medication List Current Medications: Active Medications Carbidopa/Levodopa (Sinemet 25/100 -) 2 each PO 5XD [facility] Last Admin: 03/28/19 21:26 Dose: 2 each Cefuroxime Axetil (Ceftin -) 500 mg PO BID [facility] Last Admin: 03/28/19 21:26 Dose: 500 mg Dextrose (D50w (Syringe) -) 25 gm IVPUSH Q2H PRN PRN Reason: HYPOGLYCEMIA Last Admin: 03/28/19 05:05 Dose: 25 gm Docusate Sodium (Colace -) 100 mg PO TID [facility] Last Admin: 03/28/19 21:26 Dose: 100 mg Heparin Sodium (Porcine) (Heparin -) 5,000 unit SQ TID [facility] Last Admin: 03/28/19 21:26 Dose: 5,000 unit Dextrose/Lactated Ringer's (D5-Lr -) 1,000 mls @ 42 mls/hr IV ASDIR [facility] Last Admin: 03/28/19 18:43 Dose: 42 mls/hr Non-Formulary Medication (Non-Formulary Med) 0 each PO HS [facility] Last Admin: 03/28/19 21:26 Dose: 1 each Non-Formulary Medication (Pimavanserin Tartrate [Nuplazid]) 0 mg PO DAILY [facility] Last Admin: 03/28/19 09:07 Dose: 1 mg Polyethylene Glycol (Miralax (For Daily Use) -) 17 gm PO BID [facility] Last Admin: 03/28/19 21:26 Dose: 17 grams Prednisone (Deltasone -) 20 mg PO DAILY [facility] Rasagiline (Azilect -) 1 mg PO DAILY [facility] Last Admin: 03/28/19 09:06 Dose: 1 mg Tamsulosin HCl (Flomax -) 0.4 mg PO DAILY@0830 [facility] Last Admin: 03/28/19 09:06 Dose: 0.4 mg - Objective Vital Signs: Vital Signs Temperature 98.5 F 03/28/19 20:57 Pulse Rate 73 03/28/19 20:57 Respiratory Rate 19 03/28/19 20:57 Blood Pressure 100/43 L 03/28/19 20:57 O2 Sat by Pulse Oximetry (%) 99 03/28/19 10:00 Constitutional: Yes: Calm Eyes: Yes: EOM Intact HENT: Yes: Normocephalic Neck: Yes: Trachea Midline Cardiovascular: Yes: Regular Rate and Rhythm Respiratory: Yes: CTA Bilaterally Gastrointestinal: Yes: Normal Bowel Sounds ...Rectal Exam: Yes: Deferred Genitourinary: Yes: WNL Musculoskeletal: Yes: Muscle Pain, Muscle Weakness Extremities: Yes: Delayed Capillary Refill Edema: No Neurological: Yes: Alert, Weakness Labs: CBC, BMP 03/26/19 07:08 03/26/19 07:08 INR, PTT INR 1.28 (0.83-1.09) H 03/16/19 16:10 Problem List - Problems (1) MAGY (acute kidney injury) Code(s): N17.9 - ACUTE KIDNEY FAILURE, UNSPECIFIED (2) Hypoglycemia (3) CAD (coronary artery disease) Code(s): I25.10 - ATHSCL HEART DISEASE OF [place] CORONARY ARTERY W/O ANG PCTRS Assessment/Plan Current Active Problems MAGY (acute kidney injury) (Acute) HLD (hyperlipidemia) (Acute) HTN (hypertension) (Acute) Hypoglycemia (Acute) Sepsis (Acute) Laboratory Results - last 24 hr 03/25/19 03/27/19 03/28/19 10:00 23:05 04:58 POC Glucometer 106 57 Serotonin 74 03/28/19 03/28/19 03/28/19 10:41 13:58 18:16 POC Glucometer 86 108 106 Serotonin 03/28/19 21:23 POC Glucometer 128 Serotonin Laboratory Tests 03/17/19 09:22 Insulin Level 116.9 H plan; awaiting proinsulin level will need pancreatic imaging sonography prednisone 20mg qd taper iv fluids off
[2019-03-29] MEDS: HEPARIN NA (PORCINE) 5,000 UNITS/ML 1ML VIAL SQ SCH (06:48)
[2019-03-29] MEDS: DOCUSATE SODIUM 100 MG CAPSULE (FP) PO SCH ×3 (06:48→22:08)
[2019-03-29] MEDS: CARBIDOPA/LEVODOPA 25/100 TABLET (FP) PO SCH ×5 (06:48→22:08)
--- NOTE | 2019-03-29 08:27 | PN ---
Progress Note (short form) - Note Progress Note: Previous notes and events reviewed. Lab results reviewed, pending pro insulin level. On discharge will need to inform family of outpatient follow up for Endoscopic US. Problem List - Problems (1) Hypoglycemia Code(s): E16.2 - HYPOGLYCEMIA, UNSPECIFIED
[2019-03-29 08:29] LABS: HEMATOCRIT 37.5 % (35.4-49); HEMOGLOBIN 12.2 GM/dL (11.7-16.9); MCH 28.3 pg (25.7-33.7); MCHC 32.7 g/dl (32.0-35.9); MEAN CELL VOLUME 86.6 fl (80-96); MEAN PLT VOLUME 8.3 fl (7.5-11.1); PLATELET COUNT 547 K/MM3 (134-434); RBC 4.32 M/mm3 (4.00-5.60); RDW 15.5 % (11.9-15.9); WHITE BLOOD COUNT 11.7 K/mm3 (4.0-10.0)
[2019-03-29 08:54] LABS: ALBUMIN 2.5 g/dl (3.4-5.0); BILIRUBIN,TOTAL 0.8 mg/dL (0.2-1); BLOOD UREA NITROGEN 30.6 mg/dL (7-18); CALCIUM 8.1 mg/dL (8.5-10.1); POTASSIUM 4.6 mmol/L (3.5-5.1); TOT PROT 5.2 g/dl (6.4-8.2)
[2019-03-29] MEDS ORDERED: PT OWN MED DRAWER 7, Y5N ONE ×2 (09:26→09:50)
[2019-03-29] MEDS: CEFUROXIME AXETIL 500 MG TABLET PO SCH ×2 (09:30→22:08)
[2019-03-29] MEDS: TAMSULOSIN HCL 0.4 MG CAP PO SCH (09:30)
[2019-03-29] MEDS: PIMAVANSERIN TARTRATE PO SCH (09:32)
[2019-03-29] MEDS: RASAGILINE MESYLATE 1 MG TABLET PO SCH (09:33)
[2019-03-29] MEDS: POLYETHYLENE GLYCOL 3350 119 GM BTL PO SCH ×2 (09:37→22:08)
[2019-03-29] MEDS ORDERED: predniSONE 20 MG TABLET (UD) PO SCH (10:00)
--- NOTE | 2019-03-29 11:17 | PN ---
Progress Note (short form) - Note Progress Note: PULMONARY More awake. No specific complaints. Vital Signs Period Temp Pulse Resp BP Sys/Ordoñez Pulse Ox Last 24 Hr 97.6 F-98.5 F 73-92 18-19 100-158/42-91 98-98 Gen: NAD at rest Heart: RRR Lung: decreased breath sounds at the bases Abd: soft, nontender Ext: no edema CBC, BMP 03/29/19 07:29 03/29/19 07:29 Active Medications Carbidopa/Levodopa (Sinemet 25/100 -) 2 each PO 5XD [facility] Last Admin: 03/29/19 09:31 Dose: 2 each Cefuroxime Axetil (Ceftin -) 500 mg PO BID [facility] Last Admin: 03/29/19 09:30 Dose: 500 mg Dextrose (D50w (Syringe) -) 25 gm IVPUSH Q2H PRN PRN Reason: HYPOGLYCEMIA Last Admin: 03/28/19 05:05 Dose: 25 gm Docusate Sodium (Colace -) 100 mg PO TID [facility] Last Admin: 03/29/19 06:48 Dose: 100 mg Heparin Sodium (Porcine) (Heparin -) 5,000 unit SQ TID [facility] Last Admin: 03/29/19 06:48 Dose: 5,000 unit Dextrose/Lactated Ringer's (D5-Lr -) 1,000 mls @ 42 mls/hr IV ASDIR [facility] Last Admin: 03/28/19 18:43 Dose: 42 mls/hr Non-Formulary Medication (Non-Formulary Med) 0 each PO HS [facility] Last Admin: 03/28/19 21:26 Dose: 1 each Non-Formulary Medication (Pimavanserin Tartrate [Nuplazid]) 0 mg PO DAILY [facility] Last Admin: 03/29/19 09:32 Dose: 1 mg Polyethylene Glycol (Miralax (For Daily Use) -) 17 gm PO BID [facility] Last Admin: 03/29/19 09:37 Dose: 17 grams Prednisone (Deltasone -) 20 mg PO DAILY [facility] Last Admin: 03/29/19 09:30 Dose: 20 mg Rasagiline (Azilect -) 1 mg PO DAILY [facility] Last Admin: 03/29/19 09:33 Dose: 1 mg Tamsulosin HCl (Flomax -) 0.4 mg PO DAILY@0830 [facility] Last Admin: 03/29/19 09:30 Dose: 0.4 mg A/P UTI Gram Negative Bacteremia Severe Sepsis improving Lactic Acidosis resolved Hypoglycemia Atelectasis Acute Kidney Injury improving Elevated LFTs likely Ischemic Injury HTN Hyperlipidemia Parkinsons BPH - complete antibiotics - monitor urine output, creatinine - PO as tolerated - monitor glucose - OOB to chair - DVT prophylaxis - d/c planning
--- NOTE | 2019-03-29 14:53 | PN ---
Progress Note, Physician Chief Complaint: Sepsis Hypoglycemia History of Present Illness: Previous notes and events reviewed awake and alert NAD no leukocytosis afebrile BS improving after starting on prednisone - Current Medication List Current Medications: Active Medications Carbidopa/Levodopa (Sinemet 25/100 -) 2 each PO 5XD [facility] Last Admin: 03/29/19 14:08 Dose: 2 each Cefuroxime Axetil (Ceftin -) 500 mg PO BID [facility] Last Admin: 03/29/19 09:30 Dose: 500 mg Dextrose (D50w (Syringe) -) 25 gm IVPUSH Q2H PRN PRN Reason: HYPOGLYCEMIA Last Admin: 03/28/19 05:05 Dose: 25 gm Docusate Sodium (Colace -) 100 mg PO TID [facility] Last Admin: 03/29/19 14:03 Dose: Not Given Dextrose/Lactated Ringer's (D5-Lr -) 1,000 mls @ 42 mls/hr IV ASDIR [facility] Last Admin: 03/28/19 18:43 Dose: 42 mls/hr Non-Formulary Medication (Non-Formulary Med) 0 each PO HS [facility] Last Admin: 03/28/19 21:26 Dose: 1 each Non-Formulary Medication (Pimavanserin Tartrate [Nuplazid]) 0 mg PO DAILY [facility] Last Admin: 03/29/19 09:32 Dose: 1 mg Polyethylene Glycol (Miralax (For Daily Use) -) 17 gm PO BID [facility] Last Admin: 03/29/19 09:37 Dose: 17 grams Prednisone (Deltasone -) 20 mg PO DAILY [facility] Last Admin: 03/29/19 09:30 Dose: 20 mg Rasagiline (Azilect -) 1 mg PO DAILY [facility] Last Admin: 03/29/19 09:33 Dose: 1 mg Tamsulosin HCl (Flomax -) 0.4 mg PO DAILY@0830 [facility] Last Admin: 03/29/19 09:30 Dose: 0.4 mg - Objective Vital Signs: Vital Signs Temperature 97.7 F 03/29/19 14:12 Pulse Rate 71 03/29/19 14:12 Respiratory Rate 18 03/29/19 09:28 Blood Pressure 106/56 L 03/29/19 14:12 O2 Sat by Pulse Oximetry (%) 98 03/29/19 10:00 Constitutional: Yes: No Distress, Calm Eyes: Yes: Conjunctiva Clear HENT: Yes: Atraumatic Cardiovascular: Yes: Regular Rate and Rhythm Respiratory: Yes: Regular, CTA Bilaterally Gastrointestinal: Yes: Normal Bowel Sounds, Soft Genitourinary: Yes: Delaney Present Musculoskeletal: Yes: Muscle Weakness Extremities: Yes: WNL Edema: No Neurological: Yes: Alert, Confusion, Pre-Existing Deficit Psychiatric: Yes: Alert, Oriented Labs: CBC, BMP 03/29/19 07:29 03/29/19 07:29 INR, PTT INR 1.28 (0.83-1.09) H 03/16/19 16:10 Microbiology 03/19/19 12:00 Blood - Peripheral Venous Blood Culture - Final NO GROWTH AFTER 5 DAYS INCUBATION 03/19/19 11:45 Blood - Peripheral Venous Blood Culture - Final NO GROWTH AFTER 5 DAYS INCUBATION 03/16/19 17:20 Urine - Urine - Catheterized Urine Culture - Final Escherichia Coli 03/16/19 16:00 Blood - Peripheral Venous Blood Culture - Final Escherichia Coli 03/16/19 16:17 Blood - Peripheral Venous Blood Culture - Final Escherichia Coli Problem List - Problems (1) MAGY (acute kidney injury) Assessment/Plan: -BUN/Cr 30.6/1.0 -monitor renal function Code(s): N17.9 - ACUTE KIDNEY FAILURE, UNSPECIFIED (2) HLD (hyperlipidemia) Assessment/Plan: -Atorvastatin Code(s): E78.5 - HYPERLIPIDEMIA, UNSPECIFIED (3) Sepsis Assessment/Plan: -ID on board -no leukocytosis -afebrile -BC and UC positive E.coli -repeat BC neg -CT shows mild bibasal atelectatic changes, left more than right, cannot rule out infiltrates -Ceftin -LA 3.9~1.5 Code(s): A41.9 - SEPSIS, UNSPECIFIED ORGANISM (4) Parkinson disease Assessment/Plan: -Carbidopa/Levodopa -fall precaution -PT -Neuro consult Code(s): G20 - PARKINSON'S DISEASE (5) Hypoglycemia Assessment/Plan: -Endocrinology consult -BGM ACHS -GI consult -D5/LR -D50 IVP prn for hypoglycemia BS <60mg/dL -Insulin level 116.9 -pending pro-insulin level -GTH, Parathyroid -Ca 19-9 10 -cortisol level -Abd US done and reviewed -Abdomin CT Scan shows pancreas is unremarkeable -Prednisone -Neuro consult Code(s): E16.2 - HYPOGLYCEMIA, UNSPECIFIED Assessment/Plan see problem list dvt ppx completed antibiotic course
[2019-03-29] MEDS: DEXTROSE 5%-LACTATED RINGERS 1,000 ML IV SCH (17:56)
--- NOTE | 2019-03-29 20:29 | PN ---
Progress Note, Physician Chief Complaint: AWAKE COMFORTABLE EATING WELL - Current Medication List Current Medications: Active Medications Carbidopa/Levodopa (Sinemet 25/100 -) 2 each PO 5XD [facility] Last Admin: 03/29/19 17:56 Dose: 2 each Cefuroxime Axetil (Ceftin -) 500 mg PO BID [facility] Last Admin: 03/29/19 09:30 Dose: 500 mg Dextrose (D50w (Syringe) -) 25 gm IVPUSH Q2H PRN PRN Reason: HYPOGLYCEMIA Last Admin: 03/28/19 05:05 Dose: 25 gm Docusate Sodium (Colace -) 100 mg PO TID [facility] Last Admin: 03/29/19 14:03 Dose: Not Given Dextrose/Lactated Ringer's (D5-Lr -) 1,000 mls @ 42 mls/hr IV ASDIR [facility] Last Admin: 03/29/19 17:56 Dose: 42 mls/hr Non-Formulary Medication (Non-Formulary Med) 0 each PO HS [facility] Last Admin: 03/28/19 21:26 Dose: 1 each Non-Formulary Medication (Pimavanserin Tartrate [Nuplazid]) 0 mg PO DAILY [facility] Last Admin: 03/29/19 09:32 Dose: 1 mg Polyethylene Glycol (Miralax (For Daily Use) -) 17 gm PO BID [facility] Last Admin: 03/29/19 09:37 Dose: 17 grams Prednisone (Deltasone -) 20 mg PO DAILY [facility] Last Admin: 03/29/19 09:30 Dose: 20 mg Rasagiline (Azilect -) 1 mg PO DAILY [facility] Last Admin: 03/29/19 09:33 Dose: 1 mg Tamsulosin HCl (Flomax -) 0.4 mg PO DAILY@0830 [facility] Last Admin: 03/29/19 09:30 Dose: 0.4 mg - Objective Vital Signs: Vital Signs Temperature 97.7 F 03/29/19 14:12 Pulse Rate 71 03/29/19 14:12 Respiratory Rate 18 03/29/19 09:28 Blood Pressure 106/56 L 03/29/19 14:12 O2 Sat by Pulse Oximetry (%) 98 03/29/19 10:00 Constitutional: Yes: Calm Eyes: Yes: EOM Intact HENT: Yes: Normocephalic Neck: Yes: Trachea Midline Cardiovascular: Yes: Regular Rate and Rhythm Respiratory: Yes: CTA Bilaterally Gastrointestinal: Yes: Normal Bowel Sounds ...Rectal Exam: Yes: Deferred Genitourinary: Yes: WNL Musculoskeletal: Yes: Joint Stiffness, Muscle Weakness Extremities: Yes: WNL Labs: CBC, BMP 03/29/19 07:29 03/29/19 07:29 INR, PTT INR 1.28 (0.83-1.09) H 03/16/19 16:10 Problem List - Problems (1) MAGY (acute kidney injury) Code(s): N17.9 - ACUTE KIDNEY FAILURE, UNSPECIFIED (2) Hypoglycemia (3) CAD (coronary artery disease) Code(s): I25.10 - ATHSCL HEART DISEASE OF [place] CORONARY ARTERY W/O ANG PCTRS Assessment/Plan Current Active Problems MAGY (acute kidney injury) (Acute) HLD (hyperlipidemia) (Acute) HTN (hypertension) (Acute) Hypoglycemia (Acute) Sepsis (Acute) 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
--- NOTE | 2019-03-29 20:33 | CON.NEURO ---
Consult Consult Specialty:: NEUROLOGY-JANIE LAGUNAS - History of Present Illness History of Present Illness: 74 yo M PMH HTN, HLD, Parkinson's, CAD (s/p cardiac stenting x 2), COPD and frequent falls, arrived from home via 911 with AMS. History provided by home nurse at bedside. Patient noted with hematuria for the past several weeks, went to barrel [facility] Dr. Roth yesterday. At the office urine was collected, however no antibiotics were stated awaiting UCx. Last night patient became progressively altered, and this morning noted with temperature of 102 F. Unable to conduct ROS. Patient in ED noted tachycardia, with rectal temperature of 102.9F in the ED, rocephine x1 given, also hypoglycemia (FBS: 60) D50 given. Being rx. for UTI/sepsis, as per caregiver he was ambulant with help at home, visual hallucinations for which he is on Nup[lazid have increased in last few days. History Source: Medical Record, Caregiver - Past Medical History GRILL PREP COOK: Yes: CVA, Parkinson's Cardio/Vascular: Yes: CAD (stents), HTN, Hyperlipdemia Pulmonary: Yes: COPD Hepatobiliary: Yes: Cirrhosis - Past Surgical History Past Surgical History: Yes: Hernia Repair (Inguinal hernia repair), Stent - Alcohol/Substance Use Hx Alcohol Use: No History of Substance Use: reports: None - Smoking History Smoking history: Never smoked Have you smoked in the past 12 months: No Aproximately how many cigarettes per day: 0 - Social History ADL: Support Services History of Recent Travel: No Home Medications - Allergies Allergies/Adverse Reactions: Allergies Allergy/AdvReac Type Severity Reaction Status Date / Time No Known Allergies Allergy Verified 03/16/19 15:31 - Home Medications Home Medications: Ambulatory Orders Atorvastatin Ca [Lipitor] 10 mg PO HS #30 tablet 02/23/17 Carbidopa/Levodopa 25/100 [Sinemet 25/100 -] 2 each PO 5XD #300 tablet 02/23/17 Tamsulosin HCl [Flomax -] 0.4 mg PO DAILY@0830 #30 tab 02/23/17 Aspirin [ASA -] 81 mg PO DAILY #30 tab.chew 03/08/17 Amantadine HCl [Gocovri] 68.5 mg PO HS 09/16/18 Cholecalciferol (Vitamin D3) [Vitamin D3] 1,000 unit PO DAILY 09/16/18 Acetaminophen [Tylenol] 650 mg PO PRN 03/17/19 Memantine HCl [Namenda -] 5 mg PO BID 03/17/19 Pimavanserin Tartrate [Nuplazid] 34 mg PO DAILY 03/20/19 Rasagiline Mesylate [Azilect -] 1 mg PO DAILY 03/20/19 Physical Exam-Neuro Vital Signs: Vital Signs Temperature 97.7 F 03/29/19 14:12 Pulse Rate 71 03/29/19 14:12 Respiratory Rate 18 03/29/19 09:28 Blood Pressure 106/56 L 03/29/19 14:12 O2 Sat by Pulse Oximetry (%) 98 03/29/19 10:00 Labs: CBC, BMP 03/29/19 07:29 03/29/19 07:29 INR, PTT INR 1.28 (0.83-1.09) H 03/16/19 16:10 - Neuro Exam Level Of Consciousness: Yes: Alert, Oriented to Person, Oriented to Place Eyes: Yes: MITCHEL Speech: Other (hypophonic/monotonous) Mini Mental Exam: Impaired att/conc/stm, follows 2 step commands DTR's: 0 Left Achilles, 0 Right Achilles, 1+ Left Bicep, 1+ Right Bicep, 1+ Left Tricep, 1+ Right Tricep, 1+ Left Brachioradialis, 1+ Right Brachioradialis Babinski: Absent Response to light touch: Normal (unabl;e to test rest of modalities) Motor Strength: 3/5: Left Leg, Right Leg (increased tone in both legs >both arms (cogwheel type)), 5/5: Left Arm, Right Arm Gait: Deferred Assessment/Plan Pt. with PD, related visual simmons. His motor/Parkinsonian status and hallucinations are worse 2/2 sepsis/encephalopathy from which he is recovering. Would cont.Levodopa/Primavanserin and Azilact at current doses, he appears worse due to illness and should recover with PT/rehab.
[2019-03-29] MEDS: NON-FORMULARY MED PO SCH (22:08)
[2019-03-30 03:24] VITALS: TEMP 98.2
[2019-03-30] MEDS: DOCUSATE SODIUM 100 MG CAPSULE (FP) PO SCH ×2 (06:14→14:29)
[2019-03-30] MEDS: CARBIDOPA/LEVODOPA 25/100 TABLET (FP) PO SCH ×3 (06:14→14:33)
[2019-03-30] MEDS: TAMSULOSIN HCL 0.4 MG CAP PO SCH (08:46)
[2019-03-30 09:01] LABS: HEMATOCRIT 36.5 % (35.4-49); HEMOGLOBIN 12.2 GM/dL (11.7-16.9); MCH 28.5 pg (25.7-33.7); MCHC 33.3 g/dl (32.0-35.9); MEAN CELL VOLUME 85.7 fl (80-96); MEAN PLT VOLUME 8.1 fl (7.5-11.1); PLATELET COUNT 548 K/MM3 (134-434); RBC 4.26 M/mm3 (4.00-5.60); RDW 15.2 % (11.9-15.9); WHITE BLOOD COUNT 7.6 K/mm3 (4.0-10.0)
[2019-03-30 09:30] LABS: ALBUMIN 2.4 g/dl (3.4-5.0); BILIRUBIN,TOTAL 0.4 mg/dL (0.2-1); BLOOD UREA NITROGEN 27.5 mg/dL (7-18); CALCIUM 7.9 mg/dL (8.5-10.1); CREATININE 0.9 mg/dL (0.55-1.3); POTASSIUM 4.8 mmol/L (3.5-5.1); TOT PROT 5.2 g/dl (6.4-8.2)
[2019-03-30] MEDS ORDERED: PT OWN MED DRAWER 7, Y5N ONE ×2 (09:56→11:00)
[2019-03-30] MEDS ORDERED: PANTOPRAZOLE 40 MG TABLET (FP) PO SCH (10:00)
[2019-03-30] MEDS ORDERED: predniSONE 5 MG TABLET (UD) PO SCH (10:00)
[2019-03-30] MEDS: CEFUROXIME AXETIL 500 MG TABLET PO SCH (10:34)
[2019-03-30] MEDS: RASAGILINE MESYLATE 1 MG TABLET PO SCH (10:35)
[2019-03-30] MEDS: PIMAVANSERIN TARTRATE PO SCH (10:36)
--- NOTE | 2019-03-30 10:36 | PN ---
Progress Note, Physician Chief Complaint: Sepsis Hypoglycemia History of Present Illness: Previous notes and events reviewed awake and alert NAD no leukocytosis afebrile BS improving after starting on prednisone but still labile - Current Medication List Current Medications: Active Medications Carbidopa/Levodopa (Sinemet 25/100 -) 2 each PO 5XD [facility] Last Admin: 03/30/19 06:14 Dose: 2 each Cefuroxime Axetil (Ceftin -) 500 mg PO BID [facility] Last Admin: 03/29/19 22:08 Dose: 500 mg Dextrose (D50w (Syringe) -) 25 gm IVPUSH Q2H PRN PRN Reason: HYPOGLYCEMIA Last Admin: 03/28/19 05:05 Dose: 25 gm Docusate Sodium (Colace -) 100 mg PO TID [facility] Last Admin: 03/30/19 06:14 Dose: 100 mg Dextrose/Lactated Ringer's (D5-Lr -) 1,000 mls @ 42 mls/hr IV ASDIR [facility] Last Admin: 03/29/19 17:56 Dose: 42 mls/hr Non-Formulary Medication (Non-Formulary Med) 0 each PO HS [facility] Last Admin: 03/29/19 22:08 Dose: 1 each Non-Formulary Medication (Pimavanserin Tartrate [Nuplazid]) 0 mg PO DAILY [facility] Last Admin: 03/29/19 09:32 Dose: 1 mg Pantoprazole Sodium (Protonix -) 40 mg PO DAILY [facility] Polyethylene Glycol (Miralax (For Daily Use) -) 17 gm PO BID [facility] Last Admin: 03/29/19 22:08 Dose: 17 grams Prednisone (Deltasone -) 15 mg PO DAILY [facility] Rasagiline (Azilect -) 1 mg PO DAILY [facility] Last Admin: 03/29/19 09:33 Dose: 1 mg Tamsulosin HCl (Flomax -) 0.4 mg PO DAILY@0830 [facility] Last Admin: 03/30/19 08:46 Dose: 0.4 mg - Objective Vital Signs: Vital Signs Temperature 98.2 F 03/30/19 05:50 Pulse Rate 66 03/30/19 05:50 Respiratory Rate 18 03/30/19 05:50 Blood Pressure 109/70 03/30/19 05:50 O2 Sat by Pulse Oximetry (%) 97 03/29/19 22:00 Constitutional: Yes: No Distress, Calm Eyes: Yes: Conjunctiva Clear HENT: Yes: Atraumatic Cardiovascular: Yes: Regular Rate and Rhythm Respiratory: Yes: Regular, CTA Bilaterally Gastrointestinal: Yes: Normal Bowel Sounds, Soft Genitourinary: Yes: Delaney Present Musculoskeletal: Yes: Muscle Weakness Extremities: Yes: WNL Edema: No Neurological: Yes: Alert, Confusion, Pre-Existing Deficit Psychiatric: Yes: Alert Labs: CBC, BMP 03/30/19 07:51 03/30/19 07:51 INR, PTT INR 1.28 (0.83-1.09) H 03/16/19 16:10 Microbiology 03/19/19 12:00 Blood - Peripheral Venous Blood Culture - Final NO GROWTH AFTER 5 DAYS INCUBATION 03/19/19 11:45 Blood - Peripheral Venous Blood Culture - Final NO GROWTH AFTER 5 DAYS INCUBATION 03/16/19 17:20 Urine - Urine - Catheterized Urine Culture - Final Escherichia Coli 03/16/19 16:00 Blood - Peripheral Venous Blood Culture - Final Escherichia Coli 03/16/19 16:17 Blood - Peripheral Venous Blood Culture - Final Escherichia Coli Problem List - Problems (1) MAGY (acute kidney injury) Assessment/Plan: -BUN/Cr 27.5/0.9 -monitor renal function Code(s): N17.9 - ACUTE KIDNEY FAILURE, UNSPECIFIED (2) HLD (hyperlipidemia) Assessment/Plan: -Atorvastatin Code(s): E78.5 - HYPERLIPIDEMIA, UNSPECIFIED (3) Sepsis Assessment/Plan: -ID on board -no leukocytosis -afebrile -BC and UC positive E.coli -repeat BC neg -CT shows mild bibasal atelectatic changes, left more than right, cannot rule out infiltrates -Ceftin -LA 3.9~1.5 Code(s): A41.9 - SEPSIS, UNSPECIFIED ORGANISM (4) Parkinson disease Assessment/Plan: -Carbidopa/Levodopa -fall precaution -PT -Neuro consult Code(s): G20 - PARKINSON'S DISEASE (5) Hypoglycemia Assessment/Plan: -Endocrinology consult -BGM ACHS -GI consult -D5/LR -D50 IVP prn for hypoglycemia BS <60mg/dL -Insulin level 116.9 -pro-insulin level 104.8 -GTH, Parathyroid -Ca 19-9 10 -cortisol level -Abd US done and reviewed -Abdomin CT Scan shows pancreas is unremarkeable -Prednisone -Neuro consult -will need to follow up as outpatient with specialist at [facility] Code(s): E16.2 - HYPOGLYCEMIA, UNSPECIFIED Assessment/Plan see problem list dvt ppx discussed with brother who is HCP about discharge planning, given patient still having labile BS would need frequent finger sticks at home, spoke with brother about option of SNF for discharge in regards to patients medical care, brother is in agreement and spoke with SW
[2019-03-30] MEDS: POLYETHYLENE GLYCOL 3350 119 GM BTL PO SCH (10:37)
[2019-03-30] MEDS: DEXTROSE 50%-WATER 25 GM/50 ML DISP.SYRIN IVPUSH PRN (11:15)
--- NOTE | 2019-03-30 11:46 | PN ---
Progress Note (short form) - Note Progress Note: HPI: 74 yo M PMH HTN, HLD, Parkinson's, CAD (s/p cardiac stenting x 2), COPD and frequent falls, arrived from home via 911 with AMS. History provided by home nurse at bedside. Patient noted with hematuria for the past several weeks, went to lube technician Dr. Roth yesterday. At the office urine was collected , however no antibiotics were stated awaiting UCx. Last night patient became progressively altered, and this morning noted with temperature of 102 F. Unable to conduct ROS. Patient in ED noted tachycardia, with rectal temperature of 102.9F in the ED, rocephine x1 given, also hypoglycemia (FBS: 60) D50 given. Being rx. for UTI/sepsis, as per caregiver he was ambulant with help at home, visual hallucinations for which he is on Nup[lazid have increased in last few days. FU today: awake comfortable and conversive History Source: Medical Record, Caregiver - Past Medical History [facility]: Yes: CVA, Parkinson's Cardio/Vascular: Yes: CAD (stents), HTN, Hyperlipdemia Pulmonary: Yes: COPD Hepatobiliary: Yes: Cirrhosis - Past Surgical History Past Surgical History: Yes: Hernia Repair (Inguinal hernia repair), Stent - Alcohol/Substance Use Hx Alcohol Use: No History of Substance Use: reports: None - Smoking History Smoking history: Never smoked Have you smoked in the past 12 months: No Aproximately how many cigarettes per day: 0 - Social History ADL: Support Services History of Recent Travel: No Home Medications - Allergies Allergies/Adverse Reactions: Allergies Allergy/AdvReac Type Severity Reaction Status Date / Time No Known Allergies Allergy Verified 03/16/19 15:31 - Home Medications Home Medications: Ambulatory Orders Atorvastatin Ca [Lipitor] 10 mg PO HS #30 tablet 02/23/17 Carbidopa/Levodopa 25/100 [Sinemet 25/100 -] 2 each PO 5XD #300 tablet 02/23/17 Tamsulosin HCl [Flomax -] 0.4 mg PO DAILY@0830 #30 tab 02/23/17 Aspirin [ASA -] 81 mg PO DAILY #30 tab.chew 03/08/17 Amantadine HCl [Gocovri] 68.5 mg PO HS 09/16/18 Cholecalciferol (Vitamin D3) [Vitamin D3] 1,000 unit PO DAILY 09/16/18 Acetaminophen [Tylenol] 650 mg PO PRN 03/17/19 Memantine HCl [Namenda -] 5 mg PO BID 03/17/19 Pimavanserin Tartrate [Nuplazid] 34 mg PO DAILY 03/20/19 Rasagiline Mesylate [Azilect -] 1 mg PO DAILY 03/20/19 Physical Exam-Neuro Vital Signs: Vital Signs Temperature 98.2 F 03/30/19 05:50 Pulse Rate 66 03/30/19 05:50 Respiratory Rate 18 03/30/19 05:50 Blood Pressure 109/70 03/30/19 05:50 O2 Sat by Pulse Oximetry (%) 97 03/29/19 22:00 Labs: CBCD WBC 7.6 K/mm3 (4.0-10.0) 03/30/19 07:51 RBC 4.26 M/mm3 (4.00-5.60) 03/30/19 07:51 Hgb 12.2 GM/dL (11.7-16.9) 03/30/19 07:51 Hct 36.5 % (35.4-49) 03/30/19 07:51 MCV 85.7 fl (80-96) 03/30/19 07:51 MCHC 33.3 g/dl (32.0-35.9) 03/30/19 07:51 RDW 15.2 % (11.9-15.9) 03/30/19 07:51 Plt Count 548 K/MM3 (134-434) H 03/30/19 07:51 MPV 8.1 fl (7.5-11.1) 03/30/19 07:51 CMP Sodium 141 mmol/L (136-145) 03/30/19 07:51 Potassium 4.8 mmol/L (3.5-5.1) 03/30/19 07:51 Chloride 107 mmol/L (98-107) 03/30/19 07:51 Carbon Dioxide 31 mmol/L (21-32) 03/30/19 07:51 Anion Gap 4 MMOL/L (8-16) L 03/30/19 07:51 BUN 27.5 mg/dL (7-18) H 03/30/19 07:51 Creatinine 0.9 mg/dL (0.55-1.3) 03/30/19 07:51 Calcium 7.9 mg/dL (8.5-10.1) L 03/30/19 07:51 Total Bilirubin 0.4 mg/dL (0.2-1) 03/30/19 07:51 AST 26 U/L (15-37) 03/30/19 07:51 ALT 15 U/L (13-61) 03/30/19 07:51 Alkaline Phosphatase 110 U/L (45-117) 03/30/19 07:51 Total Protein 5.2 g/dl (6.4-8.2) L 03/30/19 07:51 Albumin 2.4 g/dl (3.4-5.0) L 03/30/19 07:51 - Neuro Exam Level Of Consciousness: Yes: Alert, Oriented to Person, Oriented to Place Eyes: Yes: MITCHEL Speech: Other (hypophonic/monotonous) Mini Mental Exam: Impaired att/conc/stm, follows 2 step commands DTR's: 0 Left Achilles, 0 Right Achilles, 1+ Left Bicep, 1+ Right Bicep, 1+ Left Tricep, 1+ Right Tricep, 1+ Left Brachioradialis, 1+ Right Brachioradialis Babinski: Absent Response to light touch: Normal (unabl;e to test rest of modalities) Motor Strength: 3/5: Left Leg, Right Leg (increased tone in both legs >both arms (cogwheel type)), 5/5: Left Arm, Right Arm Gait: Deferred Assessment/Plan Pt. with PD, related visual simmons. His motor/Parkinsonian status and hallucinations are worse 2/2 sepsis/encephalopathy possible underlying LBD as well continue ABX as per ID continue PD RX neuro status stable DR MARISELA Ordoñez
[2019-03-30 13:46] VITALS: BP 122/57; PULSE 82
--- NOTE | 2019-03-30 14:43 | PN ---
Progress Note (short form) - Note Progress Note: PULMONARY More awake. No specific complaints. Vital Signs Period Temp Pulse Resp BP Sys/Ordoñez Pulse Ox Last 24 Hr 98.2 F-98.5 F 66-86 18-18 109-137/57-89 97-97 Gen: NAD at rest Heart: RRR Lung: decreased breath sounds at the bases Abd: soft, nontender Ext: no edema CBC, BMP 03/30/19 07:51 03/30/19 07:51 Active Medications Carbidopa/Levodopa (Sinemet 25/100 -) 2 each PO 5XD [facility] Last Admin: 03/30/19 14:33 Dose: 2 each Cefuroxime Axetil (Ceftin -) 500 mg PO BID [facility] Last Admin: 03/30/19 10:34 Dose: 500 mg Dextrose (D50w (Syringe) -) 25 gm IVPUSH Q2H PRN PRN Reason: HYPOGLYCEMIA Last Admin: 03/30/19 11:15 Dose: 25 gm Docusate Sodium (Colace -) 100 mg PO TID [facility] Last Admin: 03/30/19 14:29 Dose: Not Given Dextrose/Lactated Ringer's (D5-Lr -) 1,000 mls @ 42 mls/hr IV ASDIR [facility] Last Admin: 03/29/19 17:56 Dose: 42 mls/hr Non-Formulary Medication (Non-Formulary Med) 0 each PO HS [facility] Last Admin: 03/29/19 22:08 Dose: 1 each Non-Formulary Medication (Pimavanserin Tartrate [Nuplazid]) 0 mg PO DAILY [facility] Last Admin: 03/30/19 10:36 Dose: 1 mg Pantoprazole Sodium (Protonix -) 40 mg PO DAILY [facility] Last Admin: 03/30/19 10:37 Dose: 40 mg Polyethylene Glycol (Miralax (For Daily Use) -) 17 gm PO BID [facility] Last Admin: 03/30/19 10:37 Dose: 17 grams Prednisone (Deltasone -) 15 mg PO DAILY [facility] Last Admin: 03/30/19 10:33 Dose: 15 mg Rasagiline (Azilect -) 1 mg PO DAILY [facility] Last Admin: 03/30/19 10:35 Dose: 1 mg Tamsulosin HCl (Flomax -) 0.4 mg PO DAILY@0830 [facility] Last Admin: 03/30/19 08:46 Dose: 0.4 mg A/P UTI Gram Negative Bacteremia Severe Sepsis improving Lactic Acidosis resolved Hypoglycemia Atelectasis Acute Kidney Injury improving Elevated LFTs likely Ischemic Injury HTN Hyperlipidemia Parkinsons BPH - complete antibiotics - monitor urine output, creatinine - PO as tolerated - monitor glucose - OOB to chair - DVT prophylaxis - d/c planning
--- NOTE | 2019-03-30 15:52 | DS ---
Physical Examination Vital Signs: Vital Signs Temperature 98.2 F 03/30/19 13:44 Pulse Rate 82 03/30/19 13:44 Respiratory Rate 18 03/30/19 05:50 Blood Pressure 122/57 L 03/30/19 13:44 O2 Sat by Pulse Oximetry (%) 97 03/29/19 22:00 Findings/Remarks: Laboratory Tests 03/16/19 03/16/19 03/16/19 16:10 16:10 16:10 WBC 2.4 L RBC 5.34 Hgb 15.1 Hct 46.3 MCV 86.7 MCH 28.4 MCHC 32.7 RDW 14.4 Plt Count 411 MPV 7.2 L Absolute Neuts (auto) 2.2 Total Counted Neutrophils % 92.6 H D Neutrophils % (Manual) 88.0 H Band Neutrophils % 6.0 Lymphocytes % 6.1 L D Lymphocytes % (Manual) 4.0 L Monocytes % 0.8 L D Monocytes % (Manual) 2 L Eosinophils % 0.1 D Eosinophils % (Manual) Basophils % 0.4 Basophils % (Manual) Myelocytes % (Man) Promyelocytes % (Man) Blast Cells % (Manual) Nucleated RBC % 0 Metamyelocytes Hypochromia Platelet Estimate Adequate Polychromasia Poikilocytosis Anisocytosis Microcytosis Macrocytosis Spherocytes Tear Drop Cells Ovalocytes Dyan Cells PT with INR 15.10 H INR 1.28 H PTT (Actin FS) 27.8 VBG pH POC VBG pCO2 POC VBG pO2 VBG HCO3 VBG O2 Sat (Cristina) VBG Base Excess Sodium Potassium Chloride Carbon Dioxide Anion Gap BUN Creatinine Est GFR (CKD-EPI)AfAm Est GFR (CKD-EPI)NonAf Plasma Glucose POC Glucometer Random Glucose Hemoglobin A1c % Insulin Level Proinsulin Lactic Acid Calcium Phosphorus Magnesium Total Bilirubin AST ALT Alkaline Phosphatase Troponin I < 0.02 Total Protein Albumin CA 19-9 Antigen Serotonin Cortisol 30 Minute Cortisol 60 Minute Cortisol AM Sample Urine Color Urine Appearance Urine pH Ur Specific [place] Urine Protein Urine Glucose (UA) Urine Ketones Urine Blood Urine Nitrite Urine Bilirubin Urine Urobilinogen Ur Leukocyte Esterase Urine WBC (Auto) Urine RBC (Auto) Urine Casts (Auto) U Epithel Cells (Auto) Urine Bacteria (Auto) Blood Type Antibody Screen 03/16/19 03/16/19 03/16/19 16:10 16:10 16:10 WBC RBC Hgb Hct MCV MCH MCHC RDW Plt Count MPV Absolute Neuts (auto) Total Counted Neutrophils % Neutrophils % (Manual) Band Neutrophils % Lymphocytes % Lymphocytes % (Manual) Monocytes % Monocytes % (Manual) Eosinophils % Eosinophils % (Manual) Basophils % Basophils % (Manual) Myelocytes % (Man) Promyelocytes % (Man) Blast Cells % (Manual) Nucleated RBC % Metamyelocytes Hypochromia Platelet Estimate Polychromasia Poikilocytosis Anisocytosis Microcytosis Macrocytosis Spherocytes Tear Drop Cells Ovalocytes Dyan Cells PT with INR INR PTT (Actin FS) VBG pH POC VBG pCO2 POC VBG pO2 VBG HCO3 VBG O2 Sat (Cristina) VBG Base Excess Sodium 147 H Potassium 4.1 Chloride 106 Carbon Dioxide 29 Anion Gap 11 BUN 35.6 H Creatinine 1.8 H Est GFR (CKD-EPI)AfAm 41.45 Est GFR (CKD-EPI)NonAf 35.76 Plasma Glucose POC Glucometer Random Glucose 62 L Hemoglobin A1c % Insulin Level Proinsulin Lactic Acid 4.8 H* Calcium 9.0 Phosphorus Magnesium Total Bilirubin 1.6 H AST 48 H ALT 14 Alkaline Phosphatase 134 H Troponin I Total Protein 7.2 Albumin 3.6 CA 19-9 Antigen Serotonin Cortisol 30 Minute Cortisol 60 Minute Cortisol AM Sample Urine Color Urine Appearance Urine pH Ur Specific [place] Urine Protein Urine Glucose (UA) Urine Ketones Urine Blood Urine Nitrite Urine Bilirubin Urine Urobilinogen Ur Leukocyte Esterase Urine WBC (Auto) Urine RBC (Auto) Urine Casts (Auto) U Epithel Cells (Auto) Urine Bacteria (Auto) Blood Type A POSITIVE Antibody Screen Negative 03/16/19 03/16/19 03/16/19 16:10 17:20 19:35 WBC RBC Hgb Hct MCV MCH MCHC RDW Plt Count MPV Absolute Neuts (auto) Total Counted Neutrophils % Neutrophils % (Manual) Band Neutrophils % Lymphocytes % Lymphocytes % (Manual) Monocytes % Monocytes % (Manual) Eosinophils % Eosinophils % (Manual) Basophils % Basophils % (Manual) Myelocytes % (Man) Promyelocytes % (Man) Blast Cells % (Manual) Nucleated RBC % Metamyelocytes Hypochromia Platelet Estimate Polychromasia Poikilocytosis Anisocytosis Microcytosis Macrocytosis Spherocytes Tear Drop Cells Ovalocytes [place] Cells PT with INR INR PTT (Actin FS) VBG pH 7.42 H POC VBG pCO2 44.8 POC VBG pO2 No Result Required. VBG HCO3 28.3 VBG O2 Sat (Cristina) 45.1 L VBG Base Excess 3.7 H Sodium Potassium Chloride Carbon Dioxide Anion Gap BUN Creatinine Est GFR (CKD-EPI)AfAm Est GFR (CKD-EPI)NonAf Plasma Glucose POC Glucometer 60 Random Glucose Hemoglobin A1c % Insulin Level Proinsulin Lactic Acid Calcium Phosphorus Magnesium Total Bilirubin AST ALT Alkaline Phosphatase Troponin I Total Protein Albumin CA 19-9 Antigen Serotonin Cortisol 30 Minute Cortisol 60 Minute Cortisol AM Sample Urine Color Yellow Urine Appearance Cloudy Urine pH 6.5 Ur Specific [place] 1.014 Urine Protein 1+ H Urine Glucose (UA) Negative Urine Ketones Negative Urine Blood 3+ H Urine Nitrite Negative Urine Bilirubin Negative Urine Urobilinogen 0.2 Ur Leukocyte Esterase Trace Urine WBC (Auto) 7 Urine RBC (Auto) 17 Urine Casts (Auto) 6 U Epithel Cells (Auto) 6.7 Urine Bacteria (Auto) 562.6 Blood Type Antibody Screen 03/16/19 03/17/19 03/17/19 20:08 00:35 02:46 WBC RBC Hgb Hct MCV MCH MCHC RDW Plt Count MPV Absolute Neuts (auto) Total Counted Neutrophils % Neutrophils % (Manual) Band Neutrophils % Lymphocytes % Lymphocytes % (Manual) Monocytes % Monocytes % (Manual) Eosinophils % Eosinophils % (Manual) Basophils % Basophils % (Manual) Myelocytes % (Man) Promyelocytes % (Man) Blast Cells % (Manual) Nucleated RBC % Metamyelocytes Hypochromia Platelet Estimate Polychromasia Poikilocytosis Anisocytosis Microcytosis Macrocytosis Spherocytes Tear Drop Cells Ovalocytes [place] Cells PT with INR INR PTT (Actin FS) VBG pH POC VBG pCO2 POC VBG pO2 VBG HCO3 VBG O2 Sat (Cristina) VBG Base Excess Sodium Potassium Chloride Carbon Dioxide Anion Gap BUN Creatinine Est GFR (CKD-EPI)AfAm Est GFR (CKD-EPI)NonAf Plasma Glucose POC Glucometer 32 Random Glucose Hemoglobin A1c % Insulin Level Proinsulin Lactic Acid 5.4 H* 4.3 H* Calcium Phosphorus Magnesium Total Bilirubin AST ALT Alkaline Phosphatase Troponin I Total Protein Albumin CA 19-9 Antigen Serotonin Cortisol 30 Minute Cortisol 60 Minute Cortisol AM Sample Urine Color Urine Appearance Urine pH Ur Specific [place] Urine Protein Urine Glucose (UA) Urine Ketones Urine Blood Urine Nitrite Urine Bilirubin Urine Urobilinogen Ur Leukocyte Esterase Urine WBC (Auto) Urine RBC (Auto) Urine Casts (Auto) U Epithel Cells (Auto) Urine Bacteria (Auto) Blood Type Antibody Screen 03/17/19 03/17/19 03/17/19 03:04 03:51 04:21 WBC RBC Hgb Hct MCV MCH MCHC RDW Plt Count MPV Absolute Neuts (auto) Total Counted Neutrophils % Neutrophils % (Manual) Band Neutrophils % Lymphocytes % Lymphocytes % (Manual) Monocytes % Monocytes % (Manual) Eosinophils % Eosinophils % (Manual) Basophils % Basophils % (Manual) Myelocytes % (Man) Promyelocytes % (Man) Blast Cells % (Manual) Nucleated RBC % Metamyelocytes Hypochromia Platelet Estimate Polychromasia Poikilocytosis Anisocytosis Microcytosis Macrocytosis Spherocytes Tear Drop Cells Ovalocytes [place]yan Cells PT with INR INR PTT (Actin FS) VBG pH POC VBG pCO2 POC VBG pO2 VBG HCO3 VBG O2 Sat (Cristina) VBG Base Excess Sodium Potassium Chloride Carbon Dioxide Anion Gap BUN Creatinine Est GFR (CKD-EPI)AfAm Est GFR (CKD-EPI)NonAf Plasma Glucose POC Glucometer 142 90 84 Random Glucose Hemoglobin A1c % Insulin Level Proinsulin Lactic Acid Calcium Phosphorus Magnesium Total Bilirubin AST ALT Alkaline Phosphatase Troponin I Total Protein Albumin CA 19-9 Antigen Serotonin Cortisol 30 Minute Cortisol 60 Minute Cortisol AM Sample Urine Color Urine Appearance Urine pH Ur Specific [place] Urine Protein Urine Glucose (UA) Urine Ketones Urine Blood Urine Nitrite Urine Bilirubin Urine Urobilinogen Ur Leukocyte Esterase Urine WBC (Auto) Urine RBC (Auto) Urine Casts (Auto) U Epithel Cells (Auto) Urine Bacteria (Auto) Blood Type Antibody Screen 03/17/19 03/17/19 03/17/19 04:56 05:54 05:57 WBC RBC Hgb Hct MCV MCH MCHC RDW Plt Count MPV Absolute Neuts (auto) Total Counted Neutrophils % Neutrophils % (Manual) Band Neutrophils % Lymphocytes % Lymphocytes % (Manual) Monocytes % Monocytes % (Manual) Eosinophils % Eosinophils % (Manual) Basophils % Basophils % (Manual) Myelocytes % (Man) Promyelocytes % (Man) Blast Cells % (Manual) Nucleated RBC % Metamyelocytes Hypochromia Platelet Estimate Polychromasia Poikilocytosis Anisocytosis Microcytosis Macrocytosis Spherocytes Tear Drop Cells Ovalocytes Dyan Cells PT with INR INR PTT (Actin FS) VBG pH POC VBG pCO2 POC VBG pO2 VBG HCO3 VBG O2 Sat (Cristina) VBG Base Excess Sodium Potassium Chloride Carbon Dioxide Anion Gap BUN Creatinine Est GFR (CKD-EPI)AfAm Est GFR (CKD-EPI)NonAf Plasma Glucose POC Glucometer 77 58 36 Random Glucose Hemoglobin A1c % Insulin Level Proinsulin Lactic Acid Calcium Phosphorus Magnesium Total Bilirubin AST ALT Alkaline Phosphatase Troponin I Total Protein Albumin CA 19-9 Antigen Serotonin Cortisol 30 Minute Cortisol 60 Minute Cortisol AM Sample Urine Color Urine Appearance Urine pH Ur Specific [place] Urine Protein Urine Glucose (UA) Urine Ketones Urine Blood Urine Nitrite Urine Bilirubin Urine Urobilinogen Ur Leukocyte Esterase Urine WBC (Auto) Urine RBC (Auto) Urine Casts (Auto) U Epithel Cells (Auto) Urine Bacteria (Auto) Blood Type Antibody Screen 03/17/19 03/17/19 03/17/19 06:03 06:30 06:30 WBC 23.4 H RBC 3.92 L Hgb 11.0 L Hct 33.8 L D MCV 86.2 MCH 28.2 MCHC 32.7 RDW 14.2 Plt Count 274 D MPV 7.4 L Absolute Neuts (auto) Total Counted Neutrophils % Neutrophils % (Manual) Band Neutrophils % Lymphocytes % Lymphocytes % (Manual) Monocytes % Monocytes % (Manual) Eosinophils % Eosinophils % (Manual) Basophils % Basophils % (Manual) Myelocytes % (Man) Promyelocytes % (Man) Blast Cells % (Manual) Nucleated RBC % Metamyelocytes Hypochromia Platelet Estimate Polychromasia Poikilocytosis Anisocytosis Microcytosis Macrocytosis Spherocytes Tear Drop Cells Ovalocytes [place] Cells PT with INR INR PTT (Actin FS) VBG pH POC VBG pCO2 POC VBG pO2 VBG HCO3 VBG O2 Sat (Cristina) VBG Base Excess Sodium 143 Potassium 3.8 Chloride 109 H Carbon Dioxide 24 Anion Gap 10 BUN 31.1 H Creatinine 1.7 H Est GFR (CKD-EPI)AfAm 44.41 Est GFR (CKD-EPI)NonAf 38.32 Plasma Glucose POC Glucometer 28 Random Glucose 186 H Hemoglobin A1c % Insulin Level Proinsulin Lactic Acid Calcium 7.2 L Phosphorus Magnesium Total Bilirubin 0.8 AST 221 H ALT 159 H Alkaline Phosphatase 135 H Troponin I Total Protein 4.5 L Albumin 2.2 L CA 19-9 Antigen Serotonin Cortisol 30 Minute Cortisol 60 Minute Cortisol AM Sample Urine Color Urine Appearance Urine pH Ur Specific [place] Urine Protein Urine Glucose (UA) Urine Ketones Urine Blood Urine Nitrite Urine Bilirubin Urine Urobilinogen Ur Leukocyte Esterase Urine WBC (Auto) Urine RBC (Auto) Urine Casts (Auto) U Epithel Cells (Auto) Urine Bacteria (Auto) Blood Type Antibody Screen 03/17/19 03/17/19 03/17/19 07:39 08:28 09:22 WBC RBC Hgb Hct MCV MCH MCHC RDW Plt Count MPV Absolute Neuts (auto) Total Counted Neutrophils % Neutrophils % (Manual) Band Neutrophils % Lymphocytes % Lymphocytes % (Manual) Monocytes % Monocytes % (Manual) Eosinophils % Eosinophils % (Manual) Basophils % Basophils % (Manual) Myelocytes % (Man) Promyelocytes % (Man) Blast Cells % (Manual) Nucleated RBC % Metamyelocytes Hypochromia Platelet Estimate Polychromasia Poikilocytosis Anisocytosis Microcytosis Macrocytosis Spherocytes Tear Drop Cells Ovalocytes [place]yan Cells PT with INR INR PTT (Actin FS) VBG pH POC VBG pCO2 POC VBG pO2 VBG HCO3 VBG O2 Sat (Cristina) VBG Base Excess Sodium Potassium Chloride Carbon Dioxide Anion Gap BUN Creatinine Est GFR (CKD-EPI)AfAm Est GFR (CKD-EPI)NonAf Plasma Glucose 150 H POC Glucometer 99 51 Random Glucose Hemoglobin A1c % Insulin Level Proinsulin Lactic Acid Calcium Phosphorus Magnesium Total Bilirubin AST ALT Alkaline Phosphatase Troponin I Total Protein Albumin CA 19-9 Antigen Serotonin Cortisol 30 Minute Cortisol 60 Minute Cortisol AM Sample Urine Color Urine Appearance Urine pH Ur Specific [place] Urine Protein Urine Glucose (UA) Urine Ketones Urine Blood Urine Nitrite Urine Bilirubin Urine Urobilinogen Ur Leukocyte Esterase Urine WBC (Auto) Urine RBC (Auto) Urine Casts (Auto) U Epithel Cells (Auto) Urine Bacteria (Auto) Blood Type Antibody Screen 03/17/19 03/17/19 03/17/19 09:22 09:22 09:55 WBC RBC Hgb Hct MCV MCH MCHC RDW Plt Count MPV Absolute Neuts (auto) Total Counted Neutrophils % Neutrophils % (Manual) Band Neutrophils % Lymphocytes % Lymphocytes % (Manual) Monocytes % Monocytes % (Manual) Eosinophils % Eosinophils % (Manual) Basophils % Basophils % (Manual) Myelocytes % (Man) Promyelocytes % (Man) Blast Cells % (Manual) Nucleated RBC % Metamyelocytes Hypochromia Platelet Estimate Polychromasia Poikilocytosis Anisocytosis Microcytosis Macrocytosis Spherocytes Tear Drop Cells Ovalocytes [place] Cells PT with INR INR PTT (Actin FS) VBG pH POC VBG pCO2 POC VBG pO2 VBG HCO3 VBG O2 Sat (Cristian) VBG Base Excess Sodium Potassium Chloride Carbon Dioxide Anion Gap BUN Creatinine Est GFR (CKD-EPI)AfAm Est GFR (CKD-EPI)NonAf Plasma Glucose POC Glucometer 84 Random Glucose Hemoglobin A1c % Insulin Level 116.9 H Proinsulin 104.8 H Lactic Acid Calcium Phosphorus Magnesium Total Bilirubin AST ALT Alkaline Phosphatase Troponin I Total Protein Albumin CA 19-9 Antigen Serotonin Cortisol 30 Minute Cortisol 60 Minute Cortisol AM Sample Urine Color Urine Appearance Urine pH Ur Specific [place] Urine Protein Urine Glucose (UA) Urine Ketones Urine Blood Urine Nitrite Urine Bilirubin Urine Urobilinogen Ur Leukocyte Esterase Urine WBC (Auto) Urine RBC (Auto) Urine Casts (Auto) U Epithel Cells (Auto) Urine Bacteria (Auto) Blood Type Antibody Screen 03/17/19 03/17/19 03/17/19 10:54 11:33 11:58 WBC RBC Hgb Hct MCV MCH MCHC RDW Plt Count MPV Absolute Neuts (auto) Total Counted Neutrophils % Neutrophils % (Manual) Band Neutrophils % Lymphocytes % Lymphocytes % (Manual) Monocytes % Monocytes % (Manual) Eosinophils % Eosinophils % (Manual) Basophils % Basophils % (Manual) Myelocytes % (Man) Promyelocytes % (Man) Blast Cells % (Manual) Nucleated RBC % Metamyelocytes Hypochromia Platelet Estimate Polychromasia Poikilocytosis Anisocytosis Microcytosis Macrocytosis Spherocytes Tear Drop Cells Ovalocytes [place]yan Cells PT with INR INR PTT (Actin FS) VBG pH POC VBG pCO2 POC VBG pO2 VBG HCO3 VBG O2 Sat (Cristina) VBG Base Excess Sodium Potassium Chloride Carbon Dioxide Anion Gap BUN Creatinine Est GFR (CKD-EPI)AfAm Est GFR (CKD-EPI)NonAf Plasma Glucose POC Glucometer 44 12 45 Random Glucose Hemoglobin A1c % Insulin Level Proinsulin Lactic Acid Calcium Phosphorus Magnesium Total Bilirubin AST ALT Alkaline Phosphatase Troponin I Total Protein Albumin CA 19-9 Antigen Serotonin Cortisol 30 Minute Cortisol 60 Minute Cortisol AM Sample Urine Color Urine Appearance Urine pH Ur Specific [place] Urine Protein Urine Glucose (UA) Urine Ketones Urine Blood Urine Nitrite Urine Bilirubin Urine Urobilinogen Ur Leukocyte Esterase Urine WBC (Auto) Urine RBC (Auto) Urine Casts (Auto) U Epithel Cells (Auto) Urine Bacteria (Auto) Blood Type Antibody Screen 03/17/19 03/17/19 03/17/19 12:02 12:56 16:36 WBC RBC Hgb Hct MCV MCH MCHC RDW Plt Count MPV Absolute Neuts (auto) Total Counted Neutrophils % Neutrophils % (Manual) Band Neutrophils % Lymphocytes % Lymphocytes % (Manual) Monocytes % Monocytes % (Manual) Eosinophils % Eosinophils % (Manual) Basophils % Basophils % (Manual) Myelocytes % (Man) Promyelocytes % (Man) Blast Cells % (Manual) Nucleated RBC % Metamyelocytes Hypochromia Platelet Estimate Polychromasia Poikilocytosis Anisocytosis Microcytosis Macrocytosis Spherocytes Tear Drop Cells Ovalocytes [place] Cells PT with INR INR PTT (Actin FS) VBG pH POC VBG pCO2 POC VBG pO2 VBG HCO3 VBG O2 Sat (Cristina) VBG Base Excess Sodium Potassium Chloride Carbon Dioxide Anion Gap BUN Creatinine Est GFR (CKD-EPI)AfAm Est GFR (CKD-EPI)NonAf Plasma Glucose POC Glucometer 86 13 Random Glucose Hemoglobin A1c % Insulin Level Proinsulin Lactic Acid 4.0 H* Calcium Phosphorus Magnesium Total Bilirubin AST ALT Alkaline Phosphatase Troponin I Total Protein Albumin CA 19-9 Antigen Serotonin Cortisol 30 Minute Cortisol 60 Minute Cortisol AM Sample Urine Color Urine Appearance Urine pH Ur Specific [place] Urine Protein Urine Glucose (UA) Urine Ketones Urine Blood Urine Nitrite Urine Bilirubin Urine Urobilinogen Ur Leukocyte Esterase Urine WBC (Auto) Urine RBC (Auto) Urine Casts (Auto) U Epithel Cells (Auto) Urine Bacteria (Auto) Blood Type Antibody Screen 03/17/19 03/17/19 03/17/19 17:00 17:47 18:30 WBC RBC Hgb Hct MCV MCH MCHC RDW Plt Count MPV Absolute Neuts (auto) Total Counted Neutrophils % Neutrophils % (Manual) Band Neutrophils % Lymphocytes % Lymphocytes % (Manual) Monocytes % Monocytes % (Manual) Eosinophils % Eosinophils % (Manual) Basophils % Basophils % (Manual) Myelocytes % (Man) Promyelocytes % (Man) Blast Cells % (Manual) Nucleated RBC % Metamyelocytes Hypochromia Platelet Estimate Polychromasia Poikilocytosis Anisocytosis Microcytosis Macrocytosis Spherocytes Tear Drop Cells Ovalocytes [place] Cells PT with INR INR PTT (Actin FS) VBG pH POC VBG pCO2 POC VBG pO2 VBG HCO3 VBG O2 Sat (Cristina) VBG Base Excess Sodium Potassium Chloride Carbon Dioxide Anion Gap BUN Creatinine Est GFR (CKD-EPI)AfAm Est GFR (CKD-EPI)NonAf Plasma Glucose POC Glucometer 14 219 Random Glucose Hemoglobin A1c % Insulin Level Proinsulin Lactic Acid 3.4 H* Calcium Phosphorus Magnesium Total Bilirubin AST ALT Alkaline Phosphatase Troponin I Total Protein Albumin CA 19-9 Antigen Serotonin Cortisol 30 Minute Cortisol 60 Minute Cortisol AM Sample Urine Color Urine Appearance Urine pH Ur Specific [place] Urine Protein Urine Glucose (UA) Urine Ketones Urine Blood Urine Nitrite Urine Bilirubin Urine Urobilinogen Ur Leukocyte Esterase Urine WBC (Auto) Urine RBC (Auto) Urine Casts (Auto) U Epithel Cells (Auto) Urine Bacteria (Auto) Blood Type Antibody Screen 03/17/19 03/17/19 03/17/19 18:30 18:48 20:50 WBC RBC Hgb Hct MCV MCH MCHC RDW Plt Count MPV Absolute Neuts (auto) Total Counted Neutrophils % Neutrophils % (Manual) Band Neutrophils % Lymphocytes % Lymphocytes % (Manual) Monocytes % Monocytes % (Manual) Eosinophils % Eosinophils % (Manual) Basophils % Basophils % (Manual) Myelocytes % (Man) Promyelocytes % (Man) Blast Cells % (Manual) Nucleated RBC % Metamyelocytes Hypochromia Platelet Estimate Polychromasia Poikilocytosis Anisocytosis Microcytosis Macrocytosis Spherocytes Tear Drop Cells Ovalocytes [place] Cells PT with INR INR PTT (Actin FS) VBG pH POC VBG pCO2 POC VBG pO2 VBG HCO3 VBG O2 Sat (Cristina) VBG Base Excess Sodium 144 Potassium 3.4 L Chloride 112 H Carbon Dioxide 23 Anion Gap 9 BUN 26.0 H Creatinine 1.3 Est GFR (CKD-EPI)AfAm 61.43 Est GFR (CKD-EPI)NonAf 53.00 Plasma Glucose POC Glucometer 208 91 Random Glucose 203 H Hemoglobin A1c % Insulin Level Proinsulin Lactic Acid Calcium 7.1 L Phosphorus Magnesium Total Bilirubin AST ALT Alkaline Phosphatase Troponin I Total Protein Albumin CA 19-9 Antigen Serotonin Cortisol 30 Minute Cortisol 60 Minute Cortisol AM Sample Urine Color Urine Appearance Urine pH Ur Specific [place] Urine Protein Urine Glucose (UA) Urine Ketones Urine Blood Urine Nitrite Urine Bilirubin Urine Urobilinogen Ur Leukocyte Esterase Urine WBC (Auto) Urine RBC (Auto) Urine Casts (Auto) U Epithel Cells (Auto) Urine Bacteria (Auto) Blood Type Antibody Screen 0903/17/19 03/17/19 21:49 23:26 23:30 WBC RBC Hgb Hct MCV MCH MCHC RDW Plt Count MPV Absolute Neuts (auto) Total Counted Neutrophils % Neutrophils % (Manual) Band Neutrophils % Lymphocytes % Lymphocytes % (Manual) Monocytes % Monocytes % (Manual) Eosinophils % Eosinophils % (Manual) Basophils % Basophils % (Manual) Myelocytes % (Man) Promyelocytes % (Man) Blast Cells % (Manual) Nucleated RBC % Metamyelocytes Hypochromia Platelet Estimate Polychromasia Poikilocytosis Anisocytosis Microcytosis Macrocytosis Spherocytes Tear Drop Cells Ovalocytes [place] Cells PT with INR INR PTT (Actin FS) VBG pH POC VBG pCO2 POC VBG pO2 VBG HCO3 VBG O2 Sat (Cristina) VBG Base Excess Sodium 148 H Potassium 4.3 Chloride 114 H Carbon Dioxide 28 Anion Gap 6 L BUN 24.9 H Creatinine 1.4 H Est GFR (CKD-EPI)AfAm 56.16 Est GFR (CKD-EPI)NonAf 48.46 Plasma Glucose POC Glucometer 53 105 Random Glucose 106 Hemoglobin A1c % Insulin Level Proinsulin Lactic Acid Calcium 7.2 L Phosphorus Magnesium Total Bilirubin AST ALT Alkaline Phosphatase Troponin I Total Protein Albumin CA 19-9 Antigen Serotonin Cortisol 30 Minute Cortisol 60 Minute Cortisol AM Sample Urine Color Urine Appearance Urine pH Ur Specific [place] Urine Protein Urine Glucose (UA) Urine Ketones Urine Blood Urine Nitrite Urine Bilirubin Urine Urobilinogen Ur Leukocyte Esterase Urine WBC (Auto) Urine RBC (Auto) Urine Casts (Auto) U Epithel Cells (Auto) Urine Bacteria (Auto) Blood Type Antibody Screen 03/18/19 03/18/19 03/18/19 01:07 03:48 05:18 WBC RBC Hgb Hct MCV MCH MCHC RDW Plt Count MPV Absolute Neuts (auto) Total Counted Neutrophils % Neutrophils % (Manual) Band Neutrophils % Lymphocytes % Lymphocytes % (Manual) Monocytes % Monocytes % (Manual) Eosinophils % Eosinophils % (Manual) Basophils % Basophils % (Manual) Myelocytes % (Man) Promyelocytes % (Man) Blast Cells % (Manual) Nucleated RBC % Metamyelocytes Hypochromia Platelet Estimate Polychromasia Poikilocytosis Anisocytosis Microcytosis Macrocytosis Spherocytes Tear Drop Cells Ovalocytes [place] Cells PT with INR INR PTT (Actin FS) VBG pH POC VBG pCO2 POC VBG pO2 VBG HCO3 VBG O2 Sat (Cristina) VBG Base Excess Sodium Potassium Chloride Carbon Dioxide Anion Gap BUN Creatinine Est GFR (CKD-EPI)AfAm Est GFR (CKD-EPI)NonAf Plasma Glucose POC Glucometer 43 92 56 Random Glucose Hemoglobin A1c % Insulin Level Proinsulin Lactic Acid Calcium Phosphorus Magnesium Total Bilirubin AST ALT Alkaline Phosphatase Troponin I Total Protein Albumin CA 19-9 Antigen Serotonin Cortisol 30 Minute Cortisol 60 Minute Cortisol AM Sample Urine Color Urine Appearance Urine pH Ur Specific [place] Urine Protein Urine Glucose (UA) Urine Ketones Urine Blood Urine Nitrite Urine Bilirubin Urine Urobilinogen Ur Leukocyte Esterase Urine WBC (Auto) Urine RBC (Auto) Urine Casts (Auto) U Epithel Cells (Auto) Urine Bacteria (Auto) Blood Type Antibody Screen 03/18/19 03/18/19 03/18/19 05:50 05:50 05:50 WBC 31.1 H* RBC 4.07 Hgb 11.5 L Hct 34.8 L MCV 85.5 MCH 28.4 MCHC 33.2 RDW 14.6 Plt Count 259 MPV 8.4 D Absolute Neuts (auto) 29.4 H Total Counted Neutrophils % 94.6 H Neutrophils % (Manual) 63.0 D Band Neutrophils % 22.0 Lymphocytes % 3.2 L D Lymphocytes % (Manual) 3.0 L D Monocytes % 2.1 L D Monocytes % (Manual) 4 D Eosinophils % 0.0 D Eosinophils % (Manual) 0.0 Basophils % 0.1 Basophils % (Manual) 0.0 Myelocytes % (Man) 0 Promyelocytes % (Man) 0 Blast Cells % (Manual) 0 Nucleated RBC % 0 Metamyelocytes 8 H Hypochromia 0 Platelet Estimate Normal Polychromasia 0 Poikilocytosis 2+ Anisocytosis 2+ Microcytosis 2+ Macrocytosis 0 Spherocytes 1+ Tear Drop Cells 1+ Ovalocytes 1+ [place] Cells 2+ PT with INR INR PTT (Actin FS) VBG pH POC VBG pCO2 POC VBG pO2 VBG HCO3 VBG O2 Sat (Cristnia) VBG Base Excess Sodium 147 H Potassium 4.6 Chloride 113 H Carbon Dioxide 28 Anion Gap 6 L BUN 23.4 H Creatinine 1.3 Est GFR (CKD-EPI)AfAm 61.43 Est GFR (CKD-EPI)NonAf 53.00 Plasma Glucose POC Glucometer Random Glucose 185 H Hemoglobin A1c % Insulin Level Proinsulin Lactic Acid Calcium 7.3 L Phosphorus 2.0 L Magnesium 1.8 Total Bilirubin 0.6 AST 98 H ALT 120 H Alkaline Phosphatase 119 H Troponin I Total Protein 4.4 L Albumin 2.0 L CA 19-9 Antigen Serotonin Cortisol 30 Minute Cortisol 60 Minute Cortisol AM Sample 14.4 Urine Color Urine Appearance Urine pH Ur Specific [place] Urine Protein Urine Glucose (UA) Urine Ketones Urine Blood Urine Nitrite Urine Bilirubin Urine Urobilinogen Ur Leukocyte Esterase Urine WBC (Auto) Urine RBC (Auto) Urine Casts (Auto) U Epithel Cells (Auto) Urine Bacteria (Auto) Blood Type Antibody Screen 03/18/19 03/18/19 03/18/19 05:50 07:05 09:47 WBC RBC Hgb Hct MCV MCH MCHC RDW Plt Count MPV Absolute Neuts (auto) Total Counted Neutrophils % Neutrophils % (Manual) Band Neutrophils % Lymphocytes % Lymphocytes % (Manual) Monocytes % Monocytes % (Manual) Eosinophils % Eosinophils % (Manual) Basophils % Basophils % (Manual) Myelocytes % (Man) Promyelocytes % (Man) Blast Cells % (Manual) Nucleated RBC % Metamyelocytes Hypochromia Platelet Estimate Polychromasia Poikilocytosis Anisocytosis Microcytosis Macrocytosis Spherocytes Tear Drop Cells Ovalocytes [place] Cells PT with INR INR PTT (Actin FS) VBG pH POC VBG pCO2 POC VBG pO2 VBG HCO3 VBG O2 Sat (Cristina) VBG Base Excess Sodium Potassium Chloride Carbon Dioxide Anion Gap BUN Creatinine Est GFR (CKD-EPI)AfAm Est GFR (CKD-EPI)NonAf Plasma Glucose POC Glucometer 71 55 Random Glucose Hemoglobin A1c % Insulin Level Proinsulin Lactic Acid 3.9 H* Calcium Phosphorus Magnesium Total Bilirubin AST ALT Alkaline Phosphatase Troponin I Total Protein Albumin CA 19-9 Antigen Serotonin Cortisol 30 Minute Cortisol 60 Minute Cortisol AM Sample Urine Color Urine Appearance Urine pH Ur Specific [place] Urine Protein Urine Glucose (UA) Urine Ketones Urine Blood Urine Nitrite Urine Bilirubin Urine Urobilinogen Ur Leukocyte Esterase Urine WBC (Auto) Urine RBC (Auto) Urine Casts (Auto) U Epithel Cells (Auto) Urine Bacteria (Auto) Blood Type Antibody Screen 03/18/19 03/18/19 03/18/19 11:11 13:21 13:45 WBC RBC Hgb Hct MCV MCH MCHC RDW Plt Count MPV Absolute Neuts (auto) Total Counted Neutrophils % Neutrophils % (Manual) Band Neutrophils % Lymphocytes % Lymphocytes % (Manual) Monocytes % Monocytes % (Manual) Eosinophils % Eosinophils % (Manual) Basophils % Basophils % (Manual) Myelocytes % (Man) Promyelocytes % (Man) Blast Cells % (Manual) Nucleated RBC % Metamyelocytes Hypochromia Platelet Estimate Polychromasia Poikilocytosis Anisocytosis Microcytosis Macrocytosis Spherocytes Tear Drop Cells Ovalocytes [place] Cells PT with INR INR PTT (Actin FS) VBG pH POC VBG pCO2 POC VBG pO2 VBG HCO3 VBG O2 Sat (Cristina) VBG Base Excess Sodium Potassium Chloride Carbon Dioxide Anion Gap BUN Creatinine Est GFR (CKD-EPI)AfAm Est GFR (CKD-EPI)NonAf Plasma Glucose POC Glucometer 133 82 Random Glucose Hemoglobin A1c % Insulin Level Proinsulin Lactic Acid Calcium Phosphorus Magnesium Total Bilirubin AST ALT Alkaline Phosphatase Troponin I Total Protein Albumin CA 19-9 Antigen Serotonin Cortisol 30 Minute 11.10 Cortisol 60 Minute Cortisol AM Sample Urine Color Urine Appearance Urine pH Ur Specific [place] Urine Protein Urine Glucose (UA) Urine Ketones Urine Blood Urine Nitrite Urine Bilirubin Urine Urobilinogen Ur Leukocyte Esterase Urine WBC (Auto) Urine RBC (Auto) Urine Casts (Auto) U Epithel Cells (Auto) Urine Bacteria (Auto) Blood Type Antibody Screen 03/18/19 03/18/19 03/18/19 13:45 14:30 15:08 WBC RBC Hgb Hct MCV MCH MCHC RDW Plt Count MPV Absolute Neuts (auto) Total Counted Neutrophils % Neutrophils % (Manual) Band Neutrophils % Lymphocytes % Lymphocytes % (Manual) Monocytes % Monocytes % (Manual) Eosinophils % Eosinophils % (Manual) Basophils % Basophils % (Manual) Myelocytes % (Man) Promyelocytes % (Man) Blast Cells % (Manual) Nucleated RBC % Metamyelocytes Hypochromia Platelet Estimate Polychromasia Poikilocytosis Anisocytosis Microcytosis Macrocytosis Spherocytes Tear Drop Cells Ovalocytes [place] Cells PT with INR INR PTT (Actin FS) VBG pH POC VBG pCO2 POC VBG pO2 VBG HCO3 VBG O2 Sat (Cristina) VBG Base Excess Sodium Potassium Chloride Carbon Dioxide Anion Gap BUN Creatinine Est GFR (CKD-EPI)AfAm Est GFR (CKD-EPI)NonAf Plasma Glucose POC Glucometer 100 Random Glucose Hemoglobin A1c % Insulin Level Proinsulin Lactic Acid Calcium Phosphorus Magnesium Total Bilirubin AST ALT Alkaline Phosphatase Troponin I Total Protein Albumin CA 19-9 Antigen Serotonin Cortisol 30 Minute 18.70 Cortisol 60 Minute 11.5 Cortisol AM Sample Urine Color Urine Appearance Urine pH Ur Specific [place] Urine Protein Urine Glucose (UA) Urine Ketones Urine Blood Urine Nitrite Urine Bilirubin Urine Urobilinogen Ur Leukocyte Esterase Urine WBC (Auto) Urine RBC (Auto) Urine Casts (Auto) U Epithel Cells (Auto) Urine Bacteria (Auto) Blood Type Antibody Screen 03/18/19 03/18/19 03/18/19 16:00 16:54 18:58 WBC RBC Hgb Hct MCV MCH MCHC RDW Plt Count MPV Absolute Neuts (auto) Total Counted Neutrophils % Neutrophils % (Manual) Band Neutrophils % Lymphocytes % Lymphocytes % (Manual) Monocytes % Monocytes % (Manual) Eosinophils % Eosinophils % (Manual) Basophils % Basophils % (Manual) Myelocytes % (Man) Promyelocytes % (Man) Blast Cells % (Manual) Nucleated RBC % Metamyelocytes Hypochromia Platelet Estimate Polychromasia Poikilocytosis Anisocytosis Microcytosis Macrocytosis Spherocytes Tear Drop Cells Ovalocytes [place] Cells PT with INR INR PTT (Actin FS) VBG pH POC VBG pCO2 POC VBG pO2 VBG HCO3 VBG O2 Sat (Cristina) VBG Base Excess Sodium Potassium Chloride Carbon Dioxide Anion Gap BUN Creatinine Est GFR (CKD-EPI)AfAm Est GFR (CKD-EPI)NonAf Plasma Glucose POC Glucometer 137 162 Random Glucose Hemoglobin A1c % Insulin Level Proinsulin Lactic Acid Calcium Phosphorus Magnesium Total Bilirubin AST ALT Alkaline Phosphatase Troponin I Total Protein Albumin CA 19-9 Antigen Serotonin Cortisol 30 Minute Cortisol 60 Minute 25.3 Cortisol AM Sample Urine Color Urine Appearance Urine pH Ur Specific [place] Urine Protein Urine Glucose (UA) Urine Ketones Urine Blood Urine Nitrite Urine Bilirubin Urine Urobilinogen Ur Leukocyte Esterase Urine WBC (Auto) Urine RBC (Auto) Urine Casts (Auto) U Epithel Cells (Auto) Urine Bacteria (Auto) Blood Type Antibody Screen 03/19/19 03/19/19 03/19/19 01:17 05:40 05:40 WBC 36.0 H* RBC 4.62 Hgb 13.0 Hct 38.9 MCV 84.1 MCH 28.1 MCHC 33.5 RDW 14.3 Plt Count 199 D MPV 9.0 Absolute Neuts (auto) 34.2 H Total Counted 100 Neutrophils % 95.0 H Neutrophils % (Manual) 87.0 H D Band Neutrophils % 9.0 Lymphocytes % 2.9 L Lymphocytes % (Manual) 3.0 L Monocytes % 1.9 L Monocytes % (Manual) Eosinophils % 0.0 Eosinophils % (Manual) Basophils % 0.2 Basophils % (Manual) Myelocytes % (Man) Promyelocytes % (Man) Blast Cells % (Manual) Nucleated RBC % 0 Metamyelocytes Hypochromia Platelet Estimate Polychromasia Poikilocytosis Anisocytosis Microcytosis Macrocytosis Spherocytes Tear Drop Cells Ovalocytes [place] Cells PT with INR INR PTT (Actin FS) VBG pH POC VBG pCO2 POC VBG pO2 VBG HCO3 VBG O2 Sat (Cristina) VBG Base Excess Sodium 146 H Potassium 4.0 Chloride 112 H Carbon Dioxide 27 Anion Gap 8 BUN 22.4 H Creatinine 1.1 Est GFR (CKD-EPI)AfAm 75.18 Est GFR (CKD-EPI)NonAf 64.86 Plasma Glucose POC Glucometer 170 Random Glucose 107 H Hemoglobin A1c % Insulin Level Proinsulin Lactic Acid Calcium 7.4 L Phosphorus 2.0 L Magnesium 1.8 Total Bilirubin 0.4 AST 49 H ALT 64 H Alkaline Phosphatase 137 H Troponin I Total Protein 4.8 L Albumin 2.1 L CA 19-9 Antigen Serotonin Cortisol 30 Minute Cortisol 60 Minute Cortisol AM Sample Urine Color Urine Appearance Urine pH Ur Specific [place] Urine Protein Urine Glucose (UA) Urine Ketones Urine Blood Urine Nitrite Urine Bilirubin Urine Urobilinogen Ur Leukocyte Esterase Urine WBC (Auto) Urine RBC (Auto) Urine Casts (Auto) U Epithel Cells (Auto) Urine Bacteria (Auto) Blood Type Antibody Screen 03/19/19 03/19/19 03/19/19 07:33 11:02 17:15 WBC RBC Hgb Hct MCV MCH MCHC RDW Plt Count MPV Absolute Neuts (auto) Total Counted Neutrophils % Neutrophils % (Manual) Band Neutrophils % Lymphocytes % Lymphocytes % (Manual) Monocytes % Monocytes % (Manual) Eosinophils % Eosinophils % (Manual) Basophils % Basophils % (Manual) Myelocytes % (Man) Promyelocytes % (Man) Blast Cells % (Manual) Nucleated RBC % Metamyelocytes Hypochromia Platelet Estimate Polychromasia Poikilocytosis Anisocytosis Microcytosis Macrocytosis Spherocytes Tear Drop Cells Ovalocytes [place] Cells PT with INR INR PTT (Actin FS) VBG pH POC VBG pCO2 POC VBG pO2 VBG HCO3 VBG O2 Sat (Cristina) VBG Base Excess Sodium Potassium Chloride Carbon Dioxide Anion Gap BUN Creatinine Est GFR (CKD-EPI)AfAm Est GFR (CKD-EPI)NonAf Plasma Glucose POC Glucometer 81 93 93 Random Glucose Hemoglobin A1c % Insulin Level Proinsulin Lactic Acid Calcium Phosphorus Magnesium Total Bilirubin AST ALT Alkaline Phosphatase Troponin I Total Protein Albumin CA 19-9 Antigen Serotonin Cortisol 30 Minute Cortisol 60 Minute Cortisol AM Sample Urine Color Urine Appearance Urine pH Ur Specific [place] Urine Protein Urine Glucose (UA) Urine Ketones Urine Blood Urine Nitrite Urine Bilirubin Urine Urobilinogen Ur Leukocyte Esterase Urine WBC (Auto) Urine RBC (Auto) Urine Casts (Auto) U Epithel Cells (Auto) Urine Bacteria (Auto) Blood Type Antibody Screen 03/19/19 03/20/19 03/20/19 21:06 05:35 05:35 WBC 26.3 H RBC 4.78 Hgb 13.4 Hct 40.7 MCV 85.1 MCH 28.0 MCHC 32.9 RDW 14.5 Plt Count 230 MPV 9.3 Absolute Neuts (auto) Total Counted Neutrophils % Neutrophils % (Manual) Band Neutrophils % Lymphocytes % Lymphocytes % (Manual) Monocytes % Monocytes % (Manual) Eosinophils % Eosinophils % (Manual) Basophils % Basophils % (Manual) Myelocytes % (Man) Promyelocytes % (Man) Blast Cells % (Manual) Nucleated RBC % Metamyelocytes Hypochromia Platelet Estimate Polychromasia Poikilocytosis Anisocytosis Microcytosis Macrocytosis Spherocytes Tear Drop Cells Ovalocytes [place] Cells PT with INR INR PTT (Actin FS) VBG pH POC VBG pCO2 POC VBG pO2 VBG HCO3 VBG O2 Sat (Cristina) VBG Base Excess Sodium 145 Potassium 4.0 Chloride 110 H Carbon Dioxide 28 Anion Gap 7 L BUN 20.4 H Creatinine 1.2 Est GFR (CKD-EPI)AfAm 67.67 Est GFR (CKD-EPI)NonAf 58.39 Plasma Glucose POC Glucometer 108 Random Glucose 57 L Hemoglobin A1c % Insulin Level Proinsulin Lactic Acid Calcium 7.6 L Phosphorus 2.3 L Magnesium 1.9 Total Bilirubin 0.4 AST 37 ALT 23 Alkaline Phosphatase 152 H Troponin I Total Protein 4.5 L Albumin 2.1 L CA 19-9 Antigen Serotonin Cortisol 30 Minute Cortisol 60 Minute Cortisol AM Sample Urine Color Urine Appearance Urine pH Ur Specific [place] Urine Protein Urine Glucose (UA) Urine Ketones Urine Blood Urine Nitrite Urine Bilirubin Urine Urobilinogen Ur Leukocyte Esterase Urine WBC (Auto) Urine RBC (Auto) Urine Casts (Auto) U Epithel Cells (Auto) Urine Bacteria (Auto) Blood Type Antibody Screen 03/20/19 03/20/19 03/20/19 06:11 06:32 11:31 WBC RBC Hgb Hct MCV MCH MCHC RDW Plt Count MPV Absolute Neuts (auto) Total Counted Neutrophils % Neutrophils % (Manual) Band Neutrophils % Lymphocytes % Lymphocytes % (Manual) Monocytes % Monocytes % (Manual) Eosinophils % Eosinophils % (Manual) Basophils % Basophils % (Manual) Myelocytes % (Man) Promyelocytes % (Man) Blast Cells % (Manual) Nucleated RBC % Metamyelocytes Hypochromia Platelet Estimate Polychromasia Poikilocytosis Anisocytosis Microcytosis Macrocytosis Spherocytes Tear Drop Cells Ovalocytes [place] Cells PT with INR INR PTT (Actin FS) VBG pH POC VBG pCO2 POC VBG pO2 VBG HCO3 VBG O2 Sat (Cristina) VBG Base Excess Sodium Potassium Chloride Carbon Dioxide Anion Gap BUN Creatinine Est GFR (CKD-EPI)AfAm Est GFR (CKD-EPI)NonAf Plasma Glucose POC Glucometer 52 128 104 Random Glucose Hemoglobin A1c % Insulin Level Proinsulin Lactic Acid Calcium Phosphorus Magnesium Total Bilirubin AST ALT Alkaline Phosphatase Troponin I Total Protein Albumin CA 19-9 Antigen Serotonin Cortisol 30 Minute Cortisol 60 Minute Cortisol AM Sample Urine Color Urine Appearance Urine pH Ur Specific [place] Urine Protein Urine Glucose (UA) Urine Ketones Urine Blood Urine Nitrite Urine Bilirubin Urine Urobilinogen Ur Leukocyte Esterase Urine WBC (Auto) Urine RBC (Auto) Urine Casts (Auto) U Epithel Cells (Auto) Urine Bacteria (Auto) Blood Type Antibody Screen 03/20/19 03/20/19 03/21/19 15:41 23:35 05:30 WBC 13.5 H RBC 5.02 Hgb 14.2 Hct 42.6 MCV 84.9 MCH 28.2 MCHC 33.2 RDW 14.3 Plt Count 273 MPV 8.7 Absolute Neuts (auto) Total Counted Neutrophils % Neutrophils % (Manual) Band Neutrophils % Lymphocytes % Lymphocytes % (Manual) Monocytes % Monocytes % (Manual) Eosinophils % Eosinophils % (Manual) Basophils % Basophils % (Manual) Myelocytes % (Man) Promyelocytes % (Man) Blast Cells % (Manual) Nucleated RBC % Metamyelocytes Hypochromia Platelet Estimate Polychromasia Poikilocytosis Anisocytosis Microcytosis Macrocytosis Spherocytes Tear Drop Cells Ovalocytes [place] Cells PT with INR INR PTT (Actin FS) VBG pH POC VBG pCO2 POC VBG pO2 VBG HCO3 VBG O2 Sat (Cristina) VBG Base Excess Sodium Potassium Chloride Carbon Dioxide Anion Gap BUN Creatinine Est GFR (CKD-EPI)AfAm Est GFR (CKD-EPI)NonAf Plasma Glucose POC Glucometer 84 92 Random Glucose Hemoglobin A1c % Insulin Level Proinsulin Lactic Acid Calcium Phosphorus Magnesium Total Bilirubin AST ALT Alkaline Phosphatase Troponin I Total Protein Albumin CA 19-9 Antigen Serotonin Cortisol 30 Minute Cortisol 60 Minute Cortisol AM Sample Urine Color Urine Appearance Urine pH Ur Specific [place] Urine Protein Urine Glucose (UA) Urine Ketones Urine Blood Urine Nitrite Urine Bilirubin Urine Urobilinogen Ur Leukocyte Esterase Urine WBC (Auto) Urine RBC (Auto) Urine Casts (Auto) U Epithel Cells (Auto) Urine Bacteria (Auto) Blood Type Antibody Screen 03/21/19 03/21/19 03/21/19 05:30 05:30 05:56 WBC RBC Hgb Hct MCV MCH MCHC RDW Plt Count MPV Absolute Neuts (auto) Total Counted Neutrophils % Neutrophils % (Manual) Band Neutrophils % Lymphocytes % Lymphocytes % (Manual) Monocytes % Monocytes % (Manual) Eosinophils % Eosinophils % (Manual) Basophils % Basophils % (Manual) Myelocytes % (Man) Promyelocytes % (Man) Blast Cells % (Manual) Nucleated RBC % Metamyelocytes Hypochromia Platelet Estimate Polychromasia Poikilocytosis Anisocytosis Microcytosis Macrocytosis Spherocytes Tear Drop Cells Ovalocytes [place] Cells PT with INR INR PTT (Actin FS) VBG pH POC VBG pCO2 POC VBG pO2 VBG HCO3 VBG O2 Sat (Cristina) VBG Base Excess Sodium 145 Potassium 4.4 Chloride 108 H Carbon Dioxide 31 Anion Gap 6 L BUN 19.0 H Creatinine 1.0 Est GFR (CKD-EPI)AfAm 84.36 Est GFR (CKD-EPI)NonAf 72.78 Plasma Glucose POC Glucometer 66 Random Glucose 73 L Hemoglobin A1c % Insulin Level Proinsulin Lactic Acid 1.5 Calcium 7.9 L Phosphorus Magnesium Total Bilirubin 0.5 AST 58 H ALT 48 Alkaline Phosphatase 179 H Troponin I Total Protein 5.0 L Albumin 2.3 L CA 19-9 Antigen Serotonin Cortisol 30 Minute Cortisol 60 Minute Cortisol AM Sample Urine Color Urine Appearance Urine pH Ur Specific [place] Urine Protein Urine Glucose (UA) Urine Ketones Urine Blood Urine Nitrite Urine Bilirubin Urine Urobilinogen Ur Leukocyte Esterase Urine WBC (Auto) Urine RBC (Auto) Urine Casts (Auto) U Epithel Cells (Auto) Urine Bacteria (Auto) Blood Type Antibody Screen 03/21/19 03/21/19 03/21/19 06:28 10:47 17:13 WBC RBC Hgb Hct MCV MCH MCHC RDW Plt Count MPV Absolute Neuts (auto) Total Counted Neutrophils % Neutrophils % (Manual) Band Neutrophils % Lymphocytes % Lymphocytes % (Manual) Monocytes % Monocytes % (Manual) Eosinophils % Eosinophils % (Manual) Basophils % Basophils % (Manual) Myelocytes % (Man) Promyelocytes % (Man) Blast Cells % (Manual) Nucleated RBC % Metamyelocytes Hypochromia Platelet Estimate Polychromasia Poikilocytosis Anisocytosis Microcytosis Macrocytosis Spherocytes Tear Drop Cells Ovalocytes [place] Cells PT with INR INR PTT (Actin FS) VBG pH POC VBG pCO2 POC VBG pO2 VBG HCO3 VBG O2 Sat (Cristina) VBG Base Excess Sodium Potassium Chloride Carbon Dioxide Anion Gap BUN Creatinine Est GFR (CKD-EPI)AfAm Est GFR (CKD-EPI)NonAf Plasma Glucose POC Glucometer 107 117 118 Random Glucose Hemoglobin A1c % Insulin Level Proinsulin Lactic Acid Calcium Phosphorus Magnesium Total Bilirubin AST ALT Alkaline Phosphatase Troponin I Total Protein Albumin CA 19-9 Antigen Serotonin Cortisol 30 Minute Cortisol 60 Minute Cortisol AM Sample Urine Color Urine Appearance Urine pH Ur Specific [place] Urine Protein Urine Glucose (UA) Urine Ketones Urine Blood Urine Nitrite Urine Bilirubin Urine Urobilinogen Ur Leukocyte Esterase Urine WBC (Auto) Urine RBC (Auto) Urine Casts (Auto) U Epithel Cells (Auto) Urine Bacteria (Auto) Blood Type Antibody Screen 03/21/19 03/22/19 03/22/19 22:04 05:02 06:46 WBC RBC Hgb Hct MCV MCH MCHC RDW Plt Count MPV Absolute Neuts (auto) Total Counted Neutrophils % Neutrophils % (Manual) Band Neutrophils % Lymphocytes % Lymphocytes % (Manual) Monocytes % Monocytes % (Manual) Eosinophils % Eosinophils % (Manual) Basophils % Basophils % (Manual) Myelocytes % (Man) Promyelocytes % (Man) Blast Cells % (Manual) Nucleated RBC % Metamyelocytes Hypochromia Platelet Estimate Polychromasia Poikilocytosis Anisocytosis Microcytosis Macrocytosis Spherocytes Tear Drop Cells Ovalocytes [place] Cells PT with INR INR PTT (Actin FS) VBG pH POC VBG pCO2 POC VBG pO2 VBG HCO3 VBG O2 Sat (Cristina) VBG Base Excess Sodium Potassium Chloride Carbon Dioxide Anion Gap BUN Creatinine Est GFR (CKD-EPI)AfAm Est GFR (CKD-EPI)NonAf Plasma Glucose POC Glucometer 103 67 83 Random Glucose Hemoglobin A1c % Insulin Level Proinsulin Lactic Acid Calcium Phosphorus Magnesium Total Bilirubin AST ALT Alkaline Phosphatase Troponin I Total Protein Albumin CA 19-9 Antigen Serotonin Cortisol 30 Minute Cortisol 60 Minute Cortisol AM Sample Urine Color Urine Appearance Urine pH Ur Specific [place] Urine Protein Urine Glucose (UA) Urine Ketones Urine Blood Urine Nitrite Urine Bilirubin Urine Urobilinogen Ur Leukocyte Esterase Urine WBC (Auto) Urine RBC (Auto) Urine Casts (Auto) U Epithel Cells (Auto) Urine Bacteria (Auto) Blood Type Antibody Screen 03/22/19 03/22/19 03/22/19 07:14 07:14 11:10 WBC 7.9 RBC 4.30 Hgb 12.2 Hct 36.2 D MCV 84.0 MCH 28.4 MCHC 33.8 RDW 14.2 Plt Count 355 D MPV 8.5 Absolute Neuts (auto) 5.4 Total Counted Neutrophils % 67.8 D Neutrophils % (Manual) 70.3 Band Neutrophils % 0.0 Lymphocytes % 21.5 D Lymphocytes % (Manual) 17.8 D Monocytes % 4.8 D Monocytes % (Manual) 3 L Eosinophils % 5.1 H D Eosinophils % (Manual) 5.9 H D Basophils % 0.8 D Basophils % (Manual) 0.0 Myelocytes % (Man) 1 D Promyelocytes % (Man) 0 Blast Cells % (Manual) 0 Nucleated RBC % 0 Metamyelocytes 1 D Hypochromia 0 Platelet Estimate Normal Polychromasia 0 Poikilocytosis 0 Anisocytosis 1+ Microcytosis 1+ Macrocytosis 0 Spherocytes Tear Drop Cells Ovalocytes [place] Cells PT with INR INR PTT (Actin FS) VBG pH POC VBG pCO2 POC VBG pO2 VBG HCO3 VBG O2 Sat (Cristina) VBG Base Excess Sodium 144 Potassium 4.1 Chloride 109 H Carbon Dioxide 29 Anion Gap 6 L BUN 18.8 H Creatinine 0.9 Est GFR (CKD-EPI)AfAm 95.82 Est GFR (CKD-EPI)NonAf 82.67 Plasma Glucose POC Glucometer 85 Random Glucose 97 Hemoglobin A1c % Insulin Level Proinsulin Lactic Acid Calcium 7.7 L Phosphorus 2.4 L Magnesium 1.7 L Total Bilirubin 0.3 AST 80 H ALT 19 Alkaline Phosphatase 133 H Troponin I Total Protein 4.4 L Albumin 2.0 L CA 19-9 Antigen Serotonin Cortisol 30 Minute Cortisol 60 Minute Cortisol AM Sample Urine Color Urine Appearance Urine pH Ur Specific [place] Urine Protein Urine Glucose (UA) Urine Ketones Urine Blood Urine Nitrite Urine Bilirubin Urine Urobilinogen Ur Leukocyte Esterase Urine WBC (Auto) Urine RBC (Auto) Urine Casts (Auto) U Epithel Cells (Auto) Urine Bacteria (Auto) Blood Type Antibody Screen 03/22/19 03/22/19 03/23/19 17:11 21:30 05:58 WBC RBC Hgb Hct MCV MCH MCHC RDW Plt Count MPV Absolute Neuts (auto) Total Counted Neutrophils % Neutrophils % (Manual) Band Neutrophils % Lymphocytes % Lymphocytes % (Manual) Monocytes % Monocytes % (Manual) Eosinophils % Eosinophils % (Manual) Basophils % Basophils % (Manual) Myelocytes % (Man) Promyelocytes % (Man) Blast Cells % (Manual) Nucleated RBC % Metamyelocytes Hypochromia Platelet Estimate Polychromasia Poikilocytosis Anisocytosis Microcytosis Macrocytosis Spherocytes Tear Drop Cells Ovalocytes [place] Cells PT with INR INR PTT (Actin FS) VBG pH POC VBG pCO2 POC VBG pO2 VBG HCO3 VBG O2 Sat (Cristina) VBG Base Excess Sodium Potassium Chloride Carbon Dioxide Anion Gap BUN Creatinine Est GFR (CKD-EPI)AfAm Est GFR (CKD-EPI)NonAf Plasma Glucose POC Glucometer 104 95 55 Random Glucose Hemoglobin A1c % Insulin Level Proinsulin Lactic Acid Calcium Phosphorus Magnesium Total Bilirubin AST ALT Alkaline Phosphatase Troponin I Total Protein Albumin CA 19-9 Antigen Serotonin Cortisol 30 Minute Cortisol 60 Minute Cortisol AM Sample Urine Color Urine Appearance Urine pH Ur Specific [place] Urine Protein Urine Glucose (UA) Urine Ketones Urine Blood Urine Nitrite Urine Bilirubin Urine Urobilinogen Ur Leukocyte Esterase Urine WBC (Auto) Urine RBC (Auto) Urine Casts (Auto) U Epithel Cells (Auto) Urine Bacteria (Auto) Blood Type Antibody Screen 03/23/19 03/23/19 03/23/19 06:50 07:15 07:15 WBC 9.5 RBC 4.42 Hgb 12.4 Hct 37.6 MCV 85.1 MCH 28.1 MCHC 33.0 RDW 14.4 Plt Count 452 H D MPV 8.3 Absolute Neuts (auto) Total Counted Neutrophils % Neutrophils % (Manual) Band Neutrophils % Lymphocytes % Lymphocytes % (Manual) Monocytes % Monocytes % (Manual) Eosinophils % Eosinophils % (Manual) Basophils % Basophils % (Manual) Myelocytes % (Man) Promyelocytes % (Man) Blast Cells % (Manual) Nucleated RBC % Metamyelocytes Hypochromia Platelet Estimate Polychromasia Poikilocytosis Anisocytosis Microcytosis Macrocytosis Spherocytes Tear Drop Cells Ovalocytes [place] Cells PT with INR INR PTT (Actin FS) VBG pH POC VBG pCO2 POC VBG pO2 VBG HCO3 VBG O2 Sat (Cristina) VBG Base Excess Sodium 142 Potassium 4.5 Chloride 107 Carbon Dioxide 30 Anion Gap 5 L BUN 18.9 H Creatinine 0.9 Est GFR (CKD-EPI)AfAm 95.82 Est GFR (CKD-EPI)NonAf 82.67 Plasma Glucose POC Glucometer 86 Random Glucose 84 Hemoglobin A1c % Insulin Level Proinsulin Lactic Acid Calcium 7.9 L Phosphorus Magnesium Total Bilirubin 0.4 AST 75 H ALT 19 Alkaline Phosphatase 131 H Troponin I Total Protein 4.6 L Albumin 2.2 L CA 19-9 Antigen Serotonin Cortisol 30 Minute Cortisol 60 Minute Cortisol AM Sample Urine Color Urine Appearance Urine pH Ur Specific [place] Urine Protein Urine Glucose (UA) Urine Ketones Urine Blood Urine Nitrite Urine Bilirubin Urine Urobilinogen Ur Leukocyte Esterase Urine WBC (Auto) Urine RBC (Auto) Urine Casts (Auto) U Epithel Cells (Auto) Urine Bacteria (Auto) Blood Type Antibody Screen 03/23/19 03/23/19 03/23/19 11:32 17:34 20:54 WBC RBC Hgb Hct MCV MCH MCHC RDW Plt Count MPV Absolute Neuts (auto) Total Counted Neutrophils % Neutrophils % (Manual) Band Neutrophils % Lymphocytes % Lymphocytes % (Manual) Monocytes % Monocytes % (Manual) Eosinophils % Eosinophils % (Manual) Basophils % Basophils % (Manual) Myelocytes % (Man) Promyelocytes % (Man) Blast Cells % (Manual) Nucleated RBC % Metamyelocytes Hypochromia Platelet Estimate Polychromasia Poikilocytosis Anisocytosis Microcytosis Macrocytosis Spherocytes Tear Drop Cells Ovalocytes [place] Cells PT with INR INR PTT (Actin FS) VBG pH POC VBG pCO2 POC VBG pO2 VBG HCO3 VBG O2 Sat (Cristina) VBG Base Excess Sodium Potassium Chloride Carbon Dioxide Anion Gap BUN Creatinine Est GFR (CKD-EPI)AfAm Est GFR (CKD-EPI)NonAf Plasma Glucose POC Glucometer 93 109 87 Random Glucose Hemoglobin A1c % Insulin Level Proinsulin Lactic Acid Calcium Phosphorus Magnesium Total Bilirubin AST ALT Alkaline Phosphatase Troponin I Total Protein Albumin CA 19-9 Antigen Serotonin Cortisol 30 Minute Cortisol 60 Minute Cortisol AM Sample Urine Color Urine Appearance Urine pH Ur Specific [place] Urine Protein Urine Glucose (UA) Urine Ketones Urine Blood Urine Nitrite Urine Bilirubin Urine Urobilinogen Ur Leukocyte Esterase Urine WBC (Auto) Urine RBC (Auto) Urine Casts (Auto) U Epithel Cells (Auto) Urine Bacteria (Auto) Blood Type Antibody Screen 03/24/19 03/24/19 03/24/19 06:09 07:33 07:33 WBC 10.3 H RBC 4.34 Hgb 12.2 Hct 36.3 MCV 83.6 MCH 28.1 MCHC 33.6 RDW 14.4 Plt Count 491 H MPV 7.8 Absolute Neuts (auto) Total Counted Neutrophils % Neutrophils % (Manual) Band Neutrophils % Lymphocytes % Lymphocytes % (Manual) Monocytes % Monocytes % (Manual) Eosinophils % Eosinophils % (Manual) Basophils % Basophils % (Manual) Myelocytes % (Man) Promyelocytes % (Man) Blast Cells % (Manual) Nucleated RBC % Metamyelocytes Hypochromia Platelet Estimate Polychromasia Poikilocytosis Anisocytosis Microcytosis Macrocytosis Spherocytes Tear Drop Cells Ovalocytes [place] Cells PT with INR INR PTT (Actin FS) VBG pH POC VBG pCO2 POC VBG pO2 VBG HCO3 VBG O2 Sat (Cristina) VBG Base Excess Sodium 142 Potassium 4.6 Chloride 108 H Carbon Dioxide 29 Anion Gap 5 L BUN 18.2 H Creatinine 0.9 Est GFR (CKD-EPI)AfAm 95.82 Est GFR (CKD-EPI)NonAf 82.67 Plasma Glucose POC Glucometer 67 Random Glucose 86 Hemoglobin A1c % Insulin Level Proinsulin Lactic Acid Calcium 8.0 L Phosphorus Magnesium Total Bilirubin 0.4 AST 58 H ALT 20 Alkaline Phosphatase 124 H Troponin I Total Protein 4.6 L Albumin 2.1 L CA 19-9 Antigen Serotonin Cortisol 30 Minute Cortisol 60 Minute Cortisol AM Sample Urine Color Urine Appearance Urine pH Ur Specific [place] Urine Protein Urine Glucose (UA) Urine Ketones Urine Blood Urine Nitrite Urine Bilirubin Urine Urobilinogen Ur Leukocyte Esterase Urine WBC (Auto) Urine RBC (Auto) Urine Casts (Auto) U Epithel Cells (Auto) Urine Bacteria (Auto) Blood Type Antibody Screen 03/24/19 03/24/19 03/24/19 07:33 11:51 12:11 WBC RBC Hgb Hct MCV MCH MCHC RDW Plt Count MPV Absolute Neuts (auto) Total Counted Neutrophils % Neutrophils % (Manual) Band Neutrophils % Lymphocytes % Lymphocytes % (Manual) Monocytes % Monocytes % (Manual) Eosinophils % Eosinophils % (Manual) Basophils % Basophils % (Manual) Myelocytes % (Man) Promyelocytes % (Man) Blast Cells % (Manual) Nucleated RBC % Metamyelocytes Hypochromia Platelet Estimate Polychromasia Poikilocytosis Anisocytosis Microcytosis Macrocytosis Spherocytes Tear Drop Cells Ovalocytes [place]yan Cells PT with INR INR PTT (Actin FS) VBG pH POC VBG pCO2 POC VBG pO2 VBG HCO3 VBG O2 Sat (Cristina) VBG Base Excess Sodium Potassium Chloride Carbon Dioxide Anion Gap BUN Creatinine Est GFR (CKD-EPI)AfAm Est GFR (CKD-EPI)NonAf Plasma Glucose POC Glucometer 14 102 Random Glucose Hemoglobin A1c % Insulin Level Proinsulin Lactic Acid Calcium Phosphorus Magnesium Total Bilirubin AST ALT Alkaline Phosphatase Troponin I Total Protein Albumin CA 19-9 Antigen 10 Serotonin Cortisol 30 Minute Cortisol 60 Minute Cortisol AM Sample Urine Color Urine Appearance Urine pH Ur Specific [place] Urine Protein Urine Glucose (UA) Urine Ketones Urine Blood Urine Nitrite Urine Bilirubin Urine Urobilinogen Ur Leukocyte Esterase Urine WBC (Auto) Urine RBC (Auto) Urine Casts (Auto) U Epithel Cells (Auto) Urine Bacteria (Auto) Blood Type Antibody Screen 03/24/19 03/24/19 03/24/19 16:16 17:22 21:53 WBC RBC Hgb Hct MCV MCH MCHC RDW Plt Count MPV Absolute Neuts (auto) Total Counted Neutrophils % Neutrophils % (Manual) Band Neutrophils % Lymphocytes % Lymphocytes % (Manual) Monocytes % Monocytes % (Manual) Eosinophils % Eosinophils % (Manual) Basophils % Basophils % (Manual) Myelocytes % (Man) Promyelocytes % (Man) Blast Cells % (Manual) Nucleated RBC % Metamyelocytes Hypochromia Platelet Estimate Polychromasia Poikilocytosis Anisocytosis Microcytosis Macrocytosis Spherocytes Tear Drop Cells Ovalocytes [place]yan Cells PT with INR INR PTT (Actin FS) VBG pH POC VBG pCO2 POC VBG pO2 VBG HCO3 VBG O2 Sat (Cristina) VBG Base Excess Sodium Potassium Chloride Carbon Dioxide Anion Gap BUN Creatinine Est GFR (CKD-EPI)AfAm Est GFR (CKD-EPI)NonAf Plasma Glucose POC Glucometer 57 87 73 Random Glucose Hemoglobin A1c % Insulin Level Proinsulin Lactic Acid Calcium Phosphorus Magnesium Total Bilirubin AST ALT Alkaline Phosphatase Troponin I Total Protein Albumin CA 19-9 Antigen Serotonin Cortisol 30 Minute Cortisol 60 Minute Cortisol AM Sample Urine Color Urine Appearance Urine pH Ur Specific [place] Urine Protein Urine Glucose (UA) Urine Ketones Urine Blood Urine Nitrite Urine Bilirubin Urine Urobilinogen Ur Leukocyte Esterase Urine WBC (Auto) Urine RBC (Auto) Urine Casts (Auto) U Epithel Cells (Auto) Urine Bacteria (Auto) Blood Type Antibody Screen 03/25/19 03/25/19 03/25/19 06:21 07:50 07:50 WBC 11.5 H RBC 4.11 Hgb 11.7 Hct 34.5 L MCV 84.0 MCH 28.6 MCHC 34.0 RDW 14.3 Plt Count 488 H MPV 8.0 Absolute Neuts (auto) Total Counted Neutrophils % Neutrophils % (Manual) Band Neutrophils % Lymphocytes % Lymphocytes % (Manual) Monocytes % Monocytes % (Manual) Eosinophils % Eosinophils % (Manual) Basophils % Basophils % (Manual) Myelocytes % (Man) Promyelocytes % (Man) Blast Cells % (Manual) Nucleated RBC % Metamyelocytes Hypochromia Platelet Estimate Polychromasia Poikilocytosis Anisocytosis Microcytosis Macrocytosis Spherocytes Tear Drop Cells Ovalocytes [place] Cells PT with INR INR PTT (Actin FS) VBG pH POC VBG pCO2 POC VBG pO2 VBG HCO3 VBG O2 Sat (Cristina) VBG Base Excess Sodium 141 Potassium 4.5 Chloride 107 Carbon Dioxide 29 Anion Gap 5 L BUN 20.1 H Creatinine 0.9 Est GFR (CKD-EPI)AfAm 95.82 Est GFR (CKD-EPI)NonAf 82.67 Plasma Glucose POC Glucometer 79 Random Glucose 84 Hemoglobin A1c % Insulin Level Proinsulin Lactic Acid Calcium 8.0 L Phosphorus Magnesium Total Bilirubin 0.3 AST 56 H ALT 16 Alkaline Phosphatase 119 H Troponin I Total Protein 4.6 L Albumin 2.1 L CA 19-9 Antigen Serotonin Cortisol 30 Minute Cortisol 60 Minute Cortisol AM Sample Urine Color Urine Appearance Urine pH Ur Specific [place] Urine Protein Urine Glucose (UA) Urine Ketones Urine Blood Urine Nitrite Urine Bilirubin Urine Urobilinogen Ur Leukocyte Esterase Urine WBC (Auto) Urine RBC (Auto) Urine Casts (Auto) U Epithel Cells (Auto) Urine Bacteria (Auto) Blood Type Antibody Screen 03/25/19 03/25/19 03/25/19 10:00 10:28 10:55 WBC RBC Hgb Hct MCV MCH MCHC RDW Plt Count MPV Absolute Neuts (auto) Total Counted Neutrophils % Neutrophils % (Manual) Band Neutrophils % Lymphocytes % Lymphocytes % (Manual) Monocytes % Monocytes % (Manual) Eosinophils % Eosinophils % (Manual) Basophils % Basophils % (Manual) Myelocytes % (Man) Promyelocytes % (Man) Blast Cells % (Manual) Nucleated RBC % Metamyelocytes Hypochromia Platelet Estimate Polychromasia Poikilocytosis Anisocytosis Microcytosis Macrocytosis Spherocytes Tear Drop Cells Ovalocytes [place] Cells PT with INR INR PTT (Actin FS) VBG pH POC VBG pCO2 POC VBG pO2 VBG HCO3 VBG O2 Sat (Cristina) VBG Base Excess Sodium Potassium Chloride Carbon Dioxide Anion Gap BUN Creatinine Est GFR (CKD-EPI)AfAm Est GFR (CKD-EPI)NonAf Plasma Glucose POC Glucometer 66 53 Random Glucose Hemoglobin A1c % Insulin Level Proinsulin Lactic Acid Calcium Phosphorus Magnesium Total Bilirubin AST ALT Alkaline Phosphatase Troponin I Total Protein Albumin CA 19-9 Antigen Serotonin 74 Cortisol 30 Minute Cortisol 60 Minute Cortisol AM Sample Urine Color Urine Appearance Urine pH Ur Specific [place] Urine Protein Urine Glucose (UA) Urine Ketones Urine Blood Urine Nitrite Urine Bilirubin Urine Urobilinogen Ur Leukocyte Esterase Urine WBC (Auto) Urine RBC (Auto) Urine Casts (Auto) U Epithel Cells (Auto) Urine Bacteria (Auto) Blood Type Antibody Screen 03/25/19 03/25/19 03/25/19 11:34 14:56 18:15 WBC RBC Hgb Hct MCV MCH MCHC RDW Plt Count MPV Absolute Neuts (auto) Total Counted Neutrophils % Neutrophils % (Manual) Band Neutrophils % Lymphocytes % Lymphocytes % (Manual) Monocytes % Monocytes % (Manual) Eosinophils % Eosinophils % (Manual) Basophils % Basophils % (Manual) Myelocytes % (Man) Promyelocytes % (Man) Blast Cells % (Manual) Nucleated RBC % Metamyelocytes Hypochromia Platelet Estimate Polychromasia Poikilocytosis Anisocytosis Microcytosis Macrocytosis Spherocytes Tear Drop Cells Ovalocytes [place] Cells PT with INR INR PTT (Actin FS) VBG pH POC VBG pCO2 POC VBG pO2 VBG HCO3 VBG O2 Sat (Cristina) VBG Base Excess Sodium Potassium Chloride Carbon Dioxide Anion Gap BUN Creatinine Est GFR (CKD-EPI)AfAm Est GFR (CKD-EPI)NonAf Plasma Glucose POC Glucometer 108 101 94 Random Glucose Hemoglobin A1c % Insulin Level Proinsulin Lactic Acid Calcium Phosphorus Magnesium Total Bilirubin AST ALT Alkaline Phosphatase Troponin I Total Protein Albumin CA 19-9 Antigen Serotonin Cortisol 30 Minute Cortisol 60 Minute Cortisol AM Sample Urine Color Urine Appearance Urine pH Ur Specific [place] Urine Protein Urine Glucose (UA) Urine Ketones Urine Blood Urine Nitrite Urine Bilirubin Urine Urobilinogen Ur Leukocyte Esterase Urine WBC (Auto) Urine RBC (Auto) Urine Casts (Auto) U Epithel Cells (Auto) Urine Bacteria (Auto) Blood Type Antibody Screen 03/25/19 03/26/19 03/26/19 22:02 02:40 06:04 WBC RBC Hgb Hct MCV MCH MCHC RDW Plt Count MPV Absolute Neuts (auto) Total Counted Neutrophils % Neutrophils % (Manual) Band Neutrophils % Lymphocytes % Lymphocytes % (Manual) Monocytes % Monocytes % (Manual) Eosinophils % Eosinophils % (Manual) Basophils % Basophils % (Manual) Myelocytes % (Man) Promyelocytes % (Man) Blast Cells % (Manual) Nucleated RBC % Metamyelocytes Hypochromia Platelet Estimate Polychromasia Poikilocytosis Anisocytosis Microcytosis Macrocytosis Spherocytes Tear Drop Cells Ovalocytes [place] Cells PT with INR INR PTT (Actin FS) VBG pH POC VBG pCO2 POC VBG pO2 VBG HCO3 VBG O2 Sat (Cristina) VBG Base Excess Sodium Potassium Chloride Carbon Dioxide Anion Gap BUN Creatinine Est GFR (CKD-EPI)AfAm Est GFR (CKD-EPI)NonAf Plasma Glucose POC Glucometer 99 86 33 Random Glucose Hemoglobin A1c % Insulin Level Proinsulin Lactic Acid Calcium Phosphorus Magnesium Total Bilirubin AST ALT Alkaline Phosphatase Troponin I Total Protein Albumin CA 19-9 Antigen Serotonin Cortisol 30 Minute Cortisol 60 Minute Cortisol AM Sample Urine Color Urine Appearance Urine pH Ur Specific [place] Urine Protein Urine Glucose (UA) Urine Ketones Urine Blood Urine Nitrite Urine Bilirubin Urine Urobilinogen Ur Leukocyte Esterase Urine WBC (Auto) Urine RBC (Auto) Urine Casts (Auto) U Epithel Cells (Auto) Urine Bacteria (Auto) Blood Type Antibody Screen 03/26/19 03/26/19 03/26/19 07:01 07:08 07:08 WBC RBC Hgb Hct MCV MCH MCHC RDW Plt Count MPV Absolute Neuts (auto) Total Counted Neutrophils % Neutrophils % (Manual) Band Neutrophils % Lymphocytes % Lymphocytes % (Manual) Monocytes % Monocytes % (Manual) Eosinophils % Eosinophils % (Manual) Basophils % Basophils % (Manual) Myelocytes % (Man) Promyelocytes % (Man) Blast Cells % (Manual) Nucleated RBC % Metamyelocytes Hypochromia Platelet Estimate Polychromasia Poikilocytosis Anisocytosis Microcytosis Macrocytosis Spherocytes Tear Drop Cells Ovalocytes [place] Cells PT with INR INR PTT (Actin FS) VBG pH POC VBG pCO2 POC VBG pO2 VBG HCO3 VBG O2 Sat (Cristina) VBG Base Excess Sodium 143 Potassium 4.6 Chloride 107 Carbon Dioxide 29 Anion Gap 6 L BUN 21.1 H Creatinine 1.0 Est GFR (CKD-EPI)AfAm 84.36 Est GFR (CKD-EPI)NonAf 72.78 Plasma Glucose POC Glucometer 102 Random Glucose 71 L Hemoglobin A1c % 4.9 Insulin Level Proinsulin Lactic Acid Calcium 8.0 L Phosphorus Magnesium Total Bilirubin 0.5 AST 53 H ALT 25 Alkaline Phosphatase 136 H Troponin I Total Protein 5.3 L Albumin 2.4 L CA 19-9 Antigen Serotonin Cortisol 30 Minute Cortisol 60 Minute Cortisol AM Sample Urine Color Urine Appearance Urine pH Ur Specific [place] Urine Protein Urine Glucose (UA) Urine Ketones Urine Blood Urine Nitrite Urine Bilirubin Urine Urobilinogen Ur Leukocyte Esterase Urine WBC (Auto) Urine RBC (Auto) Urine Casts (Auto) U Epithel Cells (Auto) Urine Bacteria (Auto) Blood Type Antibody Screen 03/26/19 03/26/19 03/26/19 07:08 10:57 14:30 WBC 10.8 H RBC 4.59 Hgb 12.9 Hct 38.8 MCV 84.7 MCH 28.1 MCHC 33.2 RDW 14.4 Plt Count 542 H MPV 8.2 Absolute Neuts (auto) 8.9 H Total Counted Neutrophils % 82.6 D Neutrophils % (Manual) Band Neutrophils % Lymphocytes % 10.7 D Lymphocytes % (Manual) Monocytes % 4.1 Monocytes % (Manual) Eosinophils % 2.1 Eosinophils % (Manual) Basophils % 0.5 Basophils % (Manual) Myelocytes % (Man) Promyelocytes % (Man) Blast Cells % (Manual) Nucleated RBC % 0 Metamyelocytes Hypochromia Platelet Estimate Polychromasia Poikilocytosis Anisocytosis Microcytosis Macrocytosis Spherocytes Tear Drop Cells Ovalocytes [place] Cells PT with INR INR PTT (Actin FS) VBG pH POC VBG pCO2 POC VBG pO2 VBG HCO3 VBG O2 Sat (Cristina) VBG Base Excess Sodium Potassium Chloride Carbon Dioxide Anion Gap BUN Creatinine Est GFR (CKD-EPI)AfAm Est GFR (CKD-EPI)NonAf Plasma Glucose POC Glucometer 80 99 Random Glucose Hemoglobin A1c % Insulin Level Proinsulin Lactic Acid Calcium Phosphorus Magnesium Total Bilirubin AST ALT Alkaline Phosphatase Troponin I Total Protein Albumin CA 19-9 Antigen Serotonin Cortisol 30 Minute Cortisol 60 Minute Cortisol AM Sample Urine Color Urine Appearance Urine pH Ur Specific [place] Urine Protein Urine Glucose (UA) Urine Ketones Urine Blood Urine Nitrite Urine Bilirubin Urine Urobilinogen Ur Leukocyte Esterase Urine WBC (Auto) Urine RBC (Auto) Urine Casts (Auto) U Epithel Cells (Auto) Urine Bacteria (Auto) Blood Type Antibody Screen 03/26/19 03/26/19 03/27/19 18:09 21:13 01:23 WBC RBC Hgb Hct MCV MCH MCHC RDW Plt Count MPV Absolute Neuts (auto) Total Counted Neutrophils % Neutrophils % (Manual) Band Neutrophils % Lymphocytes % Lymphocytes % (Manual) Monocytes % Monocytes % (Manual) Eosinophils % Eosinophils % (Manual) Basophils % Basophils % (Manual) Myelocytes % (Man) Promyelocytes % (Man) Blast Cells % (Manual) Nucleated RBC % Metamyelocytes Hypochromia Platelet Estimate Polychromasia Poikilocytosis Anisocytosis Microcytosis Macrocytosis Spherocytes Tear Drop Cells Ovalocytes [place] Cells PT with INR INR PTT (Actin FS) VBG pH POC VBG pCO2 POC VBG pO2 VBG HCO3 VBG O2 Sat (Cristina) VBG Base Excess Sodium Potassium Chloride Carbon Dioxide Anion Gap BUN Creatinine Est GFR (CKD-EPI)AfAm Est GFR (CKD-EPI)NonAf Plasma Glucose POC Glucometer 91 102 105 Random Glucose Hemoglobin A1c % Insulin Level Proinsulin Lactic Acid Calcium Phosphorus Magnesium Total Bilirubin AST ALT Alkaline Phosphatase Troponin I Total Protein Albumin CA 19-9 Antigen Serotonin Cortisol 30 Minute Cortisol 60 Minute Cortisol AM Sample Urine Color Urine Appearance Urine pH Ur Specific [place] Urine Protein Urine Glucose (UA) Urine Ketones Urine Blood Urine Nitrite Urine Bilirubin Urine Urobilinogen Ur Leukocyte Esterase Urine WBC (Auto) Urine RBC (Auto) Urine Casts (Auto) U Epithel Cells (Auto) Urine Bacteria (Auto) Blood Type Antibody Screen 03/27/19 03/27/19 03/27/19 05:56 10:59 15:39 WBC RBC Hgb Hct MCV MCH MCHC RDW Plt Count MPV Absolute Neuts (auto) Total Counted Neutrophils % Neutrophils % (Manual) Band Neutrophils % Lymphocytes % Lymphocytes % (Manual) Monocytes % Monocytes % (Manual) Eosinophils % Eosinophils % (Manual) Basophils % Basophils % (Manual) Myelocytes % (Man) Promyelocytes % (Man) Blast Cells % (Manual) Nucleated RBC % Metamyelocytes Hypochromia Platelet Estimate Polychromasia Poikilocytosis Anisocytosis Microcytosis Macrocytosis Spherocytes Tear Drop Cells Ovalocytes [place] Cells PT with INR INR PTT (Actin FS) VBG pH POC VBG pCO2 POC VBG pO2 VBG HCO3 VBG O2 Sat (Cristina) VBG Base Excess Sodium Potassium Chloride Carbon Dioxide Anion Gap BUN Creatinine Est GFR (CKD-EPI)AfAm Est GFR (CKD-EPI)NonAf Plasma Glucose POC Glucometer 97 112 98 Random Glucose Hemoglobin A1c % Insulin Level Proinsulin Lactic Acid Calcium Phosphorus Magnesium Total Bilirubin AST ALT Alkaline Phosphatase Troponin I Total Protein Albumin CA 19-9 Antigen Serotonin Cortisol 30 Minute Cortisol 60 Minute Cortisol AM Sample Urine Color Urine Appearance Urine pH Ur Specific [place] Urine Protein Urine Glucose (UA) Urine Ketones Urine Blood Urine Nitrite Urine Bilirubin Urine Urobilinogen Ur Leukocyte Esterase Urine WBC (Auto) Urine RBC (Auto) Urine Casts (Auto) U Epithel Cells (Auto) Urine Bacteria (Auto) Blood Type Antibody Screen 03/27/19 03/27/19 03/28/19 18:23 23:05 04:58 WBC RBC Hgb Hct MCV MCH MCHC RDW Plt Count MPV Absolute Neuts (auto) Total Counted Neutrophils % Neutrophils % (Manual) Band Neutrophils % Lymphocytes % Lymphocytes % (Manual) Monocytes % Monocytes % (Manual) Eosinophils % Eosinophils % (Manual) Basophils % Basophils % (Manual) Myelocytes % (Man) Promyelocytes % (Man) Blast Cells % (Manual) Nucleated RBC % Metamyelocytes Hypochromia Platelet Estimate Polychromasia Poikilocytosis Anisocytosis Microcytosis Macrocytosis Spherocytes Tear Drop Cells Ovalocytes [place] Cells PT with INR INR PTT (Actin FS) VBG pH POC VBG pCO2 POC VBG pO2 VBG HCO3 VBG O2 Sat (Cristina) VBG Base Excess Sodium Potassium Chloride Carbon Dioxide Anion Gap BUN Creatinine Est GFR (CKD-EPI)AfAm Est GFR (CKD-EPI)NonAf Plasma Glucose POC Glucometer 115 106 57 Random Glucose Hemoglobin A1c % Insulin Level Proinsulin Lactic Acid Calcium Phosphorus Magnesium Total Bilirubin AST ALT Alkaline Phosphatase Troponin I Total Protein Albumin CA 19-9 Antigen Serotonin Cortisol 30 Minute Cortisol 60 Minute Cortisol AM Sample Urine Color Urine Appearance Urine pH Ur Specific [place] Urine Protein Urine Glucose (UA) Urine Ketones Urine Blood Urine Nitrite Urine Bilirubin Urine Urobilinogen Ur Leukocyte Esterase Urine WBC (Auto) Urine RBC (Auto) Urine Casts (Auto) U Epithel Cells (Auto) Urine Bacteria (Auto) Blood Type Antibody Screen 03/28/19 03/28/19 03/28/19 10:41 13:58 18:16 WBC RBC Hgb Hct MCV MCH MCHC RDW Plt Count MPV Absolute Neuts (auto) Total Counted Neutrophils % Neutrophils % (Manual) Band Neutrophils % Lymphocytes % Lymphocytes % (Manual) Monocytes % Monocytes % (Manual) Eosinophils % Eosinophils % (Manual) Basophils % Basophils % (Manual) Myelocytes % (Man) Promyelocytes % (Man) Blast Cells % (Manual) Nucleated RBC % Metamyelocytes Hypochromia Platelet Estimate Polychromasia Poikilocytosis Anisocytosis Microcytosis Macrocytosis Spherocytes Tear Drop Cells Ovalocytes [place] Cells PT with INR INR PTT (Actin FS) VBG pH POC VBG pCO2 POC VBG pO2 VBG HCO3 VBG O2 Sat (Cristina) VBG Base Excess Sodium Potassium Chloride Carbon Dioxide Anion Gap BUN Creatinine Est GFR (CKD-EPI)AfAm Est GFR (CKD-EPI)NonAf Plasma Glucose POC Glucometer 86 108 106 Random Glucose Hemoglobin A1c % Insulin Level Proinsulin Lactic Acid Calcium Phosphorus Magnesium Total Bilirubin AST ALT Alkaline Phosphatase Troponin I Total Protein Albumin CA 19-9 Antigen Serotonin Cortisol 30 Minute Cortisol 60 Minute Cortisol AM Sample Urine Color Urine Appearance Urine pH Ur Specific [place] Urine Protein Urine Glucose (UA) Urine Ketones Urine Blood Urine Nitrite Urine Bilirubin Urine Urobilinogen Ur Leukocyte Esterase Urine WBC (Auto) Urine RBC (Auto) Urine Casts (Auto) U Epithel Cells (Auto) Urine Bacteria (Auto) Blood Type Antibody Screen 03/28/19 03/29/19 03/29/19 21:23 02:20 06:45 WBC RBC Hgb Hct MCV MCH MCHC RDW Plt Count MPV Absolute Neuts (auto) Total Counted Neutrophils % Neutrophils % (Manual) Band Neutrophils % Lymphocytes % Lymphocytes % (Manual) Monocytes % Monocytes % (Manual) Eosinophils % Eosinophils % (Manual) Basophils % Basophils % (Manual) Myelocytes % (Man) Promyelocytes % (Man) Blast Cells % (Manual) Nucleated RBC % Metamyelocytes Hypochromia Platelet Estimate Polychromasia Poikilocytosis Anisocytosis Microcytosis Macrocytosis Spherocytes Tear Drop Cells Ovalocytes [place] Cells PT with INR INR PTT (Actin FS) VBG pH POC VBG pCO2 POC VBG pO2 VBG HCO3 VBG O2 Sat (Cristina) VBG Base Excess Sodium Potassium Chloride Carbon Dioxide Anion Gap BUN Creatinine Est GFR (CKD-EPI)AfAm Est GFR (CKD-EPI)NonAf Plasma Glucose POC Glucometer 128 102 68 Random Glucose Hemoglobin A1c % Insulin Level Proinsulin Lactic Acid Calcium Phosphorus Magnesium Total Bilirubin AST ALT Alkaline Phosphatase Troponin I Total Protein Albumin CA 19-9 Antigen Serotonin Cortisol 30 Minute Cortisol 60 Minute Cortisol AM Sample Urine Color Urine Appearance Urine pH Ur Specific [place] Urine Protein Urine Glucose (UA) Urine Ketones Urine Blood Urine Nitrite Urine Bilirubin Urine Urobilinogen Ur Leukocyte Esterase Urine WBC (Auto) Urine RBC (Auto) Urine Casts (Auto) U Epithel Cells (Auto) Urine Bacteria (Auto) Blood Type Antibody Screen 03/29/19 03/29/19 03/29/19 07:29 07:29 11:24 WBC 11.7 H RBC 4.32 Hgb 12.2 Hct 37.5 MCV 86.6 MCH 28.3 MCHC 32.7 RDW 15.5 Plt Count 547 H MPV 8.3 Absolute Neuts (auto) Total Counted Neutrophils % Neutrophils % (Manual) Band Neutrophils % Lymphocytes % Lymphocytes % (Manual) Monocytes % Monocytes % (Manual) Eosinophils % Eosinophils % (Manual) Basophils % Basophils % (Manual) Myelocytes % (Man) Promyelocytes % (Man) Blast Cells % (Manual) Nucleated RBC % Metamyelocytes Hypochromia Platelet Estimate Polychromasia Poikilocytosis Anisocytosis Microcytosis Macrocytosis Spherocytes Tear Drop Cells Ovalocytes [place] Cells PT with INR INR PTT (Actin FS) VBG pH POC VBG pCO2 POC VBG pO2 VBG HCO3 VBG O2 Sat (Cristina) VBG Base Excess Sodium 141 Potassium 4.6 Chloride 106 Carbon Dioxide 29 Anion Gap 6 L BUN 30.6 H Creatinine 1.0 Est GFR (CKD-EPI)AfAm 84.36 Est GFR (CKD-EPI)NonAf 72.78 Plasma Glucose POC Glucometer 95 Random Glucose 76 Hemoglobin A1c % Insulin Level Proinsulin Lactic Acid Calcium 8.1 L Phosphorus Magnesium Total Bilirubin 0.8 AST 31 ALT 44 Alkaline Phosphatase 117 Troponin I Total Protein 5.2 L Albumin 2.5 L CA 19-9 Antigen Serotonin Cortisol 30 Minute Cortisol 60 Minute Cortisol AM Sample Urine Color Urine Appearance Urine pH Ur Specific [place] Urine Protein Urine Glucose (UA) Urine Ketones Urine Blood Urine Nitrite Urine Bilirubin Urine Urobilinogen Ur Leukocyte Esterase Urine WBC (Auto) Urine RBC (Auto) Urine Casts (Auto) U Epithel Cells (Auto) Urine Bacteria (Auto) Blood Type Antibody Screen 03/29/19 03/29/19 03/30/19 18:28 20:35 01:53 WBC RBC Hgb Hct MCV MCH MCHC RDW Plt Count MPV Absolute Neuts (auto) Total Counted Neutrophils % Neutrophils % (Manual) Band Neutrophils % Lymphocytes % Lymphocytes % (Manual) Monocytes % Monocytes % (Manual) Eosinophils % Eosinophils % (Manual) Basophils % Basophils % (Manual) Myelocytes % (Man) Promyelocytes % (Man) Blast Cells % (Manual) Nucleated RBC % Metamyelocytes Hypochromia Platelet Estimate Polychromasia Poikilocytosis Anisocytosis Microcytosis Macrocytosis Spherocytes Tear Drop Cells Ovalocytes [place] Cells PT with INR INR PTT (Actin FS) VBG pH POC VBG pCO2 POC VBG pO2 VBG HCO3 VBG O2 Sat (Cristina) VBG Base Excess Sodium Potassium Chloride Carbon Dioxide Anion Gap BUN Creatinine Est GFR (CKD-EPI)AfAm Est GFR (CKD-EPI)NonAf Plasma Glucose POC Glucometer 119 83 90 Random Glucose Hemoglobin A1c % Insulin Level Proinsulin Lactic Acid Calcium Phosphorus Magnesium Total Bilirubin AST ALT Alkaline Phosphatase Troponin I Total Protein Albumin CA 19-9 Antigen Serotonin Cortisol 30 Minute Cortisol 60 Minute Cortisol AM Sample Urine Color Urine Appearance Urine pH Ur Specific [place] Urine Protein Urine Glucose (UA) Urine Ketones Urine Blood Urine Nitrite Urine Bilirubin Urine Urobilinogen Ur Leukocyte Esterase Urine WBC (Auto) Urine RBC (Auto) Urine Casts (Auto) U Epithel Cells (Auto) Urine Bacteria (Auto) Blood Type Antibody Screen 03/30/19 03/30/19 03/30/19 06:17 07:51 07:51 WBC 7.6 RBC 4.26 Hgb 12.2 Hct 36.5 MCV 85.7 MCH 28.5 MCHC 33.3 RDW 15.2 Plt Count 548 H MPV 8.1 Absolute Neuts (auto) Total Counted Neutrophils % Neutrophils % (Manual) Band Neutrophils % Lymphocytes % Lymphocytes % (Manual) Monocytes % Monocytes % (Manual) Eosinophils % Eosinophils % (Manual) Basophils % Basophils % (Manual) Myelocytes % (Man) Promyelocytes % (Man) Blast Cells % (Manual) Nucleated RBC % Metamyelocytes Hypochromia Platelet Estimate Polychromasia Poikilocytosis Anisocytosis Microcytosis Macrocytosis Spherocytes Tear Drop Cells Ovalocytes [place] Cells PT with INR INR PTT (Actin FS) VBG pH POC VBG pCO2 POC VBG pO2 VBG HCO3 VBG O2 Sat (Cristina) VBG Base Excess Sodium 141 Potassium 4.8 Chloride 107 Carbon Dioxide 31 Anion Gap 4 L BUN 27.5 H Creatinine 0.9 Est GFR (CKD-EPI)AfAm 95.82 Est GFR (CKD-EPI)NonAf 82.67 Plasma Glucose POC Glucometer 71 Random Glucose 78 Hemoglobin A1c % Insulin Level Proinsulin Lactic Acid Calcium 7.9 L Phosphorus Magnesium Total Bilirubin 0.4 AST 26 ALT 15 Alkaline Phosphatase 110 Troponin I Total Protein 5.2 L Albumin 2.4 L CA 19-9 Antigen Serotonin Cortisol 30 Minute Cortisol 60 Minute Cortisol AM Sample Urine Color Urine Appearance Urine pH Ur Specific [place] Urine Protein Urine Glucose (UA) Urine Ketones Urine Blood Urine Nitrite Urine Bilirubin Urine Urobilinogen Ur Leukocyte Esterase Urine WBC (Auto) Urine RBC (Auto) Urine Casts (Auto) U Epithel Cells (Auto) Urine Bacteria (Auto) Blood Type Antibody Screen 03/30/19 10:55 WBC RBC Hgb Hct MCV MCH MCHC RDW Plt Count MPV Absolute Neuts (auto) Total Counted Neutrophils % Neutrophils % (Manual) Band Neutrophils % Lymphocytes % Lymphocytes % (Manual) Monocytes % Monocytes % (Manual) Eosinophils % Eosinophils % (Manual) Basophils % Basophils % (Manual) Myelocytes % (Man) Promyelocytes % (Man) Blast Cells % (Manual) Nucleated RBC % Metamyelocytes Hypochromia Platelet Estimate Polychromasia Poikilocytosis Anisocytosis Microcytosis Macrocytosis Spherocytes Tear Drop Cells Ovalocytes [place] Cells PT with INR INR PTT (Actin FS) VBG pH POC VBG pCO2 POC VBG pO2 VBG HCO3 VBG O2 Sat (Cristina) VBG Base Excess Sodium Potassium Chloride Carbon Dioxide Anion Gap BUN Creatinine Est GFR (CKD-EPI)AfAm Est GFR (CKD-EPI)NonAf Plasma Glucose POC Glucometer 63 Random Glucose Hemoglobin A1c % Insulin Level Proinsulin Lactic Acid Calcium Phosphorus Magnesium Total Bilirubin AST ALT Alkaline Phosphatase Troponin I Total Protein Albumin CA 19-9 Antigen Serotonin Cortisol 30 Minute Cortisol 60 Minute Cortisol AM Sample Urine Color Urine Appearance Urine pH Ur Specific [place] Urine Protein Urine Glucose (UA) Urine Ketones Urine Blood Urine Nitrite Urine Bilirubin Urine Urobilinogen Ur Leukocyte Esterase Urine WBC (Auto) Urine RBC (Auto) Urine Casts (Auto) U Epithel Cells (Auto) Urine Bacteria (Auto) Blood Type Antibody Screen Active Medications Generic Name Dose Route Start Last Admin Trade Name Freq PRN Reason Stop Dose Admin Carbidopa/Levodopa 2 each 03/22/19 10:00 03/30/19 14:33 Sinemet 25/100 - PO 2 each 5XD FANTASMA Administration Cefuroxime Axetil 500 mg 03/24/19 22:00 03/30/19 10:34 Ceftin - PO 500 mg BID FANTASMA Administration Dextrose 25 gm 03/28/19 05:01 03/30/19 11:15 D50w (Syringe) - IVPUSH 25 gm Q2H PRN Administration HYPOGLYCEMIA Docusate Sodium 100 mg 03/22/19 14:00 03/30/19 14:29 Colace - PO Not Given TID FANTASMA Dextrose/Lactated Ringer's 1,000 mls @ 42 mls/hr 03/28/19 18:04 03/29/19 17: 56 D5-Lr - IV 42 mls/hr ASDIR FANTASMA Administration Non-Formulary Medication 0 each 03/22/19 22:00 03/29/19 22:08 Non-Formulary Med PO 1 each HS FANTASMA Administration Non-Formulary Medication 0 mg 03/22/19 10:00 03/30/19 10:36 Pimavanserin Tartrate [Nuplazid] PO 1 mg DAILY FANTASMA Administration Pantoprazole Sodium 40 mg 03/30/19 10:00 03/30/19 10:37 Protonix - PO 40 mg DAILY FANTASMA Administration Polyethylene Glycol 17 gm 03/22/19 10:00 03/30/19 10:37 Miralax (For Daily Use) - PO 17 grams BID FANTASMA Administration Prednisone 15 mg 03/30/19 10:00 03/30/19 10:33 Deltasone - PO 15 mg DAILY FANTASMA Administration Rasagiline 1 mg 03/22/19 10:00 03/30/19 10:35 Azilect - PO 1 mg DAILY FANTASMA Administration Tamsulosin HCl 0.4 mg 03/26/19 14:13 03/30/19 08:46 Flomax - PO 0.4 mg DAILY@0830 FANTASMA Administration Microbiology 03/19/19 12:00 Blood - Peripheral Venous Blood Culture - Final NO GROWTH AFTER 5 DAYS INCUBATION 03/19/19 11:45 Blood - Peripheral Venous Blood Culture - Final NO GROWTH AFTER 5 DAYS INCUBATION 03/16/19 17:20 Urine - Urine - Catheterized Urine Culture - Final Escherichia Coli 03/16/19 16:00 Blood - Peripheral Venous Blood Culture - Final Escherichia Coli 03/16/19 16:17 Blood - Peripheral Venous Blood Culture - Final Escherichia Coli Constitutional: Yes: No Distress, Calm Eyes: Yes: Conjunctiva Clear HENT: Yes: Atraumatic Cardiovascular: Yes: Regular Rate and Rhythm Respiratory: Yes: Regular, CTA Bilaterally Gastrointestinal: Yes: Normal Bowel Sounds, Soft Musculoskeletal: Yes: Muscle Weakness Extremities: Yes: WNL Edema: No Neurological: Yes: Alert, Confusion, Pre-Existing Deficit Psychiatric: Yes: Alert Labs: CBC, BMP 03/30/19 07:51 03/30/19 07:51 Discharge Summary Problems reviewed: Yes Reason For Visit: SEPSIS Current Active Problems MAGY (acute kidney injury) (Acute) HLD (hyperlipidemia) (Acute) HTN (hypertension) (Acute) Hypoglycemia (Acute) Sepsis (Acute) Hospital Course: 74 yo M PMH HTN, HLD, Parkinson's, CAD (s/p cardiac stenting x 2), COPD and frequent falls, arrived from home via 911 with AMS. History provided by home nurse at bedside. Patient noted with hematuria for the past several weeks, went to battery checker Dr. Roth yesterday. At the office urine was collected, however no antibiotics were stated awaiting UCx. Last night patient became progressively altered, and this morning noted with temperature of 102 F. Unable to conduct ROS. Patient in ED noted tachycardia, with rectal temperature of 102.9F in the ED, rocephine x1 given, also hypoglycemia (FBS: 60) D50 given. Patient treated with IV antibiotic therapy with good effect While in patient was followed by endcrinology. Patient was still having labile blood sugars despite being treated for infection. Lab work shows eleavted pro- insulin. Condition: Stable - Instructions Diet, Activity, Other Instructions: Patient needs to follow up wtih Dr Roche BGM q4h Patient will need to follow up with GI Dr trevino for outpatient endoscopic ultrasound patient will need to follow up with specialist at [facility] [place] as outpatient for elevated proinsulin levels continue with medication as prescribed return to ER if hypoglycemia, respiratory distress, chest pain PATIENT IS TO FOLLOW UP AT: [facility] [address], [address] [facility] [id number] DATE OF APPOINTMENT: APRIL 04, 2019 AT 11:[address] SHARIFA YI FAX OVER RADIOLOGY REPORTS TO BY THURSDAY AT 12PM Referrals: Ricki Medina MD [Primary Care Provider] - Freddie Roche MD [Staff Physician] - Melisa Mchugh MD [Staff Physician] - Disposition: SNF FACILITY - Home Medications Comprehensive Discharge Medication List: Ambulatory Orders Atorvastatin Ca [Lipitor] 10 mg PO HS #30 tablet 02/23/17 Carbidopa/Levodopa 25/100 [Sinemet 25/100 -] 2 each PO 5XD #300 tablet 02/23/17 Tamsulosin HCl [Flomax -] 0.4 mg PO DAILY@0830 #30 tab 02/23/17 Aspirin [ASA -] 81 mg PO DAILY #30 tab.chew 03/08/17 Amantadine HCl [Gocovri] 68.5 mg PO HS 09/16/18 Cholecalciferol (Vitamin D3) [Vitamin D3] 1,000 unit PO DAILY 09/16/18 Acetaminophen [Tylenol] 650 mg PO PRN 03/17/19 Memantine HCl [Namenda -] 5 mg PO BID 03/17/19 Pimavanserin Tartrate [Nuplazid] 34 mg PO DAILY 03/20/19 Rasagiline Mesylate [Azilect -] 1 mg PO DAILY 03/20/19
== END 2019-03-30 20:05 | DRG 871 ==
LOC: JER 15:11 → JERBED 19:51 → JICU 03-17 11:48 → J6S 03-21 22:25
PROVIDERS: ADMIT Family Medicine; ATTEND Family Medicine
DX: A41.50 Gram-negative sepsis, unspecified (principal); G93.41 Metabolic encephalopathy; N39.0 Urinary tract infection, site not specified; E87.2 Acidosis; N17.9 Acute kidney failure, unspecified; J98.11 Atelectasis; N13.30 Unspecified hydronephrosis; R44.1 Visual hallucinations; E16.1 Other hypoglycemia; R00.0 Tachycardia, unspecified; G20 Parkinson's disease; R31.9 Hematuria, unspecified; I10 Essential (primary) hypertension; R74.0 Nonspecific elevation of levels of transaminase and lactic acid dehydrogenase [LDH]; D64.9 Anemia, unspecified; N40.0 Benign prostatic hyperplasia without lower urinary tract symptoms; R65.20 Severe sepsis without septic shock; D72.829 Elevated white blood cell count, unspecified; D72.819 Decreased white blood cell count, unspecified; I25.10 Atherosclerotic heart disease of native coronary artery without angina pectoris; Z98.61 Coronary angioplasty status; E78.5 Hyperlipidemia, unspecified
CPT/HCPCS: 36415; 71045-TC-FY; 74018-TC-FY; 74176-TC; 74178-TC; 76700-TC; 80048; 80053; 80299; 81003; 82533; 82803; 82947; 82962; 83036; 83525; 83605; 83735; 84100; 84260; 84484; 85025; 85027; 85610; 85730; 86301; 86850; 86900; 86901; 87040; 87086; 87186; 90670; 93005; 93010; 97116-GP; 97161-GP; 99285-25; J0131; J0834; J1644; J7030; Q2036

== ENCOUNTER 2020-06-26 21:21 | Inpatient (IN) | payer OTHER, BC ==
[2020-06-26] MEDS ORDERED: SODIUM CHLORIDE 1,000 ML IV STA (21:44)
[2020-06-26 22:32] LABS: BASO % 0.8 % (0-2.0); EOS % 2.2 % (0-4.5); HEMATOCRIT 52.3 % (35.4-49); HEMOGLOBIN 16.9 GM/dL (11.7-16.9); LYMPH % 10.5 % (8-40); MCH 28.6 pg (25.7-33.7); MCHC 32.3 g/dl (32.0-35.9); MEAN CELL VOLUME 88.7 fl (80-96); MEAN PLT VOLUME 8.5 fl (7.5-11.1); MONO % 6.1 % (3.8-10.2); NEUT % 80.4 % (42.8-82.8); PLATELET COUNT 461 K/MM3 (134-434); RDW 14.8 % (11.9-15.9); WHITE BLOOD COUNT 12.7 K/mm3 (4.0-10.0)
[2020-06-26 22:40] LABS: INR 1.11 (0.83-1.09); PROTHROMBIN TIME (PATIENT) 13.4 SEC (9.7-13.0)
[2020-06-26 22:43] LABS: ACTIVATED PTT 32.8 SECONDS (25.2-36.5)
[2020-06-26 22:52] LABS: CHLORIDE 116 mmol/L (98-107); SODIUM 150 mmol/L (136-145)
[2020-06-26 22:55] LABS: ALBUMIN 3.8 g/dl (3.4-5.0); ANION GAP 6 MMOL/L (8-16); BLOOD UREA NITROGEN 65.2 mg/dL (7-18); CALCIUM 9.3 mg/dL (8.5-10.1); CO2 29 mmol/L (21-32); GLUCOSE,RANDOM 89 mg/dL (74-106); MAGNESIUM 3.1 mg/dL (1.8-2.4)
[2020-06-26 22:58] LABS: CREATININE 1.9 mg/dL (0.55-1.3); PHOSPHOROUS 4.1 mg/dL (2.5-4.9); SGOT/AST 12 U/L (15-37); SGPT/ALT < 6 U/L (13-61)
[2020-06-26 23:00] LABS: BILIRUBIN,TOTAL 0.8 mg/dL (0.2-1); TOT PROT 7.3 g/dl (6.4-8.2)
[2020-06-26 23:01] LABS: ALK PHOS 116 U/L (45-117)
[2020-06-26 23:06] LABS: LIPASE 120 U/L (73-393)
[2020-06-26 23:30] LABS: BILIRUBIN,DIRECT 0.2 mg/dL (0.0-0.2)
[2020-06-27] MEDS ORDERED: DEXTROSE 5%-WATER - 1,000 ML IV SCH (00:45)
[2020-06-27 01:26] LABS: EPI CELLS 16 /uL (0-25.1); HYALINE CASTS 26 /uL (0-3.1); PH,URINE 8.5 (5.0-8.0); URINE APPEARANCE CLOUDY; URINE BACTERIA >9,000 /uL (0-1359); URINE BILIRUBIN NEGATIVE (NEGATIVE); URINE COLOR YELLOW; URINE GLUCOSE (UA) NEGATIVE (NEGATIVE); URINE KETONE NEGATIVE (NEGATIVE); URINE LEUK ESTERASE 2+ (NEGATIVE); URINE NITRITE NEGATIVE (NEGATIVE); URINE PROTEIN 3+ (NEGATIVE); URINE UROBILINOGEN 0.2 mg/dL (0.2-1.0); URINE WBC 649 /uL (0-25.8)
[2020-06-27] MEDS ORDERED: CEFTRIAXONE 1,000 MG in DEXTROSE 5%-WATER - 50 ML IVPB ONE (01:51)
[2020-06-27 02:21] LABS: CALCIUM 8.5 mg/dL (8.5-10.1)
[2020-06-27 02:22] LABS: BLOOD UREA NITROGEN 60.9 mg/dL (7-18)
[2020-06-27] MEDS ORDERED: CEFTRIAXONE 1 GM/50 ML BAG ONE (02:23)
[2020-06-27 02:25] LABS: CREATININE 1.6 mg/dL (0.55-1.3)
[2020-06-27 03:39] LABS: URINE RBC 25 /uL (0-23.9)
[2020-06-27 06:49] LABS: BASO % 0.5 % (0-2.0); EOS % 0.9 % (0-4.5); HEMATOCRIT 45.1 % (35.4-49); LYMPH % 11.6 % (8-40); MCH 29.3 pg (25.7-33.7); MCHC 33.2 g/dl (32.0-35.9); MEAN CELL VOLUME 88.5 fl (80-96); MEAN PLT VOLUME 8.5 fl (7.5-11.1); MONO % 5.8 % (3.8-10.2); NEUT % 81.2 % (42.8-82.8); PLATELET COUNT 389 K/MM3 (134-434); WHITE BLOOD COUNT 10.5 K/mm3 (4.0-10.0)
[2020-06-27 07:17] LABS: CALCIUM 8.5 mg/dL (8.5-10.1)
[2020-06-27 07:18] LABS: ALBUMIN 3.3 g/dl (3.4-5.0); MAGNESIUM 2.5 mg/dL (1.8-2.4)
[2020-06-27 07:21] LABS: CREATININE 1.6 mg/dL (0.55-1.3); PHOSPHOROUS 3.2 mg/dL (2.5-4.9)
[2020-06-27 07:23] LABS: BILIRUBIN,TOTAL 0.6 mg/dL (0.2-1); TOT PROT 6.3 g/dl (6.4-8.2)
[2020-06-27] MEDS: SODIUM CHLORIDE 0.45% 1,000 ML IV SCH (14:22)
[2020-06-28 07:33] LABS: BASO % 0.8 % (0-2.0); EOS % 2.2 % (0-4.5); HEMATOCRIT 43.2 % (35.4-49); HEMOGLOBIN 14.3 GM/dL (11.7-16.9); LYMPH % 13.9 % (8-40); MCH 29.1 pg (25.7-33.7); MCHC 33.2 g/dl (32.0-35.9); MEAN CELL VOLUME 87.7 fl (80-96); MEAN PLT VOLUME 8.9 fl (7.5-11.1); MONO % 6.2 % (3.8-10.2); NEUT % 76.9 % (42.8-82.8); PLATELET COUNT 376 K/MM3 (134-434); RBC 4.92 M/mm3 (4.00-5.60); RDW 14.2 % (11.9-15.9); WHITE BLOOD COUNT 8.9 K/mm3 (4.0-10.0)
[2020-06-28 07:50] LABS: ALBUMIN 3.1 g/dl (3.4-5.0); BLOOD UREA NITROGEN 37.5 mg/dL (7-18); CALCIUM 8.2 mg/dL (8.5-10.1)
[2020-06-28 07:55] LABS: BILIRUBIN,TOTAL 0.6 mg/dL (0.2-1); TOT PROT 5.6 g/dl (6.4-8.2)
[2020-06-28] MEDS ORDERED: CEFTRIAXONE 1 GM/50 ML BAG ONE (10:40)
[2020-06-28] MEDS: CEFTRIAXONE 1 GM in DEXTROSE 5%-WATER - 50 ML IVPB SCH (10:50)
[2020-06-28] MEDS ORDERED: ACETAMINOPHEN 325 MG TABLET (FP) PO PRN (11:47)
[2020-06-28] MEDS: SODIUM CHLORIDE 0.45% 1,000 ML IV SCH (13:12)
[2020-06-28 16:20] VITALS: BMI 15.7
[2020-06-28] MEDS ORDERED: PT OWN MED DRAWER 7, Y5N ONE ×2 (17:17→20:21)
[2020-06-28] MEDS: DEXTROSE 5%-0.2% SALINE - 1,000 ML IV SCH (17:50)
[2020-06-28] MEDS: ATORVASTATIN CA 10 MG TABLET (FP) PO SCH (21:27)
[2020-06-29] MEDS: DEXTROSE 5%-0.2% SALINE - 1,000 ML IV SCH ×3 (06:33→20:34)
[2020-06-29] MEDS ORDERED: PT OWN MED DRAWER 7, Y5N ONE ×4 (09:23→20:40)
[2020-06-29] MEDS ORDERED: DEXTROSE 5%-WATER - 50 ML IVPB ONE (09:23)
[2020-06-29] MEDS ORDERED: cefTRIAXone SODIUM 1 GM VIAL ONE (09:23)
[2020-06-29] MEDS: CEFTRIAXONE 1 GM in DEXTROSE 5%-WATER - 50 ML IVPB SCH (09:34)
[2020-06-29 09:59] LABS: ALBUMIN 2.8 g/dl (3.4-5.0); BLOOD UREA NITROGEN 33.2 mg/dL (7-18)
[2020-06-29 10:03] LABS: BILIRUBIN,TOTAL 0.6 mg/dL (0.2-1); CREATININE 0.9 mg/dL (0.55-1.3); TOT PROT 5.4 g/dl (6.4-8.2)
[2020-06-29] MEDS: ASPIRIN 81 MG CHEWABLE TABLETS PO SCH (10:48)
[2020-06-29] MEDS: TAMSULOSIN HCL 0.4 MG CAP PO SCH (10:48)
[2020-06-29] MEDS: PIMAVANSERIN TARTRATE 34 MG PO SCH (11:49)
[2020-06-29] MEDS: AMINO ACIDS/PROTEIN HYDROLYS 30 ML LIQUID.PKT PO SCH (17:26)
[2020-06-29] MEDS: ATORVASTATIN CA 10 MG TABLET (FP) PO SCH (21:03)
[2020-06-30 08:22] LABS: BASO % 0.4 % (0-2.0); EOS % 6.1 % (0-4.5); HEMOGLOBIN 13.7 GM/dL (11.7-16.9); LYMPH % 14.7 % (8-40); MCH 29.1 pg (25.7-33.7); MCHC 33.5 g/dl (32.0-35.9); MEAN PLT VOLUME 8.6 fl (7.5-11.1); MONO % 5.7 % (3.8-10.2); NEUT % 73.1 % (42.8-82.8); PLATELET COUNT 346 K/MM3 (134-434); RBC 4.72 M/mm3 (4.00-5.60)
[2020-06-30 08:36] LABS: CALCIUM 7.5 mg/dL (8.5-10.1)
[2020-06-30 08:37] LABS: ALBUMIN 2.6 g/dl (3.4-5.0); BLOOD UREA NITROGEN 26.2 mg/dL (7-18)
[2020-06-30 08:39] LABS: BILIRUBIN,TOTAL 0.6 mg/dL (0.2-1)
[2020-06-30 08:40] LABS: CREATININE 0.9 mg/dL (0.55-1.3); TOT PROT 5.1 g/dl (6.4-8.2)
[2020-06-30] MEDS ORDERED: DEXTROSE 5%-WATER - 50 ML IVPB ONE (09:12)
[2020-06-30] MEDS ORDERED: cefTRIAXone SODIUM 1 GM VIAL ONE (09:12)
[2020-06-30] MEDS: TAMSULOSIN HCL 0.4 MG CAP PO SCH (09:39)
[2020-06-30] MEDS: AMINO ACIDS/PROTEIN HYDROLYS 30 ML LIQUID.PKT PO SCH ×2 (09:39→17:13)
[2020-06-30] MEDS: ASPIRIN 81 MG CHEWABLE TABLETS PO SCH (09:39)
[2020-06-30] MEDS: PIMAVANSERIN TARTRATE 34 MG PO SCH (09:40)
[2020-06-30] MEDS: CEFTRIAXONE 1 GM in DEXTROSE 5%-WATER - 50 ML IVPB SCH (09:41)
[2020-06-30] MEDS ORDERED: PT OWN MED DRAWER 7, Y5N ONE (17:27)
[2020-06-30] MEDS: ATORVASTATIN CA 10 MG TABLET (FP) PO SCH (21:13)
[2020-07-01] MEDS: ASPIRIN 81 MG CHEWABLE TABLETS PO SCH (09:58)
[2020-07-01] MEDS: TAMSULOSIN HCL 0.4 MG CAP PO SCH (09:58)
[2020-07-01] MEDS: AMINO ACIDS/PROTEIN HYDROLYS 30 ML LIQUID.PKT PO SCH ×2 (09:58→17:44)
[2020-07-01] MEDS: PIMAVANSERIN TARTRATE 34 MG PO SCH (09:59)
[2020-07-01 12:10] LABS: CALCIUM 8.3 mg/dL (8.5-10.1)
[2020-07-01 12:11] LABS: BLOOD UREA NITROGEN 20.5 mg/dL (7-18)
[2020-07-01 12:14] LABS: CREATININE 0.9 mg/dL (0.55-1.3)
[2020-07-01] MEDS: ATORVASTATIN CA 10 MG TABLET (FP) PO SCH (21:52)
[2020-07-02] MEDS: AMINO ACIDS/PROTEIN HYDROLYS 30 ML LIQUID.PKT PO SCH ×2 (09:23→17:31)
[2020-07-02] MEDS: TAMSULOSIN HCL 0.4 MG CAP PO SCH (09:23)
[2020-07-02] MEDS: ASPIRIN 81 MG CHEWABLE TABLETS PO SCH (09:23)
[2020-07-02] MEDS: PIMAVANSERIN TARTRATE 34 MG PO SCH (09:24)
[2020-07-02] MEDS: ATORVASTATIN CA 10 MG TABLET (FP) PO SCH (21:52)
[2020-07-03 06:50] VITALS: BP 147/86; PULSE 61; TEMP 97.5
[2020-07-03] MEDS: ASPIRIN 81 MG CHEWABLE TABLETS PO SCH (09:04)
[2020-07-03] MEDS: PIMAVANSERIN TARTRATE 34 MG PO SCH (09:04)
[2020-07-03] MEDS: AMINO ACIDS/PROTEIN HYDROLYS 30 ML LIQUID.PKT PO SCH (09:04)
[2020-07-03] MEDS: TAMSULOSIN HCL 0.4 MG CAP PO SCH (09:04)
== END 2020-07-03 11:16 | disposition home health service (06) | DRG 682 ==
LOC: JER 21:21 → JERBED 23:06 → J8W 06-28 15:41 → J7W 07-01 03:55
PROVIDERS: ADMIT Internal Medicine; ATTEND Family Medicine
DX: N17.9 Acute kidney failure, unspecified (principal); E43 Unspecified severe protein-calorie malnutrition; G93.41 Metabolic encephalopathy; Z68.1 Body mass index [BMI] 19.9 or less, adult; E87.0 Hyperosmolality and hypernatremia; E87.2 Acidosis; N39.0 Urinary tract infection, site not specified; I10 Essential (primary) hypertension; E78.5 Hyperlipidemia, unspecified; D72.829 Elevated white blood cell count, unspecified; G20 Parkinson's disease; I25.10 Atherosclerotic heart disease of native coronary artery without angina pectoris; J44.9 Chronic obstructive pulmonary disease, unspecified; E86.0 Dehydration; K74.60 Unspecified cirrhosis of liver; R29.6 Repeated falls; R53.1 Weakness; R62.7 Adult failure to thrive; F02.80 Dementia in other diseases classified elsewhere, unspecified severity, without behavioral disturbance, psychotic disturbance, mood disturbance, and anxiety; Z95.1 Presence of aortocoronary bypass graft; Z86.73 Personal history of transient ischemic attack (TIA), and cerebral infarction without residual deficits
CPT/HCPCS: 36415; 71045-TC-FY; 76775-TC; 80048; 80053; 81003; 82248; 82550; 82728; 83605; 83615; 83690; 83735; 83930; 83935; 84100; 84484; 85025; 85610; 85730; 86140; 86850; 86900; 86901; 87040; 87086; 93005; 93010; 97116-GP; 97162-GP; 99285-25; C9803; U0003

== ENCOUNTER 2020-09-24 14:05 | Emergency (ER) | payer OTHER, BC ==
[2020-09-24 15:08] LABS: BASO % 0.6 % (0-2.0); EOS % 0.2 % (0-4.5); HEMATOCRIT 45.1 % (35.4-49); HEMOGLOBIN 14.9 GM/dL (11.7-16.9); MCH 28.7 pg (25.7-33.7); MCHC 33.1 g/dl (32.0-35.9); MEAN CELL VOLUME 86.7 fl (80-96); MEAN PLT VOLUME 7.2 fl (7.5-11.1); MONO % 4.9 % (3.8-10.2); NEUT % 84.3 % (42.8-82.8); PLATELET COUNT 415 K/MM3 (134-434); RDW 14.7 % (11.9-15.9); WHITE BLOOD COUNT 11.7 K/mm3 (4.0-10.0)
[2020-09-24 15:28] LABS: POTASSIUM 4.4 mmol/L (3.5-5.1)
[2020-09-24 15:30] LABS: ALBUMIN 3.5 g/dl (3.4-5.0); CALCIUM 9.3 mg/dL (8.5-10.1)
[2020-09-24 15:34] LABS: CREATININE 1.1 mg/dL (0.55-1.3)
[2020-09-24 15:35] LABS: BILIRUBIN,TOTAL 0.6 mg/dL (0.2-1); TOT PROT 6.6 g/dl (6.4-8.2)
[2020-09-24 15:39] VITALS: BMI 17.2
[2020-09-24 15:47] LABS: EPI CELLS 1 /uL (0-25.1); HYALINE CASTS 2 /uL (0-3.1); URINE APPEARANCE TURBID; URINE BACTERIA >9,000 /uL (0-1359); URINE BILIRUBIN NEGATIVE (NEGATIVE); URINE COLOR ORANGE; URINE GLUCOSE (UA) NEGATIVE (NEGATIVE); URINE KETONE TRACE (NEGATIVE); URINE LEUK ESTERASE 2+ (NEGATIVE); URINE NITRITE NEGATIVE (NEGATIVE); URINE PROTEIN 2+ (NEGATIVE); URINE RBC 2778 /uL (0-23.9); URINE WBC 725 /uL (0-25.8)
[2020-09-24] MEDS ORDERED: CEFTRIAXONE 1,000 MG in DEXTROSE 5%-WATER - 50 ML IVPB ONE (16:10)
[2020-09-24] MEDS ORDERED: CEFTRIAXONE 1 GM/50 ML BAG ONE (16:13)
[2020-09-24 18:11] VITALS: BP 130/86
[2020-09-24 20:44] VITALS: PULSE 84; TEMP 98.9
== END 2020-09-24 20:51 | disposition home or self-care (01) ==
LOC: JER 14:05
PROC: 3E033GC Introduction of Other Therapeutic Substance into Peripheral Vein, Percutaneous Approach (ICD-10-PCS; principal; 2020-09-24)
DX: T83.098A Other mechanical complication of other urinary catheter, initial encounter (principal); N30.01 Acute cystitis with hematuria
CPT/HCPCS: 36415; 76857; 80053; 81003; 85025; 87086; 87186; 99284-25; C9803; U0003; U0005

== ENCOUNTER 2020-09-30 15:55 | Inpatient (IN) | payer OTHER, BC ==
[2020-09-30 16:28] VITALS: BMI 23.5
[2020-09-30] MEDS ORDERED: PIPERACILLIN/TAZOB 3.375 GM 3.375 GM in DEXTROSE 5%-WATER - 50 ML IVPB ONE (18:00)
[2020-09-30 18:12] LABS: BASO % 1.3 % (0-2.0); EOS % 6.2 % (0-4.5); HEMATOCRIT 45.1 % (35.4-49); HEMOGLOBIN 14.8 GM/dL (11.7-16.9); LYMPH % 19.7 % (8-40); MCH 28.4 pg (25.7-33.7); MCHC 32.9 g/dl (32.0-35.9); MEAN CELL VOLUME 86.5 fl (80-96); MEAN PLT VOLUME 7.1 fl (7.5-11.1); MONO % 5.4 % (3.8-10.2); NEUT % 67.4 % (42.8-82.8); PLATELET COUNT 471 K/MM3 (134-434); RBC 5.22 M/mm3 (4.00-5.60); RDW 14.8 % (11.9-15.9); WHITE BLOOD COUNT 6.5 K/mm3 (4.0-10.0)
[2020-09-30] MEDS ORDERED: PIPERACILLIN/TAZOB 3.375 GM 3.375 GM/50 ML BAG IVPB ONE ×2 (18:16→18:33)
[2020-09-30 18:33] LABS: ALBUMIN 3.4 g/dl (3.4-5.0); CALCIUM 8.8 mg/dL (8.5-10.1)
[2020-09-30 18:36] LABS: CREATININE 0.9 mg/dL (0.55-1.3)
[2020-09-30 18:37] LABS: BILIRUBIN,TOTAL 0.4 mg/dL (0.2-1); TOT PROT 6.2 g/dl (6.4-8.2)
[2020-09-30 19:17] LABS: EPI CELLS 6 /uL (0-25.1); HYALINE CASTS 8 /uL (0-3.1); URINE APPEARANCE CLOUDY; URINE BACTERIA 5270 /uL (0-1359); URINE BILIRUBIN NEGATIVE (NEGATIVE); URINE COLOR YELLOW; URINE GLUCOSE (UA) NEGATIVE (NEGATIVE); URINE KETONE TRACE (NEGATIVE); URINE LEUK ESTERASE 3+ (NEGATIVE); URINE NITRITE POSITIVE (NEGATIVE); URINE PROTEIN TRACE (NEGATIVE); URINE WBC 3158 /uL (0-25.8)
[2020-09-30 20:11] LABS: URINE RBC 45.3 /uL (0-23.9); YEAST NEGATIVE (NEGATIVE)
[2020-09-30] MEDS ORDERED: ATORVASTATIN CA 10 MG TABLET (FP) PO SCH (22:00)
[2020-10-01] MEDS: PIPERACILLIN/TAZOB 3.375 GM 3.375 GM in DEXTROSE 5%-WATER - 50 ML IVPB SCH ×2 (03:05→10:00)
[2020-10-01] MEDS ORDERED: PIPERACILLIN/TAZOB 3.375 GM 3.375 GM/50 ML BAG IVPB ONE ×2 (05:49→10:50)
[2020-10-01] MEDS ORDERED: TAMSULOSIN HCL 0.4 MG CAP PO SCH (08:30)
[2020-10-01 08:52] LABS: BASO % 1.1 % (0-2.0); EOS % 6.2 % (0-4.5); LYMPH % 23.2 % (8-40); MCH 28.9 pg (25.7-33.7); MCHC 33.4 g/dl (32.0-35.9); MEAN CELL VOLUME 86.6 fl (80-96); MEAN PLT VOLUME 7.6 fl (7.5-11.1); MONO % 4.7 % (3.8-10.2); NEUT % 64.8 % (42.8-82.8); PLATELET COUNT 473 K/MM3 (134-434); RDW 14.7 % (11.9-15.9); WHITE BLOOD COUNT 6.9 K/mm3 (4.0-10.0)
[2020-10-01 09:32] LABS: ALBUMIN 3.4 g/dl (3.4-5.0); CALCIUM 8.8 mg/dL (8.5-10.1)
[2020-10-01 09:33] LABS: BLOOD UREA NITROGEN 23.5 mg/dL (7-18)
[2020-10-01 09:34] LABS: CREATININE 0.9 mg/dL (0.55-1.3)
[2020-10-01 09:36] LABS: BILIRUBIN,TOTAL 0.5 mg/dL (0.2-1); TOT PROT 6.3 g/dl (6.4-8.2)
[2020-10-01] MEDS ORDERED: ASPIRIN 81 MG CHEWABLE TABLETS PO SCH (10:00)
[2020-10-01] MEDS ORDERED: PATIENT'S OWN MEDICATION (NON-FORMULARY) (Pimavanserin Tartrate [Nuplazid] 34 MG Capsule) PO SCH (10:00)
[2020-10-01] MEDS ORDERED: ASPIRIN 81 MG CHEWABLE TABLETS ONE (10:49)
[2020-10-01] MEDS ORDERED: TAMSULOSIN HCL 0.4 MG CAP ONE (10:50)
[2020-10-01 13:32] VITALS: PULSE 78
[2020-10-01 17:51] VITALS: BP 132/81; TEMP 98.2
[2020-10-02] MEDS ORDERED: PIPERACILLIN/TAZOB 3.375 GM 3.375 GM in DEXTROSE 5%-WATER - 50 ML IVPB SCH (02:00)
== END 2020-10-01 20:48 | disposition home health service (06) | DRG 699 ==
LOC: JER 15:55 → JERBED 19:50
PROVIDERS: ADMIT Hospitalist; ATTEND Family Medicine
DX: T83.518A Infection and inflammatory reaction due to other urinary catheter, initial encounter (principal); N39.0 Urinary tract infection, site not specified; Y84.8 Other medical procedures as the cause of abnormal reaction of the patient, or of later complication, without mention of misadventure at the time of the procedure; I25.10 Atherosclerotic heart disease of native coronary artery without angina pectoris; J44.9 Chronic obstructive pulmonary disease, unspecified; I10 Essential (primary) hypertension; E78.5 Hyperlipidemia, unspecified; G20 Parkinson's disease; K74.60 Unspecified cirrhosis of liver; R53.1 Weakness; R29.6 Repeated falls; R82.71 Bacteriuria; R33.9 Retention of urine, unspecified; R62.7 Adult failure to thrive; Z68.23 Body mass index [BMI] 23.0-23.9, adult; Z86.73 Personal history of transient ischemic attack (TIA), and cerebral infarction without residual deficits; Z20.822 Contact with and (suspected) exposure to COVID-19; Z95.5 Presence of coronary angioplasty implant and graft
CPT/HCPCS: 36415; 71045-TC-FY; 80053; 81003; 85025; 87040; 87086; 93005; 93010; 99285-25; C9803; U0003; U0005

== ENCOUNTER 2020-12-12 05:22 | Day surgery (SDC) | payer OTHER, BC ==
[2020-12-11 17:55] VITALS: BMI 18.8
[2020-12-12 13:33] LABS: BASO % 0.6 % (0-2.0); HEMATOCRIT 46.5 % (35.4-49); HEMOGLOBIN 15.7 GM/dL (11.7-16.9); LYMPH % 15.3 % (8-40); MCH 28.2 pg (25.7-33.7); MCHC 33.7 g/dl (32.0-35.9); MEAN CELL VOLUME 83.7 fl (80-96); MEAN PLT VOLUME 6.9 fl (7.5-11.1); MONO % 4.3 % (3.8-10.2); NEUT % 78.8 % (42.8-82.8); PLATELET COUNT 442 10^3/uL (134-434); RBC 5.55 M/mm3 (4.00-5.60); RDW 14.5 % (11.9-15.9); WHITE BLOOD COUNT 8.4 K/mm3 (4.0-10.0)
[2020-12-12 13:39] LABS: INR 1.07 (0.83-1.09); PROTHROMBIN TIME (PATIENT) 13.1 SEC (9.7-13.0)
[2020-12-12] MEDS ORDERED: MIDAZOLAM HCL 2 MG/2 ML SINGLE DOSE VIAL IVPUSH ONE (15:55)
[2020-12-12] MEDS ORDERED: SODIUM CHLORIDE 500 ML IV SCH (16:30)
[2020-12-12 17:24] VITALS: TEMP 98.4
[2020-12-12 18:07] VITALS: BP 140/60; PULSE 74
== END 2020-12-12 18:00 | disposition home or self-care (01) ==
LOC: JRADIR 05:22
PROVIDERS: ATTEND Urology
PROC: 0T9B30Z Drainage of Bladder with Drainage Device, Percutaneous Approach (ICD-10-PCS; principal; 2020-12-12)
DX: N31.9 Neuromuscular dysfunction of bladder, unspecified (principal)
CPT/HCPCS: 36415; 51102; 85025; 85610

== ENCOUNTER 2021-07-10 13:30 | Inpatient (IN) | payer OTHER, BC ==
[2021-07-10] MEDS ORDERED: LACTATED RINGERS SOLUTION 1000 ML INFUS.BAG IV ONE (14:51)
[2021-07-10 16:23] LABS: BASO % 0.8 % (0-2.0); EOS % 1.8 % (0-4.5); HEMATOCRIT 44.9 % (35.4-49); HEMOGLOBIN 14.5 GM/dL (11.7-16.9); LYMPH % 16.9 % (8-40); MCH 27.4 pg (25.7-33.7); MCHC 32.2 g/dl (32.0-35.9); MONO % 6.4 % (3.8-10.2); NEUT % 74.1 % (42.8-82.8); PLATELET COUNT 530 10^3/uL (134-434); RBC 5.28 M/mm3 (4.00-5.60); RDW 15.7 % (11.9-15.9); WHITE BLOOD COUNT 8.4 K/mm3 (4.0-10.0)
[2021-07-10 16:38] LABS: INR 1.15 (0.83-1.09); PROTHROMBIN TIME (PATIENT) 13.2 SEC (9.7-13.0)
[2021-07-10 16:40] LABS: ACTIVATED PTT 30.9 SECONDS (25.2-36.5)
[2021-07-10 16:52] LABS: CHLORIDE 108 mmol/L (98-107); SODIUM 145 mmol/L (136-145)
[2021-07-10 16:55] LABS: ALBUMIN 3.1 g/dl (3.4-5.0); ANION GAP 6 MMOL/L (8-16); BLOOD UREA NITROGEN 26.7 mg/dL (7-18); CO2 31 mmol/L (21-32); GLUCOSE,RANDOM 86 mg/dL (74-106)
[2021-07-10 16:58] LABS: SGPT/ALT 19 U/L (13-61)
[2021-07-10 16:59] LABS: BILIRUBIN,TOTAL 0.5 mg/dL (0.2-1); SGOT/AST 34 U/L (15-37); TOT PROT 7.1 g/dl (6.4-8.2)
[2021-07-10 17:00] LABS: ALK PHOS 86 U/L (45-117)
[2021-07-10 19:48] LABS: BASO % 0.8 % (0-2.0); HEMATOCRIT 40.5 % (35.4-49); HEMOGLOBIN 13.3 GM/dL (11.7-16.9); LYMPH % 16.9 % (8-40); MCH 27.5 pg (25.7-33.7); MCHC 32.9 g/dl (32.0-35.9); MEAN CELL VOLUME 83.6 fl (80-96); MEAN PLT VOLUME 6.9 fl (7.5-11.1); MONO % 6.4 % (3.8-10.2); NEUT % 73.9 % (42.8-82.8); PLATELET COUNT 465 10^3/uL (134-434); RBC 4.84 M/mm3 (4.00-5.60); RDW 15.8 % (11.9-15.9); WHITE BLOOD COUNT 10.7 K/mm3 (4.0-10.0)
[2021-07-10] MEDS ORDERED: PANTOPRAZOLE SODIUM 40 MG VIAL IVPUSH ONE (19:54)
[2021-07-10] MEDS ORDERED: PANTOPRAZOLE SODIUM 40 MG VIAL ONE (20:07)
[2021-07-11 00:40] LABS: BASO % 0.8 % (0-2.0); EOS % 2.9 % (0-4.5); HEMATOCRIT 41.6 % (35.4-49); HEMOGLOBIN 13.6 GM/dL (11.7-16.9); LYMPH % 23.4 % (8-40); MCH 27.4 pg (25.7-33.7); MCHC 32.8 g/dl (32.0-35.9); MEAN CELL VOLUME 83.5 fl (80-96); MEAN PLT VOLUME 6.7 fl (7.5-11.1); MONO % 7.8 % (3.8-10.2); NEUT % 65.1 % (42.8-82.8); PLATELET COUNT 398 10^3/uL (134-434); RBC 4.99 M/mm3 (4.00-5.60); RDW 15.5 % (11.9-15.9); WHITE BLOOD COUNT 9.2 K/mm3 (4.0-10.0)
[2021-07-11] MEDS: DEXTROSE 5%-0.45% SALINE 1,000 ML IV SCH (08:11)
[2021-07-11 09:07] LABS: BASO % 1.2 % (0-2.0); EOS % 4.3 % (0-4.5); HEMATOCRIT 43.7 % (35.4-49); HEMOGLOBIN 14.2 GM/dL (11.7-16.9); LYMPH % 23.9 % (8-40); MCH 27.3 pg (25.7-33.7); MCHC 32.6 g/dl (32.0-35.9); MEAN PLT VOLUME 7.6 fl (7.5-11.1); MONO % 5.3 % (3.8-10.2); NEUT % 65.3 % (42.8-82.8); PLATELET COUNT 437 10^3/uL (134-434); RDW 15.8 % (11.9-15.9); WHITE BLOOD COUNT 8.5 K/mm3 (4.0-10.0)
[2021-07-11] MEDS ORDERED: SODIUM PHOSPHATE/NA BIPHOS 133 ML ENEMA RC ONE (09:40)
[2021-07-11 10:01] LABS: CALCIUM 8.6 mg/dL (8.5-10.1)
[2021-07-11 10:03] LABS: ALBUMIN 2.7 g/dl (3.4-5.0); BLOOD UREA NITROGEN 24.9 mg/dL (7-18)
[2021-07-11 10:05] LABS: CREATININE 0.8 mg/dL (0.55-1.3)
[2021-07-11 10:06] LABS: TOT PROT 5.8 g/dl (6.4-8.2)
[2021-07-11] MEDS ORDERED: PANTOPRAZOLE SODIUM 40 MG VIAL ONE (11:47)
[2021-07-11] MEDS: PANTOPRAZOLE SODIUM 40 MG VIAL IVPUSH SCH (11:54)
[2021-07-11] MEDS: SODIUM PHOSPHATE/NA BIPHOS 133 ML ENEMA RC SCH (19:15)
[2021-07-12] MEDS: SODIUM PHOSPHATE/NA BIPHOS 133 ML ENEMA RC SCH ×3 (00:50→06:08)
[2021-07-12 08:08] LABS: HEMATOCRIT 41.4 % (35.4-49); HEMOGLOBIN 13.3 GM/dL (11.7-16.9); MCH 27.3 pg (25.7-33.7); MEAN PLT VOLUME 7.6 fl (7.5-11.1); PLATELET COUNT 399 10^3/uL (134-434); RBC 4.86 M/mm3 (4.00-5.60); RDW 15.8 % (11.9-15.9); WHITE BLOOD COUNT 8.8 K/mm3 (4.0-10.0)
[2021-07-12 08:12] LABS: ALBUMIN 2.9 g/dl (3.4-5.0); CALCIUM 8.8 mg/dL (8.5-10.1)
[2021-07-12 08:13] LABS: BLOOD UREA NITROGEN 24.9 mg/dL (7-18)
[2021-07-12 08:16] LABS: CREATININE 0.7 mg/dL (0.55-1.3)
[2021-07-12 08:17] LABS: BILIRUBIN,TOTAL 0.7 mg/dL (0.2-1)
[2021-07-12] MEDS: PANTOPRAZOLE SODIUM 40 MG VIAL IVPUSH SCH (09:01)
[2021-07-12] MEDS ORDERED: ACETAMINOPHEN 650 MG/20.3 ML ORAL SOLUTION (CUPS) PO PRN (11:53)
[2021-07-12 11:55] VITALS: BMI 16.2
[2021-07-12] MEDS: CARBIDOPA/LEVODOPA 25/100 TABLET (FP) PO SCH ×4 (12:26→21:28)
[2021-07-12] MEDS: DEXTROSE 5%-0.45% SALINE 1,000 ML IV SCH (12:27)
[2021-07-12 13:23] LABS: EPI CELLS 5 /uL (0-25.1); HYALINE CASTS 19 /uL (0-3.1); URINE APPEARANCE CLOUDY; URINE BACTERIA 6352 /uL (0-1359); URINE BILIRUBIN NEGATIVE (NEGATIVE); URINE COLOR DK YELLOW; URINE GLUCOSE (UA) NEGATIVE (NEGATIVE); URINE KETONE NEGATIVE (NEGATIVE); URINE LEUK ESTERASE 2+ (NEGATIVE); URINE NITRITE POSITIVE (NEGATIVE); URINE PROTEIN 1+ (NEGATIVE); URINE RBC 9 /uL (0-23.9); URINE WBC 650 /uL (0-25.8)
[2021-07-12 13:46] LABS: YEAST NONE SEEN (NEGATIVE)
[2021-07-13 03:24] LABS: CALCIUM 8.4 mg/dL (8.5-10.1)
[2021-07-13 03:25] LABS: BLOOD UREA NITROGEN 21.8 mg/dL (7-18); MAGNESIUM 1.9 mg/dL (1.8-2.4)
[2021-07-13 03:28] LABS: CREATININE 0.8 mg/dL (0.55-1.3)
[2021-07-13] MEDS: TAMSULOSIN HCL 0.4 MG CAP PO SCH ×2 (09:11→14:00)
[2021-07-13] MEDS: CARBIDOPA/LEVODOPA 25/100 TABLET (FP) PO SCH ×4 (09:11→21:03)
[2021-07-13] MEDS: DEXTROSE 5%-0.45% SALINE 1,000 ML IV SCH ×2 (09:19→18:11)
[2021-07-13] MEDS: PANTOPRAZOLE SODIUM 40 MG VIAL IVPUSH SCH (09:31)
[2021-07-13] MEDS ORDERED: POLYETHYLENE GLYCOL 3350 119 GM BTL PO SCH (10:00)
[2021-07-13] MEDS ORDERED: POLYETHYLENE GLYCOL (HEALTHYLAX) 3350 17 GM PACKET PO SCH (10:00)
[2021-07-13] MEDS: PANTOPRAZOLE 40 MG TABLET PO SCH (13:52)
[2021-07-13] MEDS: POLYETHYLENE GLYCOL (HEALTHYLAX) 3350 17 GM PACKET PO SCH (21:03)
[2021-07-14] MEDS: POLYETHYLENE GLYCOL (HEALTHYLAX) 3350 17 GM PACKET PO SCH ×3 (05:57→21:24)
[2021-07-14 07:31] LABS: BASO % 0.6 % (0-2.0); EOS % 3.8 % (0-4.5); HEMATOCRIT 38.7 % (35.4-49); HEMOGLOBIN 12.7 GM/dL (11.7-16.9); LYMPH % 18.1 % (8-40); MCH 27.6 pg (25.7-33.7); MCHC 32.8 g/dl (32.0-35.9); MEAN CELL VOLUME 84.3 fl (80-96); MEAN PLT VOLUME 6.7 fl (7.5-11.1); MONO % 6.2 % (3.8-10.2); NEUT % 71.3 % (42.8-82.8); PLATELET COUNT 458 10^3/uL (134-434); RBC 4.59 M/mm3 (4.00-5.60); RDW 15.2 % (11.9-15.9); WHITE BLOOD COUNT 8.6 K/mm3 (4.0-10.0)
[2021-07-14 08:13] LABS: CALCIUM 8.4 mg/dL (8.5-10.1)
[2021-07-14 08:14] LABS: BLOOD UREA NITROGEN 17.6 mg/dL (7-18)
[2021-07-14 08:17] LABS: CREATININE 0.7 mg/dL (0.55-1.3)
[2021-07-14] MEDS: PANTOPRAZOLE 40 MG TABLET PO SCH (10:29)
[2021-07-14] MEDS: TAMSULOSIN HCL 0.4 MG CAP PO SCH (10:29)
[2021-07-14] MEDS: CARBIDOPA/LEVODOPA 25/100 TABLET (FP) PO SCH ×4 (10:29→21:20)
[2021-07-14] MEDS: DEXTROSE 5%-0.45% SALINE 1,000 ML IV SCH ×2 (16:03→16:06)
[2021-07-15] MEDS: POLYETHYLENE GLYCOL (HEALTHYLAX) 3350 17 GM PACKET PO SCH ×3 (06:08→21:54)
[2021-07-15] MEDS: TAMSULOSIN HCL 0.4 MG CAP PO SCH (09:29)
[2021-07-15] MEDS: PANTOPRAZOLE 40 MG TABLET PO SCH (09:29)
[2021-07-15] MEDS: CARBIDOPA/LEVODOPA 25/100 TABLET (FP) PO SCH ×4 (09:29→21:54)
[2021-07-15 10:00] LABS: BASO % 0.6 % (0-2.0); HEMATOCRIT 36.5 % (35.4-49); HEMOGLOBIN 12.2 GM/dL (11.7-16.9); LYMPH % 18.2 % (8-40); MCH 27.9 pg (25.7-33.7); MCHC 33.5 g/dl (32.0-35.9); MEAN CELL VOLUME 83.3 fl (80-96); MEAN PLT VOLUME 7.3 fl (7.5-11.1); MONO % 5.7 % (3.8-10.2); NEUT % 70.5 % (42.8-82.8); PLATELET COUNT 452 10^3/uL (134-434); RBC 4.38 M/mm3 (4.00-5.60); RDW 15.2 % (11.9-15.9); WHITE BLOOD COUNT 7.4 K/mm3 (4.0-10.0)
[2021-07-15 10:26] LABS: CALCIUM 8.2 mg/dL (8.5-10.1)
[2021-07-15 10:27] LABS: BLOOD UREA NITROGEN 11.4 mg/dL (7-18)
[2021-07-15 10:30] LABS: CREATININE 0.6 mg/dL (0.55-1.3)
[2021-07-15] MEDS ORDERED: MAGNESIUM CITRATE 300 ML BOTTLE PO ONE (10:30)
[2021-07-15] MEDS: DEXTROSE 5%-0.45% SALINE 1,000 ML IV SCH (12:08)
[2021-07-16] MEDS: POLYETHYLENE GLYCOL (HEALTHYLAX) 3350 17 GM PACKET PO SCH (11:40)
[2021-07-16] MEDS: PANTOPRAZOLE 40 MG TABLET PO SCH (11:40)
[2021-07-16] MEDS: CARBIDOPA/LEVODOPA 25/100 TABLET (FP) PO SCH ×3 (11:40→17:18)
[2021-07-16] MEDS: TAMSULOSIN HCL 0.4 MG CAP PO SCH (11:40)
[2021-07-16 18:21] VITALS: BP 108/68; PULSE 80; TEMP 98.9
== END 2021-07-16 18:00 | disposition home health service (06) | DRG 377 ==
LOC: JER 13:30 → JERBED 19:48 → J4S 07-11 22:03
PROVIDERS: ADMIT Internal Medicine; ATTEND Family Medicine
PROC: 30233N1 Transfusion of Nonautologous Red Blood Cells into Peripheral Vein, Percutaneous Approach (ICD-10-PCS; principal; 2021-07-10)
DX: K28.0 Acute gastrojejunal ulcer with hemorrhage (principal); E43 Unspecified severe protein-calorie malnutrition; R64 Cachexia; Z68.1 Body mass index [BMI] 19.9 or less, adult; N17.9 Acute kidney failure, unspecified; E87.0 Hyperosmolality and hypernatremia; K62.5 Hemorrhage of anus and rectum; E86.0 Dehydration; I25.10 Atherosclerotic heart disease of native coronary artery without angina pectoris; G20 Parkinson's disease; J44.9 Chronic obstructive pulmonary disease, unspecified; F03.90 Unspecified dementia, unspecified severity, without behavioral disturbance, psychotic disturbance, mood disturbance, and anxiety; K74.60 Unspecified cirrhosis of liver; I10 Essential (primary) hypertension; E78.5 Hyperlipidemia, unspecified; R62.7 Adult failure to thrive; K56.41 Fecal impaction; E87.5 Hyperkalemia; R13.10 Dysphagia, unspecified; R36.9 Urethral discharge, unspecified; R82.79 Other abnormal findings on microbiological examination of urine; R29.6 Repeated falls; Z86.73 Personal history of transient ischemic attack (TIA), and cerebral infarction without residual deficits; Z95.5 Presence of coronary angioplasty implant and graft; Z95.1 Presence of aortocoronary bypass graft; Z93.59 Other cystostomy status
CPT/HCPCS: 36415; 36430; 71045-TC-FY; 74174-TC; 74230-TC-FY; 80048; 80053; 81003; 82272; 82962; 83605; 83735; 84443; 84484; 85025; 85027; 85610; 85730; 86850; 86900; 86901; 86922; 87086; 87186; 92611-GN; 93005; 93010; 99285-25; C9803; P9058; Q9967; U0003; U0005

== ENCOUNTER 2021-08-04 12:03 | Inpatient (IN) | payer OTHER, BC ==
[2021-08-04] MEDS ORDERED: LACTATED RINGERS SOLUTION 1000 ML INFUS.BAG IV ONE (15:24)
[2021-08-04 16:18] LABS: SODIUM 144 mmol/L (136-145)
[2021-08-04 16:20] LABS: BLOOD UREA NITROGEN 30.1 mg/dL (7-18); CALCIUM 8.5 mg/dL (8.5-10.1); CO2 27 mmol/L (21-32); GLUCOSE,RANDOM 102 mg/dL (74-106)
[2021-08-04 16:23] LABS: CREATININE 0.9 mg/dL (0.55-1.3); SGOT/AST 12 U/L (15-37); SGPT/ALT 8 U/L (13-61)
[2021-08-04 16:25] LABS: BILIRUBIN,TOTAL 0.4 mg/dL (0.2-1); TOT PROT 6.1 g/dl (6.4-8.2)
[2021-08-04 16:26] LABS: ALK PHOS 76 U/L (45-117)
[2021-08-04 16:29] LABS: ANION GAP 8 MMOL/L (8-16); CHLORIDE 108 mmol/L (98-107)
[2021-08-04 16:47] LABS: BASO % 0.5 % (0-2.0); HEMATOCRIT 45.4 % (35.4-49); HEMOGLOBIN 14.7 GM/dL (11.7-16.9); LYMPH % 12.5 % (8-40); MCH 28.1 pg (25.7-33.7); MCHC 32.4 g/dl (32.0-35.9); MEAN CELL VOLUME 86.6 fl (80-96); MEAN PLT VOLUME 7.2 fl (7.5-11.1); MONO % 4.9 % (3.8-10.2); NEUT % 80.1 % (42.8-82.8); PLATELET COUNT 321 10^3/uL (134-434); RBC 5.25 M/mm3 (4.00-5.60); RDW 17.1 % (11.9-15.9); WHITE BLOOD COUNT 9.1 K/mm3 (4.0-10.0)
[2021-08-04 20:23] LABS: EPI CELLS 10 /uL (0-25.1); HYALINE CASTS 2 /uL (0-3.1); PH,URINE 5.5 (5.0-8.0); URINE APPEARANCE CLOUDY; URINE BACTERIA 4010 /uL (0-1359); URINE BILIRUBIN NEGATIVE (NEGATIVE); URINE COLOR YELLOW; URINE GLUCOSE (UA) NEGATIVE (NEGATIVE); URINE KETONE NEGATIVE (NEGATIVE); URINE LEUK ESTERASE 3+ (NEGATIVE); URINE NITRITE POSITIVE (NEGATIVE); URINE PROTEIN TRACE (NEGATIVE); URINE RBC 94 /uL (0-23.9); URINE WBC 2145 /uL (0-25.8)
[2021-08-04] MEDS ORDERED: GENTAMICIN INJECTION 100 MG in SODIUM CHLORIDE 97.5 ML IVPB ONE (20:40)
[2021-08-04] MEDS ORDERED: GENTAMICIN SO4 80 MG/2 ML VIAL ONE (21:07)
[2021-08-04 22:21] LABS: YEAST NEGATIVE (NEGATIVE)
[2021-08-04] MEDS ORDERED: SODIUM CHLORIDE 1,000 ML IV SCH (23:30)
[2021-08-05 02:46] LABS: MAGNESIUM 1.9 mg/dL (1.8-2.4)
[2021-08-05 02:51] LABS: LDH 169 U/L (87-246)
[2021-08-05] MEDS ORDERED: AMANTADINE PO SCH (10:00)
[2021-08-05] MEDS ORDERED: PIPERACILLIN/TAZOB 3.375 GM 3.375 GM in DEXTROSE 5%-WATER - 50 ML IVPB SCH (10:00)
[2021-08-05] MEDS ORDERED: DEXTROSE 5%-WATER - 50 ML IVPB ONE (10:14)
[2021-08-05] MEDS ORDERED: PIPERACILLIN/TAZOBACTAM 3.375 GM VIAL IVPB ONE (10:14)
[2021-08-05] MEDS: TAMSULOSIN HCL 0.4 MG CAP PO SCH (10:42)
[2021-08-05] MEDS: CARBIDOPA/LEVODOPA 25/100 TABLET (FP) PO SCH ×4 (10:42→21:17)
[2021-08-05] MEDS: ASPIRIN 81 MG CHEWABLE TABLETS PO SCH (10:42)
[2021-08-05] MEDS ORDERED: ZINC OXIDE/PETROLATUM,WHITE 1 APPLIC OINT...G. TP PRN (10:46)
[2021-08-05 12:03] LABS: BASO % 0.9 % (0-2.0); EOS % 4.2 % (0-4.5); HEMATOCRIT 42.4 % (35.4-49); LYMPH % 18.3 % (8-40); MCH 28.7 pg (25.7-33.7); MCHC 33.1 g/dl (32.0-35.9); MEAN CELL VOLUME 86.8 fl (80-96); MEAN PLT VOLUME 7.3 fl (7.5-11.1); MONO % 5.3 % (3.8-10.2); NEUT % 71.3 % (42.8-82.8); PLATELET COUNT 334 10^3/uL (134-434); RBC 4.88 M/mm3 (4.00-5.60); WHITE BLOOD COUNT 6.9 K/mm3 (4.0-10.0)
[2021-08-05 12:18] LABS: BLOOD UREA NITROGEN 23.8 mg/dL (7-18)
[2021-08-05 12:21] LABS: CREATININE 0.8 mg/dL (0.55-1.3)
[2021-08-05] MEDS ORDERED: DEXTROSE 5%-WATER - 1,000 ML IV SCH (13:45)
[2021-08-05] MEDS: ENOXAPARIN NA (PORCINE) 40 MG/0.4 ML DISP.SYRIN SQ SCH (18:53)
[2021-08-05] MEDS: ATORVASTATIN CA 10 MG TABLET (FP) PO SCH (21:17)
[2021-08-05] MEDS ORDERED: SODIUM CHLORIDE 500 ML IV STA (21:40)
[2021-08-06 00:12] LABS: BASO % 3.6 % (0-2.0); EOS % 7.3 % (0-4.5); HEMATOCRIT 34.5 % (35.4-49); HEMOGLOBIN 11.7 GM/dL (11.7-16.9); LYMPH % 24.3 % (8-40); MCH 28.6 pg (25.7-33.7); MCHC 33.8 g/dl (32.0-35.9); MEAN CELL VOLUME 84.6 fl (80-96); MEAN PLT VOLUME 7.6 fl (7.5-11.1); MONO % 7.7 % (3.8-10.2); NEUT % 57.1 % (42.8-82.8); PLATELET COUNT 315 10^3/uL (134-434); RBC 4.08 M/mm3 (4.00-5.60); RDW 16.6 % (11.9-15.9); WHITE BLOOD COUNT 7.6 K/mm3 (4.0-10.0)
[2021-08-06 09:15] LABS: BASO % 1.3 % (0-2.0); EOS % 5.6 % (0-4.5); HEMATOCRIT 37.7 % (35.4-49); HEMOGLOBIN 12.5 GM/dL (11.7-16.9); LYMPH % 18.9 % (8-40); MCH 28.7 pg (25.7-33.7); MCHC 33.2 g/dl (32.0-35.9); MEAN CELL VOLUME 86.3 fl (80-96); MEAN PLT VOLUME 8.1 fl (7.5-11.1); MONO % 6.6 % (3.8-10.2); NEUT % 67.6 % (42.8-82.8); PLATELET COUNT 291 10^3/uL (134-434); RBC 4.37 M/mm3 (4.00-5.60); RDW 16.4 % (11.9-15.9); WHITE BLOOD COUNT 7.3 K/mm3 (4.0-10.0)
[2021-08-06] MEDS ORDERED: PIPERACILLIN/TAZOB 3.375 GM 3.375 GM in DEXTROSE 5%-WATER - 50 ML IVPB SCH (10:00)
[2021-08-06 10:02] LABS: CALCIUM 8.2 mg/dL (8.5-10.1)
[2021-08-06 10:03] LABS: BLOOD UREA NITROGEN 20.2 mg/dL (7-18)
[2021-08-06 10:06] LABS: CREATININE 0.8 mg/dL (0.55-1.3)
[2021-08-06] MEDS: ENOXAPARIN NA (PORCINE) 40 MG/0.4 ML DISP.SYRIN SQ SCH (10:25)
[2021-08-06] MEDS: ASPIRIN 81 MG CHEWABLE TABLETS PO SCH (10:25)
[2021-08-06] MEDS: CARBIDOPA/LEVODOPA 25/100 TABLET (FP) PO SCH ×4 (10:25→22:40)
[2021-08-06] MEDS: TAMSULOSIN HCL 0.4 MG CAP PO SCH (10:25)
[2021-08-06] MEDS: LACTATED RINGERS SOLUTION 1,000 ML/1,000 ML INFUS.BAG IV SCH (11:10)
[2021-08-06 15:20] VITALS: BMI 14.0
[2021-08-06] MEDS: ATORVASTATIN CA 10 MG TABLET (FP) PO SCH (22:41)
[2021-08-07] MEDS: CARBIDOPA/LEVODOPA 25/100 TABLET (FP) PO SCH ×4 (09:40→22:00)
[2021-08-07] MEDS: ENOXAPARIN NA (PORCINE) 40 MG/0.4 ML DISP.SYRIN SQ SCH (09:40)
[2021-08-07] MEDS: PATIENT'S OWN MEDICATION (NON-FORMULARY) (Pimavanserin Tartrate [Nuplazid] 34 MG Capsule) PO SCH ×2 (09:40→10:42)
[2021-08-07] MEDS: ASPIRIN 81 MG CHEWABLE TABLETS PO SCH (09:40)
[2021-08-07 12:32] LABS: BASO % 0.9 % (0-2.0); EOS % 5.9 % (0-4.5); HEMOGLOBIN 13.3 GM/dL (11.7-16.9); MCH 27.8 pg (25.7-33.7); MCHC 32.5 g/dl (32.0-35.9); MEAN CELL VOLUME 85.7 fl (80-96); MEAN PLT VOLUME 7.4 fl (7.5-11.1); MONO % 7.4 % (3.8-10.2); NEUT % 63.8 % (42.8-82.8); PLATELET COUNT 356 10^3/uL (134-434); RBC 4.79 M/mm3 (4.00-5.60); RDW 16.4 % (11.9-15.9); WHITE BLOOD COUNT 6.6 K/mm3 (4.0-10.0)
[2021-08-07 13:34] LABS: CALCIUM 9.1 mg/dL (8.5-10.1); CREATININE 0.8 mg/dL (0.55-1.3); MAGNESIUM 1.9 mg/dL (1.8-2.4)
[2021-08-07] MEDS: MINERAL OIL/PET HY-PHL TOPICAL OINTMENT 454 GM JAR TP SCH (13:49)
[2021-08-07] MEDS: LACTATED RINGERS SOLUTION 1,000 ML/1,000 ML INFUS.BAG IV SCH (13:50)
[2021-08-07] MEDS: ATORVASTATIN CA 10 MG TABLET (FP) PO SCH (22:00)
[2021-08-08] MEDS: LACTATED RINGERS SOLUTION 1,000 ML/1,000 ML INFUS.BAG IV SCH ×2 (02:17→10:59)
[2021-08-08 07:45] VITALS: BP 140/53; PULSE 53; TEMP 97.6
[2021-08-08] MEDS: MINERAL OIL/PET HY-PHL TOPICAL OINTMENT 454 GM JAR TP SCH (09:00)
[2021-08-08] MEDS: ENOXAPARIN NA (PORCINE) 40 MG/0.4 ML DISP.SYRIN SQ SCH (10:59)
[2021-08-08] MEDS: CARBIDOPA/LEVODOPA 25/100 TABLET (FP) PO SCH (10:59)
[2021-08-08] MEDS: ASPIRIN 81 MG CHEWABLE TABLETS PO SCH (10:59)
== END 2021-08-08 13:00 | disposition home or self-care (01) | DRG 698 ==
LOC: JER 12:03 → JERBED 21:48 → J8W 08-05 07:09
PROVIDERS: ADMIT Internal Medicine; ATTEND Internal Medicine
DX: T83.518A Infection and inflammatory reaction due to other urinary catheter, initial encounter (principal); U07.1 COVID-19; E43 Unspecified severe protein-calorie malnutrition; N39.0 Urinary tract infection, site not specified; R64 Cachexia; Z68.1 Body mass index [BMI] 19.9 or less, adult; R13.10 Dysphagia, unspecified; Y84.8 Other medical procedures as the cause of abnormal reaction of the patient, or of later complication, without mention of misadventure at the time of the procedure; G20 Parkinson's disease; K74.60 Unspecified cirrhosis of liver; I10 Essential (primary) hypertension; J44.9 Chronic obstructive pulmonary disease, unspecified; B96.5 Pseudomonas (aeruginosa) (mallei) (pseudomallei) as the cause of diseases classified elsewhere; I25.10 Atherosclerotic heart disease of native coronary artery without angina pectoris; E78.5 Hyperlipidemia, unspecified; I25.2 Old myocardial infarction; N31.9 Neuromuscular dysfunction of bladder, unspecified; M62.59 Muscle wasting and atrophy, not elsewhere classified, multiple sites; Z86.73 Personal history of transient ischemic attack (TIA), and cerebral infarction without residual deficits; Z95.5 Presence of coronary angioplasty implant and graft
CPT/HCPCS: 36415; 71045-TC-FY; 80048; 80053; 81003; 82728; 83605; 83615; 83735; 84100; 84484; 85025; 85379; 86140; 87040; 87086; 87186; 93005; 93010; 97161-GP; 99285-25; C9803; U0003; U0005

== ENCOUNTER 2021-09-28 11:19 | Inpatient (IN) | payer OTHER, BC ==
[2021-09-28 13:13] LABS: VENOUS BASE EXCESS -0.5 mmol/L (-2-2); VENOUS O2 SATURATION 22.9 % (70-80); VENOUS PCO2 51.5 mmHg (38-52); VENOUS PH 7.329 (7.310-7.410)
[2021-09-28 13:25] LABS: BASO % 0.1 % (0-2.0); EOS % 0.3 % (0-4.5); HEMOGLOBIN 17.1 GM/dL (11.7-16.9); LYMPH % 7.3 % (8-40); MCH 28.2 pg (25.7-33.7); MCHC 32.9 g/dl (32.0-35.9); MEAN CELL VOLUME 85.5 fl (80-96); MEAN PLT VOLUME 7.9 fl (7.5-11.1); MONO % 5.4 % (3.8-10.2); NEUT % 86.9 % (42.8-82.8); PLATELET COUNT 477 10^3/uL (134-434); RBC 6.08 M/mm3 (4.00-5.60); WHITE BLOOD COUNT 15.9 K/mm3 (4.0-10.0)
[2021-09-28 13:32] LABS: INR 1.15 (0.83-1.09); PROTHROMBIN TIME (PATIENT) 13.3 SEC (9.7-13.0)
[2021-09-28 13:33] LABS: ALBUMIN 3.3 g/dl (3.4-5.0); BLOOD UREA NITROGEN 47.1 mg/dL (7-18); CALCIUM 9.8 mg/dL (8.5-10.1); MAGNESIUM 2.4 mg/dL (1.8-2.4)
[2021-09-28 13:35] LABS: ACTIVATED PTT 32.8 SECONDS (25.2-36.5)
[2021-09-28 13:36] LABS: CREATININE 1.4 mg/dL (0.55-1.3)
[2021-09-28] MEDS ORDERED: LACTATED RINGERS SOLUTION 1000 ML INFUS.BAG IV ONE (13:36)
[2021-09-28 13:38] LABS: BILIRUBIN,TOTAL 0.7 mg/dL (0.2-1); TOT PROT 7.3 g/dl (6.4-8.2)
[2021-09-28 13:48] LABS: EPI CELLS 8 /uL (0-25.1); HYALINE CASTS 7 /uL (0-3.1); LACTIC ACID 3.7 mmol/L (0.4-2.0); PH,URINE 8.5 (5.0-8.0); URINE APPEARANCE TURBID; URINE BACTERIA >9,000 /uL (0-1359); URINE BILIRUBIN NEGATIVE (NEGATIVE); URINE COLOR YELLOW; URINE GLUCOSE (UA) NEGATIVE (NEGATIVE); URINE KETONE NEGATIVE (NEGATIVE); URINE LEUK ESTERASE 2+ (NEGATIVE); URINE NITRITE NEGATIVE (NEGATIVE); URINE PROTEIN 2+ (NEGATIVE); URINE UROBILINOGEN 0.2 mg/dL (0.2-1.0); URINE WBC 744 /uL (0-25.8)
[2021-09-28] MEDS ORDERED: PIPERACILLIN/TAZOB 2.25 GM 2.25 GM in DEXTROSE 5%-WATER - 50 ML IVPB ONE (13:50)
[2021-09-28] MEDS ORDERED: PIPERACILLIN/TAZOB 3.375 GM 3.375 GM in DEXTROSE 5%-WATER - 50 ML IVPB ONE (13:54)
[2021-09-28 14:13] LABS: URINE RBC 2374.9 /uL (0-23.9); YEAST NONE SEEN (NEGATIVE)
[2021-09-28] MEDS ORDERED: PIPERACILLIN/TAZOB 3.375 GM 3.375 GM/50 ML BAG IVPB ONE ×2 (14:13→21:37)
[2021-09-28 14:38] LABS: CALCIUM 9.3 mg/dL (8.5-10.1)
[2021-09-28 14:42] LABS: CREATININE 1.4 mg/dL (0.55-1.3)
[2021-09-28] MEDS ORDERED: ONDANSETRON 4 MG/2 ML VIAL IVPUSH PRN (18:14)
[2021-09-28] MEDS ORDERED: ACETAMINOPHEN 325 MG TABLET (FP) PO PRN (18:14)
[2021-09-28] MEDS ORDERED: ATORVASTATIN CA 10 MG TABLET (FP) ONE (21:37)
[2021-09-28] MEDS ORDERED: CARBIDOPA/LEVODOPA 25/100 TABLET (FP) ONE (21:37)
[2021-09-28] MEDS: ATORVASTATIN CA 10 MG TABLET (FP) PO SCH (21:42)
[2021-09-28] MEDS: CARBIDOPA/LEVODOPA 25/100 TABLET (FP) PO SCH (21:42)
[2021-09-28] MEDS: PIPERACILLIN/TAZOB 3.375 GM 3.375 GM in DEXTROSE 5%-WATER - 50 ML IVPB SCH (21:42)
[2021-09-28 21:44] LABS: LACTIC ACID 2.3 mmol/L (0.4-2.0)
[2021-09-29] MEDS ORDERED: PIPERACILLIN/TAZOBACTAM 3.375 GM VIAL IVPB ONE ×2 (01:59→09:35)
[2021-09-29] MEDS ORDERED: DEXTROSE 5%-WATER - 50 ML IVPB ONE ×2 (01:59→09:35)
[2021-09-29] MEDS ORDERED: PIPERACILLIN/TAZOB 3.375 GM 3.375 GM in DEXTROSE 5%-WATER - 50 ML IVPB SCH (02:00)
[2021-09-29] MEDS: PIPERACILLIN/TAZOB 3.375 GM 3.375 GM in DEXTROSE 5%-WATER - 50 ML IVPB SCH ×2 (02:01→09:37)
[2021-09-29] MEDS: ASPIRIN 81 MG CHEWABLE TABLETS PO SCH (09:37)
[2021-09-29] MEDS: CARBIDOPA/LEVODOPA 25/100 TABLET (FP) PO SCH ×4 (09:37→21:23)
[2021-09-29] MEDS: TAMSULOSIN HCL 0.4 MG CAP PO SCH (09:37)
[2021-09-29 10:07] LABS: HEMATOCRIT 45.2 % (35.4-49); HEMOGLOBIN 14.8 GM/dL (11.7-16.9); MCH 27.8 pg (25.7-33.7); MCHC 32.7 g/dl (32.0-35.9); MEAN CELL VOLUME 85.1 fl (80-96); MEAN PLT VOLUME 8.2 fl (7.5-11.1); PLATELET COUNT 404 10^3/uL (134-434); RBC 5.32 M/mm3 (4.00-5.60); RDW 15.4 % (11.9-15.9); WHITE BLOOD COUNT 11.7 K/mm3 (4.0-10.0)
[2021-09-29 10:24] LABS: CALCIUM 9.3 mg/dL (8.5-10.1)
[2021-09-29 10:28] LABS: CREATININE 1.2 mg/dL (0.55-1.3)
[2021-09-29] MEDS: Pimavanserin Tartrate [Nuplazid] 34 MG Capsule PO SCH (17:19)
[2021-09-29] MEDS: DEXTROSE 5%-LACTATED RINGERS 1,000 ML IV SCH (18:32)
[2021-09-29] MEDS: AMANTADINE HCL PO SCH (21:23)
[2021-09-29] MEDS: ATORVASTATIN CA 10 MG TABLET (FP) PO SCH (21:23)
[2021-09-30] MEDS: DEXTROSE 5%-LACTATED RINGERS 1,000 ML IV SCH ×2 (07:59→22:15)
[2021-09-30] MEDS ORDERED: PIPERACILLIN/TAZOB 3.375 GM 3.375 GM in DEXTROSE 5%-WATER - 50 ML IVPB SCH (10:00)
[2021-09-30] MEDS: TAMSULOSIN HCL 0.4 MG CAP PO SCH (10:06)
[2021-09-30] MEDS: CARBIDOPA/LEVODOPA 25/100 TABLET (FP) PO SCH ×4 (10:06→21:21)
[2021-09-30] MEDS: Pimavanserin Tartrate [Nuplazid] 34 MG Capsule PO SCH (10:06)
[2021-09-30] MEDS: ASPIRIN 81 MG CHEWABLE TABLETS PO SCH (10:06)
[2021-09-30] MEDS ORDERED: PIPERACILLIN/TAZOBACTAM 3.375 GM VIAL IVPB ONE ×2 (10:10→17:33)
[2021-09-30] MEDS ORDERED: DEXTROSE 5%-WATER - 50 ML IVPB ONE ×2 (10:10→17:33)
[2021-09-30 10:20] LABS: BASO % 0.5 % (0-2.0); EOS % 1.2 % (0-4.5); HEMATOCRIT 41.3 % (35.4-49); HEMOGLOBIN 13.6 GM/dL (11.7-16.9); LYMPH % 14.9 % (8-40); MCH 28.1 pg (25.7-33.7); MEAN CELL VOLUME 85.2 fl (80-96); MEAN PLT VOLUME 7.7 fl (7.5-11.1); MONO % 4.7 % (3.8-10.2); NEUT % 78.7 % (42.8-82.8); PLATELET COUNT 375 10^3/uL (134-434); RBC 4.85 M/mm3 (4.00-5.60); RDW 15.5 % (11.9-15.9); WHITE BLOOD COUNT 9.2 K/mm3 (4.0-10.0)
[2021-09-30 10:45] LABS: CALCIUM 8.8 mg/dL (8.5-10.1)
[2021-09-30 10:46] LABS: BLOOD UREA NITROGEN 42.4 mg/dL (7-18); MAGNESIUM 2.1 mg/dL (1.8-2.4)
[2021-09-30 10:49] LABS: CREATININE 1.1 mg/dL (0.55-1.3); PHOSPHOROUS 2.4 mg/dL (2.5-4.9)
[2021-09-30 10:52] LABS: BILIRUBIN,TOTAL 0.6 mg/dL (0.2-1); TOT PROT 5.6 g/dl (6.4-8.2)
[2021-09-30 10:54] LABS: ALBUMIN 2.4 g/dl (3.4-5.0)
[2021-09-30] MEDS: PIPERACILLIN/TAZOB 3.375 GM 3.375 GM in DEXTROSE 5%-WATER - 50 ML IVPB SCH (17:40)
[2021-09-30] MEDS: ATORVASTATIN CA 10 MG TABLET (FP) PO SCH (21:21)
[2021-09-30] MEDS: AMANTADINE HCL PO SCH (21:21)
[2021-10-01] MEDS ORDERED: PIPERACILLIN/TAZOBACTAM 3.375 GM VIAL IVPB ONE ×3 (00:46→16:49)
[2021-10-01] MEDS: PIPERACILLIN/TAZOB 3.375 GM 3.375 GM in DEXTROSE 5%-WATER - 50 ML IVPB SCH ×3 (01:09→17:08)
[2021-10-01 08:39] LABS: HEMATOCRIT 41.5 % (35.4-49); HEMOGLOBIN 13.7 GM/dL (11.7-16.9); MCH 28.2 pg (25.7-33.7); MCHC 33.1 g/dl (32.0-35.9); MEAN CELL VOLUME 85.4 fl (80-96); MEAN PLT VOLUME 7.8 fl (7.5-11.1); PLATELET COUNT 342 10^3/uL (134-434); RBC 4.86 M/mm3 (4.00-5.60); RDW 15.4 % (11.9-15.9); WHITE BLOOD COUNT 9.4 K/mm3 (4.0-10.0)
[2021-10-01 08:50] LABS: BLOOD UREA NITROGEN 33.2 mg/dL (7-18); CALCIUM 8.9 mg/dL (8.5-10.1)
[2021-10-01 08:51] LABS: ALBUMIN 2.4 g/dl (3.4-5.0); MAGNESIUM 2.2 mg/dL (1.8-2.4); TOT PROT 5.6 g/dl (6.4-8.2)
[2021-10-01 08:52] LABS: BILIRUBIN,TOTAL 0.6 mg/dL (0.2-1); PHOSPHOROUS 2.4 mg/dL (2.5-4.9)
[2021-10-01 08:53] LABS: CREATININE 1.1 mg/dL (0.55-1.3)
[2021-10-01] MEDS: TAMSULOSIN HCL 0.4 MG CAP PO SCH (09:04)
[2021-10-01] MEDS: ASPIRIN 81 MG CHEWABLE TABLETS PO SCH (09:04)
[2021-10-01] MEDS: CARBIDOPA/LEVODOPA 25/100 TABLET (FP) PO SCH ×4 (09:05→22:18)
[2021-10-01] MEDS: Pimavanserin Tartrate [Nuplazid] 34 MG Capsule PO SCH (09:05)
[2021-10-01] MEDS ORDERED: DEXTROSE 5%-WATER - 50 ML IVPB ONE ×2 (09:28→16:49)
[2021-10-01] MEDS ORDERED: SODIUM CHLORIDE 0.45% 1,000 ML IV SCH ×2 (10:45→15:27)
[2021-10-01] MEDS: SODIUM CHLORIDE 0.45% 1,000 ML IV SCH ×2 (16:36→22:17)
[2021-10-01 21:54] VITALS: BMI 13.4
[2021-10-01] MEDS: ATORVASTATIN CA 10 MG TABLET (FP) PO SCH (22:17)
[2021-10-01] MEDS: AMANTADINE HCL PO SCH (22:18)
[2021-10-02] MEDS ORDERED: DEXTROSE 5%-WATER - 50 ML IVPB ONE ×3 (02:44→16:49)
[2021-10-02] MEDS ORDERED: PIPERACILLIN/TAZOBACTAM 3.375 GM VIAL IVPB ONE ×3 (02:44→16:49)
[2021-10-02] MEDS: PIPERACILLIN/TAZOB 3.375 GM 3.375 GM in DEXTROSE 5%-WATER - 50 ML IVPB SCH ×3 (02:48→17:05)
[2021-10-02] MEDS: SODIUM CHLORIDE 0.45% 1,000 ML IV SCH ×2 (06:27→14:50)
[2021-10-02 08:24] LABS: HEMATOCRIT 39.3 % (35.4-49); HEMOGLOBIN 12.8 GM/dL (11.7-16.9); MCHC 32.6 g/dl (32.0-35.9); MEAN CELL VOLUME 86.1 fl (80-96); MEAN PLT VOLUME 7.6 fl (7.5-11.1); PLATELET COUNT 348 10^3/uL (134-434); RBC 4.57 M/mm3 (4.00-5.60); RDW 15.1 % (11.9-15.9)
[2021-10-02 08:47] LABS: CHLORIDE 111 mmol/L (98-107); SODIUM 146 mmol/L (136-145)
[2021-10-02 08:54] LABS: ALBUMIN 2.2 g/dl (3.4-5.0); ANION GAP 4 MMOL/L (8-16); BLOOD UREA NITROGEN 21.7 mg/dL (7-18); CALCIUM 8.2 mg/dL (8.5-10.1); CO2 30 mmol/L (21-32); GLUCOSE,RANDOM 72 mg/dL (74-106)
[2021-10-02 08:57] LABS: CREATININE 0.8 mg/dL (0.55-1.3); SGOT/AST 19 U/L (15-37)
[2021-10-02 08:58] LABS: SGPT/ALT < 6 U/L (13-61)
[2021-10-02] MEDS: TAMSULOSIN HCL 0.4 MG CAP PO SCH (08:58)
[2021-10-02 08:59] LABS: BILIRUBIN,TOTAL 0.6 mg/dL (0.2-1); TOT PROT 5.3 g/dl (6.4-8.2)
[2021-10-02] MEDS: ASPIRIN 81 MG CHEWABLE TABLETS PO SCH (08:59)
[2021-10-02] MEDS: Pimavanserin Tartrate [Nuplazid] 34 MG Capsule PO SCH (08:59)
[2021-10-02] MEDS: CARBIDOPA/LEVODOPA 25/100 TABLET (FP) PO SCH ×4 (08:59→21:28)
[2021-10-02 09:00] LABS: ALK PHOS 64 U/L (45-117)
[2021-10-02] MEDS: ATORVASTATIN CA 10 MG TABLET (FP) PO SCH (21:28)
[2021-10-02] MEDS: AMANTADINE HCL PO SCH (21:29)
[2021-10-03] MEDS ORDERED: DEXTROSE 5%-WATER - 50 ML IVPB ONE ×3 (01:35→16:49)
[2021-10-03] MEDS ORDERED: PIPERACILLIN/TAZOBACTAM 3.375 GM VIAL IVPB ONE ×3 (01:35→16:48)
[2021-10-03] MEDS: PIPERACILLIN/TAZOB 3.375 GM 3.375 GM in DEXTROSE 5%-WATER - 50 ML IVPB SCH ×3 (01:41→17:05)
[2021-10-03] MEDS: SODIUM CHLORIDE 0.45% 1,000 ML IV SCH ×3 (01:42→17:05)
[2021-10-03 08:33] LABS: HEMATOCRIT 38.9 % (35.4-49); HEMOGLOBIN 12.7 GM/dL (11.7-16.9); MCHC 32.7 g/dl (32.0-35.9); MEAN CELL VOLUME 85.5 fl (80-96); MEAN PLT VOLUME 7.5 fl (7.5-11.1); PLATELET COUNT 360 10^3/uL (134-434); RBC 4.55 M/mm3 (4.00-5.60); RDW 14.9 % (11.9-15.9); WHITE BLOOD COUNT 14.4 K/mm3 (4.0-10.0)
[2021-10-03 08:45] LABS: CHLORIDE 107 mmol/L (98-107); SODIUM 144 mmol/L (136-145)
[2021-10-03 08:51] LABS: ANION GAP 6 MMOL/L (8-16); CALCIUM 7.9 mg/dL (8.5-10.1); CO2 31 mmol/L (21-32); GLUCOSE,RANDOM 69 mg/dL (74-106)
[2021-10-03 08:52] LABS: ALBUMIN 2.1 g/dl (3.4-5.0); BLOOD UREA NITROGEN 16.2 mg/dL (7-18)
[2021-10-03 08:53] LABS: SGOT/AST 20 U/L (15-37)
[2021-10-03 08:54] LABS: BILIRUBIN,TOTAL 0.6 mg/dL (0.2-1); TOT PROT 5.1 g/dl (6.4-8.2)
[2021-10-03 08:55] LABS: CREATININE 0.8 mg/dL (0.55-1.3)
[2021-10-03 08:56] LABS: ALK PHOS 64 U/L (45-117)
[2021-10-03 08:58] LABS: SGPT/ALT < 6 U/L (13-61)
[2021-10-03] MEDS: CARBIDOPA/LEVODOPA 25/100 TABLET (FP) PO SCH ×4 (09:01→22:19)
[2021-10-03] MEDS: ASPIRIN 81 MG CHEWABLE TABLETS PO SCH (09:01)
[2021-10-03] MEDS: Pimavanserin Tartrate [Nuplazid] 34 MG Capsule PO SCH (09:01)
[2021-10-03 12:27] LABS: BASO % 0.6 % (0-2.0); EOS % 2.4 % (0-4.5); HEMOGLOBIN 12.2 GM/dL (11.7-16.9); LYMPH % 10.9 % (8-40); MCH 27.4 pg (25.7-33.7); MCHC 32.1 g/dl (32.0-35.9); MEAN CELL VOLUME 85.3 fl (80-96); MEAN PLT VOLUME 7.4 fl (7.5-11.1); MONO % 5.5 % (3.8-10.2); NEUT % 80.6 % (42.8-82.8); PLATELET COUNT 383 10^3/uL (134-434); RBC 4.46 M/mm3 (4.00-5.60); WHITE BLOOD COUNT 12.1 K/mm3 (4.0-10.0)
[2021-10-03 13:18] LABS: EPI CELLS 8 /uL (0-25.1); HYALINE CASTS 0 /uL (0-3.1); URINE APPEARANCE CLEAR; URINE BACTERIA 12 /uL (0-1359); URINE BILIRUBIN NEGATIVE (NEGATIVE); URINE COLOR YELLOW; URINE GLUCOSE (UA) NEGATIVE (NEGATIVE); URINE KETONE NEGATIVE (NEGATIVE); URINE LEUK ESTERASE 2+ (NEGATIVE); URINE NITRITE NEGATIVE (NEGATIVE); URINE PROTEIN NEGATIVE (NEGATIVE); URINE RBC 26 /uL (0-23.9); URINE WBC 27 /uL (0-25.8)
[2021-10-03] MEDS: AMANTADINE HCL PO SCH (22:19)
[2021-10-03] MEDS: ATORVASTATIN CA 10 MG TABLET (FP) PO SCH (22:19)
[2021-10-04] MEDS ORDERED: DEXTROSE 5%-WATER - 50 ML IVPB ONE ×3 (02:16→16:57)
[2021-10-04] MEDS ORDERED: PIPERACILLIN/TAZOBACTAM 3.375 GM VIAL IVPB ONE ×3 (02:16→16:57)
[2021-10-04] MEDS: PIPERACILLIN/TAZOB 3.375 GM 3.375 GM in DEXTROSE 5%-WATER - 50 ML IVPB SCH ×3 (02:25→17:14)
[2021-10-04 07:28] LABS: HEMATOCRIT 38.9 % (35.4-49); HEMOGLOBIN 13.1 GM/dL (11.7-16.9); MCH 28.5 pg (25.7-33.7); MCHC 33.7 g/dl (32.0-35.9); MEAN CELL VOLUME 84.6 fl (80-96); MEAN PLT VOLUME 7.3 fl (7.5-11.1); PLATELET COUNT 368 10^3/uL (134-434); WHITE BLOOD COUNT 10.7 K/mm3 (4.0-10.0)
[2021-10-04 07:36] LABS: ALBUMIN 2.2 g/dl (3.4-5.0); CALCIUM 8.3 mg/dL (8.5-10.1)
[2021-10-04 07:37] LABS: BLOOD UREA NITROGEN 11.4 mg/dL (7-18)
[2021-10-04 07:39] LABS: CREATININE 0.8 mg/dL (0.55-1.3)
[2021-10-04 07:41] LABS: BILIRUBIN,TOTAL 0.7 mg/dL (0.2-1)
[2021-10-04] MEDS: ASPIRIN 81 MG CHEWABLE TABLETS PO SCH (09:40)
[2021-10-04] MEDS: CARBIDOPA/LEVODOPA 25/100 TABLET (FP) PO SCH ×4 (09:40→21:21)
[2021-10-04] MEDS: Pimavanserin Tartrate [Nuplazid] 34 MG Capsule PO SCH (09:40)
[2021-10-04] MEDS: DEXTROSE 5%-0.45% SALINE 1,000 ML IV SCH (18:18)
[2021-10-04] MEDS: ATORVASTATIN CA 10 MG TABLET (FP) PO SCH (21:21)
[2021-10-04] MEDS: AMANTADINE HCL PO SCH (21:24)
[2021-10-05] MEDS ORDERED: PIPERACILLIN/TAZOBACTAM 3.375 GM VIAL IVPB ONE ×2 (01:12→10:46)
[2021-10-05] MEDS ORDERED: DEXTROSE 5%-WATER - 50 ML IVPB ONE ×2 (01:12→10:46)
[2021-10-05] MEDS: PIPERACILLIN/TAZOB 3.375 GM 3.375 GM in DEXTROSE 5%-WATER - 50 ML IVPB SCH ×2 (01:17→10:55)
[2021-10-05] MEDS: DEXTROSE 5%-0.45% SALINE 1,000 ML IV SCH (06:30)
[2021-10-05 06:49] VITALS: TEMP 97.6
[2021-10-05] MEDS: ASPIRIN 81 MG CHEWABLE TABLETS PO SCH (10:54)
[2021-10-05] MEDS: Pimavanserin Tartrate [Nuplazid] 34 MG Capsule PO SCH (10:54)
[2021-10-05] MEDS: CARBIDOPA/LEVODOPA 25/100 TABLET (FP) PO SCH ×2 (10:54→14:43)
[2021-10-05 16:08] VITALS: BP 120/88; PULSE 84
== END 2021-10-05 17:12 | disposition home health service (06) | DRG 871 ==
LOC: JER 11:19 → JERBED 14:37 → J6S 22:31
PROVIDERS: ADMIT Internal Medicine; ATTEND Internal Medicine
PROC: 0T2BX0Z Change Drainage Device in Bladder, External Approach (ICD-10-PCS; principal; 2021-09-28)
DX: A41.89 Other specified sepsis (principal); R53.2 Functional quadriplegia; E43 Unspecified severe protein-calorie malnutrition; T83.090A Other mechanical complication of cystostomy catheter, initial encounter; N39.0 Urinary tract infection, site not specified; N17.9 Acute kidney failure, unspecified; R64 Cachexia; Z68.1 Body mass index [BMI] 19.9 or less, adult; E87.0 Hyperosmolality and hypernatremia; E87.2 Acidosis; R65.20 Severe sepsis without septic shock; I25.10 Atherosclerotic heart disease of native coronary artery without angina pectoris; J44.9 Chronic obstructive pulmonary disease, unspecified; I10 Essential (primary) hypertension; E78.5 Hyperlipidemia, unspecified; I25.2 Old myocardial infarction; D72.829 Elevated white blood cell count, unspecified; K74.60 Unspecified cirrhosis of liver; D64.9 Anemia, unspecified; G20 Parkinson's disease; R13.10 Dysphagia, unspecified; E86.1 Hypovolemia; R79.89 Other specified abnormal findings of blood chemistry; Z86.73 Personal history of transient ischemic attack (TIA), and cerebral infarction without residual deficits; Z95.5 Presence of coronary angioplasty implant and graft; Z74.01 Bed confinement status; Y84.8 Other medical procedures as the cause of abnormal reaction of the patient, or of later complication, without mention of misadventure at the time of the procedure
CPT/HCPCS: 36415; 71045-TC-FY; 74018-TC-FY; 76775-TC; 80048; 80053; 81003; 82553; 82803; 83605; 83735; 84100; 85025; 85027; 85610; 85730; 86850; 86900; 86901; 87040; 87086; 87186; 93005; 93010; 99285-25; C9803-CS; U0003; U0005

== ENCOUNTER 2022-01-29 04:15 | Inpatient (IN) | payer OTHER, BC ==
[2022-01-29 05:25] LABS: MCHC 33.3 g/dl (32.0-35.9); MEAN PLT VOLUME 8.7 fl (7.5-11.1); PLATELET COUNT 495 10^3/uL (134-434); RDW 15.4 % (11.9-15.9); WHITE BLOOD COUNT 20.7 K/mm3 (4.0-10.0)
[2022-01-29 05:26] LABS: VENOUS BASE EXCESS 3.8 mmol/L (-2-2); VENOUS O2 SATURATION 38.5 % (70-80); VENOUS PCO2 56.1 mmHg (38-52); VENOUS PH 7.358 (7.310-7.410)
[2022-01-29 05:40] LABS: INR 1.4 (0.83-1.09); PROTHROMBIN TIME (PATIENT) 16.1 SEC (9.7-13.0)
[2022-01-29 05:42] LABS: ACTIVATED PTT 31.5 SECONDS (25.2-36.5)
[2022-01-29 05:44] LABS: ALBUMIN 2.4 g/dl (3.4-5.0); CALCIUM 8.8 mg/dL (8.5-10.1)
[2022-01-29 05:49] LABS: BILIRUBIN,TOTAL 1.1 mg/dL (0.2-1); CREATININE 0.8 mg/dL (0.55-1.3); TOT PROT 6.4 g/dl (6.4-8.2)
[2022-01-29] MEDS ORDERED: VANCOMYCIN 1 GM in D5W (PRE-DOCKED) 1,000 MG/250 ML IVPB ONE (05:57)
[2022-01-29] MEDS ORDERED: PIPERACILLIN/TAZOB 4.5 GM 4.5 GM in DEXTROSE 5%-WATER 100 ML IVPB ONE (05:57)
[2022-01-29 06:02] LABS: LACTIC ACID 2.6 mmol/L (0.4-2.0)
[2022-01-29] MEDS ORDERED: PIPERACILLIN/TAZOB 4.5 GM 4.5 GM/100 ML BAG IVPB ONE (06:13)
[2022-01-29] MEDS ORDERED: VANCOMYCIN/WATER FOR INJ (PEG) 1,000 MG/200 ML BAG IVPB ONE (06:13)
[2022-01-29] MEDS ORDERED: SODIUM CHLORIDE 0.9% 500 ML INFUS.BAG IV ONE (06:18)
[2022-01-29 07:52] LABS: EPI CELLS 7 /uL (0-25.1); HYALINE CASTS 92 /uL (0-3.1); PH,URINE 5.5 (5.0-8.0); URINE APPEARANCE CLOUDY; URINE BACTERIA 1820 /uL (0-1359); URINE BILIRUBIN NEGATIVE (NEGATIVE); URINE COLOR YELLOW; URINE GLUCOSE (UA) NEGATIVE (NEGATIVE); URINE KETONE TRACE (NEGATIVE); URINE LEUK ESTERASE 3+ (NEGATIVE); URINE NITRITE POSITIVE (NEGATIVE); URINE PROTEIN 1+ (NEGATIVE); URINE RBC 14 /uL (0-23.9); URINE WBC 758 /uL (0-25.8)
[2022-01-29] MEDS ORDERED: ACETAMINOPHEN 325 MG TABLET (FP) PO PRN (08:12)
[2022-01-29] MEDS ORDERED: guaiFENesin 200 MG/10 ML 10 ML UNIT-DOSE CUPS PO PRN (08:35)
[2022-01-29 08:57] LABS: LACTIC ACID 2.4 mmol/L (0.4-2.0)
[2022-01-29] MEDS ORDERED: SODIUM CHLORIDE 500 ML IV STA (09:32)
[2022-01-29] MEDS: SODIUM CHLORIDE 1,000 ML IV SCH (09:45)
[2022-01-29] MEDS ORDERED: MEROPENEM 1 GM VIAL (RESTRICTED TO ID) IVPB ONE (09:48)
[2022-01-29] MEDS: AMANTADINE PO SCH (09:58)
[2022-01-29] MEDS ORDERED: ENOXAPARIN NA (PORCINE) 40 MG/0.4 ML DISP.SYRIN SQ SCH (10:00)
[2022-01-29] MEDS ORDERED: MEROPENEM 1 GM in DEXTROSE 5%-WATER 100 ML IVPB SCH (10:00)
[2022-01-29] MEDS ORDERED: VANCOMYCIN 1 GM/200 ML PREMIX BAG IVPB SCH (10:00)
[2022-01-29] MEDS ORDERED: MEROPENEM 1 GM in DEXTROSE 5%-WATER - 100 ML IVPB SCH (10:00)
[2022-01-29] MEDS: PATIENT'S OWN MEDICATION (NON-FORMULARY) (Pimavanserin Tartrate [Nuplazid] 34 MG Capsule) PO SCH (10:00)
[2022-01-29] MEDS ORDERED: ENOXAPARIN NA (PORCINE) 40 MG/0.4 ML DISP.SYRIN SQ ONE (10:05)
[2022-01-29 10:36] LABS: ANISOCYTOSIS 0; HELMET CELLS 0; HOWELL-JOLLY BODIES 0; MACROCYTOSIS 0; OVALOCYTE 0; ROULEAU 0; SICKELED CELLS 0; TARGET CELLS 0; TEAR DROP CELLS 0; TOXIC GRANULATION 0
[2022-01-29 15:54] LABS: LACTIC ACID 2.1 mmol/L (0.4-2.0)
[2022-01-29 17:54] LABS: ARTERIAL BLD GAS O2 SATURATION 99.7 % (95-98); ARTERIAL BLOOD GAS PO2 312.6 mmHg (80-100); ARTERIAL BLOOD GAS pH 7.467 (7.350-7.450)
[2022-01-29] MEDS: PIPERACILLIN/TAZOB 3.375 GM 3.375 GM in DEXTROSE 5%-WATER - 50 ML IVPB SCH (18:49)
[2022-01-29 21:20] VITALS: BMI 16.0
[2022-01-29] MEDS: ATORVASTATIN CA 10 MG TABLET (FP) PO SCH (22:05)
[2022-01-29] MEDS: ENOXAPARIN NA (PORCINE) 40 MG/0.4 ML DISP.SYRIN SQ SCH (22:12)
[2022-01-30] MEDS: PIPERACILLIN/TAZOB 3.375 GM 3.375 GM in DEXTROSE 5%-WATER - 50 ML IVPB SCH ×3 (01:45→17:57)
[2022-01-30] MEDS: DEXTROSE 5%-NORMAL SALINE 1,000 ML IV SCH ×2 (08:49→19:34)
[2022-01-30] MEDS: SODIUM CHLORIDE 1,000 ML IV SCH (10:01)
[2022-01-30] MEDS: ENOXAPARIN NA (PORCINE) 40 MG/0.4 ML DISP.SYRIN SQ SCH ×2 (10:02→21:51)
[2022-01-30] MEDS: CLOPIDOGREL BISULFATE 75 MG TABLET (FP) PO SCH (15:49)
[2022-01-30 16:03] LABS: BASO % 0.7 % (0-2.0); EOS % 0.3 % (0-4.5); HEMATOCRIT 38.8 % (35.4-49); HEMOGLOBIN 12.6 GM/dL (11.7-16.9); LYMPH % 5.8 % (8-40); MCH 27.4 pg (25.7-33.7); MCHC 32.3 g/dl (32.0-35.9); MEAN CELL VOLUME 84.7 fl (80-96); MEAN PLT VOLUME 8.2 fl (7.5-11.1); MONO % 3.8 % (3.8-10.2); NEUT % 89.4 % (42.8-82.8); PLATELET COUNT 529 10^3/uL (134-434); RBC 4.58 M/mm3 (4.00-5.60); RDW 15.2 % (11.9-15.9); WHITE BLOOD COUNT 14.7 K/mm3 (4.0-10.0)
[2022-01-30 16:21] LABS: CALCIUM 8.2 mg/dL (8.5-10.1)
[2022-01-30 16:22] LABS: BLOOD UREA NITROGEN 20.5 mg/dL (7-18); MAGNESIUM 2.2 mg/dL (1.8-2.4)
[2022-01-30 16:25] LABS: CREATININE 0.7 mg/dL (0.55-1.3); PHOSPHOROUS 2.5 mg/dL (2.5-4.9)
[2022-01-30 16:26] LABS: BILIRUBIN,TOTAL 0.7 mg/dL (0.2-1); TOT PROT 5.5 g/dl (6.4-8.2)
[2022-01-30] MEDS: ATORVASTATIN CA 10 MG TABLET (FP) PO SCH (21:52)
[2022-01-31] MEDS: PIPERACILLIN/TAZOB 3.375 GM 3.375 GM in DEXTROSE 5%-WATER - 50 ML IVPB SCH ×3 (01:31→17:05)
[2022-01-31] MEDS: AMANTADINE PO SCH (08:32)
[2022-01-31] MEDS: PATIENT'S OWN MEDICATION (NON-FORMULARY) (Pimavanserin Tartrate [Nuplazid] 34 MG Capsule) PO SCH (08:33)
[2022-01-31 10:00] LABS: HEMATOCRIT 37.5 % (35.4-49); HEMOGLOBIN 12.6 GM/dL (11.7-16.9); MCH 28.3 pg (25.7-33.7); MCHC 33.7 g/dl (32.0-35.9); PLATELET COUNT 602 10^3/uL (134-434); RBC 4.46 M/mm3 (4.00-5.60); RDW 15.3 % (11.9-15.9); WHITE BLOOD COUNT 11.6 K/mm3 (4.0-10.0)
[2022-01-31] MEDS: ENOXAPARIN NA (PORCINE) 40 MG/0.4 ML DISP.SYRIN SQ SCH ×2 (10:20→21:33)
[2022-01-31] MEDS: DEXTROSE 5%-NORMAL SALINE 1,000 ML IV SCH ×2 (10:42→11:07)
[2022-01-31] MEDS: CLOPIDOGREL BISULFATE 75 MG TABLET (FP) PO SCH (11:06)
[2022-01-31 11:27] LABS: BILIRUBIN,TOTAL 0.6 mg/dL (0.2-1); BLOOD UREA NITROGEN 15.6 mg/dL (7-18); CALCIUM 8.3 mg/dL (8.5-10.1); CREATININE 0.6 mg/dL (0.55-1.3); MAGNESIUM 2.2 mg/dL (1.8-2.4); PHOSPHOROUS 2.4 mg/dL (2.5-4.9); TOT PROT 5.4 g/dl (6.4-8.2)
[2022-01-31] MEDS ORDERED: DEXTROSE 5%-NORMAL SALINE 1,000 ML IV SCH (12:30)
[2022-01-31] MEDS: DEXTROSE 5%-0.45% SALINE 1,000 ML IV SCH (13:26)
[2022-01-31] MEDS ORDERED: POTASSIUM PHOSPHATE 15 MM in SODIUM CHLORIDE 250 ML IVPB ONE (15:00)
[2022-01-31] MEDS: CARBIDOPA/LEVODOPA 25/100 TABLET (FP) PO SCH ×2 (17:48→21:33)
[2022-01-31] MEDS: ATORVASTATIN CA 10 MG TABLET (FP) PO SCH (21:33)
[2022-02-01] MEDS: PIPERACILLIN/TAZOB 3.375 GM 3.375 GM in DEXTROSE 5%-WATER - 50 ML IVPB SCH ×3 (01:42→17:29)
[2022-02-01 09:02] LABS: HEMATOCRIT 39.9 % (35.4-49); HEMOGLOBIN 13.2 GM/dL (11.7-16.9); MCHC 33.2 g/dl (32.0-35.9); MEAN CELL VOLUME 84.3 fl (80-96); PLATELET COUNT 574 10^3/uL (134-434); RBC 4.73 M/mm3 (4.00-5.60); WHITE BLOOD COUNT 12.6 K/mm3 (4.0-10.0)
[2022-02-01 09:27] LABS: CALCIUM 8.2 mg/dL (8.5-10.1)
[2022-02-01 09:28] LABS: BLOOD UREA NITROGEN 13.1 mg/dL (7-18)
[2022-02-01 09:31] LABS: CREATININE 0.5 mg/dL (0.55-1.3); PHOSPHOROUS 2.9 mg/dL (2.5-4.9)
[2022-02-01] MEDS: CLOPIDOGREL BISULFATE 75 MG TABLET (FP) PO SCH (09:33)
[2022-02-01] MEDS: CARBIDOPA/LEVODOPA 25/100 TABLET (FP) PO SCH ×4 (09:33→21:02)
[2022-02-01] MEDS: ENOXAPARIN NA (PORCINE) 40 MG/0.4 ML DISP.SYRIN SQ SCH ×2 (09:34→21:02)
[2022-02-01] MEDS: DEXTROSE 5%-0.45% SALINE 1,000 ML IV SCH (14:09)
[2022-02-01] MEDS: ATORVASTATIN CA 10 MG TABLET (FP) PO SCH (21:02)
[2022-02-02] MEDS: PIPERACILLIN/TAZOB 3.375 GM 3.375 GM in DEXTROSE 5%-WATER - 50 ML IVPB SCH ×3 (01:09→17:49)
[2022-02-02] MEDS: CLOPIDOGREL BISULFATE 75 MG TABLET (FP) PO SCH (09:40)
[2022-02-02] MEDS: ENOXAPARIN NA (PORCINE) 40 MG/0.4 ML DISP.SYRIN SQ SCH ×2 (09:40→21:24)
[2022-02-02] MEDS: CARBIDOPA/LEVODOPA 25/100 TABLET (FP) PO SCH ×4 (09:40→21:24)
[2022-02-02 10:01] LABS: BASO % 0.4 % (0-2.0); EOS % 1.1 % (0-4.5); HEMATOCRIT 39.2 % (35.4-49); LYMPH % 8.3 % (8-40); MCH 28.1 pg (25.7-33.7); MCHC 33.1 g/dl (32.0-35.9); MEAN CELL VOLUME 84.9 fl (80-96); MEAN PLT VOLUME 7.6 fl (7.5-11.1); MONO % 3.1 % (3.8-10.2); NEUT % 87.1 % (42.8-82.8); PLATELET COUNT 625 10^3/uL (134-434); RBC 4.62 M/mm3 (4.00-5.60); RDW 14.9 % (11.9-15.9); WHITE BLOOD COUNT 12.5 K/mm3 (4.0-10.0)
[2022-02-02 10:30] LABS: CALCIUM 8.1 mg/dL (8.5-10.1)
[2022-02-02 10:32] LABS: BLOOD UREA NITROGEN 13.2 mg/dL (7-18)
[2022-02-02 10:33] LABS: CREATININE 0.6 mg/dL (0.55-1.3)
[2022-02-02 10:35] LABS: BILIRUBIN,TOTAL 0.6 mg/dL (0.2-1); TOT PROT 5.5 g/dl (6.4-8.2)
[2022-02-02] MEDS: DEXTROSE 5%-0.45% SALINE 1,000 ML IV SCH (13:20)
[2022-02-02] MEDS: D5-1/2NS+20 MEQ KCL - 20 MEQ/1,000 ML INFUS.BAG IV SCH (15:20)
[2022-02-02] MEDS: ATORVASTATIN CA 10 MG TABLET (FP) PO SCH (21:24)
[2022-02-03] MEDS: PIPERACILLIN/TAZOB 3.375 GM 3.375 GM in DEXTROSE 5%-WATER - 50 ML IVPB SCH ×3 (02:47→17:24)
[2022-02-03 08:54] LABS: BASO % 0.5 % (0-2.0); EOS % 3.2 % (0-4.5); HEMATOCRIT 36.6 % (35.4-49); HEMOGLOBIN 12.3 GM/dL (11.7-16.9); LYMPH % 14.4 % (8-40); MCH 27.8 pg (25.7-33.7); MCHC 33.5 g/dl (32.0-35.9); MEAN CELL VOLUME 82.8 fl (80-96); MEAN PLT VOLUME 7.1 fl (7.5-11.1); MONO % 4.4 % (3.8-10.2); NEUT % 77.5 % (42.8-82.8); PLATELET COUNT 688 10^3/uL (134-434); RBC 4.42 M/mm3 (4.00-5.60); RDW 15.1 % (11.9-15.9)
[2022-02-03 09:06] LABS: CHLORIDE 111 mmol/L (98-107); SODIUM 148 mmol/L (136-145)
[2022-02-03 09:12] LABS: CALCIUM 7.9 mg/dL (8.5-10.1)
[2022-02-03 09:13] LABS: ALBUMIN 1.8 g/dl (3.4-5.0); ANION GAP 4 MMOL/L (8-16); BLOOD UREA NITROGEN 13.4 mg/dL (7-18); CO2 33 mmol/L (21-32); GLUCOSE,RANDOM 91 mg/dL (74-106)
[2022-02-03 09:16] LABS: CREATININE 0.7 mg/dL (0.55-1.3); SGOT/AST 18 U/L (15-37)
[2022-02-03 09:18] LABS: BILIRUBIN,TOTAL 0.8 mg/dL (0.2-1); TOT PROT 5.2 g/dl (6.4-8.2)
[2022-02-03 09:19] LABS: ALK PHOS 62 U/L (45-117); SGPT/ALT < 6 U/L (13-61)
[2022-02-03] MEDS: CLOPIDOGREL BISULFATE 75 MG TABLET (FP) PO SCH (09:26)
[2022-02-03] MEDS: ENOXAPARIN NA (PORCINE) 40 MG/0.4 ML DISP.SYRIN SQ SCH ×2 (09:26→21:37)
[2022-02-03] MEDS: CARBIDOPA/LEVODOPA 25/100 TABLET (FP) PO SCH ×5 (09:27→21:38)
[2022-02-03] MEDS: D5-1/2NS+20 MEQ KCL - 20 MEQ/1,000 ML INFUS.BAG IV SCH ×2 (15:29→19:51)
[2022-02-03] MEDS ORDERED: PIPERACILLIN/TAZOBACTAM 3.375 GM VIAL IVPB ONE (17:21)
[2022-02-03] MEDS: ATORVASTATIN CA 10 MG TABLET (FP) PO SCH (21:37)
[2022-02-04] MEDS: PIPERACILLIN/TAZOB 3.375 GM 3.375 GM in DEXTROSE 5%-WATER - 50 ML IVPB SCH ×3 (01:38→17:42)
[2022-02-04 09:28] LABS: HEMOGLOBIN 12.3 GM/dL (11.7-16.9); MCH 28.1 pg (25.7-33.7); MCHC 33.3 g/dl (32.0-35.9); MEAN CELL VOLUME 84.5 fl (80-96); PLATELET COUNT 717 10^3/uL (134-434); RBC 4.38 M/mm3 (4.00-5.60); WHITE BLOOD COUNT 9.5 K/mm3 (4.0-10.0)
[2022-02-04] MEDS: ENOXAPARIN NA (PORCINE) 40 MG/0.4 ML DISP.SYRIN SQ SCH ×2 (09:55→21:13)
[2022-02-04] MEDS: CLOPIDOGREL BISULFATE 75 MG TABLET (FP) PO SCH (09:55)
[2022-02-04 09:57] LABS: CALCIUM 7.7 mg/dL (8.5-10.1)
[2022-02-04 09:58] LABS: BLOOD UREA NITROGEN 14.2 mg/dL (7-18)
[2022-02-04] MEDS: CARBIDOPA/LEVODOPA 25/100 TABLET (FP) PO SCH ×4 (09:58→21:13)
[2022-02-04 10:01] LABS: CREATININE 0.6 mg/dL (0.55-1.3)
[2022-02-04] MEDS ORDERED: SODIUM CHLORIDE 0.45% 1,000 ML IV SCH (17:45)
[2022-02-04] MEDS: ATORVASTATIN CA 10 MG TABLET (FP) PO SCH (21:13)
[2022-02-05] MEDS: PIPERACILLIN/TAZOB 3.375 GM 3.375 GM in DEXTROSE 5%-WATER - 50 ML IVPB SCH ×3 (01:15→17:21)
[2022-02-05 09:16] LABS: HEMATOCRIT 37.3 % (35.4-49); HEMOGLOBIN 12.8 GM/dL (11.7-16.9); MCHC 34.4 g/dl (32.0-35.9); MEAN CELL VOLUME 84.3 fl (80-96); PLATELET COUNT 537 10^3/uL (134-434); RBC 4.43 M/mm3 (4.00-5.60); RDW 15.2 % (11.9-15.9); WHITE BLOOD COUNT 10.9 K/mm3 (4.0-10.0)
[2022-02-05] MEDS: ENOXAPARIN NA (PORCINE) 40 MG/0.4 ML DISP.SYRIN SQ SCH ×2 (09:53→21:16)
[2022-02-05] MEDS: CARBIDOPA/LEVODOPA 25/100 TABLET (FP) PO SCH ×4 (09:54→21:16)
[2022-02-05] MEDS: CLOPIDOGREL BISULFATE 75 MG TABLET (FP) PO SCH (09:54)
[2022-02-05 10:00] LABS: ALBUMIN 1.8 g/dl (3.4-5.0)
[2022-02-05 10:01] LABS: CALCIUM 7.6 mg/dL (8.5-10.1)
[2022-02-05 10:02] LABS: BLOOD UREA NITROGEN 12.1 mg/dL (7-18); TOT PROT 4.9 g/dl (6.4-8.2)
[2022-02-05 10:04] LABS: CREATININE 0.5 mg/dL (0.55-1.3)
[2022-02-05 10:05] LABS: BILIRUBIN,TOTAL 0.4 mg/dL (0.2-1)
[2022-02-05] MEDS: DEXTROSE 5%-0.45% SALINE 1,000 ML IV SCH (14:04)
[2022-02-05] MEDS ORDERED: SENNOSIDES 8.6MG TABLET (FP) PO PRN (16:41)
[2022-02-05] MEDS ORDERED: DOCUSATE NA 100 MG/10 ML UNIT-DOSE CUPS PO PRN (16:41)
[2022-02-05] MEDS: BACITRACIN 15 GM TUBE TOPICAL OINTMENT TP SCH (17:20)
[2022-02-05] MEDS: AMINO ACIDS/PROTEIN HYDROLYS 30 ML LIQUID.PKT PO SCH (17:20)
[2022-02-05] MEDS: ATORVASTATIN CA 10 MG TABLET (FP) PO SCH (21:16)
[2022-02-06] MEDS: PIPERACILLIN/TAZOB 3.375 GM 3.375 GM in DEXTROSE 5%-WATER - 50 ML IVPB SCH ×3 (01:14→17:39)
[2022-02-06] MEDS: DEXTROSE 5%-0.45% SALINE 1,000 ML IV SCH ×3 (06:17→23:02)
[2022-02-06] MEDS: AMINO ACIDS/PROTEIN HYDROLYS 30 ML LIQUID.PKT PO SCH ×2 (08:30→17:39)
[2022-02-06 09:21] LABS: BASO % 1.4 % (0-2.0); EOS % 6.8 % (0-4.5); HEMATOCRIT 35.4 % (35.4-49); HEMOGLOBIN 12.2 GM/dL (11.7-16.9); LYMPH % 19.8 % (8-40); MCH 28.7 pg (25.7-33.7); MCHC 34.4 g/dl (32.0-35.9); MEAN CELL VOLUME 83.6 fl (80-96); MEAN PLT VOLUME 6.7 fl (7.5-11.1); MONO % 3.3 % (3.8-10.2); NEUT % 68.7 % (42.8-82.8); PLATELET COUNT 697 10^3/uL (134-434); RBC 4.24 M/mm3 (4.00-5.60); WHITE BLOOD COUNT 7.3 K/mm3 (4.0-10.0)
[2022-02-06] MEDS: CLOPIDOGREL BISULFATE 75 MG TABLET (FP) PO SCH (09:34)
[2022-02-06] MEDS: BACITRACIN 15 GM TUBE TOPICAL OINTMENT TP SCH (09:34)
[2022-02-06] MEDS: POLYETHYLENE GLYCOL (HEALTHYLAX) 3350 17 GM PACKET PO SCH (09:35)
[2022-02-06] MEDS: CARBIDOPA/LEVODOPA 25/100 TABLET (FP) PO SCH ×4 (09:35→22:53)
[2022-02-06] MEDS: ENOXAPARIN NA (PORCINE) 40 MG/0.4 ML DISP.SYRIN SQ SCH ×2 (09:37→22:53)
[2022-02-06] MEDS ORDERED: COLLAGENASE CLOSTRIDIUM HIST. 30 GRAMS TUBE TP SCH (10:15)
[2022-02-06 10:28] LABS: CALCIUM 7.8 mg/dL (8.5-10.1)
[2022-02-06 10:30] LABS: CREATININE 0.6 mg/dL (0.55-1.3); PHOSPHOROUS 2.2 mg/dL (2.5-4.9)
[2022-02-06] MEDS: SODIUM ZIRCONIUM CYCLOSILICATE (LOKELMA) 5 GM PACKET PO SCH (13:37)
[2022-02-06] MEDS: ASCORBIC ACID 500 MG TABLET (FP) PO SCH (17:39)
[2022-02-06] MEDS: MULTIVITAMINS (DAILY MVI) TABLET (FP) PO SCH (17:39)
[2022-02-06] MEDS: ZINC SULFATE 220 MG CAPSULE (FP) PO SCH (17:39)
[2022-02-06] MEDS: ATORVASTATIN CA 10 MG TABLET (FP) PO SCH (22:53)
[2022-02-06] MEDS: NYSTATIN 100000 UNIT/GM TOPICAL OINTMENT 15 GM TUBE TP SCH (22:55)
[2022-02-07] MEDS: PIPERACILLIN/TAZOB 3.375 GM 3.375 GM in DEXTROSE 5%-WATER - 50 ML IVPB SCH ×2 (01:32→09:27)
[2022-02-07] MEDS: AMINO ACIDS/PROTEIN HYDROLYS 30 ML LIQUID.PKT PO SCH ×2 (08:25→17:02)
[2022-02-07] MEDS: POLYETHYLENE GLYCOL (HEALTHYLAX) 3350 17 GM PACKET PO SCH (09:22)
[2022-02-07] MEDS: MULTIVITAMINS (DAILY MVI) TABLET (FP) PO SCH (09:28)
[2022-02-07] MEDS: ENOXAPARIN NA (PORCINE) 40 MG/0.4 ML DISP.SYRIN SQ SCH ×2 (09:28→21:30)
[2022-02-07] MEDS: SODIUM ZIRCONIUM CYCLOSILICATE (LOKELMA) 5 GM PACKET PO SCH (09:28)
[2022-02-07] MEDS: ASCORBIC ACID 500 MG TABLET (FP) PO SCH (09:28)
[2022-02-07] MEDS: CLOPIDOGREL BISULFATE 75 MG TABLET (FP) PO SCH (09:28)
[2022-02-07] MEDS: CARBIDOPA/LEVODOPA 25/100 TABLET (FP) PO SCH ×4 (09:28→21:30)
[2022-02-07] MEDS: ZINC SULFATE 220 MG CAPSULE (FP) PO SCH (09:28)
[2022-02-07] MEDS: BACITRACIN 15 GM TUBE TOPICAL OINTMENT TP SCH (09:29)
[2022-02-07] MEDS: NYSTATIN 100000 UNIT/GM TOPICAL OINTMENT 15 GM TUBE TP SCH ×2 (09:29→21:32)
[2022-02-07 10:44] LABS: HEMATOCRIT 37.6 % (35.4-49); HEMOGLOBIN 12.4 GM/dL (11.7-16.9); MCH 28.3 pg (25.7-33.7); MEAN CELL VOLUME 85.6 fl (80-96); MEAN PLT VOLUME 7.2 fl (7.5-11.1); PLATELET COUNT 697 10^3/uL (134-434); RBC 4.39 M/mm3 (4.00-5.60); RDW 15.5 % (11.9-15.9); WHITE BLOOD COUNT 10.8 K/mm3 (4.0-10.0)
[2022-02-07 11:18] LABS: CALCIUM 7.6 mg/dL (8.5-10.1)
[2022-02-07 11:19] LABS: ALBUMIN 1.8 g/dl (3.4-5.0); BLOOD UREA NITROGEN 15.3 mg/dL (7-18); CREATININE 0.6 mg/dL (0.55-1.3)
[2022-02-07 11:21] LABS: BILIRUBIN,TOTAL 0.3 mg/dL (0.2-1)
[2022-02-07 11:22] LABS: PHOSPHOROUS 2.1 mg/dL (2.5-4.9)
[2022-02-07] MEDS ORDERED: NAPH,MB-DB/K PH,MBDB POWDER PACKET PO ONE (12:01)
[2022-02-07] MEDS ORDERED: DEXTROSE 5%-0.45% SALINE 1,000 ML IV SCH (15:16)
[2022-02-07] MEDS: DEXTROSE 5%-0.45% SALINE 1,000 ML IV SCH (17:15)
[2022-02-07] MEDS: ATORVASTATIN CA 10 MG TABLET (FP) PO SCH (21:30)
[2022-02-08] MEDS: ASCORBIC ACID 500 MG TABLET (FP) PO SCH (09:11)
[2022-02-08] MEDS: CARBIDOPA/LEVODOPA 25/100 TABLET (FP) PO SCH ×4 (09:11→21:28)
[2022-02-08] MEDS: MULTIVITAMINS (DAILY MVI) TABLET (FP) PO SCH (09:11)
[2022-02-08] MEDS: ENOXAPARIN NA (PORCINE) 40 MG/0.4 ML DISP.SYRIN SQ SCH ×2 (09:11→21:28)
[2022-02-08] MEDS: ZINC SULFATE 220 MG CAPSULE (FP) PO SCH (09:11)
[2022-02-08] MEDS: AMINO ACIDS/PROTEIN HYDROLYS 30 ML LIQUID.PKT PO SCH ×2 (09:11→17:22)
[2022-02-08] MEDS: POLYETHYLENE GLYCOL (HEALTHYLAX) 3350 17 GM PACKET PO SCH (09:11)
[2022-02-08] MEDS: CLOPIDOGREL BISULFATE 75 MG TABLET (FP) PO SCH (09:11)
[2022-02-08] MEDS: NYSTATIN 100000 UNIT/GM TOPICAL OINTMENT 15 GM TUBE TP SCH ×2 (09:17→21:28)
[2022-02-08] MEDS: BACITRACIN 15 GM TUBE TOPICAL OINTMENT TP SCH (09:17)
[2022-02-08 11:50] LABS: CALCIUM 7.6 mg/dL (8.5-10.1)
[2022-02-08 11:53] LABS: CREATININE 0.5 mg/dL (0.55-1.3)
[2022-02-08 11:54] LABS: PHOSPHOROUS 2.4 mg/dL (2.5-4.9)
[2022-02-08 20:15] LABS: HEMATOCRIT 35.3 % (35.4-49); MCH 28.7 pg (25.7-33.7); MCHC 33.9 g/dl (32.0-35.9); MEAN CELL VOLUME 84.7 fl (80-96); MEAN PLT VOLUME 6.3 fl (7.5-11.1); PLATELET COUNT 657 10^3/uL (134-434); RBC 4.17 M/mm3 (4.00-5.60); RDW 15.3 % (11.9-15.9); WHITE BLOOD COUNT 9.3 K/mm3 (4.0-10.0)
[2022-02-08] MEDS: ATORVASTATIN CA 10 MG TABLET (FP) PO SCH (21:28)
[2022-02-09] MEDS: ENOXAPARIN NA (PORCINE) 40 MG/0.4 ML DISP.SYRIN SQ SCH ×2 (09:52→21:15)
[2022-02-09] MEDS: AMINO ACIDS/PROTEIN HYDROLYS 30 ML LIQUID.PKT PO SCH ×2 (09:53→18:12)
[2022-02-09] MEDS: MULTIVITAMINS (DAILY MVI) TABLET (FP) PO SCH (09:53)
[2022-02-09] MEDS: POLYETHYLENE GLYCOL (HEALTHYLAX) 3350 17 GM PACKET PO SCH ×2 (09:53→10:02)
[2022-02-09] MEDS: CLOPIDOGREL BISULFATE 75 MG TABLET (FP) PO SCH (09:53)
[2022-02-09] MEDS: CARBIDOPA/LEVODOPA 25/100 TABLET (FP) PO SCH ×4 (09:53→21:15)
[2022-02-09] MEDS: ZINC SULFATE 220 MG CAPSULE (FP) PO SCH (09:53)
[2022-02-09] MEDS: ASCORBIC ACID 500 MG TABLET (FP) PO SCH (09:53)
[2022-02-09 10:43] LABS: BASO % 1.3 % (0-2.0); EOS % 3.2 % (0-4.5); HEMOGLOBIN 12.4 GM/dL (11.7-16.9); LYMPH % 19.4 % (8-40); MCHC 34.5 g/dl (32.0-35.9); MEAN CELL VOLUME 84.1 fl (80-96); MEAN PLT VOLUME 6.3 fl (7.5-11.1); MONO % 5.5 % (3.8-10.2); NEUT % 70.6 % (42.8-82.8); PLATELET COUNT 655 10^3/uL (134-434); RBC 4.28 M/mm3 (4.00-5.60); RDW 15.5 % (11.9-15.9); WHITE BLOOD COUNT 8.7 K/mm3 (4.0-10.0)
[2022-02-09 11:09] LABS: ALBUMIN 1.8 g/dl (3.4-5.0); BLOOD UREA NITROGEN 12.9 mg/dL (7-18)
[2022-02-09 11:11] LABS: CREATININE 0.5 mg/dL (0.55-1.3)
[2022-02-09 11:13] LABS: BILIRUBIN,TOTAL 0.4 mg/dL (0.2-1)
[2022-02-09] MEDS: NYSTATIN 100000 UNIT/GM TOPICAL OINTMENT 15 GM TUBE TP SCH ×2 (12:49→21:16)
[2022-02-09] MEDS: BACITRACIN 15 GM TUBE TOPICAL OINTMENT TP SCH (12:49)
[2022-02-09] MEDS: ATORVASTATIN CA 10 MG TABLET (FP) PO SCH (21:15)
[2022-02-10] MEDS: AMINO ACIDS/PROTEIN HYDROLYS 30 ML LIQUID.PKT PO SCH ×2 (08:25→17:00)
[2022-02-10] MEDS: CLOPIDOGREL BISULFATE 75 MG TABLET (FP) PO SCH (09:55)
[2022-02-10] MEDS: BACITRACIN 15 GM TUBE TOPICAL OINTMENT TP SCH (09:55)
[2022-02-10] MEDS: MULTIVITAMINS (DAILY MVI) TABLET (FP) PO SCH (09:55)
[2022-02-10] MEDS: ZINC SULFATE 220 MG CAPSULE (FP) PO SCH (09:55)
[2022-02-10] MEDS: ASCORBIC ACID 500 MG TABLET (FP) PO SCH (09:55)
[2022-02-10] MEDS: POLYETHYLENE GLYCOL (HEALTHYLAX) 3350 17 GM PACKET PO SCH ×2 (09:55→10:06)
[2022-02-10] MEDS: CARBIDOPA/LEVODOPA 25/100 TABLET (FP) PO SCH ×4 (09:55→23:16)
[2022-02-10] MEDS: ENOXAPARIN NA (PORCINE) 40 MG/0.4 ML DISP.SYRIN SQ SCH ×2 (09:55→23:15)
[2022-02-10] MEDS: NYSTATIN 100000 UNIT/GM TOPICAL OINTMENT 15 GM TUBE TP SCH ×2 (09:56→23:18)
[2022-02-10 12:35] LABS: BASO % 0.9 % (0-2.0); EOS % 1.2 % (0-4.5); HEMATOCRIT 36.5 % (35.4-49); HEMOGLOBIN 12.5 GM/dL (11.7-16.9); LYMPH % 14.2 % (8-40); MCH 28.8 pg (25.7-33.7); MCHC 34.3 g/dl (32.0-35.9); MEAN CELL VOLUME 84.2 fl (80-96); MEAN PLT VOLUME 6.6 fl (7.5-11.1); MONO % 5.4 % (3.8-10.2); NEUT % 78.3 % (42.8-82.8); PLATELET COUNT 704 10^3/uL (134-434); RBC 4.33 M/mm3 (4.00-5.60); RDW 15.9 % (11.9-15.9); WHITE BLOOD COUNT 9.3 K/mm3 (4.0-10.0)
[2022-02-10 13:00] LABS: BLOOD UREA NITROGEN 16.8 mg/dL (7-18); CALCIUM 8.7 mg/dL (8.5-10.1)
[2022-02-10 13:07] LABS: BILIRUBIN,TOTAL 0.3 mg/dL (0.2-1); CREATININE 0.5 mg/dL (0.55-1.3); TOT PROT 5.3 g/dl (6.4-8.2)
[2022-02-10] MEDS: SODIUM CHLORIDE 0.45% 1,000 ML IV SCH (15:03)
[2022-02-10] MEDS: SODIUM ZIRCONIUM CYCLOSILICATE (LOKELMA) 5 GM PACKET PO SCH (15:04)
[2022-02-10] MEDS: BACLOFEN 10 MG TABLET (FP) PO SCH (23:16)
[2022-02-10] MEDS: ATORVASTATIN CA 10 MG TABLET (FP) PO SCH (23:16)
[2022-02-11] MEDS: SODIUM CHLORIDE 0.45% 1,000 ML IV SCH ×2 (06:38→14:42)
[2022-02-11] MEDS: AMINO ACIDS/PROTEIN HYDROLYS 30 ML LIQUID.PKT PO SCH ×2 (08:02→17:18)
[2022-02-11] MEDS: BACLOFEN 10 MG TABLET (FP) PO SCH ×3 (09:21→22:27)
[2022-02-11] MEDS: POLYETHYLENE GLYCOL (HEALTHYLAX) 3350 17 GM PACKET PO SCH (09:21)
[2022-02-11] MEDS: ZINC SULFATE 220 MG CAPSULE (FP) PO SCH (09:21)
[2022-02-11] MEDS: MULTIVITAMINS (DAILY MVI) TABLET (FP) PO SCH (09:21)
[2022-02-11] MEDS: ASCORBIC ACID 500 MG TABLET (FP) PO SCH (09:21)
[2022-02-11] MEDS: CARBIDOPA/LEVODOPA 25/100 TABLET (FP) PO SCH ×4 (09:21→22:26)
[2022-02-11] MEDS: DOCUSATE NA 100 MG/10 ML UNIT-DOSE CUPS PO SCH (09:21)
[2022-02-11] MEDS: ENOXAPARIN NA (PORCINE) 40 MG/0.4 ML DISP.SYRIN SQ SCH ×2 (09:22→22:26)
[2022-02-11] MEDS: BACITRACIN 15 GM TUBE TOPICAL OINTMENT TP SCH (09:22)
[2022-02-11] MEDS: CLOPIDOGREL BISULFATE 75 MG TABLET (FP) PO SCH (09:22)
[2022-02-11] MEDS: SODIUM ZIRCONIUM CYCLOSILICATE (LOKELMA) 5 GM PACKET PO SCH (09:22)
[2022-02-11] MEDS: NYSTATIN 100000 UNIT/GM TOPICAL OINTMENT 15 GM TUBE TP SCH ×2 (09:25→22:27)
[2022-02-11 12:55] LABS: HEMATOCRIT 34.9 % (35.4-49); HEMOGLOBIN 11.6 GM/dL (11.7-16.9); MCH 28.2 pg (25.7-33.7); MCHC 33.3 g/dl (32.0-35.9); MEAN CELL VOLUME 84.6 fl (80-96); MEAN PLT VOLUME 7.2 fl (7.5-11.1); PLATELET COUNT 628 10^3/uL (134-434); RBC 4.13 M/mm3 (4.00-5.60); RDW 15.5 % (11.9-15.9); WHITE BLOOD COUNT 7.7 K/mm3 (4.0-10.0)
[2022-02-11 13:25] LABS: ALBUMIN 1.8 g/dl (3.4-5.0); CALCIUM 7.8 mg/dL (8.5-10.1)
[2022-02-11 13:28] LABS: CREATININE 0.4 mg/dL (0.55-1.3)
[2022-02-11 13:29] LABS: BILIRUBIN,TOTAL 0.5 mg/dL (0.2-1); PHOSPHOROUS 2.4 mg/dL (2.5-4.9); TOT PROT 4.9 g/dl (6.4-8.2)
[2022-02-11] MEDS ORDERED: NAPH,MB-DB/K PH,MBDB POWDER PACKET PO ONE (18:20)
[2022-02-11] MEDS: SENNOSIDES 8.6MG TABLET (FP) PO SCH (22:26)
[2022-02-11] MEDS: ATORVASTATIN CA 10 MG TABLET (FP) PO SCH (22:26)
[2022-02-12] MEDS: BACLOFEN 10 MG TABLET (FP) PO SCH ×3 (06:35→22:55)
[2022-02-12] MEDS: AMINO ACIDS/PROTEIN HYDROLYS 30 ML LIQUID.PKT PO SCH ×2 (08:29→17:27)
[2022-02-12] MEDS: CLOPIDOGREL BISULFATE 75 MG TABLET (FP) PO SCH (10:24)
[2022-02-12] MEDS: DOCUSATE NA 100 MG/10 ML UNIT-DOSE CUPS PO SCH (10:24)
[2022-02-12] MEDS: ZINC SULFATE 220 MG CAPSULE (FP) PO SCH (10:24)
[2022-02-12] MEDS: ENOXAPARIN NA (PORCINE) 40 MG/0.4 ML DISP.SYRIN SQ SCH ×2 (10:24→22:55)
[2022-02-12] MEDS: ASCORBIC ACID 500 MG TABLET (FP) PO SCH (10:24)
[2022-02-12] MEDS: CARBIDOPA/LEVODOPA 25/100 TABLET (FP) PO SCH ×4 (10:24→22:55)
[2022-02-12] MEDS: MULTIVITAMINS (DAILY MVI) TABLET (FP) PO SCH (10:24)
[2022-02-12] MEDS: BACITRACIN 15 GM TUBE TOPICAL OINTMENT TP SCH (10:25)
[2022-02-12] MEDS: NYSTATIN 100000 UNIT/GM TOPICAL OINTMENT 15 GM TUBE TP SCH ×2 (10:25→22:56)
[2022-02-12] MEDS: POLYETHYLENE GLYCOL (HEALTHYLAX) 3350 17 GM PACKET PO SCH (10:25)
[2022-02-12 14:42] VITALS: RESP 18
[2022-02-12] MEDS ORDERED: MINERAL OIL ENEMA 133 ML ENEMA RC ONE (15:31)
[2022-02-12] MEDS: ATORVASTATIN CA 10 MG TABLET (FP) PO SCH (22:54)
[2022-02-12] MEDS: SENNOSIDES 8.6MG TABLET (FP) PO SCH (22:54)
[2022-02-13 05:19] VITALS: BP 130/90; PULSE 84; TEMP 97.7
[2022-02-13] MEDS: BACLOFEN 10 MG TABLET (FP) PO SCH (06:20)
[2022-02-13] MEDS: AMINO ACIDS/PROTEIN HYDROLYS 30 ML LIQUID.PKT PO SCH (08:18)
[2022-02-13] MEDS: ZINC SULFATE 220 MG CAPSULE (FP) PO SCH (11:10)
[2022-02-13] MEDS: ASCORBIC ACID 500 MG TABLET (FP) PO SCH (11:10)
[2022-02-13] MEDS: MULTIVITAMINS (DAILY MVI) TABLET (FP) PO SCH (11:10)
[2022-02-13] MEDS: CLOPIDOGREL BISULFATE 75 MG TABLET (FP) PO SCH (11:10)
[2022-02-13] MEDS: CARBIDOPA/LEVODOPA 25/100 TABLET (FP) PO SCH (11:11)
[2022-02-13] MEDS: NYSTATIN 100000 UNIT/GM TOPICAL OINTMENT 15 GM TUBE TP SCH (11:11)
[2022-02-13] MEDS: ENOXAPARIN NA (PORCINE) 40 MG/0.4 ML DISP.SYRIN SQ SCH (11:12)
[2022-02-13] MEDS: BACITRACIN 15 GM TUBE TOPICAL OINTMENT TP SCH (11:23)
[2022-02-13] MEDS: POLYETHYLENE GLYCOL (HEALTHYLAX) 3350 17 GM PACKET PO SCH (11:24)
[2022-02-13] MEDS: DOCUSATE NA 100 MG/10 ML UNIT-DOSE CUPS PO SCH (11:24)
== END 2022-02-13 12:45 | disposition home health service (06) | DRG 871 ==
LOC: JER 04:15 → JERBED 06:00 → J6S 18:35
PROVIDERS: ADMIT Internal Medicine
DX: A41.89 Other specified sepsis (principal); E43 Unspecified severe protein-calorie malnutrition; R53.2 Functional quadriplegia; J96.01 Acute respiratory failure with hypoxia; Z68.1 Body mass index [BMI] 19.9 or less, adult; E87.2 Acidosis; R64 Cachexia; N39.0 Urinary tract infection, site not specified; E87.0 Hyperosmolality and hypernatremia; J44.9 Chronic obstructive pulmonary disease, unspecified; E86.0 Dehydration; I25.10 Atherosclerotic heart disease of native coronary artery without angina pectoris; E78.5 Hyperlipidemia, unspecified; R62.7 Adult failure to thrive; G20 Parkinson's disease; F03.90 Unspecified dementia, unspecified severity, without behavioral disturbance, psychotic disturbance, mood disturbance, and anxiety; D75.839 Thrombocytosis, unspecified; I73.9 Peripheral vascular disease, unspecified; E87.5 Hyperkalemia; D72.829 Elevated white blood cell count, unspecified; B96.5 Pseudomonas (aeruginosa) (mallei) (pseudomallei) as the cause of diseases classified elsewhere; I25.2 Old myocardial infarction; L89.152 Pressure ulcer of sacral region, stage 2; L89.522 Pressure ulcer of left ankle, stage 2; Z86.73 Personal history of transient ischemic attack (TIA), and cerebral infarction without residual deficits; Z74.01 Bed confinement status; Z95.1 Presence of aortocoronary bypass graft; Z95.5 Presence of coronary angioplasty implant and graft
CPT/HCPCS: 0241U-QW; 36415; 36600; 71045-TC-FY; 75635-TC; 80048; 80053; 81003; 82550; 82803; 82962; 83605; 83735; 84100; 84484; 85025; 85027; 85610; 85730; 86850; 86900; 86901; 87040; 87086; 87186; 93005; 93010; 94761; 97161-GP; 99285-25; E0186; J0475; Q9967

== ENCOUNTER 2022-02-17 23:49 | Inpatient (IN) | payer OTHER, BC ==
[2022-02-18] MEDS ORDERED: SODIUM CHLORIDE 1,497 ML IV ONE (00:35)
[2022-02-18] MEDS ORDERED: ACETAMINOPHEN 1000 MG/100 ML BAG IVPB ONE (00:36)
[2022-02-18] MEDS ORDERED: VANCOMYCIN 1 GM in D5W (PRE-DOCKED) 1,000 MG/250 ML IVPB ONE (00:37)
[2022-02-18] MEDS ORDERED: PIPERACILLIN/TAZOB 4.5 GM 4.5 GM in DEXTROSE 5%-WATER 100 ML IVPB ONE (00:37)
[2022-02-18] MEDS ORDERED: ACETAMINOPHEN INJECTION 100 ML IVPB ONE (00:39)
[2022-02-18] MEDS ORDERED: PIPERACILLIN/TAZOB 4.5 GM 4.5 GM/100 ML BAG IVPB ONE (00:55)
[2022-02-18] MEDS ORDERED: VANCOMYCIN/WATER FOR INJ (PEG) 1,000 MG/200 ML BAG IVPB ONE (00:55)
[2022-02-18 01:02] VITALS: BMI 18.8
[2022-02-18 01:22] LABS: VENOUS BASE EXCESS 4.8 mmol/L (-2-2); VENOUS O2 SATURATION 60.8 % (70-80); VENOUS PCO2 54.1 mmHg (38-52); VENOUS PH 7.382 (7.310-7.410)
[2022-02-18 01:33] LABS: HEMATOCRIT 41.6 % (35.4-49); HEMOGLOBIN 13.7 GM/dL (11.7-16.9); MCH 28.1 pg (25.7-33.7); MEAN CELL VOLUME 85.1 fl (80-96); MEAN PLT VOLUME 6.9 fl (7.5-11.1); PLATELET COUNT 434 10^3/uL (134-434); RBC 4.89 M/mm3 (4.00-5.60); RDW 15.8 % (11.9-15.9); WHITE BLOOD COUNT 13.7 K/mm3 (4.0-10.0)
[2022-02-18 01:47] LABS: INR 1.28 (0.83-1.09); PROTHROMBIN TIME (PATIENT) 14.7 SEC (9.7-13.0)
[2022-02-18 01:49] LABS: ACTIVATED PTT 30.3 SECONDS (25.2-36.5)
[2022-02-18 01:50] LABS: CHLORIDE 108 mmol/L (98-107); SODIUM 144 mmol/L (136-145)
[2022-02-18 01:52] LABS: BLOOD UREA NITROGEN 31.1 mg/dL (7-18); CALCIUM 8.1 mg/dL (8.5-10.1)
[2022-02-18 01:53] LABS: ANION GAP 7 MMOL/L (8-16); CO2 29 mmol/L (21-32); GLUCOSE,RANDOM 85 mg/dL (74-106); MAGNESIUM 1.8 mg/dL (1.8-2.4)
[2022-02-18 01:56] LABS: BILIRUBIN,TOTAL 0.5 mg/dL (0.2-1); CREATININE 0.7 mg/dL (0.55-1.3); SGOT/AST 20 U/L (15-37); SGPT/ALT 22 U/L (13-61); TOT PROT 5.6 g/dl (6.4-8.2)
[2022-02-18 01:58] LABS: ALK PHOS 80 U/L (45-117)
[2022-02-18 02:09] LABS: ALBUMIN 2.2 g/dl (3.4-5.0); LACTIC ACID 3.1 mmol/L (0.4-2.0)
[2022-02-18] MEDS ORDERED: ACETAMINOPHEN 500 MG TABLET (FP) PO PRN (06:14)
[2022-02-18 06:17] LABS: EPI CELLS 2 /uL (0-25.1); HYALINE CASTS 3 /uL (0-3.1); PH,URINE 5.5 (5.0-8.0); URINE APPEARANCE TURBID; URINE BACTERIA >9,000 /uL (0-1359); URINE BILIRUBIN NEGATIVE (NEGATIVE); URINE COLOR YELLOW; URINE GLUCOSE (UA) NEGATIVE (NEGATIVE); URINE KETONE NEGATIVE (NEGATIVE); URINE LEUK ESTERASE 3+ (NEGATIVE); URINE NITRITE NEGATIVE (NEGATIVE); URINE PROTEIN 1+ (NEGATIVE); URINE WBC 4787 /uL (0-25.8)
[2022-02-18] MEDS: LACTATED RINGERS SOLUTION 1,000 ML/1,000 ML INFUS.BAG IV SCH (07:38)
[2022-02-18] MEDS ORDERED: DEXTROSE 50%-WATER 25 GM/50 ML DISP.SYRIN ONE ×3 (07:41→17:34)
[2022-02-18] MEDS ORDERED: DEXTROSE 50%-WATER - 25 GM/50 ML VIAL IVPUSH ONE ×3 (07:41→19:45)
[2022-02-18] MEDS ORDERED: CLOPIDOGREL BISULFATE 75 MG TABLET (FP) ONE (08:59)
[2022-02-18] MEDS ORDERED: APIXABAN 5 MG TABLET ONE (08:59)
[2022-02-18] MEDS: APIXABAN 5 MG TABLET PO SCH ×2 (09:11→22:28)
[2022-02-18] MEDS: CLOPIDOGREL BISULFATE 75 MG TABLET (FP) PO SCH (09:12)
[2022-02-18] MEDS: MEROPENEM 1 GM in DEXTROSE 5%-WATER 100 ML IVPB SCH ×2 (10:18→18:47)
[2022-02-18 11:06] LABS: URINE RBC 77 /uL (0-23.9); YEAST NEGATIVE (NEGATIVE)
[2022-02-18 13:20] LABS: MCH 27.6 pg (25.7-33.7); MCHC 31.6 g/dl (32.0-35.9); MEAN CELL VOLUME 87.2 fl (80-96); MEAN PLT VOLUME 7.4 fl (7.5-11.1); PLATELET COUNT 370 10^3/uL (134-434); RBC 4.71 M/mm3 (4.00-5.60); RDW 16.4 % (11.9-15.9); WHITE BLOOD COUNT 18.2 K/mm3 (4.0-10.0)
[2022-02-18 14:15] LABS: BLOOD UREA NITROGEN 26.3 mg/dL (7-18); CALCIUM 8.2 mg/dL (8.5-10.1); TOT PROT 5.1 g/dl (6.4-8.2)
[2022-02-18 14:17] LABS: PHOSPHOROUS 2.6 mg/dL (2.5-4.9)
[2022-02-18 14:18] LABS: CREATININE 0.6 mg/dL (0.55-1.3); MAGNESIUM 1.9 mg/dL (1.8-2.4)
[2022-02-18 14:19] LABS: ANISOCYTOSIS 1+; MACROCYTOSIS 0; PLATELET ESTIMATE NORMAL
[2022-02-18 14:20] LABS: BILIRUBIN,TOTAL 0.7 mg/dL (0.2-1)
[2022-02-18] MEDS ORDERED: DEXTROSE 50%-WATER 25 GM/50 ML DISP.SYRIN IVPUSH ONE ×3 (17:31→17:43)
[2022-02-18] MEDS ORDERED: LACTATED RINGERS SOLUTION 1000 ML INFUS.BAG IV ONE (17:36)
[2022-02-18] MEDS ORDERED: DEXTROSE 5%-LACTATED RINGERS 1,000 ML IV SCH (17:45)
[2022-02-18] MEDS: ATORVASTATIN CA 10 MG TABLET (FP) PO SCH (22:28)
[2022-02-19] MEDS: MEROPENEM 1 GM in DEXTROSE 5%-WATER 100 ML IVPB SCH (01:17)
[2022-02-19] MEDS ORDERED: VANCOMYCIN 1 GM/200 ML PREMIX BAG IVPB SCH (02:00)
[2022-02-19] MEDS ORDERED: DEXTROSE 50%-WATER - 25 GM/50 ML VIAL IVPUSH PRN ×4 (02:03→20:14)
[2022-02-19] MEDS ORDERED: DEXTROSE 10%-WATER - 1,000 ML IV SCH ×3 (02:15→11:52)
[2022-02-19] MEDS ORDERED: DEXTROSE 50%-WATER 25 GM/50 ML DISP.SYRIN IVPUSH ONE ×4 (02:24→12:12)
[2022-02-19] MEDS ORDERED: DEXTROSE 50%-WATER 25 GM/50 ML DISP.SYRIN IVPUSH PRN ×2 (02:25→12:12)
[2022-02-19] MEDS ORDERED: DEXTROSE 50%-WATER 25 GM/50 ML DISP.SYRIN ONE ×3 (05:51→12:14)
[2022-02-19] MEDS ORDERED: MEROPENEM 1 GM in DEXTROSE 5%-WATER 100 ML IVPB SCH (10:00)
[2022-02-19] MEDS: APIXABAN 5 MG TABLET PO SCH (10:00)
[2022-02-19] MEDS: LACTATED RINGERS SOLUTION 1,000 ML/1,000 ML INFUS.BAG IV SCH (10:00)
[2022-02-19] MEDS: CLOPIDOGREL BISULFATE 75 MG TABLET (FP) PO SCH (10:01)
[2022-02-19] MEDS ORDERED: LACTATED RINGERS SOLUTION 1,000 ML/1,000 ML INFUS.BAG IV SCH (11:00)
[2022-02-19] MEDS ORDERED: DEXTROSE 50%-WATER - 25 GM/50 ML VIAL IVPUSH ONE ×2 (11:14→12:12)
[2022-02-19] MEDS ORDERED: GLUCAGON 1 MG KIT IVPUSH ONE (11:52)
[2022-02-19] MEDS ORDERED: GLUCAGON 1 MG KIT ONE (11:55)
[2022-02-19] MEDS ORDERED: HYDROCORTISONE SOD SUCCINATE 100 MG/2 ML VIAL IVPB SCH (12:00)
[2022-02-19] MEDS ORDERED: AMINO ACIDS 4.25%/D5W 1,000 ML IV SCH (12:00)
[2022-02-19 12:32] LABS: CALCIUM 7.6 mg/dL (8.5-10.1)
[2022-02-19 12:33] LABS: BLOOD UREA NITROGEN 16.1 mg/dL (7-18)
[2022-02-19 12:36] LABS: CREATININE 0.5 mg/dL (0.55-1.3)
[2022-02-19 13:11] LABS: HEMATOCRIT 34.2 % (35.4-49); MCH 27.8 pg (25.7-33.7); MCHC 32.2 g/dl (32.0-35.9); MEAN CELL VOLUME 86.3 fl (80-96); MEAN PLT VOLUME 7.9 fl (7.5-11.1); PLATELET COUNT 324 10^3/uL (134-434); RBC 3.97 M/mm3 (4.00-5.60); RDW 16.2 % (11.9-15.9); WHITE BLOOD COUNT 14.1 K/mm3 (4.0-10.0)
[2022-02-19] MEDS: ENOXAPARIN NA (PORCINE) 40 MG/0.4 ML DISP.SYRIN SQ SCH ×2 (13:31→22:51)
[2022-02-19] MEDS: AMINO ACIDS 4.25%/D5W 1,000 ML IV SCH (15:51)
[2022-02-19] MEDS: LORazepam 2 MG/ML SDV VIAL IVPUSH SCH ×2 (16:54→22:52)
[2022-02-19] MEDS: ATORVASTATIN CA 10 MG TABLET (FP) PO SCH (22:51)
[2022-02-20] MEDS ORDERED: VANCOMYCIN 1 GM/200 ML PREMIX BAG IVPB SCH (02:00)
[2022-02-20] MEDS: LORazepam 2 MG/ML SDV VIAL IVPUSH SCH ×3 (06:57→22:23)
[2022-02-20 07:39] LABS: CALCIUM 8.2 mg/dL (8.5-10.1)
[2022-02-20 07:40] LABS: BLOOD UREA NITROGEN 17.8 mg/dL (7-18)
[2022-02-20 07:43] LABS: CREATININE 0.4 mg/dL (0.55-1.3)
[2022-02-20 07:53] LABS: HEMATOCRIT 39.8 % (35.4-49); HEMOGLOBIN 12.8 GM/dL (11.7-16.9); MCH 27.5 pg (25.7-33.7); MCHC 32.2 g/dl (32.0-35.9); MEAN CELL VOLUME 85.5 fl (80-96); MEAN PLT VOLUME 8.2 fl (7.5-11.1); PLATELET COUNT 345 10^3/uL (134-434); RBC 4.65 M/mm3 (4.00-5.60); WHITE BLOOD COUNT 19.4 K/mm3 (4.0-10.0)
[2022-02-20] MEDS: ENOXAPARIN NA (PORCINE) 40 MG/0.4 ML DISP.SYRIN SQ SCH ×2 (09:45→22:33)
[2022-02-20] MEDS: CLOPIDOGREL BISULFATE 75 MG TABLET (FP) PO SCH (09:46)
[2022-02-20] MEDS: AMINO ACIDS 4.25%/D5W 1,000 ML IV SCH ×2 (10:57→13:12)
[2022-02-20] MEDS ORDERED: PIMAVANSERIN TARTRATE PO SCH (12:59)
[2022-02-20] MEDS: MEROPENEM 1 GM in DEXTROSE 5%-WATER 100 ML IVPB SCH ×2 (15:48→20:09)
[2022-02-20] MEDS ORDERED: AMANTADINE HCL PO SCH (16:00)
[2022-02-20] MEDS: ATORVASTATIN CA 10 MG TABLET (FP) PO SCH (22:23)
[2022-02-21] MEDS: MEROPENEM 1 GM in DEXTROSE 5%-WATER 100 ML IVPB SCH ×2 (02:54→22:36)
[2022-02-21] MEDS ORDERED: DEXTROSE 50%-WATER - 25 GM/50 ML VIAL IVPUSH PRN (03:43)
[2022-02-21] MEDS ORDERED: ACETAMINOPHEN 500 MG TABLET (FP) PO PRN (03:43)
[2022-02-21] MEDS: AMANTADINE PO SCH ×3 (03:44→11:55)
[2022-02-21] MEDS: PATIENT'S OWN MEDICATION (NON-FORMULARY) (Pimavanserin Tartrate [Nuplazid] 34 MG Capsule) PO SCH ×3 (03:45→11:55)
[2022-02-21] MEDS ORDERED: LORazepam 2 MG/ML SDV VIAL IVPUSH SCH (06:00)
[2022-02-21 09:24] LABS: MCHC 34.4 g/dl (32.0-35.9); MEAN CELL VOLUME 84.3 fl (80-96); MEAN PLT VOLUME 7.8 fl (7.5-11.1); PLATELET COUNT 382 10^3/uL (134-434); RBC 4.15 M/mm3 (4.00-5.60); RDW 15.7 % (11.9-15.9)
[2022-02-21] MEDS ORDERED: AMANTADINE HCL PO SCH (10:00)
[2022-02-21] MEDS ORDERED: PIMAVANSERIN TARTRATE PO SCH (10:00)
[2022-02-21 10:24] LABS: BLOOD UREA NITROGEN 21.8 mg/dL (7-18)
[2022-02-21 10:27] LABS: CREATININE 0.3 mg/dL (0.55-1.3)
[2022-02-21] MEDS: CLOPIDOGREL BISULFATE 75 MG TABLET (FP) PO SCH (11:54)
[2022-02-21] MEDS: KCL 10 MEQ IVPB 10 MEQ/100 ML INFUS.BAG IVPB SCH ×2 (11:55→13:05)
[2022-02-21] MEDS: ENOXAPARIN NA (PORCINE) 40 MG/0.4 ML DISP.SYRIN SQ SCH ×2 (11:55→21:50)
[2022-02-21] MEDS: AMINO ACIDS 4.25%/D5W 1,000 ML IV SCH ×2 (11:56→14:57)
[2022-02-21] MEDS: COLLAGENASE CLOSTRIDIUM HIST. 30 GRAMS TUBE TP SCH (14:56)
[2022-02-21] MEDS: ATORVASTATIN CA 10 MG TABLET (FP) PO SCH (21:50)
[2022-02-22] MEDS ORDERED: MEROPENEM 1 GM VIAL (RESTRICTED TO ID) IVPB ONE (04:55)
[2022-02-22] MEDS: MEROPENEM 1 GM in DEXTROSE 5%-WATER 100 ML IVPB SCH ×4 (05:47→21:45)
[2022-02-22] MEDS: CLOPIDOGREL BISULFATE 75 MG TABLET (FP) PO SCH (09:56)
[2022-02-22] MEDS: ENOXAPARIN NA (PORCINE) 40 MG/0.4 ML DISP.SYRIN SQ SCH ×2 (09:56→21:45)
[2022-02-22] MEDS: AMANTADINE PO SCH (09:57)
[2022-02-22] MEDS: PATIENT'S OWN MEDICATION (NON-FORMULARY) (Pimavanserin Tartrate [Nuplazid] 34 MG Capsule) PO SCH (09:58)
[2022-02-22] MEDS: COLLAGENASE CLOSTRIDIUM HIST. 30 GRAMS TUBE TP SCH (09:58)
[2022-02-22 10:48] LABS: HEMATOCRIT 33.7 % (35.4-49); HEMOGLOBIN 11.3 GM/dL (11.7-16.9); MCH 27.9 pg (25.7-33.7); MCHC 33.4 g/dl (32.0-35.9); MEAN CELL VOLUME 83.5 fl (80-96); MEAN PLT VOLUME 7.7 fl (7.5-11.1); PLATELET COUNT 411 10^3/uL (134-434); RBC 4.03 M/mm3 (4.00-5.60); RDW 15.8 % (11.9-15.9); WHITE BLOOD COUNT 7.8 K/mm3 (4.0-10.0)
[2022-02-22] MEDS ORDERED: FAT EMULSION/OLIVE/SOY (CLINOLIPID) 250 ML EMULSION IV SCH (10:50)
[2022-02-22 11:06] LABS: CALCIUM 7.6 mg/dL (8.5-10.1)
[2022-02-22 11:07] LABS: BLOOD UREA NITROGEN 20.5 mg/dL (7-18); MAGNESIUM 1.5 mg/dL (1.8-2.4)
[2022-02-22 11:10] LABS: CREATININE 0.3 mg/dL (0.55-1.3)
[2022-02-22] MEDS: AMINO ACIDS 4.25%/D5W 1,000 ML IV SCH (13:39)
[2022-02-22] MEDS: FAT EMULSION/OLIVE/SOY/PHOSPHO 250 ML IV SCH (21:37)
[2022-02-22] MEDS: ATORVASTATIN CA 10 MG TABLET (FP) PO SCH (21:44)
[2022-02-23] MEDS: MEROPENEM 1 GM in DEXTROSE 5%-WATER 100 ML IVPB SCH ×3 (05:55→21:24)
[2022-02-23] MEDS: CLOPIDOGREL BISULFATE 75 MG TABLET (FP) PO SCH (09:19)
[2022-02-23] MEDS: ENOXAPARIN NA (PORCINE) 40 MG/0.4 ML DISP.SYRIN SQ SCH ×2 (09:19→21:23)
[2022-02-23] MEDS: COLLAGENASE CLOSTRIDIUM HIST. 30 GRAMS TUBE TP SCH (09:20)
[2022-02-23] MEDS: PATIENT'S OWN MEDICATION (NON-FORMULARY) (Pimavanserin Tartrate [Nuplazid] 34 MG Capsule) PO SCH (09:20)
[2022-02-23] MEDS: AMANTADINE PO SCH (09:20)
[2022-02-23] MEDS: AMINO ACIDS 4.25%/D5W 1,000 ML IV SCH (11:54)
[2022-02-23] MEDS: ATORVASTATIN CA 10 MG TABLET (FP) PO SCH (21:23)
[2022-02-23] MEDS: FAT EMULSION/OLIVE/SOY/PHOSPHO 250 ML IV SCH (21:32)
[2022-02-24] MEDS: AMINO ACIDS 4.25%/D5W 1,000 ML IV SCH ×3 (02:50→16:35)
[2022-02-24] MEDS: MEROPENEM 1 GM in DEXTROSE 5%-WATER 100 ML IVPB SCH ×3 (05:35→21:47)
[2022-02-24] MEDS: CLOPIDOGREL BISULFATE 75 MG TABLET (FP) PO SCH (09:46)
[2022-02-24] MEDS: ENOXAPARIN NA (PORCINE) 40 MG/0.4 ML DISP.SYRIN SQ SCH ×2 (09:46→21:46)
[2022-02-24] MEDS: AMANTADINE PO SCH (09:47)
[2022-02-24] MEDS: PATIENT'S OWN MEDICATION (NON-FORMULARY) (Pimavanserin Tartrate [Nuplazid] 34 MG Capsule) PO SCH (09:48)
[2022-02-24] MEDS: COLLAGENASE CLOSTRIDIUM HIST. 30 GRAMS TUBE TP SCH (09:57)
[2022-02-24] MEDS: FAT EMULSION/OLIVE/SOY/PHOSPHO 250 ML IV SCH (21:45)
[2022-02-24] MEDS: ATORVASTATIN CA 10 MG TABLET (FP) PO SCH (21:46)
[2022-02-25] MEDS: MEROPENEM 1 GM in DEXTROSE 5%-WATER 100 ML IVPB SCH ×3 (06:40→22:16)
[2022-02-25] MEDS: AMINO ACIDS 4.25%/D5W 1,000 ML IV SCH ×3 (07:59→19:17)
[2022-02-25] MEDS: ENOXAPARIN NA (PORCINE) 40 MG/0.4 ML DISP.SYRIN SQ SCH (10:31)
[2022-02-25] MEDS: AMANTADINE PO SCH (10:31)
[2022-02-25] MEDS: CLOPIDOGREL BISULFATE 75 MG TABLET (FP) PO SCH (10:32)
[2022-02-25] MEDS: PATIENT'S OWN MEDICATION (NON-FORMULARY) (Pimavanserin Tartrate [Nuplazid] 34 MG Capsule) PO SCH (10:32)
[2022-02-25] MEDS: COLLAGENASE CLOSTRIDIUM HIST. 30 GRAMS TUBE TP SCH (10:33)
[2022-02-25 13:02] LABS: BASO % 0.5 % (0-2.0); EOS % 2.5 % (0-4.5); HEMATOCRIT 33.8 % (35.4-49); HEMOGLOBIN 11.4 GM/dL (11.7-16.9); LYMPH % 10.9 % (8-40); MCH 28.4 pg (25.7-33.7); MCHC 33.6 g/dl (32.0-35.9); MEAN CELL VOLUME 84.7 fl (80-96); NEUT % 76.1 % (42.8-82.8); PLATELET COUNT 576 10^3/uL (134-434); RDW 15.9 % (11.9-15.9); WHITE BLOOD COUNT 9.1 K/mm3 (4.0-10.0)
[2022-02-25] MEDS ORDERED: MEROPENEM 1 GM VIAL (RESTRICTED TO ID) IVPB ONE (13:12)
[2022-02-25 13:26] LABS: ALBUMIN 1.6 g/dl (3.4-5.0); BLOOD UREA NITROGEN 26.3 mg/dL (7-18); CALCIUM 7.5 mg/dL (8.5-10.1)
[2022-02-25 13:29] LABS: CREATININE 0.4 mg/dL (0.55-1.3)
[2022-02-25 13:31] LABS: BILIRUBIN,TOTAL 0.3 mg/dL (0.2-1); TOT PROT 4.9 g/dl (6.4-8.2)
[2022-02-25] MEDS: FAT EMULSION/OLIVE/SOY/PHOSPHO 250 ML IV SCH (22:14)
[2022-02-25] MEDS: APIXABAN 5 MG TABLET PO SCH (22:15)
[2022-02-25] MEDS: ATORVASTATIN CA 10 MG TABLET (FP) PO SCH (22:15)
[2022-02-26] MEDS: AMINO ACIDS 4.25%/D5W 1,000 ML IV SCH ×3 (03:21→18:29)
[2022-02-26] MEDS: MEROPENEM 1 GM in DEXTROSE 5%-WATER 100 ML IVPB SCH ×3 (06:25→14:50)
[2022-02-26] MEDS: APIXABAN 5 MG TABLET PO SCH ×2 (11:27→22:54)
[2022-02-26] MEDS: CLOPIDOGREL BISULFATE 75 MG TABLET (FP) PO SCH (11:27)
[2022-02-26] MEDS: PATIENT'S OWN MEDICATION (NON-FORMULARY) (Pimavanserin Tartrate [Nuplazid] 34 MG Capsule) PO SCH (11:28)
[2022-02-26] MEDS: AMANTADINE PO SCH (11:28)
[2022-02-26] MEDS: COLLAGENASE CLOSTRIDIUM HIST. 30 GRAMS TUBE TP SCH (16:18)
[2022-02-26] MEDS ORDERED: DEXTROSE 50%-WATER 25 GM/50 ML DISP.SYRIN IVPUSH PRN (22:54)
[2022-02-26] MEDS: ATORVASTATIN CA 10 MG TABLET (FP) PO SCH (22:55)
[2022-02-26] MEDS: FAT EMULSION/OLIVE/SOY/PHOSPHO 250 ML IV SCH (22:56)
[2022-02-27] MEDS: AMINO ACIDS 4.25%/D5W 1,000 ML IV SCH ×2 (01:58→13:40)
[2022-02-27 08:15] VITALS: RESP 20
[2022-02-27] MEDS: CLOPIDOGREL BISULFATE 75 MG TABLET (FP) PO SCH (09:30)
[2022-02-27] MEDS: APIXABAN 5 MG TABLET PO SCH ×2 (09:30→23:29)
[2022-02-27] MEDS: COLLAGENASE CLOSTRIDIUM HIST. 30 GRAMS TUBE TP SCH (09:31)
[2022-02-27] MEDS: PATIENT'S OWN MEDICATION (NON-FORMULARY) (Pimavanserin Tartrate [Nuplazid] 34 MG Capsule) PO SCH (09:32)
[2022-02-27] MEDS: AMANTADINE PO SCH (09:32)
[2022-02-27] MEDS: ATORVASTATIN CA 10 MG TABLET (FP) PO SCH (23:29)
[2022-02-28] MEDS: FAT EMULSION/OLIVE/SOY/PHOSPHO 250 ML IV SCH (00:27)
[2022-02-28] MEDS: AMINO ACIDS 4.25%/D5W 1,000 ML IV SCH (03:30)
[2022-02-28 06:30] VITALS: BP 100/58; PULSE 86; TEMP 97.8
[2022-02-28] MEDS: APIXABAN 5 MG TABLET PO SCH (10:03)
[2022-02-28] MEDS: CLOPIDOGREL BISULFATE 75 MG TABLET (FP) PO SCH (10:03)
[2022-02-28] MEDS: AMANTADINE PO SCH (10:04)
[2022-02-28] MEDS: COLLAGENASE CLOSTRIDIUM HIST. 30 GRAMS TUBE TP SCH (10:05)
[2022-02-28] MEDS: PATIENT'S OWN MEDICATION (NON-FORMULARY) (Pimavanserin Tartrate [Nuplazid] 34 MG Capsule) PO SCH (10:05)
== END 2022-02-28 12:00 | disposition home or self-care (01) | DRG 871 ==
LOC: JER 23:49 → JERBED 02-18 00:38 → J4W 02-18 15:16 → J8W 02-20 22:55
PROVIDERS: ADMIT Internal Medicine
PROC: 0T2BX0Z Change Drainage Device in Bladder, External Approach (ICD-10-PCS; principal; 2022-02-25)
DX: A41.9 Sepsis, unspecified organism (principal); E43 Unspecified severe protein-calorie malnutrition; J69.0 Pneumonitis due to inhalation of food and vomit; J96.01 Acute respiratory failure with hypoxia; R53.2 Functional quadriplegia; E87.2 Acidosis; N39.0 Urinary tract infection, site not specified; R64 Cachexia; Z68.1 Body mass index [BMI] 19.9 or less, adult; G20 Parkinson's disease; Z86.16 Personal history of COVID-19; E88.09 Other disorders of plasma-protein metabolism, not elsewhere classified; E78.5 Hyperlipidemia, unspecified; E16.2 Hypoglycemia, unspecified; I70.209 Unspecified atherosclerosis of native arteries of extremities, unspecified extremity; I25.10 Atherosclerotic heart disease of native coronary artery without angina pectoris; R62.7 Adult failure to thrive; F02.80 Dementia in other diseases classified elsewhere, unspecified severity, without behavioral disturbance, psychotic disturbance, mood disturbance, and anxiety; I12.9 Hypertensive chronic kidney disease with stage 1 through stage 4 chronic kidney disease, or unspecified chronic kidney disease; N18.9 Chronic kidney disease, unspecified; L89.152 Pressure ulcer of sacral region, stage 2; L89.899 Pressure ulcer of other site, unspecified stage
CPT/HCPCS: 0241U-QW; 36415; 71045-TC-FY; 80048; 80053; 81003; 82550; 82553; 82803; 82962; 83605; 83735; 84100; 84484; 85025; 85027; 85610; 85730; 86850; 86900; 86901; 87040; 87086; 87186; 93005; 93010; 99285-25